=== PATIENT | female | born 1950 | race Caucasian/White ===

== ENCOUNTER 2016-08-20 08:10 | Inpatient (IN) | payer MEDICARE ==
[2016-08-20] MEDS ORDERED: NS 0.9% 1000 ML* 1,000 ML IV ONE (08:30)
[2016-08-20] MEDS ORDERED: Ondansetron INJ* 2 MG/ML VIAL IV ONE (08:30)
[2016-08-20] MEDS ORDERED: Morphine INJ* 4 MG/ML 1 ML CARPUJECT IV ONE (08:30)
[2016-08-20 09:08] LABS: Hematocrit 45 % (35-47); Hemoglobin 15.1 g/dl (12.0-16.0); Mean Corpuscular HGB Conc 34 g/dl (31-36); Mean Corpuscular Hemoglobin 30 pg (27-31); Mean Corpuscular Volume 90 fL (80-97); Mean Platelet Volume 8 um3 (7.4-10.4); Red Blood Count 5.02 10^6/ul (4.0-5.4); Red Cell Distribution Width 13 % (10.5-15); White Blood Count 10.5 10^3/ul (3.5-10.8)
[2016-08-20 09:24] LABS: BUN/Creatinine Ratio 24.7 (8-20); C Reactive Protein 6.58 mg/L (< 5.00); Calcium 9.3 mg/dL (8.6-10.3); EGFR African American 90.4 (>60); EGFR Non-African American 70.3 (>60); Globulin 2.7 g/dL (2-4); Potassium 3.9 mmol/L (3.5-5.0); Total Bilirubin 1.8 mg/dL (0.2-1.0); Total Protein 6.7 g/dL (6.4-8.9)
--- NOTE | 2016-08-20 09:50 | RAD ---
Indication: Abdominal pain. History of bowel obstruction. History of asthma. Comparison: December 27, 2015 PET/CT. Technique: Dual energy PA chest. Report: Mild prominence of the interstitial markings. Bilateral apical pleural-parenchymal scarring without change. LEFT nipple shadow noted corresponding with patient's anatomy based on prior CT. No suspicious focal pulmonary lesions, alveolar consolidation, pleural effusion, pneumothorax. The heart, pulmonary vasculature, and mediastinal contours are unremarkable. Negative for free air beneath the diaphragm. IMPRESSION: Chronic mild prominence of the interstitial markings. No acute cardiopulmonary process evident.
--- NOTE | 2016-08-20 10:21 | RAD ---
HISTORY: Abdominal pain, history small bowel obstruction COMPARISONS: January 16, 2016 VIEWS: Frontal views of the abdomen. FINDINGS: BOWEL: There is nondilated small bowel gas with differential air-fluid levels . There is large amount of stool within the colon CALCULI: There are no abnormal calculi. BONES AND SOFT TISSUES: There are no osseous abnormalities. OTHER FINDINGS: The lung bases are clear. There is no subphrenic gas. IMPRESSION: NONSPECIFIC BOWEL GAS PATTERN WITH NONDILATED SMALL BOWEL WITH DIFFERENTIAL AIR-FLUID LEVELS. THE DIFFERENTIAL INCLUDES ILEUS VERSUS EARLY OR PARTIAL OBSTRUCTION. RECOMMEND ATTENTION ON FOLLOW-UP IMAGING.
[2016-08-20] MEDS ORDERED: Albuterol 2.5 MG/3 ML NEB.SOL* (0.083%) INH PRN (12:09)
[2016-08-20] MEDS ORDERED: Levalbuterol 1.25MG/0.5ML NEB INH PRN (12:11)
[2016-08-20] MEDS: Morphine INJ* 4 MG/ML 1 ML CARPUJECT IV PRN ×3 (12:37→20:55)
[2016-08-20] MEDS: Pantoprazole IV* 40 MG IV SCH (12:39)
--- NOTE | 2016-08-20 12:44 | ED ---
Danny Bennett Anna, scribed for Nathan Bustillos MD on 08/20/16 at 0833 . GI/ HPI - HPI Summary HPI Summary: Patient is a 66 y/o female coming to [facility] presenting with sudden onset of constant lower abdominal pain that began at 2300 last night. She feels bloated and has been dry heaving. She is somewhat SOB at baseline. Denies gas and diarrhea. Sx similar to previous obstructed bowel. Her history is significant for 2 hiatal hernias, and a perforated bowel from diverticulitis. She still experiences diverticulitis at time. Takes Prednizone. Her previous surgeries have been done at [facility] because of her severe asthma. - History of Current Complaint Chief Complaint: EDAbdPain Time Seen by Provider: 08/20/16 08:13 Stated Complaint: ABD PAIN Hx Obtained From: Patient Pain Intensity: 10 - Additional Pertinent History Primary Care Physician: [id number] - Allergy/Home Medications Allergies/Adverse Reactions: Allergies Allergy/AdvReac Type Severity Reaction Status Date / Time Amoxicillin Allergy Severe Shortness Verified 08/20/16 08:46 of Breath Flu Virus Vaccine Allergy Severe Shortness Verified 08/20/16 08:46 of Breath Penicillins [PCN] Allergy Severe Hives Verified 08/20/16 08:46 PMH/Surg Hx/FS Hx/Imm Hx Endocrine/Hematology History: Reports: Hx Thyroid Disease - HYPOTHYROIDISM Denies: Hx Diabetes Cardiovascular History: Denies: Hx Hypertension Respiratory History: Reports: Hx Asthma, Hx Chronic Bronchitis, Hx Pneumonia, Hx Seasonal Allergies, Other Respiratory Problems/Disorders - PNA GI History: Reports: Hx Diverticulosis, Hx Hiatal Hernia, Other GI Disorders - Hx perforated bowel History: Denies: Hx Renal Disease Musculoskeletal History: Reports: Hx Orthopedic Injury, Hx Osteoporosis Sensory History: Reports: Hx Contacts or Glasses Opthamlomology History: Reports: Hx Contacts or Glasses Neurological History: Denies: Hx Seizures Psychiatric History: Denies: Hx Anxiety, Hx Depression, Hx Substance Abuse - Cancer History Cancer Type, Location and Year: Thyroid Hx Chemotherapy: No Hx Radiation Therapy: No - Surgical History Surgery Procedure, Year, and Place: Hiatal hernia repair x2; thyroidectomy ( [facility]) ; tonsilectomy/sinus surgery; hysterectomy, T&A, REFLUX SURGERY ([facility]) 07/2012 WITH REVISION 12/2012. Hx Anesthesia Reactions: No Infectious Disease History: No Infectious Disease History: Denies: Hx Hepatitis, Hx Human Immunodeficiency Virus (HIV), Hx Tuberculosis , Traveled Outside the [place] in Last 30 Days - Family History Known Family History: Positive: Hypertension - Social History Alcohol Use: None Substance Use Type: Reports: None Smoking Status (MU): Never Smoked Tobacco Review of Systems Negative: Fever Positive: Shortness Of Breath Positive: Abdominal Pain, Vomiting. Negative: Diarrhea All Other Systems Reviewed And Are Negative: Yes Physical Exam Triage Information Reviewed: Yes Vital Signs On Initial Exam: Initial Vitals Temp Pulse Resp BP Pulse Ox 97.8 F 74 16 114/72 95 08/20/16 08:10 08/20/16 08:10 08/20/16 08:10 08/20/16 08:10 08/20/16 08:10 Vital Signs Reviewed: Yes Appearance: Positive: Well-Appearing, Pain Distress - moderate Skin: Positive: Warm, Skin Color Reflects Adequate Perfusion, Dry Head/Face: Positive: Normal Head/Face Inspection Eyes: Positive: EOMI, MATT ENT: Positive: Normal ENT inspection Neck: Positive: Supple, Nontender Respiratory/Lung Sounds: Positive: Clear to Auscultation, Breath Sounds Present Cardiovascular: Positive: RRR Abdomen Description: Positive: Soft, Other: - tympanitic, diffusely tender Bowel Sounds: Positive: Hypoactive Musculoskeletal: Positive: Normal, Strength/ROM Intact Neurological: Positive: Normal, Sensory/Motor Intact, Alert, Oriented to Person Place, Time Psychiatric: Positive: Affect/Mood Appropriate Diagnostics - Vital Signs Vital Signs Temp Pulse Resp BP Pulse Ox 08/20/16 08:15 77 95 08/20/16 08:14 114/72 08/20/16 08:10 97.8 F 74 16 114/72 95 - Laboratory Lab Results: Lab Results 08/20/16 08/20/16 08/20/16 Range/Units 08:25 08:25 08:25 WBC 10.5 (3.5-10.8) 10^3/ul RBC 5.02 (4.0-5.4) 10^6/ul Hgb 15.1 (12.0-16.0) g/dl Hct 45 (35-47) % MCV 90 (80-97) fL MCH 30 (27-31) pg MCHC 34 (31-36) g/dl RDW 13 (10.5-15) % Plt Count 220 (150-450) 10^3/ul MPV 8 (7.4-10.4) um3 Neut % (Auto) 76.1 (38-83) % Lymph % (Auto) 11.7 L (25-47) % [place] % (Auto) 7.1 (1-9) % Eos % (Auto) 4.5 (0-6) % Baso % (Auto) 0.6 (0-2) % Absolute Neuts (auto) 8.0 H (1.5-7.7) 10^3/ul Absolute Lymphs (auto) 1.2 (1.0-4.8) 10^3/ul Absolute Monos (auto) 0.7 (0-0.8) 10^3/ul Absolute Eos (auto) 0.5 (0-0.6) 10^3/ul Absolute Basos (auto) 0.1 (0-0.2) 10^3/ul Absolute Nucleated RBC 0.01 10^3/ul Nucleated RBC % 0 INR (Anticoag Therapy) 0.97 (0.89-1.11) APTT 28.5 (26.0-36.3) seconds Sodium 138 (133-145) mmol/L Potassium 3.9 (3.5-5.0) mmol/L Chloride 103 (101-111) mmol/L Carbon Dioxide 27 (22-32) mmol/L Anion Gap 8 (2-11) mmol/L BUN 20 (6-24) mg/dL Creatinine 0.81 (0.51-0.95) mg/dL Est GFR ( Amer) 90.4 (>60) Est GFR (Non-Af Amer) 70.3 (>60) BUN/Creatinine Ratio 24.7 H (8-20) Glucose 118 H (70-100) mg/dL Lactic Acid (0.5-2.0) mmol/L Calcium 9.3 (8.6-10.3) mg/dL Total Bilirubin 1.80 H (0.2-1.0) mg/dL AST 21 (13-39) U/L ALT 13 (7-52) U/L Alkaline Phosphatase 42 (34-104) U/L Troponin I 0.00 (<0.04) ng/mL C-Reactive Protein 6.58 H (< 5.00) mg/L B-Natriuretic Peptide ( - 100) pg/mL Total Protein 6.7 (6.4-8.9) g/dL Albumin 4.0 (3.2-5.2) g/dL Globulin 2.7 (2-4) g/dL Albumin/Globulin Ratio 1.5 (1-3) Lipase 21 (11.0-82.0) U/L 08/20/16 08/20/16 Range/Units 08:25 08:25 WBC (3.5-10.8) 10^3/ul RBC (4.0-5.4) 10^6/ul Hgb (12.0-16.0) g/dl Hct (35-47) % MCV (80-97) fL MCH (27-31) pg MCHC (31-36) g/dl RDW (10.5-15) % Plt Count (150-450) 10^3/ul MPV (7.4-10.4) um3 Neut % (Auto) (38-83) % Lymph % (Auto) (25-47) % [place] % (Auto) (1-9) % Eos % (Auto) (0-6) % Baso % (Auto) (0-2) % Absolute Neuts (auto) (1.5-7.7) 10^3/ul Absolute Lymphs (auto) (1.0-4.8) 10^3/ul Absolute Monos (auto) (0-0.8) 10^3/ul Absolute Eos (auto) (0-0.6) 10^3/ul Absolute Basos (auto) (0-0.2) 10^3/ul Absolute Nucleated RBC 10^3/ul Nucleated RBC % INR (Anticoag Therapy) (0.89-1.11) APTT (26.0-36.3) seconds Sodium (133-145) mmol/L Potassium (3.5-5.0) mmol/L Chloride (101-111) mmol/L Carbon Dioxide (22-32) mmol/L Anion Gap (2-11) mmol/L BUN (6-24) mg/dL Creatinine (0.51-0.95) mg/dL Est GFR ( Amer) (>60) Est GFR (Non-Af Amer) (>60) BUN/Creatinine Ratio (8-20) Glucose (70-100) mg/dL Lactic Acid 1.3 (0.5-2.0) mmol/L Calcium (8.6-10.3) mg/dL Total Bilirubin (0.2-1.0) mg/dL AST (13-39) U/L ALT (7-52) U/L Alkaline Phosphatase (34-104) U/L Troponin I (<0.04) ng/mL C-Reactive Protein (< 5.00) mg/L B-Natriuretic Peptide 42 ( - 100) pg/mL Total Protein (6.4-8.9) g/dL Albumin (3.2-5.2) g/dL Globulin (2-4) g/dL Albumin/Globulin Ratio (1-3) Lipase (11.0-82.0) U/L Result Diagrams: 08/20/16 08:25 08/20/16 08:25 Lab Statement: Any lab studies that have been ordered have been reviewed, and results considered in the medical decision making process. - Radiology CXR Xray Interpretation: No Acute Changes Radiology Interpretation Completed By: Radiologist - IMPRESSION: Chronic mild prominence of the interstitial markings. No acute cardiopulmonary process evident. abd XR Xray Interpretation: Positive (See Comments) Radiology Interpretation Completed By: Radiologist - IMPRESSION: NONSPECIFIC BOWEL GAS PATTERN WITH NONDILATED SMALL BOWEL WITH DIFFERENTIAL AIR-FLUID LEVELS. THE DIFFERENTIAL INCLUDES ILEUS VERSUS EARLY OR PARTIAL OBSTRUCTION. RECOMMEND ATTENTION ON FOLLOW-UP IMAGING. - EKG 09:07 Cardiac Rate: NL - 65 bpm EKG Rhythm: Sinus Rhythm ST Segment: Normal Ectopy: None Re-Evaluation - Re-Evaluation First Eval Re-Evaluation Time: 10:33 Change: Improved Comment: Pt reports pain has improved following medication. Discussed lab and XR results and plan of care with patient. Patient agrees with plan. GIGU Course/Dx - Course Assessment/Plan: ADMIT HOSPITALIST STABLE - Diagnoses Provider Diagnoses: SBO (small bowel obstruction) - Physician Notifications Discussed Care Of Patient With: Dr. Raya (hospitalist) at 10:39. Agrees to admit patient. Discharge - Discharge Plan Condition: Stable Disposition: ADMITTED TO [facility] documentation as recorded by the Danny govea Anna accurately reflects the service I personally performed and the decisions made by me, Bustillos, Nathan, MD.
[2016-08-20] MEDS: NS 0.9% 1000 ML* 1,000 ML IV SCH ×2 (13:10→21:28)
[2016-08-20] MEDS ORDERED: PTO:Albuterol HFA INHALER* 8 gm MDI INH PRN (13:27)
[2016-08-20] MEDS: Ondansetron INJ* 2 MG/ML VIAL IV PRN ×2 (14:45→20:50)
[2016-08-20] MEDS: Heparin VIAL(*) 5000 UNITS/ML VIAL (FIVE THOUSAND) SUBCUT SCH ×2 (14:56→21:16)
[2016-08-20] MEDS ORDERED: Iohexol 300* (CONTRAST) 10 ML SDV IV ONE (15:23)
--- NOTE | 2016-08-20 16:09 | RAD ---
CLINICAL HISTORY: Small bowel obstruction COMPARISON: January 15, 2016, plain film dated August 20, 2016 TECHNIQUE: Multiple contiguous axial CT scans were obtained of the abdomen and pelvis after the administration of intravenous contrast. Coronal and sagittal multiplanar reformations are submitted for review. Oral contrast was administered. Delayed images were obtained through the abdomen FINDINGS: LUNG BASES: The lung bases are clear. LIVER: Again noted are multiple hepatic cysts. BILE DUCTS: There is no intrahepatic or extrahepatic biliary dilatation. GALLBLADDER: The gallbladder is normal, without pericholecystic inflammatory change. PANCREAS: The pancreas is normal, without mass or ductal dilatation. SPLEEN: Normal in size and appearance. UPPER GI TRACT: Evaluation of the gastrointestinal tract is limited by incomplete gastric distention. There is a small paraesophageal hiatal hernia. SMALL BOWEL AND MESENTERY: There is diffuse distention mild dilatation of the small bowel with a transition point to decompressed small bowel in the right hemiabdomen. There is a small amount of interloop fluid COLON: There is postsurgical change to the distal colon ADRENALS: Normal bilaterally. KIDNEYS: The kidneys are normal in shape, size, contour, and axis. There is no hydronephrosis or nephrolithiasis. BLADDER: The bladder is incompletely distended but is grossly normal. PELVIC ORGANS: The pelvic organs are not visualized. AORTA: The aorta is normal. IVC: Unremarkable LYMPH NODES: There is no lymphadenopathy by size criteria. ABDOMINAL WALL: There is a fat-containing ventral hernia. BONES AND SOFT TISSUES: There is a scoliotic curvature of the spine. Degenerative changes are noted. OTHER: There is a small amount of ascites. There is no free intraperitoneal gas IMPRESSION: 1. PROXIMAL DILATED SMALL BOWEL LOOPS WITH TRANSITION TO DECOMPRESSED SMALL BOWEL DISTALLY CONSISTENT WITH SMALL BOWEL OBSTRUCTION. 2. THERE IS SMALL AMOUNT OF ASCITES AND INTERLOOP FLUID.
--- NOTE | 2016-08-20 21:06 | CONS ---
SURGICAL CONSULTATION: DATE OF CONSULT: 08/20/16 REQUESTING PROVIDER: Leonardo Casanova NP REASON FOR CONSULTATION: Small-bowel obstruction. HISTORY OF PRESENT ILLNESS: This is a 66-year-old female with a past surgical history notable for perforated diverticulitis treated with colectomy, colostomy , and subsequent reversal in 2013, as well as a history of GIRISH and prior history of small-bowel obstruction in the past. She had been in her usual state of health until 11 p.m. last evening when she developed sudden-onset generalized abdominal pain. She reports that she last recalled passing flatus in the afternoon yesterday. She was unable to sleep. She progressed to having vomiting at 3 a.m. She had several episodes of emesis and presented to the emergency room this morning. She also reports no hematemesis, no bilious emesis. She last vomited approximately 1 hour ago and that was CAT scan contrast. She received IV pain medication with improvement in her pain and currently is resting comfortably. She denies fevers or chills. She had a prior SBO in summer with spontaneous resolution. PAST MEDICAL HISTORY: Significant for thyroid cancer and asthma. PAST SURGICAL HISTORY: Tonsillectomy and sinus surgery. She has had bilateral tubal ligation, total abdominal hysterectomy, but has her ovaries. She had a laparoscopic Perla fundoplication with a revision due to a slip. She has had total thyroidectomy as well as the colectomy, colostomy, and subsequent reversal as above. MEDICATIONS: Currently: 1. Albuterol. 2. Heparin subcutaneous. 3. Xopenex. 4. Synthroid. 5. Solu-Medrol. 6. Dulera. 7. Morphine p.r.n. 8. Zofran p.r.n. 9. Protonix IV. ALLERGIES: PENICILLIN, AMOXICILLIN, and FLU VACCINE. FAMILY HISTORY: Noncontributory. SOCIAL HISTORY: Has never used tobacco. PHYSICAL EXAMINATION: Her temperature is 97.9, pulse 71, respirations 18, blood pressure 110/67, O2 sat 95%. Head is normocephalic and atraumatic. Her sclerae are anicteric. Her abdomen has multiple scars in the midline and in the left abdomen. The patient also has multiple laparoscopic scars. The abdomen is distended. Bowel sounds are present. It is soft with no tenderness to percussion. Mild tenderness to deep palpation. No rebound or guarding. She has a ventral incisional hernia in the upper abdomen, which is soft and reducible. DIAGNOSTIC STUDIES/LAB DATA: CT scan images from 08/20/16 were reviewed. Findings are consistent with a mechanical small-bowel obstruction with transition in the right abdomen. The CBC shows WBCs are normal at 10.5, hemoglobin 15.1, platelets 220. Chemistries: Normal electrolytes. Glucose is 118. Total bili is 1.8. CRP is 6.6. INR and PTT are in the normal range. IMPRESSION: A 66-year-old female with history of multiple abdominal surgeries, now presenting with mechanical small-bowel obstruction with no cardinal signs and no indication for needing any urgent surgical intervention. PLAN/RECOMMENDATIONS: I have recommended NG tube decompression to the patient; however, she is refusing this at present. The patient should be kept n.p.o., maintained on IV hydration, and have serial exams and followup x-rays in the morning. [facility] will continue to follow with you. CC: Doris Alicea MD* [id number]/[facility] #: [id number] [facility]
[2016-08-20] MEDS ORDERED: Phenol 1.4% Spray* 177 ML BTL MT PRN (21:14)
[2016-08-20] MEDS: MDI INH SCH (21:15)
[2016-08-20] MEDS: MOMETASONE INH SCH (21:15)
[2016-08-20] MEDS: [UNRECOGNIZED DRUG - OTHER] INH SCH (21:15)
[2016-08-20] MEDS ORDERED: LORazepam INJ* 2 MG/ML 1 ML VIAL IV PUSH ONE (21:15)
--- NOTE | 2016-08-21 00:51 | HP ---
HISTORY AND PHYSICAL: DATE OF ADMISSION: 08/20/16 PRIMARY CARE PROVIDER: Dr. oDris Alicea. CONSULTING SURGEON: Dr. Murray. ATTENDING PHYSICIAN WHILE IN THE HOSPITAL: Karol Raya DO * (report dictated by Leonardo Casanova NP). CHIEF COMPLAINT: 1. Abdominal pain. 2. Dry heaves. HISTORY OF PRESENT ILLNESS: Ms. Benavides is a 66-year-old female patient who has had multiple abdominal surgeries. She has had small bowel obstructions in the past as well. She comes in today. She has developed an upper abdominal pain starting from the right going over to the left, sudden onset around 11 o'clock last night. She tried ambulating around her house. She felt her abdomen getting more and more distended. The pain progressively got worse and worse. She started having dry heaves. She was not feeling well. She says that typically when she feels nauseousness and has dry heaves, she does not bring up anything. The pain got worse. She denied having any fevers or chills. Denied any chest pain or shortness of breath. She said that she knew that this felt similar to her previous SBO and because she was not getting any better despite her best efforts of ambulation and trying to relieve the obstruction, she came in the ER. She says her last bowel movement was yesterday but it was a small BM. She has had several small BMs in the last couple of days and she was concerned because the pain again was not getting any better. She was evaluated by Dr. Bustillos, an x-ray was obtained. It did show concern for possible small bowel obstruction. Hospitalist service was asked to evaluate for admission. PAST MEDICAL HISTORY: 1. Asthma. 2. Thyroid cancer. 3. Hiatal hernia. 4. Diverticulitis. PAST SURGICAL HISTORY: 1. She has had thyroidectomy. 2. Exploratory laparotomy with bowel excision and colostomy with a reversal secondary to perforated diverticulum. 3. She has had hysterectomy. 4. Tonsillectomy. 5. Sinus surgery. 6. Hiatal hernia repair x2. HOME MEDICATIONS: Include: 1. Prednisone 5 mg daily. 2. Dulera one puff inhaled b.i.d. 3. Synthroid 88 mcg daily. 4. Levocetirizine 5 mg at bedtime. 5. Xopenex 1.25 mg inhaled every 4 hours as needed. 6. Prolia 16 mg subcu every 6 months. 7. Vitamin D3 50,000 units p.o. twice a week. 8. Calcium with vitamin D one tablet daily. 9. Z-Jewel 250 mg daily, which she has finished. 10. Pro-Air 2 puffs inhaled every 4 hours as needed. ALLERGIES TO MEDICATIONS: PENICILLIN and FLU VACCINE. FAMILY HISTORY: Her mother had myasthenia gravis. Father had a history of kidney disease. SOCIAL HISTORY: She rarely drinks alcohol. She does not smoke. She is with children. Surrogate decision maker is her son. REVIEW OF SYSTEMS: There is no documented fever. She denied having any significant weight change. There was no double vision. There is no ear discharge. She denies having any rhinorrhea. There is no sore throat. There was no thyroid enlargement. She denies having any chest pain. There was abdominal pain per my HPI. There was nausea with dry heaves. There was no dysuria. No frequency. No loss of consciousness. No pruritus and no skin ulcerations. Review of 14 systems completed, all others negative. PHYSICAL EXAMINATION GENERAL: At this time, Ms. Benavides is a 66-year-old female patient. She is sitting in the ER stretcher. She does not appear to be in any acute distress. She is awake and alert. VITAL SIGNS: Blood pressure 117/63, pulse 70, respirations 18, O2 sat 96%, and temperature 97.8. HEENT: Head atraumatic, normocephalic. Eyes: EOMs are intact. Sclerae anicteric and not pale. Throat: Oral mucosa appears to be moist. No oropharyngeal erythema NECK: Supple. LUNGS: Clear to auscultation bilaterally. HEART: Sounds S1, S2. Regular rate and rhythm. No murmurs, rubs, or gallops. ABDOMEN: Distended. Bowel sounds were hypoactive. She did have some tenderness in the central abdominal area, but she does not appear to have a surgical abdomen. She had no guarding present at this point. She did appear to be again mildly distended. EXTREMITIES: Pulses are 2+ throughout. She had no peripheral edema. She is able to move all 4 extremities with 5/5 strength. NEUROLOGIC: She is awake, alert, and oriented x3. Tongue midline. Help Desk Associate are equal. No gross focal deficits. SKIN: Grossly intact. DIAGNOSTIC STUDIES/LAB DATA: Today revealed WBC of 10.5, RBC of 5.02, hemoglobin 15.1, hematocrit 45, platelet count 220. INR is 0.97, PTT 28.5. Sodium 138, potassium 3.9, chloride 103, bicarb 27, BUN 20, creatinine 0.81, glucose 118, lactate 1.3, calcium 9.3, total bilirubin 1.8, AST 21, ALT 13, alk phos 42, troponin 0, CRP is 6.58, BMP of 42, albumin 4, lipase 21. She had abdominal x-rays obtained today, which revealed nonspecific bowel gas pattern with nondilated small bowel with differential air-fluid levels. Differential includes ileus versus early or partial obstruction. Recommend attention on followup imaging. She had an EKG obtained today as well, which showed a normal sinus rhythm, rate of 65. No ST elevations or T-wave inversions were noted. There was a chest x-ray obtained today, which showed chronic mild prominence of the interstitial markings. No acute cardiopulmonary process evident. Old medical records were reviewed. ASSESSMENT AND PLAN: Ms. Benavides is a 66-year-old female patient coming into the ER today with complaints of abdominal discomfort starting last night with association of dry heaves and progressive distention and abdominal pain. On evaluation, it was noted that today there was a possible bowel obstruction. Hospitalist service was asked to evaluate for admission. She will be admitted under inpatient status for: 1. Small bowel obstruction. At this point, she is tender on exam and does have some distention. I am going to repeat her CT of the abdomen and pelvis. She is currently actively not vomiting or having any more dry heaves, so I am going to hold off an NG tube. I do have a call with Dr. Murray. I am going to hydrate her for the time being. P.r.n. morphine and Zofran for supportive care and continue to follow her closely. Most likely, it is probably related to adhesions again and again we will get surgical input. A call has been placed. 2. Asthma. Continue her medications as prescribed. 3. History of thyroid cancer and hypothyroidism. Continue her Synthroid. I did give her IV. 4. History of hiatal hernia. While she is n.p.o., I will put her on Protonix IV daily. 5. History of diverticulitis, not an active issue. 6. DVT prophylaxis. She is moderate risk. 7. Fluids, electrolytes, and nutrition. She is n.p.o. on normal saline at 125 an hour. 8. Code status, full code. TIME SPENT: Time spent on the admission was 60 minutes; greater than half the time was spent [id number] with the patient obtaining my history and physical, other half the time spent going over the plan of care with the patient and implementing plan of care. I did discuss the plan of care with my attending, Dr. Raya; she is in agreement. LEONARDO CASANOVA NP CC: Dr. Murray; Dr. Doris Alicea* [id number]/[facility] #: [id number] [facility]
[2016-08-21] MEDS: Morphine INJ* 4 MG/ML 1 ML CARPUJECT IV PRN ×5 (04:39→20:49)
[2016-08-21] MEDS: NS 0.9% 1000 ML* 1,000 ML IV SCH ×3 (05:45→23:55)
[2016-08-21] MEDS: Levothyroxine INJ* 100 MCG/5 ML VIAL IV SCH (05:56)
[2016-08-21] MEDS: Heparin VIAL(*) 5000 UNITS/ML VIAL (FIVE THOUSAND) SUBCUT SCH ×3 (05:58→22:05)
[2016-08-21 06:48] LABS: Hematocrit 38 % (35-47); Hemoglobin 12.4 g/dl (12.0-16.0); Mean Corpuscular HGB Conc 33 g/dl (31-36); Mean Corpuscular Hemoglobin 30 pg (27-31); Mean Corpuscular Volume 92 fL (80-97); Mean Platelet Volume 7 um3 (7.4-10.4); Red Blood Count 4.15 10^6/ul (4.0-5.4); Red Cell Distribution Width 13 % (10.5-15); White Blood Count 7.9 10^3/ul (3.5-10.8)
[2016-08-21 07:00] LABS: BUN/Creatinine Ratio 18.3 (8-20); Calcium 7.4 mg/dL (8.6-10.3); EGFR African American 105.3 (>60); EGFR Non-African American 81.9 (>60)
[2016-08-21] MEDS: methylPREDNISolone SOD 40 MG* 1 ML VIAL IV SCH (08:19)
[2016-08-21] MEDS: MDI INH SCH ×2 (08:20→22:04)
[2016-08-21] MEDS: MOMETASONE INH SCH ×2 (08:20→22:04)
[2016-08-21] MEDS: [UNRECOGNIZED DRUG - OTHER] INH SCH ×2 (08:20→22:04)
--- NOTE | 2016-08-21 09:35 | RAD ---
Indication: Small bowel obstruction Flat and decubitus views of the abdomen demonstrates no free air. Stool is present throughout the colon. No abnormally dilated loops of bowel are noted. Nasogastric tube appears to be in the distal esophagus. IMPRESSION: Previously identified small bowel loops with air-fluid levels are no longer present. Nasogastric tube appears to be in the distal esophagus.
--- NOTE | 2016-08-21 11:22 | PN ---
Progress Note - Progress Note SOAP: Subjective: Pain is about the same and she still is requiring IV analgesics. No flatus. Objective: Vital Signs Temp 97.9 F 08/21/16 07:38 Pulse 67 08/21/16 07:38 Resp 18 08/21/16 09:17 BP 109/58 08/21/16 07:38 Pulse Ox 96 08/21/16 07:38 Intake & Output 08/20/16 08/21/16 08/21/16 18:59 06:59 18:59 Intake Total 521 1416 Output Total 300 655 0 Balance 221 761 0 Weight 150 lb Intake: IV Fluids 1416 NS (0.9%) 1416 IVPB 521 NS (0.9%) 521 Oral 0 0 Output: NG Tube Drainage Amount 155 Urine 300 250 0 Emesis 250 Other: Date of Last Bowel 08/19/16 Movement Estimated Stool Amount Small NGT not functioning; this was advance to 65cm and position confirmed by auscultation. Flushed and noted to be working. Abd: distended, soft. Mild tenderness. Laboratory Results - last 24 hr 08/21/16 08/21/16 08/21/16 06:32 06:32 06:32 WBC 7.9 RBC 4.15 Hgb 12.4 Hct 38 MCV 92 MCH 30 MCHC 33 RDW 13 Plt Count 186 MPV 7 L Neut % (Auto) 70.5 Lymph % (Auto) 14.0 L [place] % (Auto) 8.4 Eos % (Auto) 6.5 H Baso % (Auto) 0.6 Absolute Neuts (auto) 5.6 Absolute Lymphs (auto) 1.1 Absolute Monos (auto) 0.7 Absolute Eos (auto) 0.5 Absolute Basos (auto) 0 Absolute Nucleated RBC 0 Nucleated RBC % 0 INR (Anticoag Therapy) 1.02 Sodium 136 Potassium 4.0 Chloride 108 Carbon Dioxide 26 Anion Gap 2 BUN 13 Creatinine 0.71 Est GFR ( Amer) 105.3 Est GFR (Non-Af Amer) 81.9 BUN/Creatinine Ratio 18.3 Glucose 90 Calcium 7.4 L AXR: improved SBO with gas in colon. Assessment: Improving SBO by xray, but clinically no change. NGT was not in position, but now functioning. Plan: Keep NPO until flatus. NGT may not be needed if minimal output after repositioning. Will follow.
[2016-08-21] MEDS: Pantoprazole IV* 40 MG IV SCH (13:37)
--- NOTE | 2016-08-21 15:01 | PN ---
Subjective Date of Service: 08/21/16 Interval History: Patient seen this morning. Continues to have abdominal pain/discomfort. Mostly unchanged from yesterday. Does note that N/V has resolved. No flatus. No SOB. Family History: Unchanged from Admission Social History: Unchanged from Admission Past Medical History: Unchanged from Admission Objective Active Medications: Albuterol (Ventolin 2.5 Mg/3 Ml Neb.Zaira*) 2.5 mg INH Q2H PRN Albuterol (Ventolin Hfa Inhaler*) 2 puff INH Q4H PRN Heparin Sodium (Porcine) (Heparin Vial(*)) 5,000 units SUBCUT Q8HR [facility] Sodium Chloride (Ns 0.9% 1000 Ml*) 1,000 mls @ 125 mls/hr IV PER RATE [facility] Levalbuterol HCl (Xopenex 1.25 Mg/0.5 Ml Neb.Zaira*) 1.25 mg INH Q4H PRN Levothyroxine Sodium (Synthroid Inj*) 44 mcg IV 0600 [facility] Methylprednisolone Sodium Succinate (Solu-Medrol*) 4 mg IV DAILY [facility] Mometasone Furoate/Formoterol Fumar (Dulera 200/5 Mdi*) 1 puff INH BID [facility] Morphine Sulfate (Morphine Inj (Syringe)*) 4 mg IV Q2H PRN Ondansetron HCl (Zofran Inj*) 4 mg IV Q6H PRN Pantoprazole Sodium (Protonix Iv*) 40 mg IV Q24H [facility] Phenol/Menthol (Chloroseptic Throat [place]*) 1 spray MT TID PRN Vital Signs 08/20/16 08/20/16 08/20/16 15:07 15:33 16:00 Temperature 98.2 F Pulse Rate 73 Respiratory 18 16 Rate Blood Pressure 100/66 (mmHg) O2 Sat by Pulse 92 95 Oximetry 08/21/16 08/21/16 08/21/16 00:00 01:10 01:22 Temperature 98.2 F Pulse Rate 74 75 74 Respiratory 20 14 Rate Blood Pressure 104/60 (mmHg) O2 Sat by Pulse 91 90 95 Oximetry 08/21/16 08/21/16 08/21/16 03:30 04:39 05:39 Temperature 99.9 F Pulse Rate 69 Respiratory 16 16 16 Rate Blood Pressure 100/63 (mmHg) O2 Sat by Pulse 97 Oximetry 02/08/0608/21/16 08/21/16 07:38 08:00 08:17 Temperature 97.9 F Pulse Rate 67 Respiratory 18 20 20 Rate Blood Pressure 109/58 (mmHg) O2 Sat by Pulse 96 Oximetry 08/21/16 08/21/16 08/21/16 09:17 12:12 13:00 Temperature 98.2 F Pulse Rate 72 Respiratory 18 18 18 Rate Blood Pressure 116/63 (mmHg) O2 Sat by Pulse 92 Oximetry Oxygen Devices in Use Now: None Appearance: Middle-aged, F, laying in bed in mild discomfort Eyes: No Scleral Icterus Ears/Nose/Mouth/Throat: - - Dry MM Neck: NL Appearance and Movements; NL JVP Respiratory: Symmetrical Chest Expansion and Respiratory Effort, Clear to Auscultation Cardiovascular: NL Sounds; No Murmurs; No JVD, RRR Abdominal: - - High pitched BS, TTP along lower quadrants Lymphatic: No Cervical Adenopathy Extremities: No Edema Skin: No Rash or Ulcers Neurological: Alert and Oriented x 3 Lines/Tubes/Other Access: Clean, Dry and Intact Naso-enteral Tube Result Diagrams: 08/21/16 06:32 08/21/16 06:32 Additional Lab and Data: Assess/Plan/Problems-Billing Assessment: SBO in a 66 yo F with hx of ashtma, thyroid ca, hiatal hernia, diverticulitis - Patient Problems (1) SBO (small bowel obstruction) Current Visit: Yes Comment: Appreciate surgery assistance. AM AXR appears to be improved. Continue NPO, IVF, analgesia. Can likely d/c NGT if output remains minimal. (2) Asthma Current Visit: No Comment: Continue home medications and IV steroids while NPO (3) Hypothyroidism Current Visit: Yes Comment: Continue IV synthroid (4) DVT prophylaxis Current Visit: No Comment: HSQ Status and Disposition: Inpatient for SBO
[2016-08-22] MEDS: Morphine INJ* 4 MG/ML 1 ML CARPUJECT IV PRN ×2 (00:41→06:49)
[2016-08-22] MEDS: Heparin VIAL(*) 5000 UNITS/ML VIAL (FIVE THOUSAND) SUBCUT SCH ×3 (06:12→22:34)
[2016-08-22] MEDS: Levothyroxine INJ* 100 MCG/5 ML VIAL IV SCH (06:14)
[2016-08-22] MEDS: [UNRECOGNIZED DRUG - OTHER] INH SCH ×2 (08:44→22:33)
[2016-08-22] MEDS: MDI INH SCH ×2 (08:44→22:33)
[2016-08-22] MEDS: MOMETASONE INH SCH ×2 (08:44→22:33)
[2016-08-22] MEDS: methylPREDNISolone SOD 40 MG* 1 ML VIAL IV SCH (09:03)
[2016-08-22] MEDS ORDERED: Morphine INJ* 4 MG/ML 1 ML CARPUJECT IV PRN (09:05)
--- NOTE | 2016-08-22 09:07 | PN ---
Subjective Date of Service: 08/22/16 Interval History: Patient seen this morning. Still with some abdominal pain although feels it is slowly improving. No N/V. No flatus. Has been ambulating around the unit. Feels a bit wheezy this morning but states that is her baseline. Family History: Unchanged from Admission Social History: Unchanged from Admission Past Medical History: Unchanged from Admission Objective Active Medications: Albuterol (Ventolin 2.5 Mg/3 Ml Neb.Zaira*) 2.5 mg INH Q2H PRN Albuterol (Ventolin Hfa Inhaler*) 2 puff INH Q4H PRN Heparin Sodium (Porcine) (Heparin Vial(*)) 5,000 units SUBCUT Q8HR [facility] Sodium Chloride (Ns 0.9% 1000 Ml*) 1,000 mls @ 100 mls/hr IV PER RATE [facility] Levalbuterol HCl (Xopenex 1.25 Mg/0.5 Ml Neb.Zaira*) 1.25 mg INH Q4H PRN Levothyroxine Sodium (Synthroid Inj*) 44 mcg IV 0600 [facility] Methylprednisolone Sodium Succinate (Solu-Medrol*) 4 mg IV DAILY [facility] Mometasone Furoate/Formoterol Fumar (Dulera 200/5 Mdi*) 1 puff INH BID [facility] Morphine Sulfate (Morphine Inj (Syringe)*) 4 mg IV Q2H PRN Ondansetron HCl (Zofran Inj*) 4 mg IV Q6H PRN Pantoprazole Sodium (Protonix Iv*) 40 mg IV Q24H [facility] Phenol/Menthol (Chloroseptic Throat [place]*) 1 spray MT TID PRN Vital Signs 08/21/16 08/21/16 08/21/16 09:17 12:12 13:00 Temperature 98.2 F Pulse Rate 72 Respiratory 18 18 18 Rate Blood Pressure 116/63 (mmHg) O2 Sat by Pulse 92 Oximetry 08/21/16 08/21/16 08/21/16 14:00 15:30 15:52 Temperature 97.7 F Pulse Rate 72 Respiratory 18 14 Rate Blood Pressure 118/56 (mmHg) O2 Sat by Pulse 87 87 Oximetry 08/21/16 08/21/16 08/21/16 16:00 16:21 17:21 Temperature Pulse Rate Respiratory 18 16 Rate Blood Pressure (mmHg) O2 Sat by Pulse 95 Oximetry 08/21/16 08/21/16 08/21/16 19:25 20:00 20:04 Temperature 97.7 F Pulse Rate 63 77 Respiratory 16 18 16 Rate Blood Pressure 125/63 (mmHg) O2 Sat by Pulse 98 95 Oximetry 08/21/16 08/21/16 08/21/16 20:49 21:49 23:37 Temperature 97.9 F Pulse Rate 65 Respiratory 16 16 16 Rate Blood Pressure 105/55 (mmHg) O2 Sat by Pulse 98 Oximetry 08/22/16 08/22/16 08/22/16 00:41 01:41 03:48 Temperature 97.5 F Pulse Rate 63 Respiratory 20 18 16 Rate Blood Pressure 110/54 (mmHg) O2 Sat by Pulse 97 Oximetry 08/22/16 08/22/16 06:49 07:49 Temperature Pulse Rate Respiratory 18 16 Rate Blood Pressure (mmHg) O2 Sat by Pulse Oximetry Oxygen Devices in Use Now: Nasal Cannula Appearance: Middle-aged, F, laying in bed in NAD Eyes: No Scleral Icterus Ears/Nose/Mouth/Throat: - - Dry MM Neck: NL Appearance and Movements; NL JVP Respiratory: Symmetrical Chest Expansion and Respiratory Effort, - - Mild diffuse wheezing, good air movement Cardiovascular: NL Sounds; No Murmurs; No JVD, RRR Abdominal: - - Soft, mild distension, TTP mostly in upper quadrants, hypoactive BS Lymphatic: No Cervical Adenopathy Extremities: No Edema Skin: No Rash or Ulcers Neurological: Alert and Oriented x 3 Lines/Tubes/Other Access: Clean, Dry and Intact Naso-enteral Tube - draining dark brown fluid Result Diagrams: 08/21/16 06:32 08/21/16 06:32 Additional Lab and Data: Assess/Plan/Problems-Billing Assessment: SBO in a 66 yo F with hx of ashtma, thyroid ca, hiatal hernia, diverticulitis - Patient Problems (1) SBO (small bowel obstruction) Current Visit: Yes Comment: Appreciate surgery assistance. Will await surgical evaluation today prior to removal of NGT. Continue NPO, IVF, analgesia for now. No flatus yet. (2) Asthma Current Visit: No Comment: Continue home medications and IV steroids while NPO (3) Hypothyroidism Current Visit: Yes Comment: Continue IV synthroid (4) DVT prophylaxis Current Visit: No Comment: HSQ Status and Disposition: Inpatient for SBO. Progressing slowly, likely 2-4 more days.
[2016-08-22] MEDS: NS 0.9% 1000 ML* 1,000 ML IV SCH ×2 (10:15→20:15)
--- NOTE | 2016-08-22 11:56 | RAD ---
Indication: Small bowel obstruction follow-up. Previous hiatal hernia repair. Comparison: August 21, 2016 Technique: Supine and upright views of the abdomen. Report: Tip of nasogastric tube at the greater curvature body of stomach. Negative for dilated bowel loops. Moderate stool throughout the colon. Surgical clips most consistent with bowel anastomosis at the pelvis. No suspicious calcifications or mass effect. Negative for free air beneath the diaphragm. Elevated lung volumes with flattening of the hemidiaphragms. IMPRESSION: Resolution of previous small bowel obstruction.
[2016-08-22 12:11] LABS: BUN/Creatinine Ratio 17.7 (8-20); Calcium 7.3 mg/dL (8.6-10.3); EGFR African American 123.1 (>60); EGFR Non-African American 95.7 (>60); Potassium 4.3 mmol/L (3.5-5.0)
[2016-08-22] MEDS: Pantoprazole IV* 40 MG IV SCH (12:28)
[2016-08-22] MEDS: Morphine INJ* 2 MG/ML 1 ML CARPUJECT IV PRN ×2 (12:28→18:29)
--- NOTE | 2016-08-22 13:58 | PN ---
Progress Note - Progress Note SOAP: Subjective: She still has pain. No flatus but small BM today. Objective: Vital Signs Temp 97.3 F 08/22/16 12:37 Pulse 66 08/22/16 12:37 Resp 18 08/22/16 12:37 BP 131/56 08/22/16 12:37 Pulse Ox 95 08/22/16 12:37 Intake & Output 08/21/16 08/22/16 08/22/16 18:59 06:59 18:59 Intake Total 317 830 8897 Output Total 350 950 910 Balance 624 35 176 Intake: IV Fluids 985 100 NS (0.9%) 985 100 IVPB 974 986 NS (0.9%) 974 986 Oral 0 0 Output: NG Tube Drainage Amount 50 175 60 Urine 300 775 850 Other: Estimated Void Small Date of Last Bowel 08/19 Movement # Bowel Movements 1 Estimated Stool Amount Small # Voids 1 Abd: softly distended with mild tenderness. AXR: contrast noted in colon. No A/F levels or dilated SB. Assessment: Resolving SBO. Unlikely that she'll need any surgical intervention. Plan: NGT d/c'd. Await flatus before advancing diet.
[2016-08-22 20:43] LABS: BUN/Creatinine Ratio 18.3 (8-20); Calcium 7.3 mg/dL (8.6-10.3); EGFR African American 127.9 (>60); EGFR Non-African American 99.4 (>60); Potassium 4.8 mmol/L (3.5-5.0)
[2016-08-23] MEDS: Morphine INJ* 2 MG/ML 1 ML CARPUJECT IV PRN ×4 (02:04→19:20)
[2016-08-23] MEDS: NS 0.9% 1000 ML* 1,000 ML IV SCH (05:50)
[2016-08-23] MEDS: Levothyroxine INJ* 100 MCG/5 ML VIAL IV SCH (05:56)
[2016-08-23] MEDS: Heparin VIAL(*) 5000 UNITS/ML VIAL (FIVE THOUSAND) SUBCUT SCH ×3 (05:56→22:24)
[2016-08-23] MEDS ORDERED: Calcium Gluconate INJ* 2 GM in NS 0.9% 100 ML* 100 ML IV ONE (08:47)
[2016-08-23] MEDS: MDI INH SCH ×2 (09:23→20:49)
[2016-08-23] MEDS: MOMETASONE INH SCH ×2 (09:23→20:49)
[2016-08-23] MEDS: [UNRECOGNIZED DRUG - OTHER] INH SCH ×2 (09:23→20:49)
[2016-08-23] MEDS ORDERED: NS 0.9% 100 ML* 0 ML ONE (09:33)
[2016-08-23] MEDS: methylPREDNISolone SOD 40 MG* 1 ML VIAL IV SCH (09:38)
--- NOTE | 2016-08-23 10:05 | PN ---
Progress Note - Progress Note SOAP: Subjective: still has mild abdominal pain,no flatus,small stools,no nausea [] Objective: Vital Signs Temp 97.6 F 08/23/16 03:32 Pulse 74 08/23/16 07:27 Resp 20 08/23/16 09:41 BP 153/82 08/23/16 07:27 Pulse Ox 96 08/23/16 07:27 Intake & Output 08/22/16 08/23/16 08/23/16 18:59 06:59 18:59 Intake Total 1415 1570 1000 Output Total 1360 1450 800 Balance 55 120 200 Intake: IV Fluids 429 1570 377 NS (0.9%) 429 1570 377 IVPB 986 623 NS (0.9%) 986 623 Oral 0 0 Output: NG Tube Drainage Amount 210 Urine 1150 1450 800 Other: Estimated Void Small Date of Last Bowel 08/1908/23/16 08/23/16 Movement # Bowel Movements 1 1 1 Estimated Stool Amount Small Small Medium # Voids 1 abd:hypoactive bs;softly distended;tender to palpation across upper abd and right mid abd,no guarding [] Assessment:SBO,still with pain and no flatus [] Plan:continue NPO,discuss with Dr Murray []
--- NOTE | 2016-08-23 14:18 | PN ---
Subjective Date of Service: 08/23/16 Interval History: Patient seen this afternoon. Feels pain is improving. Moved her bowels this morning, more than yesterday. No N/V. Says she is hungry. No SOB. Mild wheezing. Family History: Unchanged from Admission Social History: Unchanged from Admission Past Medical History: Unchanged from Admission Objective Active Medications: Albuterol (Ventolin 2.5 Mg/3 Ml Neb.Zaira*) 2.5 mg INH Q2H PRN PRN Reason: SOB/WHEEZING Albuterol (Ventolin Hfa Inhaler*) 2 puff INH Q4H PRN PRN Reason: SHORTNESS OF BREATH Last Admin: 08/23/16 11:25 Dose: 2 puff Heparin Sodium (Porcine) (Heparin Vial(*)) 5,000 units SUBCUT Q8HR [facility] Last Admin: 08/23/16 05:56 Dose: 5,000 units Lactated Ringer's (Lactated Ringers 1000 Ml Bag*) 1,000 mls @ 100 mls/hr IV ONCE ONE Stop: 08/23/16 18:45 Last Admin: 08/23/16 09:35 Dose: 100 mls/hr Levalbuterol HCl (Xopenex 1.25 Mg/0.5 Ml Neb.Zaira*) 1.25 mg INH Q4H PRN PRN Reason: SHORTNESS OF BREATH Levothyroxine Sodium (Synthroid Inj*) 44 mcg IV 0600 [facility] Last Admin: 08/23/16 05:56 Dose: 44 mcg Methylprednisolone Sodium Succinate (Solu-Medrol*) 4 mg IV DAILY [facility] Last Admin: 08/23/16 09:38 Dose: 4 mg Mometasone Furoate/Formoterol Fumar (Dulera 200/5 Mdi*) 1 puff INH BID [facility] Last Admin: 08/23/16 09:23 Dose: 1 puff Morphine Sulfate (Morphine Inj (Syringe)*) 2 mg IV Q4H PRN PRN Reason: PAIN - MILD Last Admin: 08/23/16 09:41 Dose: 2 mg Morphine Sulfate (Morphine Inj (Syringe)*) 4 mg IV Q2H PRN PRN Reason: SEVERE PAIN Ondansetron HCl (Zofran Inj*) 4 mg IV Q6H PRN PRN Reason: NAUSEA Last Admin: 08/20/16 20:50 Dose: 4 mg Pantoprazole Sodium (Protonix Iv*) 40 mg IV Q24H [facility] Last Admin: 08/22/16 12:28 Dose: 40 mg Phenol/Menthol (Chloroseptic Throat [place]*) 1 spray MT TID PRN PRN Reason: SORE THROAT Vital Signs 08/22/16 08/22/16 08/22/16 15:35 17:22 18:29 Temperature 98.3 F Pulse Rate 70 72 Respiratory 18 16 16 Rate Blood Pressure 127/63 (mmHg) O2 Sat by Pulse 92 96 Oximetry 08/22/16 08/22/16 08/22/16 19:18 19:29 21:00 Temperature 97.9 F Pulse Rate 67 Respiratory 16 20 18 Rate Blood Pressure 120/57 (mmHg) O2 Sat by Pulse 97 Oximetry 08/23/16 08/23/16 08/23/16 00:10 02:04 03:04 Temperature 97.9 F Pulse Rate 67 Respiratory 18 20 18 Rate Blood Pressure 139/70 (mmHg) O2 Sat by Pulse 95 Oximetry 08/23/16 08/23/16 08/23/16 03:32 03:38 07:27 Temperature 97.6 F Pulse Rate 68 75 74 Respiratory 18 20 18 Rate Blood Pressure 135/69 153/82 (mmHg) O2 Sat by Pulse 96 96 96 Oximetry 08/23/16 08/23/16 08/23/16 07:30 09:41 10:41 Temperature Pulse Rate Respiratory 18 20 20 Rate Blood Pressure (mmHg) O2 Sat by Pulse Oximetry 08/23/16 08/23/16 10:48 11:53 Temperature 97.7 F Pulse Rate 76 71 Respiratory 14 18 Rate Blood Pressure 134/67 (mmHg) O2 Sat by Pulse 96 98 Oximetry Oxygen Devices in Use Now: None Appearance: Middle-aged, F, laying in bed in NAD Eyes: No Scleral Icterus Ears/Nose/Mouth/Throat: - - Dry MM Neck: NL Appearance and Movements; NL JVP Respiratory: Symmetrical Chest Expansion and Respiratory Effort, - - Mild wheezing diffusely Cardiovascular: NL Sounds; No Murmurs; No JVD, RRR Abdominal: - - Soft, non-distended, mild TTP in epigastric and LLQ, BS+, no rebound/guarding Lymphatic: No Cervical Adenopathy Extremities: No Edema Skin: No Rash or Ulcers Neurological: Alert and Oriented x 3 Result Diagrams: 08/21/16 06:32 08/22/16 19:56 Additional Lab and Data: Assess/Plan/Problems-Billing Assessment: SBO in a 66 yo F with hx of ashtma, thyroid ca, hiatal hernia, diverticulitis - Patient Problems (1) SBO (small bowel obstruction) Current Visit: Yes Comment: Appreciate surgery assistance. NGT removed 2/2. Will start sips of clears. Continue IVF (change to LR with NAGMA), analgesia. (2) Asthma Current Visit: No Comment: Continue home medications and IV steroids while NPO (3) Hypothyroidism Current Visit: Yes Comment: Continue IV synthroid (4) DVT prophylaxis Current Visit: No Comment: HSQ Status and Disposition: Inpatient for SBO. Progressing slowly, likely 2-3 more days.
[2016-08-23] MEDS: Pantoprazole IV* 40 MG IV SCH (15:30)
[2016-08-24] MEDS: Morphine INJ* 2 MG/ML 1 ML CARPUJECT IV PRN ×2 (01:02→11:52)
[2016-08-24] MEDS: Levothyroxine INJ* 100 MCG/5 ML VIAL IV SCH (06:17)
[2016-08-24] MEDS: Heparin VIAL(*) 5000 UNITS/ML VIAL (FIVE THOUSAND) SUBCUT SCH ×3 (06:19→21:34)
[2016-08-24 07:05] LABS: BUN/Creatinine Ratio 13.8 (8-20); EGFR Non-African American 103.4 (>60); Potassium 3.7 mmol/L (3.5-5.0)
[2016-08-24] MEDS: MDI INH SCH ×2 (08:54→21:36)
[2016-08-24] MEDS: [UNRECOGNIZED DRUG - OTHER] INH SCH ×2 (08:54→21:36)
[2016-08-24] MEDS: methylPREDNISolone SOD 40 MG* 1 ML VIAL IV SCH (08:54)
[2016-08-24] MEDS: MOMETASONE INH SCH ×2 (08:54→21:36)
[2016-08-24] MEDS ORDERED: Magnesium Hydroxide LIQ* 30 ML UDC PO ONE (09:22)
[2016-08-24] MEDS: PTO:LevoCETirizine TAB (NF) 5 MG TAB PO SCH (09:37)
[2016-08-24] MEDS: Pantoprazole IV* 40 MG IV SCH (13:19)
--- NOTE | 2016-08-24 13:48 | PN ---
Subjective Date of Service: 08/24/16 Interval History: Tolerating sips of clears. Ambulated around unit x 2. Has sharp abdominal pain that comes and goes. No N/V. Family History: Unchanged from Admission Social History: Unchanged from Admission Past Medical History: Unchanged from Admission Objective Active Medications: Albuterol (Ventolin 2.5 Mg/3 Ml Neb.Zaira*) 2.5 mg INH Q2H PRN PRN Reason: SOB/WHEEZING Albuterol (Ventolin Hfa Inhaler*) 2 puff INH Q4H PRN PRN Reason: SHORTNESS OF BREATH Last Admin: 08/23/16 11:25 Dose: 2 puff Heparin Sodium (Porcine) (Heparin Vial(*)) 5,000 units SUBCUT Q8HR [facility] Last Admin: 08/24/16 13:20 Dose: 5,000 units Levalbuterol HCl (Xopenex 1.25 Mg/0.5 Ml Neb.Zaira*) 1.25 mg INH Q4H PRN PRN Reason: SHORTNESS OF BREATH Levocetirizine (Xyzal Tab (Nf)) 5 mg PO DAILY [facility] Last Admin: 08/24/16 09:37 Dose: 5 mg Levothyroxine Sodium (Synthroid Inj*) 44 mcg IV 0600 [facility] Last Admin: 08/24/16 06:17 Dose: 44 mcg Methylprednisolone Sodium Succinate (Solu-Medrol*) 4 mg IV DAILY [facility] Last Admin: 08/24/16 08:54 Dose: 4 mg Mometasone Furoate/Formoterol Fumar (Dulera 200/5 Mdi*) 1 puff INH BID [facility] Last Admin: 08/24/16 08:54 Dose: 1 puff Morphine Sulfate (Morphine Inj (Syringe)*) 2 mg IV Q4H PRN PRN Reason: PAIN - MILD Last Admin: 08/24/16 11:52 Dose: 2 mg Morphine Sulfate (Morphine Inj (Syringe)*) 4 mg IV Q2H PRN PRN Reason: SEVERE PAIN Ondansetron HCl (Zofran Inj*) 4 mg IV Q6H PRN PRN Reason: NAUSEA Last Admin: 08/20/16 20:50 Dose: 4 mg Pantoprazole Sodium (Protonix Iv*) 40 mg IV Q24H [facility] Last Admin: 08/24/16 13:19 Dose: 40 mg Phenol/Menthol (Chloroseptic Throat [place]*) 1 spray MT TID PRN PRN Reason: SORE THROAT Vital Signs 08/23/16 08/23/16 08/23/16 15:26 16:00 16:14 Temperature 97.7 F Pulse Rate 71 Respiratory 16 16 Rate Blood Pressure 135/68 (mmHg) O2 Sat by Pulse 96 96 Oximetry 08/23/16 08/23/16 08/23/16 17:14 19:16 19:18 Temperature 98.2 F Pulse Rate 65 Respiratory 16 18 16 Rate Blood Pressure 138/63 (mmHg) O2 Sat by Pulse 95 Oximetry 08/23/16 08/23/16 08/23/16 19:20 20:20 20:53 Temperature Pulse Rate 67 Respiratory 18 20 20 Rate Blood Pressure (mmHg) O2 Sat by Pulse 97 Oximetry 08/24/16 08/24/16 08/24/16 00:04 00:47 01:02 Temperature 97.5 F Pulse Rate 67 Respiratory 20 18 Rate Blood Pressure 135/63 (mmHg) O2 Sat by Pulse 96 97 Oximetry 08/24/16 08/24/16 08/24/16 02:02 07:15 08:00 Temperature 97.5 F Pulse Rate 63 Respiratory 20 16 16 Rate Blood Pressure 127/73 (mmHg) O2 Sat by Pulse 96 Oximetry 08/24/16 11:52 Temperature Pulse Rate Respiratory 16 Rate Blood Pressure (mmHg) O2 Sat by Pulse Oximetry Oxygen Devices in Use Now: None Appearance: NAD Eyes: No Scleral Icterus Ears/Nose/Mouth/Throat: Clear Oropharnyx, Mucous Membranes Moist Neck: NL Appearance and Movements; NL JVP, Trachea Midline Respiratory: Symmetrical Chest Expansion and Respiratory Effort, Clear to Auscultation Cardiovascular: NL Sounds; No Murmurs; No JVD, RRR Abdominal: - - soft, ND, mild TTP epigastrum, hypoactive BS in 4q Lymphatic: No Cervical Adenopathy Extremities: No Edema Neurological: Alert and Oriented x 3 Result Diagrams: 08/21/16 06:32 08/24/16 06:22 Additional Lab and Data: Assess/Plan/Problems-Billing Assessment: SBO in a 66 yo F with hx of asthma, thyroid ca, hiatal hernia, diverticulitis - Patient Problems (1) SBO (small bowel obstruction) Comment: Appreciate surgery assistance. NGT removed 2/2. c/w sips of clears. d/c IVF (2) Hypothyroidism Comment: Continue IV synthroid (3) Asthma Current Visit: No Status: Acute Code(s): J45.909 - UNSPECIFIED ASTHMA, UNCOMPLICATED SNOMED Code(s): 667518190 Comment: Continue home medications and IV steroids while NPO (4) DVT prophylaxis Comment: HSQ Status and Disposition: Inpatient for SBO. Progressing slowly, likely 2-3 more days.
[2016-08-24] MEDS: HYDROcodone/ACETAMIN 5-325 MG* 1 TAB PO PRN ×2 (14:24→21:34)
[2016-08-25] MEDS: Levothyroxine INJ* 100 MCG/5 ML VIAL IV SCH (05:58)
[2016-08-25] MEDS: Heparin VIAL(*) 5000 UNITS/ML VIAL (FIVE THOUSAND) SUBCUT SCH ×3 (05:59→22:55)
[2016-08-25] MEDS: MDI INH SCH ×2 (09:30→19:42)
[2016-08-25] MEDS: MOMETASONE INH SCH ×2 (09:30→19:42)
[2016-08-25] MEDS: methylPREDNISolone SOD 40 MG* 1 ML VIAL IV SCH (09:30)
[2016-08-25] MEDS: [UNRECOGNIZED DRUG - OTHER] INH SCH ×2 (09:30→19:42)
[2016-08-25] MEDS: PTO:LevoCETirizine TAB (NF) 5 MG TAB PO SCH (09:30)
[2016-08-25] MEDS: HYDROcodone/ACETAMIN 5-325 MG* 1 TAB PO PRN ×3 (09:40→19:42)
[2016-08-25] MEDS ORDERED: Magnesium Hydroxide LIQ* 30 ML UDC PO ONE (11:52)
[2016-08-25] MEDS: Pantoprazole IV* 40 MG IV SCH (13:02)
--- NOTE | 2016-08-25 16:27 | PN ---
Subjective Date of Service: 08/25/16 Interval History: Small amount of flatus and small BM today OOB and ambulating Still feels bloated with minimal abdominal tenderness Family History: Unchanged from Admission Social History: Unchanged from Admission Past Medical History: Unchanged from Admission Objective Active Medications: Acetaminophen/Hydrocodone Bitart ([place] 5-325 Tab*) 1 tab PO Q4H PRN PRN Reason: PAIN Last Admin: 08/25/16 13:58 Dose: 1 tab Albuterol (Ventolin 2.5 Mg/3 Ml Neb.Zaira*) 2.5 mg INH Q2H PRN PRN Reason: SOB/WHEEZING Albuterol (Ventolin Hfa Inhaler*) 2 puff INH Q4H PRN PRN Reason: SHORTNESS OF BREATH Last Admin: 08/23/16 11:25 Dose: 2 puff Heparin Sodium (Porcine) (Heparin Vial(*)) 5,000 units SUBCUT Q8HR [facility] Last Admin: 08/25/16 13:58 Dose: 5,000 units Levalbuterol HCl (Xopenex 1.25 Mg/0.5 Ml Neb.Zaira*) 1.25 mg INH Q4H PRN PRN Reason: SHORTNESS OF BREATH Levocetirizine (Xyzal Tab (Nf)) 5 mg PO DAILY [facility] Last Admin: 08/25/16 09:30 Dose: 5 mg Levothyroxine Sodium (Synthroid Inj*) 44 mcg IV 0600 [facility] Last Admin: 08/25/16 05:58 Dose: 44 mcg Methylprednisolone Sodium Succinate (Solu-Medrol*) 4 mg IV DAILY [facility] Last Admin: 08/25/16 09:30 Dose: 4 mg Mometasone Furoate/Formoterol Fumar (Dulera 200/5 Mdi*) 1 puff INH BID [facility] Last Admin: 08/25/16 09:30 Dose: 1 puff Morphine Sulfate (Morphine Inj (Syringe)*) 2 mg IV Q4H PRN PRN Reason: PAIN - MILD Last Admin: 08/24/16 11:52 Dose: 2 mg Ondansetron HCl (Zofran Inj*) 4 mg IV Q6H PRN PRN Reason: NAUSEA Last Admin: 08/20/16 20:50 Dose: 4 mg Pantoprazole Sodium (Protonix Iv*) 40 mg IV Q24H [facility] Last Admin: 08/25/16 13:02 Dose: 40 mg Phenol/Menthol (Chloroseptic Throat [place]*) 1 spray MT TID PRN PRN Reason: SORE THROAT Vital Signs 08/24/16 08/24/16 08/24/16 16:58 16:59 19:00 Temperature Pulse Rate 70 Respiratory 12 16 Rate Blood Pressure (mmHg) O2 Sat by Pulse 96 96 Oximetry 08/24/16 08/24/16 08/24/16 19:36 20:00 21:00 Temperature 98.1 F Pulse Rate 63 Respiratory 14 16 16 Rate Blood Pressure 125/63 (mmHg) O2 Sat by Pulse 94 Oximetry 08/24/16 08/24/16 08/24/16 21:34 23:32 23:34 Temperature 97.9 F Pulse Rate 61 Respiratory 20 16 16 Rate Blood Pressure 145/71 (mmHg) O2 Sat by Pulse 97 Oximetry 08/25/16 08/25/16 08/25/16 04:00 07:20 08:00 Temperature 97.5 F 97.3 F Pulse Rate 58 59 Respiratory 16 16 16 Rate Blood Pressure 125/66 138/73 (mmHg) O2 Sat by Pulse 98 97 97 Oximetry 08/25/16 08/25/16 08/25/16 09:40 11:30 11:40 Temperature 97.3 F Pulse Rate 59 Respiratory 18 16 18 Rate Blood Pressure 128/74 (mmHg) O2 Sat by Pulse 96 Oximetry 08/25/16 08/25/16 08/25/16 13:58 15:34 15:37 Temperature 97.7 F Pulse Rate 63 Respiratory 18 20 16 Rate Blood Pressure 144/77 (mmHg) O2 Sat by Pulse 92 Oximetry Oxygen Devices in Use Now: None Appearance: NAD Eyes: No Scleral Icterus, PERRLA Ears/Nose/Mouth/Throat: NL Teeth, Lips, Gums, Clear Oropharnyx, Mucous Membranes Moist Neck: NL Appearance and Movements; NL JVP, Trachea Midline Respiratory: Symmetrical Chest Expansion and Respiratory Effort, Clear to Auscultation Cardiovascular: NL Sounds; No Murmurs; No JVD, RRR Abdominal: NL Sounds; No Tenderness; No Distention, No Hepatosplenomegaly, - - + BS but decreased in llq Lymphatic: No Cervical Adenopathy Extremities: No Edema, No Clubbing, Cyanosis Skin: No Rash or Ulcers Neurological: Alert and Oriented x 3 Result Diagrams: 08/21/16 06:32 08/24/16 06:22 Additional Lab and Data: Assess/Plan/Problems-Billing Assessment: SBO in a 66 yo F with hx of asthma, thyroid ca, hiatal hernia, diverticulitis - Patient Problems (1) SBO (small bowel obstruction) Comment: Appreciate surgery assistance. NGT removed 2/2. c/w sips of clears. d/c IVF Improving slowly (2) Hypothyroidism Comment: Continue IV synthroid (3) Asthma Current Visit: No Status: Acute Code(s): J45.909 - UNSPECIFIED ASTHMA, UNCOMPLICATED SNOMED Code(s): 457890915 Comment: Continue home medications and IV steroids while NPO (4) DVT prophylaxis Comment: HSQ Status and Disposition: Inpatient for SBO. Progressing slowly, likely 1-2 more days.
[2016-08-26] MEDS: Levothyroxine INJ* 100 MCG/5 ML VIAL IV SCH (05:54)
[2016-08-26] MEDS: Heparin VIAL(*) 5000 UNITS/ML VIAL (FIVE THOUSAND) SUBCUT SCH ×3 (05:57→21:20)
[2016-08-26] MEDS: [UNRECOGNIZED DRUG - OTHER] INH SCH ×2 (07:44→21:20)
[2016-08-26] MEDS: MOMETASONE INH SCH ×2 (07:44→21:20)
[2016-08-26] MEDS: MDI INH SCH ×2 (07:44→21:20)
[2016-08-26] MEDS: HYDROcodone/ACETAMIN 5-325 MG* 1 TAB PO PRN ×3 (07:44→21:19)
[2016-08-26] MEDS: PTO:LevoCETirizine TAB (NF) 5 MG TAB PO SCH (07:45)
[2016-08-26] MEDS: methylPREDNISolone SOD 40 MG* 1 ML VIAL IV SCH (07:46)
--- NOTE | 2016-08-26 13:11 | PN ---
Progress Note - Progress Note Note: Surgery Progress: S: HD#7. States she's been having some lower abd cramping, assoc w/ nausea ( which is relieved by walking). No vomiting. Small BMs. No flatus for a day or two. Using occ hydrocodone. States that overall, she is still improving since admission. She does feel like drinking (clears) more, but no appetite. O: Vital Signs - 8 hr 08/26/16 08/26/16 08/26/16 07:11 07:44 11:25 Temperature 97.4 F 97.2 F Pulse Rate 56 75 Respiratory 16 18 16 Rate Blood Pressure 142/80 134/83 (mmHg) O2 Sat by Pulse 97 96 Oximetry 08/26/16 11:32 Temperature Pulse Rate Respiratory 16 Rate Blood Pressure (mmHg) O2 Sat by Pulse 96 Oximetry Intake and Output Last 24 Hours 08/24/16 08/25/16 08/26/16 08/27/16 06:59 06:59 06:59 06:59 Intake Total 2275 720 0896 Output Total 4500 1150 700 Balance -2777 -790 840 Intake: IV Fluids 377 NS (0.9%) 377 IVPB 746 Calcium gluconate 123 NS (0.9%) 623 Oral 002 420 2591 Output: Urine 4500 1150 700 Other: Date of Last Bowel 08/23/16 08/25/16 Movement # Bowel Movements 0 Estimated Stool Amount Medium Small Heart: reg Lungs: clear ant Abd: min distension; +BS on R, quiet on L; soft; mild tenderness upper midline; remainder nontender. No peritoneal signs. No new labs or imaging. A: SBO w/ slow improvement (c/w previous hx) P: discussed w/ hosp; will liberalize her clears to ad mike; await further bowel activity
[2016-08-26] MEDS: Pantoprazole IV* 40 MG IV SCH (13:55)
--- NOTE | 2016-08-26 18:35 | PN ---
Subjective Date of Service: 08/26/16 Interval History: No flatus or BM since yesterday OOB and ambulating Feels abdomen is less distended but did have lower abdominal cramping this AM that has resolved tolerating sips of clears no N/V Family History: Unchanged from Admission Social History: Unchanged from Admission Past Medical History: Unchanged from Admission Objective Active Medications: Acetaminophen/Hydrocodone Bitart ([place] 5-325 Tab*) 1 tab PO Q4H PRN PRN Reason: PAIN Last Admin: 08/26/16 17:05 Dose: 1 tab Albuterol (Ventolin 2.5 Mg/3 Ml Neb.Zaira*) 2.5 mg INH Q2H PRN PRN Reason: SOB/WHEEZING Albuterol (Ventolin Hfa Inhaler*) 2 puff INH Q4H PRN PRN Reason: SHORTNESS OF BREATH Last Admin: 08/23/16 11:25 Dose: 2 puff Heparin Sodium (Porcine) (Heparin Vial(*)) 5,000 units SUBCUT Q8HR [facility] Last Admin: 08/26/16 13:55 Dose: 5,000 units Levalbuterol HCl (Xopenex 1.25 Mg/0.5 Ml Neb.Zaira*) 1.25 mg INH Q4H PRN PRN Reason: SHORTNESS OF BREATH Levocetirizine (Xyzal Tab (Nf)) 5 mg PO DAILY [facility] Last Admin: 08/26/16 07:45 Dose: 5 mg Levothyroxine Sodium (Synthroid Inj*) 44 mcg IV 0600 [facility] Last Admin: 08/26/16 05:54 Dose: 44 mcg Methylprednisolone Sodium Succinate (Solu-Medrol*) 4 mg IV DAILY [facility] Last Admin: 08/26/16 07:46 Dose: 4 mg Mometasone Furoate/Formoterol Fumar (Dulera 200/5 Mdi*) 1 puff INH BID [facility] Last Admin: 08/26/16 07:44 Dose: 1 puff Morphine Sulfate (Morphine Inj (Syringe)*) 2 mg IV Q4H PRN PRN Reason: PAIN - MILD Last Admin: 08/24/16 11:52 Dose: 2 mg Ondansetron HCl (Zofran Inj*) 4 mg IV Q6H PRN PRN Reason: NAUSEA Last Admin: 08/20/16 20:50 Dose: 4 mg Pantoprazole Sodium (Protonix Iv*) 40 mg IV Q24H [facility] Last Admin: 08/26/16 13:55 Dose: 40 mg Phenol/Menthol (Chloroseptic Throat [place]*) 1 spray MT TID PRN PRN Reason: SORE THROAT Vital Signs 08/25/16 08/25/16 08/25/16 19:42 19:47 19:54 Temperature 97.6 F Pulse Rate 63 Respiratory 18 18 14 Rate Blood Pressure 136/78 (mmHg) O2 Sat by Pulse 96 Oximetry 08/25/16 08/25/16 08/25/16 20:00 21:42 22:55 Temperature Pulse Rate 59 56 Respiratory 16 18 18 Rate Blood Pressure 145/75 (mmHg) O2 Sat by Pulse 89 99 Oximetry 08/25/16 08/26/16 08/26/16 23:09 00:00 03:50 Temperature 97.6 F 98.2 F Pulse Rate 57 Respiratory 18 Rate Blood Pressure 130/68 (mmHg) O2 Sat by Pulse 89 98 Oximetry 08/26/16 08/26/16 08/26/16 07:11 07:44 09:44 Temperature 97.4 F Pulse Rate 56 Respiratory 16 18 16 Rate Blood Pressure 142/80 (mmHg) O2 Sat by Pulse 97 Oximetry 08/26/16 08/26/16 08/26/16 11:25 11:32 15:26 Temperature 97.2 F 97.6 F Pulse Rate 75 63 Respiratory 16 16 16 Rate Blood Pressure 134/83 117/68 (mmHg) O2 Sat by Pulse 96 96 94 Oximetry 08/26/16 08/26/16 15:27 17:05 Temperature Pulse Rate Respiratory 16 Rate Blood Pressure (mmHg) O2 Sat by Pulse 96 Oximetry Oxygen Devices in Use Now: None Appearance: NAD Eyes: No Scleral Icterus, PERRLA Ears/Nose/Mouth/Throat: NL Teeth, Lips, Gums, Clear Oropharnyx, Mucous Membranes Moist Neck: NL Appearance and Movements; NL JVP, Trachea Midline Respiratory: Symmetrical Chest Expansion and Respiratory Effort, Clear to Auscultation Cardiovascular: NL Sounds; No Murmurs; No JVD, RRR Abdominal: NL Sounds; No Tenderness; No Distention, - - hypoactive BS Lymphatic: No Cervical Adenopathy Extremities: No Edema, No Clubbing, Cyanosis Skin: No Rash or Ulcers Neurological: Alert and Oriented x 3 Result Diagrams: 08/21/16 06:32 08/24/16 06:22 Additional Lab and Data: Assess/Plan/Problems-Billing Assessment: SBO in a 66 yo F with hx of asthma, thyroid ca, hiatal hernia, diverticulitis - Patient Problems (1) SBO (small bowel obstruction) Comment: Appreciate surgery assistance. NGT removed 08/22/16. advance to clears d/c IVF Improving slowly consider reimaging tomorrow if improvement plateus (2) Hypothyroidism Comment: Continue IV synthroid (3) Asthma Current Visit: No Status: Acute Code(s): J45.909 - UNSPECIFIED ASTHMA, UNCOMPLICATED SNOMED Code(s): 545244146 Comment: Continue home medications and IV steroids while NPO (4) DVT prophylaxis Comment: HSQ Status and Disposition: Inpatient for SBO. Progressing slowly, likely 1-2 more days.
[2016-08-27] MEDS: Heparin VIAL(*) 5000 UNITS/ML VIAL (FIVE THOUSAND) SUBCUT SCH ×3 (05:37→21:48)
[2016-08-27] MEDS: Levothyroxine INJ* 100 MCG/5 ML VIAL IV SCH (05:37)
[2016-08-27] MEDS: HYDROcodone/ACETAMIN 5-325 MG* 1 TAB PO PRN ×3 (07:30→21:47)
[2016-08-27] MEDS: MOMETASONE INH SCH ×2 (08:43→21:34)
[2016-08-27] MEDS: PTO:LevoCETirizine TAB (NF) 5 MG TAB PO SCH (08:43)
[2016-08-27] MEDS: [UNRECOGNIZED DRUG - OTHER] INH SCH ×2 (08:43→21:34)
[2016-08-27] MEDS: MDI INH SCH ×2 (08:43→21:34)
[2016-08-27] MEDS: methylPREDNISolone SOD 40 MG* 1 ML VIAL IV SCH (08:43)
[2016-08-27] MEDS: Pantoprazole IV* 40 MG IV SCH (13:01)
[2016-08-27] MEDS ORDERED: Magnesium Hydroxide LIQ* 30 ML UDC PO PRN (15:18)
--- NOTE | 2016-08-27 15:40 | PN ---
Progress Note - Progress Note SOAP: Subjective: []66 yo female with a history of multiple abdominal surgeries was admitted 1 week ago for a partial small bowel obstruction. This is her fourth hospitalization for similar symptoms in the past year. Today, she complains of intermittent cramping abdominal pain that is mildly improving and continued loss of appetite. Still using hydrocodone but not morphine. She denies any flatus or BMs, but is able to ambulate well and tolerate a clear liquid diet without nausea or vomiting. Pt seen with MARLENE Childs. Objective: []General- 66 yo female appears stated age, laying in bed watching TV in NAD. Abdomen- Multiple incision scars from previous surgeries noted in the epigastric and periumbilical regions. Symmetrically mildly distended. Hypoactive bowel sounds in LLQ/LUQ and normoactive bowel sounds in RLQ/RUQ. Tenderness to palpation in RLQ and epigastrium without rigidity or rebound. Assessment: []1. 66 yo female with partial SBO. Plan: []1. MOM now and prn for constipation 2. Continue clear liquid diet until appetite increases and a liquid diet is tolerated 3. Patient counseled to limit narcotic use, as they cause constipation
[2016-08-27] MEDS ORDERED: Magnesium Hydroxide LIQ* 30 ML UDC PO ONE (16:00)
--- NOTE | 2016-08-27 17:54 | PN ---
Subjective Date of Service: 08/27/16 Interval History: Flatus yesterday and minimal today. No BM since yesterday. No additional crampy pain. Feels less bloated Family History: Unchanged from Admission Social History: Unchanged from Admission Past Medical History: Unchanged from Admission Objective Active Medications: Acetaminophen/Hydrocodone Bitart ([place] 5-325 Tab*) 1 tab PO Q4H PRN PRN Reason: PAIN Last Admin: 08/27/16 17:42 Dose: 1 tab Albuterol (Ventolin 2.5 Mg/3 Ml Neb.Zaira*) 2.5 mg INH Q2H PRN PRN Reason: SOB/WHEEZING Albuterol (Ventolin Hfa Inhaler*) 2 puff INH Q4H PRN PRN Reason: SHORTNESS OF BREATH Last Admin: 08/23/16 11:25 Dose: 2 puff Heparin Sodium (Porcine) (Heparin Vial(*)) 5,000 units SUBCUT Q8HR [facility] Last Admin: 08/27/16 13:58 Dose: 5,000 units Levalbuterol HCl (Xopenex 1.25 Mg/0.5 Ml Neb.Zaira*) 1.25 mg INH Q4H PRN PRN Reason: SHORTNESS OF BREATH Levocetirizine (Xyzal Tab (Nf)) 5 mg PO DAILY [facility] Last Admin: 08/27/16 08:43 Dose: 5 mg Levothyroxine Sodium (Synthroid Inj*) 44 mcg IV 0600 [facility] Last Admin: 08/27/16 05:37 Dose: 44 mcg Magnesium Hydroxide (Milk Of Magnesia Liq*) 30 ml PO BID PRN PRN Reason: constipation Methylprednisolone Sodium Succinate (Solu-Medrol*) 4 mg IV DAILY [facility] Last Admin: 08/27/16 08:43 Dose: 4 mg Mometasone Furoate/Formoterol Fumar (Dulera 200/5 Mdi*) 1 puff INH BID [facility] Last Admin: 08/27/16 08:43 Dose: 1 puff Morphine Sulfate (Morphine Inj (Syringe)*) 2 mg IV Q4H PRN PRN Reason: PAIN - MILD Last Admin: 08/24/16 11:52 Dose: 2 mg Ondansetron HCl (Zofran Inj*) 4 mg IV Q6H PRN PRN Reason: NAUSEA Last Admin: 08/20/16 20:50 Dose: 4 mg Pantoprazole Sodium (Protonix Iv*) 40 mg IV Q24H [facility] Last Admin: 08/27/16 13:01 Dose: 40 mg Phenol/Menthol (Chloroseptic Throat [place]*) 1 spray MT TID PRN PRN Reason: SORE THROAT Vital Signs 08/26/16 08/26/16 08/26/16 19:05 19:49 20:00 Temperature 97.6 F Pulse Rate 62 59 Respiratory 18 16 16 Rate Blood Pressure 119/78 (mmHg) O2 Sat by Pulse 95 95 Oximetry 08/26/16 08/26/16 08/26/16 21:19 22:58 23:19 Temperature 97.5 F Pulse Rate 57 Respiratory 16 18 16 Rate Blood Pressure 112/69 (mmHg) O2 Sat by Pulse 97 Oximetry 08/27/16 08/27/16 08/27/16 00:00 03:31 07:18 Temperature 97.5 F 97.7 F Pulse Rate 55 61 Respiratory 16 16 Rate Blood Pressure 120/62 142/86 (mmHg) O2 Sat by Pulse 95 95 98 Oximetry 08/27/16 08/27/16 08/27/16 07:30 07:34 09:30 Temperature Pulse Rate Respiratory 18 18 18 Rate Blood Pressure (mmHg) O2 Sat by Pulse 95 Oximetry 08/27/16 08/27/16 08/27/16 11:24 15:56 16:00 Temperature 97.8 F 97.7 F Pulse Rate 62 57 Respiratory 17 16 Rate Blood Pressure 119/81 126/79 (mmHg) O2 Sat by Pulse 96 94 94 Oximetry 08/27/16 08/27/16 17:41 17:42 Temperature Pulse Rate 60 Respiratory 18 18 Rate Blood Pressure (mmHg) O2 Sat by Pulse 96 Oximetry Oxygen Devices in Use Now: None Appearance: NAD Eyes: No Scleral Icterus, PERRLA Ears/Nose/Mouth/Throat: Clear Oropharnyx, Mucous Membranes Moist Neck: NL Appearance and Movements; NL JVP, Trachea Midline Respiratory: Symmetrical Chest Expansion and Respiratory Effort, Clear to Auscultation Cardiovascular: NL Sounds; No Murmurs; No JVD, RRR Abdominal: NL Sounds; No Tenderness; No Distention, No Hepatosplenomegaly, - - decraesed BS Lymphatic: No Cervical Adenopathy Extremities: No Edema Neurological: Alert and Oriented x 3 Result Diagrams: 08/21/16 06:32 08/24/16 06:22 Additional Lab and Data: Assess/Plan/Problems-Billing Assessment: SBO in a 66 yo F with hx of asthma, thyroid ca, hiatal hernia, diverticulitis - Patient Problems (1) SBO (small bowel obstruction) Comment: Appreciate surgery assistance. NGT removed 08/22/16. c/w clears Improving slowly MOM today then PRN (2) Hypothyroidism Comment: Continue IV synthroid (3) Asthma Current Visit: No Status: Acute Code(s): J45.909 - UNSPECIFIED ASTHMA, UNCOMPLICATED SNOMED Code(s): 558737402 Comment: Continue home medications and IV steroids while NPO (4) DVT prophylaxis Comment: HSQ Status and Disposition: Inpatient for SBO. Progressing slowly
[2016-08-28] MEDS: Heparin VIAL(*) 5000 UNITS/ML VIAL (FIVE THOUSAND) SUBCUT SCH ×2 (06:12→12:54)
[2016-08-28] MEDS: Levothyroxine INJ* 100 MCG/5 ML VIAL IV SCH (06:12)
[2016-08-28] MEDS: HYDROcodone/ACETAMIN 5-325 MG* 1 TAB PO PRN (09:03)
[2016-08-28] MEDS ORDERED: methylPREDNISolone SOD 40 MG* 1 ML VIAL ONE (09:31)
[2016-08-28] MEDS: PTO:LevoCETirizine TAB (NF) 5 MG TAB PO SCH (09:42)
[2016-08-28] MEDS: methylPREDNISolone SOD 40 MG* 1 ML VIAL IV SCH (09:42)
[2016-08-28] MEDS: MOMETASONE INH SCH (09:56)
[2016-08-28] MEDS: [UNRECOGNIZED DRUG - OTHER] INH SCH (09:56)
[2016-08-28] MEDS: MDI INH SCH (09:56)
[2016-08-28 11:51] VITALS: BP 96/56
--- NOTE | 2016-08-28 12:13 | PN ---
Progress Note - Progress Note SOAP: Subjective:passing flatus and watery brown stools;no nausea or vomiting;no cramping or pain;trang clears;not hungry;feels lightheaded when up [] Objective: Vital Signs Temp 98.1 F 08/28/16 11:08 Pulse 57 08/28/16 11:08 Resp 16 08/28/16 11:08 BP 96/56 08/28/16 11:08 Pulse Ox 97 08/28/16 11:08 Intake & Output 08/27/16 08/28/16 08/28/16 18:59 06:59 18:59 Intake Total 480 820 Output Total 1450 850 Balance -970 -30 Intake: Oral 480 820 Output: Urine 1450 850 Other: # Bowel Movements 0 2 Estimated Stool Amount Medium lungs:clear bilat;heart RRR;abd:+bs,soft,less bloated;nontender throughout;ext: no edema,nontender [] Assessment:improved GI function after MOM;reports lightheadedness when up [] Plan:continue clear liquids,reassess for possible full liquids at dinner []
[2016-08-28] MEDS: Pantoprazole IV* 40 MG IV SCH (12:54)
--- NOTE | 2016-08-29 13:52 | DS ---
DISCHARGE SUMMARY: DATE OF ADMISSION: 08/20/16 DATE OF DISCHARGE: 08/28/16 PRIMARY CARE PROVIDER: Dr. Doris Alicea. PRIMARY DIAGNOSES: 1. Small bowel obstruction. 2. Asthma. 3. Hypothyroidism. 4. History of diverticulitis, status post ex-lap with bowel resection and colostomy and reversal secondary to perforation. MEDICATIONS ON DISCHARGE: Include: 1. Dulera 200/5 one puff twice daily. 2. Xyzal 5 mg at bedtime. 3. Prolia 60 mg subcutaneous every 6 months. 4. Xopenex inhaler every 4 hours as needed. 5. Vitamin D3 50,000 units twice weekly, although this does seem high. 6. Prednisone 5 mg daily. 7. Calcium carbonate and vitamin D one tab daily. 8. Synthroid 88 mcg daily. 9. Magnesium hydroxide 30 mL twice daily as needed. PERTINENT IMAGING DATA: CT abdomen and pelvis. Impression: Proximal dilated small bowel loops with transition to decompressed small bowel, this will be consistent with small bowel obstruction. HISTORY OF PRESENT ILLNESS AND HOSPITAL COURSE: This is a 66-year-old female with past medical history as outline in the history of present illness on the day of admission including history of ruptured diverticulitis with resulting surgery and multiple small bowel obstructions over the preceding year, presents to the hospital with similar symptoms as her past with abdominal bloating, pain , distention, and absence of flatus or stools. CT was notable as above for small bowel obstruction. Surgery consults are on the case. The patient was treated conservatively. Over the ensuing week, her bowels slowly began to open up. She had several small bowel movements in the days prior to discharge and 4 loose bowel movements on the day of discharge associated with copious flatus. Diet was advanced from clear liquids on the day of discharge to full liquids, which she tolerated well prior to discharge. DISCHARGE FOLLOWUP: At followup, please: 1. Evaluate for continued resolution of abdominal SBO. Reasons to return to the hospital include but not limited to recurrent or worsening symptoms, worsening bloating, abdominal pain, nausea, vomiting, inability to tolerate fluid or medications, any concerning symptoms were discussed with the patient. She acknowledged understanding. TIME SPENT: Greater than 30 minutes were spent discharging the patient, greater than half was spent [id number] with the patient. CC: Doris Alicea MD* [id number]/[facility] #: [id number] [facility]
== END 2016-08-28 17:00 | disposition home or self-care (01) | DRG 390 ==
LOC: ED 08:10 → SSU 10:40
PROVIDERS: ADMIT Hospitalist; ATTEND Internal Medicine
PROC: 0D9670Z Drainage of Stomach with Drainage Device, Via Natural or Artificial Opening (ICD-10-PCS; principal; 2016-08-20)
DX: K56.60 Unspecified intestinal obstruction (principal); E03.9 Hypothyroidism, unspecified; J45.909 Unspecified asthma, uncomplicated; Z88.0 Allergy status to penicillin; Z88.7 Allergy status to serum and vaccine; J42 Unspecified chronic bronchitis; Z82.49 Family history of ischemic heart disease and other diseases of the circulatory system; Z85.850 Personal history of malignant neoplasm of thyroid; Z84.1 Family history of disorders of kidney and ureter; Z79.52 Long term (current) use of systemic steroids
CPT/HCPCS: 36415; 71010; 74020; 74177; 80048; 80053; 83605; 83690; 83880; 84484; 85025; 85610; 85730; 86140; 93005; 94640; 94760; A9270-GY; J0610; J1644; J2060; J2270; J2405; J2920; Q9967

== ENCOUNTER 2016-09-29 19:18 | Emergency (ER) | payer MEDICARE ==
--- NOTE | 2016-09-29 20:43 | UC ---
Hand/Wrist HPI - HPI Summary HPI Summary: pt reports walking up a single step this evening and fell with outstretched arm. c/o right wrist pain, swelling and right index finger at metacarpophalangeal joint. - History Of Current Complaint Chief Complaint: UCUpperExtremity Stated Complaint: WRIST INJURY Time Seen by Provider: 09/29/16 20:30 Hx Obtained From: Patient ?: No Onset/Duration: Sudden Onset, Lasting Hours Severity Initially: Mild Severity Currently: Mild Character Of Pain: Dull, Stiffness Aggravating Factor(s): Movement Alleviating: Rest Associated Signs And Symptoms: Positive: Swelling Related History: Dominant Hand Right - Allergies/Home Medications Allergies/Adverse Reactions: Allergies Allergy/AdvReac Type Severity Reaction Status Date / Time Amoxicillin Allergy Severe Shortness Verified 09/29/16 20:20 of Breath Flu Virus Vaccine Allergy Severe Shortness Verified 09/29/16 20:20 of Breath Penicillins [PCN] Allergy Severe Hives Verified 09/29/16 20:20 PMH/Surg Hx/FS Hx/Imm Hx Previously Healthy: Yes Endocrine History Of: Reports: Thyroid Disease Denies: Diabetes Cardiovascular History Of: Denies: Hypertension Respiratory History Of: Reports: Asthma, Pneumonia GI/ History Of: Denies: Ulcer, Renal Disease Neurological History Of: Denies: Seizures Psychological History Of: Denies: Anxiety, Depression Cancer History Of: Denies: Breast Cancer - Surgical History Surgical History: Yes Surgery Procedure, Year, and Place: Hiatal hernia repair x2; thyroidectomy ( [facility]) ; tonsilectomy/sinus surgery; hysterectomy, T&A, REFLUX SURGERY ([facility]) 07/2012 WITH REVISION 12/2012. - Family History Known Family History: Positive: Hypertension - Social History Alcohol Use: Rare Substance Use Type: None Smoking Status (MU): Never Smoked Tobacco - Immunization History Most Recent Influenza Vaccination: 2008 Most Recent Tetanus Shot: 2006 Most Recent Pneumonia Vaccination: 2010 Review of Systems Constitutional: Negative Skin: Bruising - right anterior wrist, Other - abrasion ~ 1 cm on anterior wrist Eyes: Negative ENT: Negative Respiratory: Negative Cardiovascular: Negative Gastrointestinal: Negative Genitourinary: Negative Motor: Decreased ROM - right wrist and right index finger Neurovascular: Negative Musculoskeletal: Arthralgia, Decreased ROM, Edema - right wrist and right index finger, Myalgia Neurological: Negative Psychological: Negative All Other Systems Reviewed And Are Negative: Yes Physical Exam Triage Information Reviewed: Yes Appearance: Well-Appearing Vital Signs: Initial Vital Signs Temp 98.7 F 09/29/16 20:14 Pulse 74 09/29/16 20:14 Resp 20 09/29/16 20:14 BP 173/95 09/29/16 20:14 Pulse Ox 97 09/29/16 20:14 Vital Signs Reviewed: Yes Neck exam: Normal Respiratory: Positive: No respiratory distress Musculoskeletal Exam: Other Musculoskeletal: Positive: ROM Limited @ - right wrist, Edema @ - right wrist and right metacarpophalangeal joint Neurological Exam: Normal Psychological Exam: Normal Skin Exam: Other - bruising to anterior right wrist and ~1 cm abrasion to anterior right wrist Hand/Wrist Course/Dx - Course Course Of Treatment: I discussed with the patient the sclerotic lesion found on xray of her right index finger and informed her to follow up with her PCP. I also spoke to her about her elevated BP. Pt verbalized understanding and agreed to plan of care. Pt's d/c bp was 140/70 - Differential Dx/Diagnosis Differential Diagnosis/HQI/PQRI: Abrasion, Fracture, Sprain, Strain Provider Diagnoses: right wrist sprain. right index finger sprain. elevated BP Discharge - Discharge Plan Condition: Stable Disposition: HOME Patient Education Materials: Finger Sprain (ED), Wrist Sprain (ED) Referrals: Doris Alicea MD [Primary Care Provider] - Additional Instructions: Please follow up with your PCP or return to clinic as needed. Please follow up with your PCP as soon as possible regarding the findings on xray tonight. Please follow up with your PCP regarding your elevated BP at today's visit.
--- NOTE | 2016-09-29 21:05 | RAD ---
Indication: Fall on outstretched right hand. 4 views of the right hand are reviewed. No evidence of fracture is noted. There is sclerotic lesion in the distal second metacarpal of uncertain etiology. Correlation with bone scan may BE helpful. IMPRESSION: No fracture is noted. Sclerotic lesion in the distal second metacarpal. Correlation with bone scan is suggested.
[2016-09-29 21:28] VITALS: BP 140/70
== END 2016-09-29 21:46 | disposition home or self-care (01) ==
LOC: UCEAST 19:18
DX: S63.501A Unspecified sprain of right wrist, initial encounter (principal); W10.9XXA Fall (on) (from) unspecified stairs and steps, initial encounter; Y93.01 Activity, walking, marching and hiking; Z88.1 Allergy status to other antibiotic agents; Z88.0 Allergy status to penicillin; Z88.8 Allergy status to other drugs, medicaments and biological substances
CPT/HCPCS: 99212; G0463

== ENCOUNTER 2016-12-10 20:01 | Emergency (ER) | payer MEDICARE ==
[2016-12-10] MEDS ORDERED: Ondansetron INJ* 2 MG/ML VIAL IV ONE (20:21)
[2016-12-10] MEDS ORDERED: NS 0.9% 1000 ML* 1,000 ML IV ONE (20:21)
[2016-12-10] MEDS ORDERED: Morphine INJ* 2 MG/ML 1 ML SYRINGE IV ONE (20:21)
[2016-12-10 20:41] LABS: Hematocrit 42 % (35-47); Mean Corpuscular HGB Conc 33 g/dl (31-36); Mean Corpuscular Hemoglobin 30 pg (27-31); Mean Corpuscular Volume 91 fL (80-97); Mean Platelet Volume 7 um3 (7.4-10.4); Red Blood Count 4.67 10^6/ul (4.0-5.4); Red Cell Distribution Width 13 % (10.5-15); White Blood Count 7.8 10^3/ul (3.5-10.8)
[2016-12-10 20:56] LABS: Albumin 3.7 g/dL (3.2-5.2); C Reactive Protein 58.49 mg/L (< 5.00); Calcium 8.3 mg/dL (8.6-10.3); EGFR African American 100.4 (>60); Globulin 3.5 g/dL (2-4); Magnesium 2.8 mg/dL (1.9-2.7); Potassium 4.2 mmol/L (3.5-5.0); Total Bilirubin 0.6 mg/dL (0.2-1.0); Total Protein 7.2 g/dL (6.4-8.9)
[2016-12-10] MEDS ORDERED: Iohexol 300* (CONTRAST) 10 ML SDV IV ONE (21:30)
--- NOTE | 2016-12-10 22:01 | ED ---
Hosea Bennett Benjamin, scribed for Sarbjit Ferrer MD on 12/10/16 at 2026 . Abdominal Pain/Female - HPI Summary HPI Summary: 66yo female c/o lower abdominal pain since Friday. On Friday, pt started having very sharp lower abdominal pain. Pt took oxycodone for the pain, which helped, but then started to vomit constantly throughout Friday. Also had dry heaves, nausea, and diarrhea. Symptoms have calmed down yesterday, but when pt tried eating soup today pt became nauseous again. Pt now as aching abdominal pain. Pt has hx of SBO, hiatal hernia repair, esophageal surgery x2, thyroid CA, osteoporosis, goiter. Last SBO was a couple of months ago. - History of Current Complaint Chief Complaint: EDAbdPain Stated Complaint: ABD PAIN Time Seen by Provider: 12/10/16 20:15 Hx Obtained From: Patient, Family/Ssrs Report Developer - son ?: No Onset/Duration: Sudden Onset, Lasting Days, Still Present Timing: Intermittent Episode Lasting Severity Initially: Moderate Severity Currently: Moderate Pain Intensity: 6 Pain Scale Used: 0-10 Numeric Location: Diffuse - diffuse lower abdomen Radiates: No Character: Sharp - initially, Other: - aching now Aggravating Factor(s): Nothing Alleviating Factor(s): Nothing Associated Signs and Symptoms: Positive: Nausea, Vomiting, Diarrhea Allergies/Adverse Reactions: Allergies Allergy/AdvReac Type Severity Reaction Status Date / Time Amoxicillin Allergy Severe Shortness Verified 12/10/16 20:07 of Breath Flu Virus Vaccine Allergy Severe Shortness Verified 12/10/16 20:07 of Breath Penicillins [PCN] Allergy Severe Hives Verified 12/10/16 20:07 PMH/Surg Hx/FS Hx/Imm Hx Endocrine/Hematology History: Reports: Hx Thyroid Disease Denies: Hx Diabetes Cardiovascular History: Denies: Hx Hypertension, Hx Pacemaker/ICD Respiratory History: Reports: Hx Asthma, Hx Chronic Bronchitis, Hx Pneumonia, Hx Seasonal Allergies, Other Respiratory Problems/Disorders - PNA GI History: Reports: Hx Diverticulosis, Hx Hiatal Hernia, Hx Ileostomy, Other GI Disorders - Hx perforated bowel Denies: Hx Ulcer History: Denies: Hx Renal Disease Musculoskeletal History: Reports: Hx Orthopedic Injury, Hx Osteoporosis Sensory History: Reports: Hx Contacts or Glasses Denies: Hx Hearing Aid Opthamlomology History: Reports: Hx Contacts or Glasses Neurological History: Denies: Hx Seizures Psychiatric History: Denies: Hx Anxiety, Hx Depression, Hx Panic Disorder, Hx Substance Abuse - Cancer History Cancer Type, Location and Year: Thyroid Hx Chemotherapy: No Hx Radiation Therapy: No - Surgical History Surgery Procedure, Year, and Place: Hiatal hernia repair x2; thyroidectomy ( [facility]) ; tonsilectomy/sinus surgery; hysterectomy, T&A, REFLUX SURGERY ([facility]) 07/2012 WITH REVISION 12/2012. PERFORATED BOWEL WITH COLOSTOMY THEN REMOVED Hx Anesthesia Reactions: No Infectious Disease History: No Infectious Disease History: Denies: Hx Hepatitis, Hx Human Immunodeficiency Virus (HIV), Hx Tuberculosis , Traveled Outside the [place] in Last 30 Days - Family History Known Family History: Positive: Hypertension - Social History Occupation: Retired Lives: With Family Alcohol Use: Rare Substance Use Type: Reports: None Smoking Status (MU): Never Smoked Tobacco Review of Systems Constitutional: Negative Eyes: Negative ENT: Negative Cardiovascular: Negative Respiratory: Negative Positive: Abdominal Pain, Vomiting, Diarrhea, Nausea Genitourinary: Negative Musculoskeletal: Negative Skin: Negative Neurological: Negative Psychological: Normal All Other Systems Reviewed And Are Negative: Yes Physical Exam Triage Information Reviewed: Yes Vital Signs On Initial Exam: Initial Vitals Temp Pulse Resp BP Pulse Ox 98.8 F 73 15 133/84 96 12/10/16 20:04 12/10/16 20:04 12/10/16 20:04 12/10/16 20:04 12/10/16 20:04 Vital Signs Reviewed: Yes Appearance: Positive: Well-Appearing, Pain Distress - mild discomfort Skin: Positive: Warm Head/Face: Positive: Normal Head/Face Inspection Eyes: Positive: MATT ENT: Positive: Hearing grossly normal Neck: Positive: Supple, Nontender Respiratory/Lung Sounds: Positive: Clear to Auscultation, Breath Sounds Present Cardiovascular: Positive: RRR Abdomen Description: Positive: Soft, Other: - mild diffuse abd tenderness. Negative: Distended, Guarding Bowel Sounds: Positive: Present Musculoskeletal: Positive: Strength/ROM Intact Neurological: Positive: Sensory/Motor Intact, Alert, Oriented to Person Place, Time Psychiatric: Positive: Affect/Mood Appropriate Diagnostics - Vital Signs Vital Signs Temp Pulse Resp BP Pulse Ox 12/10/16 20:04 98.8 F 73 15 133/84 96 - Laboratory Lab Results: Lab Results 12/10/16 12/10/16 12/10/16 Range/Units 20:30 20:30 20:30 WBC 7.8 (3.5-10.8) 10^3/ul RBC 4.67 (4.0-5.4) 10^6/ul Hgb 14.0 (12.0-16.0) g/dl Hct 42 (35-47) % MCV 91 (80-97) fL MCH 30 (27-31) pg MCHC 33 (31-36) g/dl RDW 13 (10.5-15) % Plt Count 323 (150-450) 10^3/ul MPV 7 L (7.4-10.4) um3 Neut % (Auto) 62.7 (38-83) % Lymph % (Auto) 22.4 L (25-47) % [place] % (Auto) 6.4 (1-9) % Eos % (Auto) 7.7 H (0-6) % Baso % (Auto) 0.8 (0-2) % Absolute Neuts (auto) 4.9 (1.5-7.7) 10^3/ul Absolute Lymphs (auto) 1.7 (1.0-4.8) 10^3/ul Absolute Monos (auto) 0.5 (0-0.8) 10^3/ul Absolute Eos (auto) 0.6 (0-0.6) 10^3/ul Absolute Basos (auto) 0.1 (0-0.2) 10^3/ul Absolute Nucleated RBC 0 10^3/ul Nucleated RBC % 0.1 Sodium 135 (133-145) mmol/L Potassium 4.2 (3.5-5.0) mmol/L Chloride 103 (101-111) mmol/L Carbon Dioxide 27 (22-32) mmol/L Anion Gap 5 (2-11) mmol/L BUN 17 (6-24) mg/dL Creatinine 0.74 (0.51-0.95) mg/dL Est GFR ( Amer) 100.4 (>60) Est GFR (Non-Af Amer) 78.0 (>60) BUN/Creatinine Ratio 23.0 H (8-20) Glucose 106 H (70-100) mg/dL Lactic Acid 0.7 (0.5-2.0) mmol/L Calcium 8.3 L (8.6-10.3) mg/dL Magnesium 2.8 H (1.9-2.7) mg/dL Total Bilirubin 0.60 (0.2-1.0) mg/dL AST 17 (13-39) U/L ALT 14 (7-52) U/L Alkaline Phosphatase 60 (34-104) U/L C-Reactive Protein 58.49 H (< 5.00) mg/L Total Protein 7.2 (6.4-8.9) g/dL Albumin 3.7 (3.2-5.2) g/dL Globulin 3.5 (2-4) g/dL Albumin/Globulin Ratio 1.1 (1-3) Lipase 51 (11.0-82.0) U/L Result Diagrams: 12/10/16 20:30 12/10/16 20:30 Lab Statement: Any lab studies that have been ordered have been reviewed, and results considered in the medical decision making process. - CT CT A/P W/O CT Interpretation: No Acute Changes - 1. No acute abnormalities including pathologic bowel dilatation. 2. Chronic, degenerative and postoperative findings described in the body the report. CT Interpretation Completed By: Radiologist - EKG 2229. Cardiac Rate: NL - 67bpm EKG Rhythm: Sinus Rhythm ST Segment: Normal Ectopy: None Abdominal Pain Fem Course/Dx - Diagnoses Provider Diagnoses: Abdominal pain Discharge - Discharge Plan Condition: Stable Disposition: HOME Patient Education Materials: Abdominal Pain (ED) The documentation as recorded by the Hosea govea Benjamin accurately reflects the service I personally performed and the decisions made by Carissa johnson David, MD.
--- NOTE | 2016-12-10 23:06 | RAD ---
CLINICAL HISTORY: Abdominal pain with a history of obstruction. Relevant surgical history includes hiatal hernia repair x2, hysterectomy and partial bowel resection. COMPARISON: Similar examination August 20, 2016 TECHNIQUE: Contrast enhanced CT examination of the abdomen and pelvis from the lung bases through the initial tuberosities. The patient received 85 mL Omnipaque 300 intravenously prior to imaging.The patient received oral contrast as well prior to imaging. FINDINGS: VISUALIZED LUNG BASES: At the left lung base there is a 1.1 cm pulmonary nodule that was not seen on the most recent CT examination. On the January 15, 2016 CT examination there was pleural base density close to but not directly overlying the location of this nodule. ABDOMEN AND PELVIS: There is a small hiatal hernia similar in appearance to the previous CT examination. Multiple fluid density cysts are again seen. The liver is otherwise homogenous in attenuation. The spleen, pancreas and adrenal glands are grossly normal in appearance. The gallbladder is normal. The kidneys are normal in appearance without focal mass, calcification or signs of hydronephrosis. There are contrast has progressed as far as the proximal small bowel which prevents more thorough evaluation of the distal small bowel and colon. The proximal small bowel measures up to 2.4 cm in diameter, not exceeding 3 cm which is considered pathologically dilated (image 20) The small and large bowel are not distended. The mostly gas-filled appendix measures 5 mm in diameter without periappendiceal inflammatory changes (image 30 in the coronal plane images). Surgical material seen overlying the rectosigmoid colon. There is no free peritoneal air. There is no gross retroperitoneal or mesenteric lymphadenopathy. A stable fat-containing supraumbilical midline abdominal wall hernia is again seen. The neck of the hernia measures approximately 2.2 cm in diameter not changed in any significant way from the previous CT examination. The pelvic viscera is normal in appearance. The abdominal aorta and iliac arteries are normal in course and diameter. Degenerative changes include multilevel loss of intervertebral disc height involving the lower thoracic and lumbar spine, endplate sclerosis and multilevel vacuum disc phenomenon..There are no sinister bone lesions. IMPRESSION: 1. No acute abnormalities including pathologic bowel dilatation. 2. Chronic, degenerative and postoperative findings described in the body the report.
[2016-12-10 23:34] VITALS: BP 119/75
[2016-12-10] MEDS ORDERED: Ondansetron ODT TAB* 4 MG ONE (23:49)
[2016-12-10] MEDS: Ondansetron ODT TAB* 4 MG PO ONE (23:51)
== END 2016-12-10 23:50 | disposition home or self-care (01) ==
LOC: ED 20:01
DX: R10.9 Unspecified abdominal pain (principal); R11.2 Nausea with vomiting, unspecified; R19.7 Diarrhea, unspecified
CPT/HCPCS: 36415; 74177; 80053; 83605; 83690; 83735; 85025; 86140; 93005; 99283; A9270-GY; J2270; J2405; Q9967

== ENCOUNTER 2017-03-16 00:18 | Inpatient (IN) | payer MEDICARE ==
[2017-03-16] MEDS ORDERED: Ondansetron INJ* 2 MG/ML VIAL IV ONE ×2 (00:54→03:42)
[2017-03-16] MEDS ORDERED: Morphine INJ* 4 MG/ML 1 ML SYRINGE IV ONE ×2 (00:54→03:42)
[2017-03-16] MEDS ORDERED: NS 0.9% 1000 ML* 1,000 ML IV ONE (00:54)
[2017-03-16 01:39] LABS: Hematocrit 46 % (35-47); Hemoglobin 15.4 g/dl (12.0-16.0); Mean Corpuscular HGB Conc 34 g/dl (31-36); Mean Corpuscular Hemoglobin 30 pg (27-31); Mean Corpuscular Volume 90 fL (80-97); Mean Platelet Volume 7 um3 (7.4-10.4); Red Blood Count 5.08 10^6/ul (4.0-5.4); Red Cell Distribution Width 14 % (10.5-15)
[2017-03-16 01:53] LABS: BUN/Creatinine Ratio 14.7 (8-20); C Reactive Protein 8.9 mg/L (< 5.00); Calcium 9.3 mg/dL (8.6-10.3); EGFR Non-African American 49.8 (>60); Globulin 2.9 g/dL (2-4); Magnesium 2.1 mg/dL (1.9-2.7); Potassium 4.1 mmol/L (3.5-5.0); Total Bilirubin 1.2 mg/dL (0.2-1.0); Total Protein 6.9 g/dL (6.4-8.9)
--- NOTE | 2017-03-16 02:24 | ED ---
Juan Bennett Rebecca, scribed for Sarbjit Ferrer MD on 03/16/17 at 0110 . Abdominal Pain/Female - HPI Summary HPI Summary: Pt is a 67 y/o F BIBA who presents to ED c/o LLQ abd pain since 1800 last night. Pain is currently severe, ranked 9/10. Sx aggravated and alleviated by nothing. Additionally c/o N/V. Emesis is noted to be brown. PMHx SBO - current sx are similar to prior incidences of SBO. Last obstruction was a few months ago. Allergies to amoxicillin and penicillin. - History of Current Complaint Stated Complaint: ABD PAIN Time Seen by Provider: 03/16/17 00:51 Hx Obtained From: Patient Onset/Duration: Lasting Hours, Still Present Severity Currently: Severe Pain Intensity: 9 Pain Scale Used: 0-10 Numeric Location: Discrete At: LLQ Aggravating Factor(s): Nothing Alleviating Factor(s): Nothing Associated Signs and Symptoms: Positive: Nausea, Vomiting Allergies/Adverse Reactions: Allergies Allergy/AdvReac Type Severity Reaction Status Date / Time Amoxicillin Allergy Severe Shortness Verified 12/10/16 20:07 of Breath Flu Virus Vaccine Allergy Severe Shortness Verified 12/10/16 20:07 of Breath Penicillins [PCN] Allergy Severe Hives Verified 12/10/16 20:07 PMH/Surg Hx/FS Hx/Imm Hx Endocrine/Hematology History: Reports: Hx Thyroid Disease Denies: Hx Diabetes Cardiovascular History: Denies: Hx Hypertension, Hx Pacemaker/ICD Respiratory History: Reports: Hx Asthma, Hx Chronic Bronchitis, Hx Pneumonia, Hx Seasonal Allergies, Other Respiratory Problems/Disorders - PNA GI History: Reports: Hx Diverticulosis, Hx Hiatal Hernia, Hx Obstructive Bowel, Hx Ileostomy, Other GI Disorders - Hx perforated bowel Denies: Hx Ulcer History: Denies: Hx Renal Disease Musculoskeletal History: Reports: Hx Orthopedic Injury, Hx Osteoporosis Sensory History: Reports: Hx Contacts or Glasses Denies: Hx Hearing Aid Opthamlomology History: Reports: Hx Contacts or Glasses Neurological History: Denies: Hx Seizures Psychiatric History: Denies: Hx Anxiety, Hx Depression, Hx Panic Disorder, Hx Substance Abuse - Cancer History Cancer Type, Location and Year: Thyroid Hx Chemotherapy: No Hx Radiation Therapy: Yes - THYROID - Surgical History Surgery Procedure, Year, and Place: Hiatal hernia repair x2; thyroidectomy ( [facility]) ; tonsilectomy/sinus surgery; hysterectomy, T&A, REFLUX SURGERY ([facility]) 07/2012 WITH REVISION 12/2012. PERFORATED BOWEL WITH COLOSTOMY THEN REMOVED Hx Anesthesia Reactions: No Infectious Disease History: Denies: Hx Hepatitis, Hx Human Immunodeficiency Virus (HIV), Hx Tuberculosis , Traveled Outside the [place] in Last 30 Days - Family History Known Family History: Positive: Hypertension - Social History Alcohol Use: Rare Substance Use Type: Reports: None Smoking Status (MU): Never Smoked Tobacco Review of Systems Negative: Fever Positive: Abdominal Pain, Vomiting - brown emesis, Nausea All Other Systems Reviewed And Are Negative: Yes Physical Exam Triage Information Reviewed: Yes Vital Signs On Initial Exam: Initial Vitals Temp Pulse Resp BP Pulse Ox 97 F 74 18 93/48 92 03/16/17 01:02 03/16/17 01:02 03/16/17 01:02 03/16/17 01:02 03/16/17 01:02 Vital Signs Reviewed: Yes Appearance: Positive: Well-Appearing, Pain Distress - modearte Skin: Positive: Warm Head/Face: Positive: Normal Head/Face Inspection Eyes: Positive: MATT ENT: Positive: Hearing grossly normal Neck: Positive: Supple Respiratory/Lung Sounds: Positive: Clear to Auscultation, Breath Sounds Present Cardiovascular: Positive: RRR Abdomen Description: Positive: Soft, Distended, Other: - moderate diffuse tenderness Bowel Sounds: Positive: Hypoactive Musculoskeletal: Positive: Strength/ROM Intact Neurological: Positive: Alert, Oriented to Person Place, Time Diagnostics - Laboratory Result Diagrams: 03/16/17 01:15 03/16/17 01:15 Lab Statement: Any lab studies that have been ordered have been reviewed, and results considered in the medical decision making process. - CT Abd/Pel CT CT Interpretation: Positive (See Comments) - Positive for acute small bowel obstruction. There are multiple dilated loops of small bowel. Collapsed loops distally. The transition zone is felt to be in the ileum. Some fluid is getting through to the distal small bowel loops. No free air. There is some free fluid in the pelvis. Normal kidneys, urinary tract and urinary bladder. Multiple liver cysts. Normal spleen. Normal pancreas. Normal adrenal glands. There is a 8 mm nodule in the left lower lobe that was not present on the December 10 scan. This will need evaluaiton to rule out neoplasm. There is also a new infiltrate/ pneumonitis at the right lung base. Hiatal hernia. ED physician reviewed this radiology report and agrees. CT Interpretation Completed By: Radiologist Abdominal Pain Fem Course/Dx - Course Course Of Treatment: Pt is a 67 y/o F BIBA who presents to ED c/o LLQ abd pain since 1800 last night. Pain is currently severe, ranked 9/10. Sx aggravated and alleviated by nothing. Additionally c/o N/V. Emesis is noted to be brown. PMHx SBO - current sx are similar to prior incidences of SBO. Last obstruction was a few months ago. Allergies to amoxicillin and penicillin. CT Abd/pel read by radiologist as: Positive for acute small bowel obstruction. There are multiple dilated loops of small bowel. Collapsed loops distally. The transition zone is felt to be in the ileum. Some fluid is getting through to the distal small bowel loops. No free air. There is some free fluid in the pelvis. Normal kidneys , urinary tract and urinary bladder. Multiple liver cysts. Normal spleen. Normal pancreas. Normal adrenal glands. There is a 8 mm nodule in the left lower lobe that was not present on the December 10 scan. This will need evaluaiton to rule out neoplasm. There is also a new infiltrate/pneumonitis at the right lung base. Hiatal hernia. WBC of 14.0, CRP of 8.9. In the ED course the pt received morphine, zofran and fluids. Discussed the case with Dr. Gomez and made him aware. Discussed care of pt with Dr. Paco Mccrary at 0516 who accepts pt for admission and will evaluate her in the ED. She will be admitted with a Dx of SBO. She understands and agrees. - Diagnoses Provider Diagnoses: Small bowel obstruction - Provider Notifications Discussed Care Of Patient With: Jl Gomez Time Discussed With Above Provider: 05:12 Instructed by Provider To: Other - Discussed the case with Dr. Gomez and made him aware. Discussed care of pt with Dr. Paco Mccrary at 0516 who accepts pt for admission and will evaluate her in the ED. Discharge - Discharge Plan Condition: Fair Disposition: ADMITTED TO [facility] The documentation as recorded by the Juan govea Rebecca accurately reflects the service I personally performed and the decisions made by , Sarbjit Ferrer MD.
[2017-03-16] MEDS ORDERED: Iodixanol* (CONTRAST) 320 MG/ML 100 ML SDV IV ONE (03:01)
[2017-03-16] MEDS ORDERED: Acetaminophen SUPP* 650 MG SUPP PR PRN (05:22)
[2017-03-16] MEDS ORDERED: NS 0.9% 1000 ML* 1,000 ML IV SCH (05:30)
--- NOTE | 2017-03-16 05:41 | HP ---
H&P (Free Text) History and Physical: PCP: Date/Time of Evaluation: 03/16/2017 0520 CC: abdominal pain HPI: Mrs Benavides is a 67YO female HX multiple abdominal surgeries & SBO presenting with onset yesterday around 1800 of sharp LLQ pain similar to her previous SBOs. She waited at home hoping it would resolve, but he pain increased to severe and became associated with N/V & sweats, but no F/C. There was no bloody or black content to the emesis. Last bowel movement was ~4 days ago which is not unusual for her, but it was notable for being small pellets which made her concerned "something was coming". She does not recall passing flatus in the past 2 days. PMedHx thyroid CA s/p thyroidectomy hypothyroidism, post-operative asthma, severe persistent, has required intubation previously perforated diverticulitis s/p colon resection w/ colostomy & reversal hiatal hernia Ambulatory Orders Nursing to reconcile. Levalbuterol 1.25MG/0.5ML NEB* [Xopenex 1.25 MG/0.5 ML NEB.HOLLY*] 1.25 mg INH Q4H PRN 01/16/16 LevoCETirizine TAB (NF) [Xyzal TAB (NF)] 5 mg PO BEDTIME 01/16/16 Levothyroxine TAB* [Synthroid 88 MCG TAB*] 88 mcg PO 0800 01/16/16 Albuterol inh POWDER (NF) [Proair Respiclick] 2 puff INH Q4HR PRN 08/20/16 Calcium Carbonate-Cholecalcife [Calcium 600 + D 600-200 mg-Unit] 1 tab PO QAM Cholecalciferol [Vitamin D3] 50,000 unit PO .TWICE A WEEK 08/20/16 Denosumab(NF) [Prolia(NF)] 60 mg SUBCUT Q6M 08/20/16 Mometasone/Formoter 200/5 MDI* [Dulera 200/5 MDI*] 1 puff INH BID 08/20/16 predniSONE TAB* [Deltasone TAB*] 5 mg PO QAM 08/20/16 Magnesium Hydroxide LIQ* [Milk of Magnesia LIQ*] 30 ml PO BID PRN #0 udc Allergies Amoxicillin Allergy (Severe, Verified 12/10/16 20:07) Shortness of Breath Flu Virus Vaccine Allergy (Severe, Verified 12/10/16 20:07) Shortness of Breath Penicillins [PCN] Allergy (Severe, Verified 12/10/16 20:07) Hives PSurgHx sinus surgery tonsillectomy thyroidectomy hiatal hernia repair x2 colon resection w/ colostomy & reversal for perforated diverticulitis tubal ligation hysterectomy SocHx: no tobacco, rare alcohol, no recreational drugs; , lives alone, is 300+ pounds w/ dementia & resides in a correction; full code status FamHx: Mother passed of primary brain CA in her 70s with myasthenia gravis. Father passed in his 40s 2nd complications of nephritis. ROS: as above, otherwise reviewed and all were negative Constitutional: NAD, normally developed, well-nourished white female vitals: Vital Signs Temp 36.1 C 03/16/17 01:08 Pulse 73 03/16/17 01:08 Resp 16 03/16/17 03:47 BP 93/48 03/16/17 01:08 Pulse Ox 92 03/16/17 01:08 Intake & Output 03/15/17 03/15/17 03/16/17 11:59 23:59 11:59 Intake Total 1000 Balance 1000 Weight 70.307 kg Intake: IV Fluids 1000 HEENM: atraumatic; sclera/conjunctiva: non-icteric/clear; hearing: clinically intact; oropharynx: clear, mucosa moist Neck: soft tissue: non-tender; thyroid: surgically absent Pulmonary: clear to auscultation bilaterally, good aeration, no accessory muscle use CV: RR/RR, normal S1S2, no carotid bruit, no jugular venous distention, 2+ B DP/ PT, no edema Abdominal: soft, non-distended, diffusely moderately tender worse in the LLQ with voluntary guarding but no rebound/rigidity, mildly hypoactive bowel sounds , no hepatosplenomegaly or masses, no costovertebral angle tenderness Musculoskeletal: general: grossly intact; gait: stable Integumental: normal appearance and texture of exposed skin Psychiatric orientation: AA&O to PPS affect: calm mood: cooperative eye contact: fair to good content: reliable responses: timely insight: good Testing: Lab Results 08/27/17 08/27/17 08/27/17 Range/Units 01:15 01:15 01:15 WBC 14.0 H (3.5-10.8) 10^3/ul RBC 5.08 (4.0-5.4) 10^6/ul Hgb 15.4 (12.0-16.0) g/dl Hct 46 (35-47) % MCV 90 (80-97) fL MCH 30 (27-31) pg MCHC 34 (31-36) g/dl RDW 14 (10.5-15) % Plt Count 299 (150-450) 10^3/ul MPV 7 L (7.4-10.4) um3 Neut % (Auto) 87.7 H (38-83) % Lymph % (Auto) 5.7 L (25-47) % [place] % (Auto) 4.3 (1-9) % Eos % (Auto) 2.2 (0-6) % Baso % (Auto) 0.1 (0-2) % Absolute Neuts (auto) 12.3 H (1.5-7.7) 10^3/ul Absolute Lymphs (auto) 0.8 L (1.0-4.8) 10^3/ul Absolute Monos (auto) 0.6 (0-0.8) 10^3/ul Absolute Eos (auto) 0.3 (0-0.6) 10^3/ul Absolute Basos (auto) 0 (0-0.2) 10^3/ul Absolute Nucleated RBC 0 10^3/ul Nucleated RBC % 0 INR (Anticoag Therapy) 0.95 (0.89-1.11) Sodium 137 (133-145) mmol/L Potassium 4.1 (3.5-5.0) mmol/L Chloride 104 (101-111) mmol/L Carbon Dioxide 27 (22-32) mmol/L Anion Gap 6 (2-11) mmol/L BUN 16 (6-24) mg/dL Creatinine 1.09 H (0.51-0.95) mg/dL Est GFR ( Amer) 64.0 (>60) Est GFR (Non-Af Amer) 49.8 (>60) BUN/Creatinine Ratio 14.7 (8-20) Glucose 174 H (70-100) mg/dL Lactic Acid (0.5-2.0) mmol/L Calcium 9.3 (8.6-10.3) mg/dL Magnesium 2.1 (1.9-2.7) mg/dL Total Bilirubin 1.20 H (0.2-1.0) mg/dL AST 19 (13-39) U/L ALT 12 (7-52) U/L Alkaline Phosphatase 57 (34-104) U/L C-Reactive Protein 8.90 H (< 5.00) mg/L Total Protein 6.9 (6.4-8.9) g/dL Albumin 4.0 (3.2-5.2) g/dL Globulin 2.9 (2-4) g/dL Albumin/Globulin Ratio 1.4 (1-3) Lipase 32 (11.0-82.0) U/L 03/16/17 Range/Units 01:15 WBC (3.5-10.8) 10^3/ul RBC (4.0-5.4) 10^6/ul Hgb (12.0-16.0) g/dl Hct (35-47) % MCV (80-97) fL MCH (27-31) pg MCHC (31-36) g/dl RDW (10.5-15) % Plt Count (150-450) 10^3/ul MPV (7.4-10.4) um3 Neut % (Auto) (38-83) % Lymph % (Auto) (25-47) % [place] % (Auto) (1-9) % Eos % (Auto) (0-6) % Baso % (Auto) (0-2) % Absolute Neuts (auto) (1.5-7.7) 10^3/ul Absolute Lymphs (auto) (1.0-4.8) 10^3/ul Absolute Monos (auto) (0-0.8) 10^3/ul Absolute Eos (auto) (0-0.6) 10^3/ul Absolute Basos (auto) (0-0.2) 10^3/ul Absolute Nucleated RBC 10^3/ul Nucleated RBC % INR (Anticoag Therapy) (0.89-1.11) Sodium (133-145) mmol/L Potassium (3.5-5.0) mmol/L Chloride (101-111) mmol/L Carbon Dioxide (22-32) mmol/L Anion Gap (2-11) mmol/L BUN (6-24) mg/dL Creatinine (0.51-0.95) mg/dL Est GFR ( Amer) (>60) Est GFR (Non-Af Amer) (>60) BUN/Creatinine Ratio (8-20) Glucose (70-100) mg/dL Lactic Acid 1.5 (0.5-2.0) mmol/L Calcium (8.6-10.3) mg/dL Magnesium (1.9-2.7) mg/dL Total Bilirubin (0.2-1.0) mg/dL AST (13-39) U/L ALT (7-52) U/L Alkaline Phosphatase (34-104) U/L C-Reactive Protein (< 5.00) mg/L Total Protein (6.4-8.9) g/dL Albumin (3.2-5.2) g/dL Globulin (2-4) g/dL Albumin/Globulin Ratio (1-3) Lipase (11.0-82.0) U/L CT abd/pel W, personally reviewed: FINDINGS: Positive for acute small bowel obstruction. The transition zone is felt to be in the ileum. No free air. There is some free fluid in the pelvis. There is a new 8mm nodule in the left lower lobe that was not present on the December 10 scan. This will need evaluation to rule out neoplasm. There is also a new infiltrate/pneumonitis at theright lung base. Hiatal hernia. Impression: 67F presenting with recurrent SBO DIAGNOSIS & PLAN Primary pSBO : NPO : NG tube for decompression : strict I&Os : IVFs : monitor fever & WBC curves, hold ABX for now : pain control : Parviz Lord MD surgery consulted by Yeni Ferrer MD ED; will eval in AM : supplemental oxygen : supportive care new LLL lung nodule : will need outpatient follow up and monitoring by PCP ? RLL pneumonitis, incidental finding on CT : no clinical symtomotology : monitor fever & WBC curves : hold ABX for now Secondary thyroid CA s/p thyroidectomy & 2nd hypothyroidism : reduce PO dose by 1/2 and administer IV QAM asthma, severe persistent : has previously required intubation : continue levalbuterol & mometasone/formoterol : hold prednisone, substitute with 4mg IV methylprednisolone daily Admission Rational: inpatient for management of SBO not anticipated to resolve adequately within 48h to allow for discharge DVTp: heparin SQ & SCDs Code Status: full HCP: Partha parrish
[2017-03-16 06:26] LABS: Hematocrit 42 % (35-47); Hemoglobin 13.8 g/dl (12.0-16.0); Mean Corpuscular HGB Conc 33 g/dl (31-36); Mean Corpuscular Hemoglobin 30 pg (27-31); Mean Corpuscular Volume 91 fL (80-97); Mean Platelet Volume 7 um3 (7.4-10.4); Red Blood Count 4.63 10^6/ul (4.0-5.4); Red Cell Distribution Width 14 % (10.5-15); White Blood Count 13.5 10^3/ul (3.5-10.8)
[2017-03-16 06:37] LABS: BUN/Creatinine Ratio 19.6 (8-20); EGFR African American 77.8 (>60); EGFR Non-African American 60.5 (>60); Potassium 4.1 mmol/L (3.5-5.0)
[2017-03-16] MEDS ORDERED: methylPREDNISolone SOD 40 MG* 1 ML VIAL ONE (08:03)
--- NOTE | 2017-03-16 08:06 | RAD ---
CLINICAL HISTORY: Abdominal pain, vomiting. History of thyroid cancer COMPARISON: December 10, 2016 TECHNIQUE: Multiple contiguous axial CT scans were obtained of the abdomen and pelvis after the administration of intravenous contrast. Coronal and sagittal multiplanar reformations are submitted for review. Oral contrast was administered. Delayed images were obtained through the abdomen and pelvis. FINDINGS: There is a 0.8 cm nodule of the left lower lobe on axial image 1. There are smaller nodules of the left lower lobe measuring up to 0.5 cm. These have developed from the previous examination. There is groundglass opacification of the right lower lobe. LUNG BASES: The lung bases are clear. LIVER: There are multiple low-attenuation hepatic parenchymal lesions suggestive of cysts. These are similar to the previous examination. BILE DUCTS: There is no intrahepatic or extrahepatic biliary dilatation. GALLBLADDER: The gallbladder is normal, without pericholecystic inflammatory change. PANCREAS: The pancreas is normal, without mass or ductal dilatation. SPLEEN: Normal in size and appearance. UPPER GI TRACT: Evaluation of the gastrointestinal tract is limited by incomplete gastric distention. There is moderate hiatal hernia SMALL BOWEL AND MESENTERY: There is diffuse distention and mild dilatation of the small bowel proximally with transition to relatively decompressed small bowel in the midabdomen. COLON: The colon is normal in contour, course, caliber. There is no pericolonic inflammatory change. There is postsurgical change to the colon ADRENALS: Normal bilaterally. KIDNEYS: The kidneys are normal in shape, size, contour, and axis. There is no hydronephrosis or nephrolithiasis. BLADDER: The bladder is smooth in contour. PELVIC ORGANS: The pelvic organs are not visualized. AORTA: The aorta is normal. IVC: Unremarkable LYMPH NODES: There is no lymphadenopathy by size criteria. ABDOMINAL WALL: There are fat-containing ventral hernias in the midline and to the left of midline. BONES AND SOFT TISSUES: There are mild diffuse degenerative changes. OTHER: There is a small amount of ascites. IMPRESSION: 1. DISTENDED AND MILDLY DILATED LOOPS OF SMALL BOWEL WITH TRANSITION TO DECOMPRESSED SMALL BOWEL CONSISTENT WITH SMALL BOWEL OBSTRUCTION. 2. SMALL AMOUNT OF ASCITES. 3. AIRSPACE DISEASE OF THE RIGHT LOWER LOBE. 4. MULTIPLE PULMONARY PARENCHYMAL NODULES, MEASURING UP TO 0.8 CM IN SIZE. GIVEN THE HISTORY OF THYROID MALIGNANCY, METASTATIC DISEASE IS WITHIN THE DIFFERENTIAL. RECOMMEND CONSIDERATION OF CORRELATION WITH DEDICATED IMAGING CHEST, AND/OR CONSIDERATION OF TISSUE SAMPLING IF CLINICALLY INDICATED.
[2017-03-16] MEDS: Famotidine IV* 10 MG/ML 2 ML (20 mg) IV SLOW PU SCH ×2 (08:11→20:57)
[2017-03-16] MEDS: Levothyroxine INJ* 100 MCG/5 ML VIAL IV SCH (08:13)
[2017-03-16] MEDS: Mometasone/Formoter 200/5 MDI INH SCH ×2 (08:17→20:34)
[2017-03-16] MEDS: methylPREDNISolone SOD 40 MG* 1 ML VIAL IV SCH (08:21)
[2017-03-16] MEDS: HYDROmorphone* 1 MG/ML 1 ML SYR IV PRN ×4 (08:27→17:53)
--- NOTE | 2017-03-16 09:02 | PN ---
Subjective Date of Service: 03/16/17 Interval History: HOSPITALIST PROGRESS NOTE Patient seen and examined at bedside. She c/o diffuse crampy abdominal pain, no N/V. Has not passed and flatus or BM. Family History: Unchanged from Admission Social History: Unchanged from Admission Past Medical History: Unchanged from Admission Objective Active Medications: Acetaminophen (Tylenol Supp*) 650 mg VA Q6H PRN PRN Reason: FEVER/PAIN Famotidine (Pepcid Iv*) 20 mg IV SLOW PU BID [facility] Last Admin: 03/16/17 08:11 Dose: 20 mg Heparin Sodium (Porcine) (Heparin Vial(*)) 5,000 units SUBCUT Q8HR [facility] Hydromorphone HCl (Dilaudid Iv*) 0.5 mg IV Q2H PRN PRN Reason: PAIN Last Admin: 03/16/17 08:27 Dose: 0.5 mg Lactated Ringer's (Lactated Ringers 1000 Ml Bag*) 1,000 mls @ 125 mls/hr IV PER RATE [facility] Levalbuterol HCl (Xopenex 1.25 Mg/0.5 Ml Neb.Zaira*) 1.25 mg INH Q4H PRN PRN Reason: SHORTNESS OF BREATH Levothyroxine Sodium (Synthroid Inj*) 44 mcg IV QAM [facility] Last Admin: 03/16/17 08:13 Dose: 44 mcg Methylprednisolone Sodium Succinate (Solu-Medrol 40 Mg) 4 mg IV QAM [facility] Last Admin: 03/16/17 08:21 Dose: 4 mg Mometasone Furoate/Formoterol Fumar (Dulera 200/5 Mdi*) 1 puff INH BID [facility] Last Admin: 03/16/17 08:17 Dose: 1 puff Ondansetron HCl (Zofran Inj*) 4 mg IV Q6H PRN PRN Reason: NAUSEA Vital Signs 03/16/17 03/16/17 03/16/17 06:52 07:47 08:27 Temperature 98.4 F 98.4 F Pulse Rate 87 87 Respiratory 16 16 20 Rate Blood Pressure 120/61 120/61 (mmHg) O2 Sat by Pulse 96 96 Oximetry Oxygen Devices in Use Now: None Appearance: Elderly lady lying in bed in NAD. Eyes: No Scleral Icterus Ears/Nose/Mouth/Throat: Mucous Membranes Moist Neck: Trachea Midline Respiratory: Symmetrical Chest Expansion and Respiratory Effort, Clear to Auscultation Cardiovascular: RRR - Normal S1 and S2 Abdominal: - - Mild distention, diffuse tenderness, NG, NR, BS+ hypoactive Neurological: Alert and Oriented x 3, NL Muscle Strength and Tone Lines/Tubes/Other Access: Clean, Dry and Intact Naso-enteral Tube, Clean, Dry and Intact Peripheral IV Nutrition: - - NPO Result Diagrams: 03/16/17 05:58 03/16/17 05:58 Assess/Plan/Problems-Billing Assessment: Mrs. Benavides is a 67yo F with PMH of thyroid CA s/p thyroidectomy with postop hypothyroidism, asthma, perforated diverticulitis s/p colon resection with colostomy and reversal, hiatal hernia, prior episodes of SBO, who presented to [facility] with c/o abdominal pain, found to have another episode of SBO. - Patient Problems (1) SBO (small bowel obstruction) Comment: - Surgical input appreciated. - Continue NPO, NGT, IVF, pain management. - Repeat KUB in AM. (2) Lung nodules Comment: - CT abd/pelvis shows incidental finding of multiple pulmonary parenchymal nodules, measuring up to 0.8cm in size. - Will check CT chest without contrast for further evaluation. (3) Lung consolidation Comment: - CT showed airspace disease on the right lower lobe - patient has no CP, cough, or dypnea, no fever. Suspect this is likely atelectasis. Will continue to monitor but no indication for antibiotics at this time. - Will panculture and start antibiotics if she spikes fever. (4) Hypothyroidism Comment: - Continue IV levothyroxine. (5) Asthma Comment: - Continue IV steroids while NPO. (6) DVT prophylaxis Comment: - SQ heparin. (7) Full code status Status and Disposition: Inpatient for management of SBO, requiring >48h for stabilization.
[2017-03-16] MEDS ORDERED: HYDROmorphone* 1 MG/ML 1 ML SYR IV SLOW PU ONE (09:08)
--- NOTE | 2017-03-16 10:46 | CONS ---
CC: [facility]; Dr. Doris Alicea, [facility] * CONSULTATION REPORT: DATE OF CONSULT: 03/16/17 REFERRING PROVIDER: Dr. Paco Mccrary REASON FOR CONSULT: Small bowel obstruction. HISTORY OF PRESENT ILLNESS: Ms. Ela Benavides is a very pleasant 67-year-old woman with a past surgical history noted for a perforated diverticulitis, treated with colectomy and emergent colostomy with subsequent reversal in 2013. This was all done in [place]. She has a history of total abdominal hysterectomy also in the remote past. She was in her usual state of health until about 5 o'clock yesterday afternoon when she developed some severe, sharp, crampy abdominal pain and noted bloating. She had nausea and vomiting of some food that she had recently eaten. She states her last bowel movement was 3 or 4 days ago, which is not completely unusual for her, but she had not passed flatus in the last 12 hours or so. She has a history recently of at least 2 [place] [facility] [place] bowel obstruction that fortunately responded to nonoperative management. In between episodes, she has been doing well with no complaints of generalized nausea, vomiting, or abdominal pain. She presented last night, was noted to have stable vital signs with no fever or tachycardia. Laboratory values included a white blood cell count of 14,000. Lactic acid was 1.5; however, this was elevated to 2.2 this morning after fluid administration. She had normal renal function as well. A CT scan of the abdomen and pelvis was obtained. I did review these images. This shows some mildly distended proximal small bowel and stomach with transition to decompressed small bowel in the more distal portion of the small bowel itself. There is a large amount of stools mainly in the right side of the colon. There is no free air or bowel wall abnormalities. There is a small amount of free fluid in the pelvis. Findings were felt to be consistent with a small bowel obstruction and she has been admitted to the hospitalist service for surgical consultation. PAST MEDICAL HISTORY: 1. Asthma. 2. History of thyroid cancer. PAST SURGICAL HISTORY: 1. Emergent laparotomy with colectomy and colostomy. 2. Colostomy reversal. 3. Total abdominal hysterectomy, open. 4. Laparoscopic Perla fundoplication with subsequent revision due to a slipped wrap. MEDICATIONS: Include: 1. Prednisone 5 mg p.o. q.a.m. 2. Dulera inhaler. 3. Synthroid. 4. Xyzal. 5. Xopenex inhaler. 6. Vitamin D and calcium. 7. Albuterol inhaler p.r.n. ALLERGIES: She is allergic to PENICILLIN, AMOXICILLIN, and FLU VACCINE. SOCIAL HISTORY: She is . Her , however, lives in [facility]. She has 3 grown children, 2 of whom are in the area. REVIEW OF SYSTEMS: Cerebrovascular: She has no headaches or visual disturbance. Cardiovascular: She has had no chest pain or shortness of breath. Pulmonary: No wheezing or hemoptysis. GI: As per above. : No urgency or hematuria. PHYSICAL EXAM: Temperature 98.4, pulse 87, blood pressure 120/61, respirations 16. In general, she is a well-developed, slender female, appears to be in no apparent distress. She has a nasogastric tube in place. HEENT: Sclerae are anicteric. Her trachea was midline. Oral mucosa is dry. Heart has a regular rate and rhythm without murmurs, rubs, or gallops. Abdomen is soft, but distended. She has a well- healed midline incision as well as a colostomy scar in the left mid abdomen. She also has a low transverse incision. I appreciate no incisional hernias. She had bowel sounds that were present slightly hypoactive, but they were not high-pitched or tinkling. She has some mild generalized abdominal tenderness. There is no rebound, guarding, or peritoneal irritation noted. DIAGNOSTIC STUDIES: I did review the CT scan images personally. IMPRESSION AND PLAN: Small bowel obstruction. This appears to be most likely secondary to adhesive disease. She has had 2 admissions in the past year here [place] [facility] [place] same, which fortunately responded to nonoperative management; however, she was here for 9 days during her last visit. At this point, she has no emergent indications for laparotomy and I recommend continued nonoperative management with nasogastric tube decompression, keeping her n.p.o. , on IV fluids. Her lactic acid will be repeated later this afternoon to assure that this has returned to normal. We will follow her closely with repeat laboratory values tomorrow as well as abdominal films. I discussed all of this with her and she is well aware of the circumstances surrounding bowel obstructions in light of her multiple previous surgical procedures. Thank you for the consultation. We will follow her closely. [id number]/[facility] #: [id number] [place]WE[place]
[2017-03-16] MEDS: Ondansetron INJ* 2 MG/ML VIAL IV PRN ×2 (12:18→17:54)
[2017-03-16 12:50] LABS: Urine Bacteria Absent (Absent); Urine Bilirubin Negative (Negative); Urine Glucose Negative (Negative); Urine Nitrite Negative (Negative)
[2017-03-16] MEDS: Levalbuterol 1.25MG/0.5ML NEB INH PRN (14:02)
[2017-03-17] MEDS: Heparin VIAL(*) 5000 UNITS/ML VIAL (FIVE THOUSAND) SUBCUT SCH ×3 (05:45→21:05)
[2017-03-17 05:48] LABS: Hematocrit 37 % (35-47); Hemoglobin 12.3 g/dl (12.0-16.0); Mean Corpuscular HGB Conc 34 g/dl (31-36); Mean Corpuscular Hemoglobin 30 pg (27-31); Mean Corpuscular Volume 90 fL (80-97); Mean Platelet Volume 7 um3 (7.4-10.4); Red Blood Count 4.07 10^6/ul (4.0-5.4); Red Cell Distribution Width 13 % (10.5-15); White Blood Count 9.1 10^3/ul (3.5-10.8)
[2017-03-17 06:11] LABS: BUN/Creatinine Ratio 20.6 (8-20); Calcium 7.8 mg/dL (8.6-10.3); EGFR African American 110.3 (>60); EGFR Non-African American 85.8 (>60)
[2017-03-17] MEDS: Mometasone/Formoter 200/5 MDI INH SCH ×2 (07:49→21:04)
--- NOTE | 2017-03-17 08:27 | RAD ---
HISTORY: Thyroid cancer, lung nodules COMPARISONS: CT of the abdomen and pelvis, PET/CT dated December 27, 2015 dated March 16, 2017 TECHNIQUE: Multiple contiguous axial CT scans of the chest were obtained without intravenous contrast. Coronal and sagittal multiplanar reformations are also submitted for review. FINDINGS: The study is limited by the lack of intravenous contrast. This limits evaluation of the solid organs and vasculature. NECK AND THYROID: The lower neck and thyroid are unremarkable. CHEST WALL: There is no lower cervical, axillary, or supraclavicular lymphadenopathy by size criteria. HEART AND PERICARDIUM: The heart is unremarkable. AORTA AND PULMONARY VASCULATURE: The aorta and pulmonary vasculature are normal. MEDIASTINUM: There is no mediastinal lymphadenopathy by size criteria. ACE: There is no hilar lymphadenopathy by size criteria. AIRWAY AND ESOPHAGUS: The airway is unremarkable, without endobronchial filling defect. The esophagus is grossly normal. LUNG PARENCHYMA: There is centrilobular nodularity with patchy consolidation of the right lower lobe. There is a 0.8 cm nodule of the left lower lobe. On the right, this is progressed from the March 16, 2017 examination. PLEURA: There are small bilateral pleural effusions UPPER ABDOMEN: Again noted are hepatic cysts BONES AND SOFT TISSUES: No bone or soft tissue abnormalities are noted. OTHER: A gastric tube is noted IMPRESSION: 1. THERE IS BEEN PROGRESSIVE AIRSPACE DISEASE AND CENTRILOBULAR NODULARITY OF THE RIGHT LOWER LOBE WHEN COMPARED TO MARCH 16, 2017 CONSISTENT WITH PROGRESSION OF AN INFECTIOUS OR INFLAMMATORY PROCESS. 2. SMALL BILATERAL PLEURAL EFFUSIONS 3. AGAIN NOTED IS A NODULE OF THE LEFT LOWER LOBE, ALSO LIKELY INFECTIOUS OR INFLAMMATORY, THOUGH GIVEN THE HISTORY OF MALIGNANCY, METASTATIC DISEASE IS WITHIN THE DIFFERENTIAL. RECOMMEND SHORT-TERM FOLLOW-UP IMAGING WITH CT OF THE CHEST IN 3 MONTHS, OR CONSIDERATION OF PET CT AFTER RESOLUTION OF THE ACUTE PROCESS..
--- NOTE | 2017-03-17 08:28 | RAD ---
HISTORY: Small bowel obstruction COMPARISONS: CT dated March 16, 2017 VIEWS: Frontal views of the abdomen. FINDINGS: BOWEL: There is a nonspecific bowel gas pattern, with nondilated small bowel gas noted. Oral contrast is noted within the colon CALCULI: There are no abnormal calculi. BONES AND SOFT TISSUES: There is a scoliotic curvature of the spine. Degenerative changes are noted. OTHER FINDINGS: There is patchy airspace disease of the right lung base. A gastric tube is noted with the tip in the left upper quadrant. There is no subphrenic gas. Excreted intravenous contrast is noted within the bladder. IMPRESSION: NONSPECIFIC BOWEL GAS PATTERN. ORAL CONTRAST IS NOTED WITHIN THE COLON.
--- NOTE | 2017-03-17 08:39 | PN ---
Progress Note - Progress Note Date of Service: 03/17/17 SOAP: Subjective: Abdominal pain much improved but still has some sharp pain at times. No nausea, no flatus or BM Ambulating to bathroom Objective: Temp Pulse Resp BP Pulse Ox 98.1 F 71 16 118/57 93 03/17/17 07:15 03/17/17 07:15 03/17/17 07:15 03/17/17 07:15 03/17/17 07:15 Intake & Output 03/15/17 03/16/17 03/17/17 03/18/17 06:59 06:59 06:59 06:59 Intake Total 1000 2256 Output Total 850 Balance 1000 1406 Weight 155 lb 155 lb Intake: IV Fluids 1000 2066 LR 2066 Oral 190 Output: NG Tube Drainage Amount 100 Urine 750 Other: Date of Last Bowel 03/12/17 Movement PEX: Comfortable Abd is softer but remains slightly distended. Bowel sounds are present and active but are not high pitched or tinkling. Mild tenderness on palpation--no rebound or guarding AXR this AM reviewed--contrast into colon without significant small bowel distension, appears improved from CT scan Assessment: SBO-appears improving, minimal NGT output but no flatus or BM Plan: D/C NGT Start sips of clears and follow, advance diet as tolerated.
[2017-03-17] MEDS: Famotidine IV* 10 MG/ML 2 ML (20 mg) IV SLOW PU SCH ×2 (10:10→21:03)
[2017-03-17] MEDS: Levothyroxine INJ* 100 MCG/5 ML VIAL IV SCH (10:14)
[2017-03-17] MEDS: methylPREDNISolone SOD 40 MG* 1 ML VIAL IV SCH (10:16)
[2017-03-17] MEDS: Ondansetron INJ* 2 MG/ML VIAL IV PRN ×2 (11:45→18:59)
--- NOTE | 2017-03-17 18:02 | PN ---
Subjective Date of Service: 03/17/17 Interval History: Lower abdominal pain decreased but still present. C/O nausea. No flatus or BM. Family History: Unchanged from Admission Social History: Unchanged from Admission Past Medical History: Unchanged from Admission Objective Active Medications: Acetaminophen (Tylenol Supp*) 650 mg HI Q6H PRN PRN Reason: FEVER/PAIN Famotidine (Pepcid Iv*) 20 mg IV SLOW PU BID [facility] Last Admin: 03/17/17 10:10 Dose: 20 mg Heparin Sodium (Porcine) (Heparin Vial(*)) 5,000 units SUBCUT Q8HR [facility] Last Admin: 03/17/17 14:59 Dose: 5,000 units Hydromorphone HCl (Dilaudid Iv*) 1 mg IV Q2H PRN PRN Reason: PAIN Last Admin: 03/16/17 17:53 Dose: 1 mg Potassium Chloride/Dextrose (D5w 1/2 Ns Kcl 20 Meq 1000 Ml*) 1,000 mls @ 100 mls/hr IV PER RATE [facility] Levalbuterol HCl (Xopenex 1.25 Mg/0.5 Ml Neb.Zaira*) 1.25 mg INH Q4H PRN PRN Reason: SHORTNESS OF BREATH Last Admin: 03/16/17 14:02 Dose: 1.25 mg Levothyroxine Sodium (Synthroid Inj*) 44 mcg IV QAM [facility] Last Admin: 03/17/17 10:14 Dose: 44 mcg Methylprednisolone Sodium Succinate (Solu-Medrol 40 Mg) 4 mg IV QAM [facility] Last Admin: 03/17/17 10:16 Dose: 4 mg Mometasone Furoate/Formoterol Fumar (Dulera 200/5 Mdi*) 1 puff INH BID [facility] Last Admin: 03/17/17 07:49 Dose: 1 puff Ondansetron HCl (Zofran Inj*) 4 mg IV Q6H PRN PRN Reason: NAUSEA Last Admin: 03/17/17 11:45 Dose: 4 mg Vital Signs 03/16/17 03/16/17 03/16/17 18:53 19:19 19:20 Temperature 99.6 F Pulse Rate 68 Respiratory 14 14 Rate Blood Pressure 106/54 (mmHg) O2 Sat by Pulse 88 92 Oximetry 03/16/17 03/16/17 03/16/17 19:29 20:47 23:17 Temperature 97.8 F Pulse Rate 77 Respiratory 14 16 Rate Blood Pressure 116/56 (mmHg) O2 Sat by Pulse 98 94 Oximetry 03/17/17 03/17/17 03/17/17 04:21 07:15 07:31 Temperature 98.0 F 98.1 F Pulse Rate 75 71 Respiratory 16 16 16 Rate Blood Pressure 119/62 118/57 (mmHg) O2 Sat by Pulse 100 93 Oximetry 03/17/17 03/17/17 11:39 15:16 Temperature 98.3 F 98.8 F Pulse Rate 77 75 Respiratory 16 18 Rate Blood Pressure 135/67 139/72 (mmHg) O2 Sat by Pulse 95 92 Oximetry Oxygen Devices in Use Now: None Appearance: Alert, partly up in bed. In good spirits. Looks comfortable. Eyes: No Scleral Icterus Neck: NL Appearance and Movements; NL JVP, No Thyroid Enlargement, Masses Respiratory: Symmetrical Chest Expansion and Respiratory Effort, Clear to Auscultation, Clear to Percussion Abdominal: No Hepatosplenomegaly, - - Soft, not tender. Diminished BS. Extremities: No Edema, No Clubbing, Cyanosis, - Skin: No Rash or Ulcers, No Nodules or Sclerosis, - Neurological: Alert and Oriented x 3, NL Sensation Result Diagrams: 03/17/17 05:31 03/17/17 05:31 Microbiology and Other Data: Microbiology 03/16/17 12:25 Urine Culture - Final Urine Assess/Plan/Problems-Billing Assessment: Mrs. Benavides is a 67yo F with PMH of thyroid CA s/p thyroidectomy with postop hypothyroidism, asthma, perforated diverticulitis s/p colon resection with colostomy and reversal, hiatal hernia, prior episodes of SBO, who presented to with c/o abdominal pain, found to have another episode of SBO. - Patient Problems (1) SBO (small bowel obstruction) Current Visit: Yes Status: Acute Code(s): K56.69 - OTHER INTESTINAL OBSTRUCTION SNOMED Code(s): 490970371 Comment: One of many admissions for SBO. Surgical input appreciated. - Continue diet as per Dr. Gomez. Monitor clinically. (2) Asthma Current Visit: Yes Status: Acute Code(s): J45.909 - UNSPECIFIED ASTHMA, UNCOMPLICATED SNOMED Code(s): 090049827 Comment: - Continue IV steroids while oral intake poor. Hx of multiple admissions for asthma. (3) Lung nodules Current Visit: Yes Status: Acute Code(s): R91.8 - OTHER NONSPECIFIC ABNORMAL FINDING OF LUNG FIELD SNOMED Code(s): 953299558 Comment: - CT abd/pelvis shows incidental finding of multiple pulmonary parenchymal nodules, measuring up to 0.8cm in size. CT chest confirms this. It may have been present on older CT of abd/pelvis, will discuss with a radiologist 03/18. (4) Hypothyroidism Current Visit: Yes Status: Acute Code(s): E03.9 - HYPOTHYROIDISM, UNSPECIFIED SNOMED Code(s): 14894795 Comment: - Continue IV levothyroxine. Status and Disposition: Inpatient for management of SBO, requiring >48h for stabilization.
[2017-03-17] MEDS: D5W 1/2 NS KCl 20 Meq 1000 ML* 1,000 ML IV SCH (18:44)
[2017-03-18] MEDS: Ondansetron INJ* 2 MG/ML VIAL IV PRN (01:14)
[2017-03-18] MEDS: Heparin VIAL(*) 5000 UNITS/ML VIAL (FIVE THOUSAND) SUBCUT SCH ×3 (05:27→21:47)
[2017-03-18] MEDS: D5W 1/2 NS KCl 20 Meq 1000 ML* 1,000 ML IV SCH ×2 (05:28→16:22)
--- NOTE | 2017-03-18 08:30 | PN ---
Progress Note - Progress Note Date of Service: 03/18/17 SOAP: Subjective: Had some abdominal pain and nausea yesterday, now resolved No flatus or BM Ambulating in halls well Objective: Temp Pulse Resp BP Pulse Ox 97.4 F 66 16 161/62 95 03/18/17 07:19 03/18/17 07:19 03/18/17 07:48 03/18/17 07:19 03/18/17 07:19 Intake & Output 03/16/17 03/17/17 03/18/17 03/19/17 06:59 06:59 06:59 06:59 Intake Total 1000 2256 3189 Output Total 850 2550 700 Balance 1000 1406 639 -700 Weight 155 lb 155 lb Intake: IV Fluids 1000 206 2969 D5W 1/2 NS 20 meq KCL 980 LR 2065 1988 Oral 190 220 Output: NG Tube Drainage Amount 100 Urine 750 2550 700 Other: Date of Last Bowel 03/12/17 Movement # Bowel Movements 0 PEX: Comfortable Lungs are clear Abd is soft and slighty distended. Bowel sounds are present and are slightly hyperactive but not high pitched or tinkling There is some mild tenderness on deeper palpation but no rebound or guarding. Assessment: Small bowel obstruction-AXR yesterday showed non-specific small bowel pattern with oral contrast into colon. She had not had a BM for 3-4 days prior to admission and she may have also component of constipation. Plan: Tap water enema today for possible constipation. Sips of clears for now Increase activity.
[2017-03-18] MEDS: methylPREDNISolone SOD 40 MG* 1 ML VIAL IV SCH (08:55)
[2017-03-18] MEDS: Famotidine IV* 10 MG/ML 2 ML (20 mg) IV SLOW PU SCH ×2 (08:55→20:36)
[2017-03-18] MEDS: Mometasone/Formoter 200/5 MDI INH SCH ×2 (08:55→20:36)
[2017-03-18] MEDS: Levothyroxine INJ* 100 MCG/5 ML VIAL IV SCH (08:55)
--- NOTE | 2017-03-18 12:50 | PN ---
Subjective Family History: Unchanged from Admission Social History: Unchanged from Admission Past Medical History: Unchanged from Admission Objective Active Medications: Acetaminophen (Tylenol Supp*) 650 mg [place] Q6H PRN PRN Reason: FEVER/PAIN Famotidine (Pepcid Iv*) 20 mg IV SLOW PU BID [facility] Last Admin: 03/18/17 08:55 Dose: 20 mg Heparin Sodium (Porcine) (Heparin Vial(*)) 5,000 units SUBCUT Q8HR [facility] Last Admin: 03/18/17 05:27 Dose: 5,000 units Hydromorphone HCl (Dilaudid Iv*) 1 mg IV Q2H PRN PRN Reason: PAIN Last Admin: 03/16/17 17:53 Dose: 1 mg Potassium Chloride/Dextrose (D5w 1/2 Ns Kcl 20 Meq 1000 Ml*) 1,000 mls @ 100 mls/hr IV PER RATE [facility] Last Admin: 03/18/17 05:28 Dose: 100 mls/hr Levalbuterol HCl (Xopenex 1.25 Mg/0.5 Ml Neb.Zaira*) 1.25 mg INH Q4H PRN PRN Reason: SHORTNESS OF BREATH Last Admin: 03/16/17 14:02 Dose: 1.25 mg Levothyroxine Sodium (Synthroid Inj*) 44 mcg IV QAM [facility] Last Admin: 03/18/17 08:55 Dose: 44 mcg Methylprednisolone Sodium Succinate (Solu-Medrol 40 Mg) 4 mg IV QAM [facility] Last Admin: 03/18/17 08:55 Dose: 4 mg Mometasone Furoate/Formoterol Fumar (Dulera 200/5 Mdi*) 1 puff INH BID [facility] Last Admin: 03/18/17 08:55 Dose: 1 puff Ondansetron HCl (Zofran Inj*) 4 mg IV Q6H PRN PRN Reason: NAUSEA Last Admin: 03/18/17 01:14 Dose: 4 mg Vital Signs 03/17/17 03/17/17 03/17/17 15:16 19:19 19:52 Temperature 98.8 F 98.5 F Pulse Rate 75 69 Respiratory 18 17 18 Rate Blood Pressure 139/72 144/67 (mmHg) O2 Sat by Pulse 92 94 Oximetry 03/17/17 03/18/17 03/18/17 23:44 04:15 07:19 Temperature 98.4 F 98.3 F 97.4 F Pulse Rate 65 65 66 Respiratory 16 16 16 Rate Blood Pressure 116/51 125/61 161/62 (mmHg) O2 Sat by Pulse 94 96 95 Oximetry 03/18/17 03/18/17 07:48 11:42 Temperature 98.2 F Pulse Rate 69 Respiratory 16 16 Rate Blood Pressure 127/71 (mmHg) O2 Sat by Pulse 95 Oximetry Oxygen Devices in Use Now: None Result Diagrams: 03/17/17 05:31 03/17/17 05:31 Microbiology and Other Data: Microbiology 03/16/17 12:25 Urine Culture - Final Urine Assess/Plan/Problems-Billing Assessment: Mrs. Benavides is a 67yo F with PMH of thyroid CA s/p thyroidectomy with postop hypothyroidism, asthma, perforated diverticulitis s/p colon resection with colostomy and reversal, hiatal hernia, prior episodes of SBO, who presented to with c/o abdominal pain, found to have another episode of SBO. - Patient Problems (1) SBO (small bowel obstruction) Current Visit: Yes Status: Acute Code(s): K56.69 - OTHER INTESTINAL OBSTRUCTION SNOMED Code(s): 415849030 Comment: One of many admissions for SBO. Surgical input appreciated. - Continue diet as per Dr. Gomez. Monitor clinically. (2) Asthma Current Visit: Yes Status: Acute Code(s): J45.909 - UNSPECIFIED ASTHMA, UNCOMPLICATED SNOMED Code(s): 051479588 Comment: - Continue IV steroids while oral intake poor. Hx of multiple admissions for asthma. (3) Lung nodules Current Visit: Yes Status: Acute Code(s): R91.8 - OTHER NONSPECIFIC ABNORMAL FINDING OF LUNG FIELD SNOMED Code(s): 132810479 Comment: - CT abd/pelvis shows incidental finding of multiple pulmonary parenchymal nodules, measuring up to 0.8cm in size. CT chest confirms this. It may have been present on older CT of abd/pelvis, will discuss with a radiologist 03/18. (4) Hypothyroidism Current Visit: Yes Status: Acute Code(s): E03.9 - HYPOTHYROIDISM, UNSPECIFIED SNOMED Code(s): 67384114 Comment: - Continue IV levothyroxine. Status and Disposition: Inpatient for management of SBO, requiring >48h for stabilization.
--- NOTE | 2017-03-18 13:45 | PN ---
Subjective Date of Service: 03/18/17 Interval History: No nausea. No flatus or BM. Not hungry but requests broth or Jello. No pain. No cough, SOB. Family History: Unchanged from Admission Social History: Unchanged from Admission Past Medical History: Unchanged from Admission Objective Active Medications: Acetaminophen (Tylenol Supp*) 650 mg [place] Q6H PRN PRN Reason: FEVER/PAIN Famotidine (Pepcid Iv*) 20 mg IV SLOW PU BID [facility] Last Admin: 03/18/17 08:55 Dose: 20 mg Heparin Sodium (Porcine) (Heparin Vial(*)) 5,000 units SUBCUT Q8HR [facility] Last Admin: 03/18/17 05:27 Dose: 5,000 units Hydromorphone HCl (Dilaudid Iv*) 1 mg IV Q2H PRN PRN Reason: PAIN Last Admin: 03/16/17 17:53 Dose: 1 mg Potassium Chloride/Dextrose (D5w 1/2 Ns Kcl 20 Meq 1000 Ml*) 1,000 mls @ 100 mls/hr IV PER RATE [facility] Last Admin: 03/18/17 05:28 Dose: 100 mls/hr Levofloxacin/Dextrose (Levaquin 750 Mg Ivpremix(*)) 750 mg in 150 mls @ 100 mls /hr IVPB Q24H [facility] Levalbuterol HCl (Xopenex 1.25 Mg/0.5 Ml Neb.Zaira*) 1.25 mg INH Q4H PRN PRN Reason: SHORTNESS OF BREATH Last Admin: 03/16/17 14:02 Dose: 1.25 mg Levothyroxine Sodium (Synthroid Inj*) 44 mcg IV QAM [facility] Last Admin: 03/18/17 08:55 Dose: 44 mcg Methylprednisolone Sodium Succinate (Solu-Medrol 40 Mg) 4 mg IV QAM [facility] Last Admin: 03/18/17 08:55 Dose: 4 mg Mometasone Furoate/Formoterol Fumar (Dulera 200/5 Mdi*) 1 puff INH BID [facility] Last Admin: 03/18/17 08:55 Dose: 1 puff Ondansetron HCl (Zofran Inj*) 4 mg IV Q6H PRN PRN Reason: NAUSEA Last Admin: 03/18/17 01:14 Dose: 4 mg Vital Signs 03/17/17 03/17/17 03/17/17 15:16 19:19 19:52 Temperature 98.8 F 98.5 F Pulse Rate 75 69 Respiratory 18 17 18 Rate Blood Pressure 139/72 144/67 (mmHg) O2 Sat by Pulse 92 94 Oximetry 03/17/17 03/18/17 03/18/17 23:44 04:15 07:19 Temperature 98.4 F 98.3 F 97.4 F Pulse Rate 65 65 66 Respiratory 16 16 16 Rate Blood Pressure 116/51 125/61 161/62 (mmHg) O2 Sat by Pulse 94 96 95 Oximetry 03/18/17 03/18/17 07:48 11:42 Temperature 98.2 F Pulse Rate 69 Respiratory 16 16 Rate Blood Pressure 127/71 (mmHg) O2 Sat by Pulse 95 Oximetry Oxygen Devices in Use Now: None Appearance: Alert, sitting on the edge of her bed. In good spirits. Looks comfortable. Eyes: No Scleral Icterus Ears/Nose/Mouth/Throat: Clear Oropharnyx, Mucous Membranes Moist Neck: NL Appearance and Movements; NL JVP, No Thyroid Enlargement, Masses Respiratory: Symmetrical Chest Expansion and Respiratory Effort, Clear to Percussion, - - Rales R base Cardiovascular: NL Sounds; No Murmurs; No JVD, RRR, No Edema, - Abdominal: NL Sounds; No Tenderness; No Distention, No Hepatosplenomegaly, - Extremities: No Edema, No Clubbing, Cyanosis, - Skin: No Rash or Ulcers, No Nodules or Sclerosis, - Neurological: Alert and Oriented x 3, NL Sensation Result Diagrams: 03/17/17 05:31 03/17/17 05:31 Microbiology and Other Data: Microbiology 03/16/17 12:25 Urine Culture - Final Urine Assess/Plan/Problems-Billing Assessment: Mrs. Benavides is a 67yo F with PMH of thyroid CA s/p thyroidectomy with postop hypothyroidism, asthma, perforated diverticulitis s/p colon resection with colostomy and reversal, hiatal hernia, prior episodes of SBO, who presented to with c/o abdominal pain, found to have another episode of SBO. - Patient Problems (1) SBO (small bowel obstruction) Current Visit: Yes Status: Acute Code(s): K56.69 - OTHER INTESTINAL OBSTRUCTION SNOMED Code(s): 404560894 Comment: One of many admissions for SBO. Surgical input appreciated. Clear liquid diet 8/29. (2) Asthma Current Visit: Yes Status: Acute Code(s): J45.909 - UNSPECIFIED ASTHMA, UNCOMPLICATED SNOMED Code(s): 049595134 Comment: - Continue IV steroids while oral intake poor. Hx of multiple admissions for asthma. (3) Lung nodules Current Visit: Yes Status: Acute Code(s): R91.8 - OTHER NONSPECIFIC ABNORMAL FINDING OF LUNG FIELD SNOMED Code(s): 938860605 Comment: - CT abd/pelvis shows incidental finding of multiple pulmonary parenchymal nodules, measuring up to 0.8cm in size. CT chest confirms this. It may have been present on older CT of abd/pelvis, will discuss with a radiologist 03/18. (4) Hypothyroidism Current Visit: Yes Status: Acute Code(s): E03.9 - HYPOTHYROIDISM, UNSPECIFIED SNOMED Code(s): 44436208 Comment: - Continue IV levothyroxine. (5) Pulmonary infiltrate Current Visit: Yes Status: Acute Code(s): R91.8 - OTHER NONSPECIFIC ABNORMAL FINDING OF LUNG FIELD SNOMED Code(s): 813566080 Comment: Predominantly R base. Reviewed with Dr. Meng. The infiltrate increased dramatically since admision, was not present in 11/2016. Despite other clinical evidence of pneumonia, I think the infiltrate is related to her emesis via aspiration. IV levofloxacin ordered. Status and Disposition: Inpatient for management of SBO, requiring >48h for stabilization.
[2017-03-18] MEDS ORDERED: Levofloxacin 750 MG IVPREMIX(* 750 MG/150 ML BAG IVPB SCH (14:00)
[2017-03-18] MEDS: Clindamycin 600 MG IVPREMIX(* 600 MG/50 ML SDV IV SCH ×2 (14:41→23:06)
[2017-03-19] MEDS: D5W 1/2 NS KCl 20 Meq 1000 ML* 1,000 ML IV SCH ×2 (02:19→13:33)
[2017-03-19] MEDS: Heparin VIAL(*) 5000 UNITS/ML VIAL (FIVE THOUSAND) SUBCUT SCH ×3 (05:39→21:54)
[2017-03-19] MEDS: Levalbuterol 1.25MG/0.5ML NEB INH PRN (06:25)
[2017-03-19] MEDS: Mometasone/Formoter 200/5 MDI INH SCH ×2 (07:11→19:48)
[2017-03-19] MEDS: Clindamycin 600 MG IVPREMIX(* 600 MG/50 ML SDV IV SCH ×3 (07:11→23:01)
--- NOTE | 2017-03-19 09:04 | PN ---
Progress Note - Progress Note Date of Service: 03/19/17 SOAP: Subjective: She passed a small amount of flatus this morning. She is still having some left sided abdominal pain. No BM, tolerating some clear liquids Objective: Temp Pulse Resp BP Pulse Ox 97.4 F 58 18 138/82 95 03/19/17 07:19 03/19/17 07:19 03/19/17 08:00 03/19/17 07:19 03/19/17 07:19 PEX: Comfortable Abd is mildly distended. Bowel sounds are present and hyperactive but not high pitched. She has some mild left sided abdominal pain Assessment: Abdominal pain-I think this is more likely obstipation at this point and not SBO. Plan: AXR this morning and if shows normal small bowel pattern with stool in colon will start with oral cathartics and more enemas. Continue clear liquids
--- NOTE | 2017-03-19 09:44 | RAD ---
Indication: Abdominal pain. Nausea and vomiting. Possible small bowel obstruction. Previous bowel perforation. Comparison: March 17, 2017 Technique: Supine and upright views of the abdomen. Report: Previous NG tube has been removed. No radiographic evidence for free air. No dilated bowel loops evident. Moderately large volume stool at the hepatic flexure and transverse colon. Negative for significant rectal distention with stool. Low pelvic bowel anastomosis visualized. Additional staple line possibly a bowel anastomosis at the LEFT abdomen. Negative for suspicious calcifications. Unremarkable soft tissue contours. Persistent RIGHT greater than LEFT lung base airspace consolidation concerning for pneumonia. IMPRESSION: 1. No evidence for bowel obstruction. Negative for free intraperitoneal air. 2. Persistent RIGHT greater than LEFT lung base airspace consolidation concerning for pneumonia.
[2017-03-19] MEDS: Famotidine IV* 10 MG/ML 2 ML (20 mg) IV SLOW PU SCH ×2 (09:46→21:54)
[2017-03-19] MEDS: methylPREDNISolone SOD 40 MG* 1 ML VIAL IV SCH (09:46)
[2017-03-19] MEDS: Levothyroxine INJ* 100 MCG/5 ML VIAL IV SCH (09:46)
[2017-03-19] MEDS: Ondansetron INJ* 2 MG/ML VIAL IV PRN ×2 (13:39→19:44)
--- NOTE | 2017-03-19 15:58 | PN ---
Subjective Date of Service: 03/19/17 Interval History: No flatus or BM yet despite enema and lactulose. Poor appetite, some nausea, no emesis recently. Walks a little. No cough, SOB, chest pain. Family History: Unchanged from Admission Social History: Unchanged from Admission Past Medical History: Unchanged from Admission Objective Active Medications: Acetaminophen (Tylenol Supp*) 650 mg [place] Q6H PRN PRN Reason: FEVER/PAIN Famotidine (Pepcid Iv*) 20 mg IV SLOW PU BID [facility] Last Admin: 03/19/17 09:46 Dose: 20 mg Heparin Sodium (Porcine) (Heparin Vial(*)) 5,000 units SUBCUT Q8HR [facility] Last Admin: 03/19/17 13:50 Dose: 5,000 units Hydromorphone HCl (Dilaudid Iv*) 1 mg IV Q2H PRN PRN Reason: PAIN Last Admin: 03/16/17 17:53 Dose: 1 mg Potassium Chloride/Dextrose (D5w 1/2 Ns Kcl 20 Meq 1000 Ml*) 1,000 mls @ 100 mls/hr IV PER RATE [facility] Last Admin: 03/19/17 13:33 Dose: 100 mls/hr Clindamycin HCl/Dextrose (Cleocin 600 Mg Ivpremix(*) Sdv) 600 mg in 50 mls @ 100 mls/hr IV Q8H [facility] Last Admin: 03/19/17 15:06 Dose: 100 mls/hr Levalbuterol HCl (Xopenex 1.25 Mg/0.5 Ml Neb.Zaira*) 1.25 mg INH Q4H PRN PRN Reason: SHORTNESS OF BREATH Last Admin: 03/19/17 06:25 Dose: 1.25 mg Levothyroxine Sodium (Synthroid Inj*) 44 mcg IV QAM [facility] Last Admin: 03/19/17 09:46 Dose: 44 mcg Magnesium Citrate (Citrate Of Magnesia*) 300 ml PO ONCE ONE Stop: 03/19/17 15:53 Methylprednisolone Sodium Succinate (Solu-Medrol 40 Mg) 4 mg IV QAM [facility] Last Admin: 03/19/17 09:46 Dose: 4 mg Mometasone Furoate/Formoterol Fumar (Dulera 200/5 Mdi*) 1 puff INH BID [facility] Last Admin: 03/19/17 07:11 Dose: 1 puff Ondansetron HCl (Zofran Inj*) 4 mg IV Q6H PRN PRN Reason: NAUSEA Last Admin: 03/19/17 13:39 Dose: 4 mg Vital Signs 03/18/17 03/18/17 03/18/17 19:06 20:40 23:04 Temperature 98.3 F 97.5 F Pulse Rate 61 58 Respiratory 16 16 16 Rate Blood Pressure 139/82 128/72 (mmHg) O2 Sat by Pulse 96 95 Oximetry 03/19/17 03/19/17 03/19/17 03:19 07:19 08:00 Temperature 97.9 F 97.4 F Pulse Rate 55 58 Respiratory 11 17 11 Rate Blood Pressure 112/66 138/82 (mmHg) O2 Sat by Pulse 94 95 Oximetry 03/19/17 11:25 Temperature 98.2 F Pulse Rate 61 Respiratory 17 Rate Blood Pressure 148/80 (mmHg) O2 Sat by Pulse 97 Oximetry Oxygen Devices in Use Now: None Appearance: Alert, p artly up in bed. In good spirits. Looks comrfortable. Neck: NL Appearance and Movements; NL JVP Respiratory: Clear to Percussion - Rales R base Cardiovascular: NL Sounds; No Murmurs; No JVD, RRR, No Edema, - Extremities: No Edema, No Clubbing, Cyanosis, - Skin: No Rash or Ulcers, No Nodules or Sclerosis, - Neurological: Alert and Oriented x 3, NL Sensation Result Diagrams: 03/17/17 05:31 03/17/17 05:31 Microbiology and Other Data: Microbiology 03/16/17 12:25 Urine Culture - Final Urine Assess/Plan/Problems-Billing Assessment: Mrs. Benavides is a 67yo F with PMH of thyroid CA s/p thyroidectomy with postop hypothyroidism, asthma, perforated diverticulitis s/p colon resection with colostomy and reversal, hiatal hernia, prior episodes of SBO, who presented to with c/o abdominal pain, found to have another episode of SBO. - Patient Problems (1) SBO (small bowel obstruction) Current Visit: Yes Status: Acute Code(s): K56.69 - OTHER INTESTINAL OBSTRUCTION SNOMED Code(s): 132341216 Comment: One of many admissions for SBO. Surgical input appreciated. Clear liquid diet 03/18. ABX 03/19 shows no evidence of obstruction. No BM with enema x 1 and lactulose 30 ml. Mag citrate 300 ml ordered. (2) Asthma Current Visit: Yes Status: Acute Code(s): J45.909 - UNSPECIFIED ASTHMA, UNCOMPLICATED SNOMED Code(s): 826350580 Comment: - Continue IV steroids while oral intake poor. Hx of multiple admissions for asthma. (3) Lung nodules Current Visit: Yes Status: Acute Code(s): R91.8 - OTHER NONSPECIFIC ABNORMAL FINDING OF LUNG FIELD SNOMED Code(s): 140857699 Comment: - CT abd/pelvis shows incidental finding of multiple pulmonary parenchymal nodules, measuring up to 0.8cm in size. CT chest confirms this. I reviewed her record with Dr. Meng 01/16. Infiltrate not present on admission, grew rapidly. IV clindamycin started 03/18. CRP, procalcitonin, CBC, BMP 03/20. (4) Hypothyroidism Current Visit: Yes Status: Acute Code(s): E03.9 - HYPOTHYROIDISM, UNSPECIFIED SNOMED Code(s): 42041427 Comment: - Continue IV levothyroxine. TSH wnl 01/06, repeat 03/20. Status and Disposition: Inpatient for management of SBO, requiring >48h for stabilization.
[2017-03-19] MEDS ORDERED: Magnesium CITRATE* 300 ML BTL PO ONE (16:30)
[2017-03-20] MEDS: D5W 1/2 NS KCl 20 Meq 1000 ML* 1,000 ML IV SCH ×2 (01:01→11:36)
[2017-03-20 04:46] LABS: Hematocrit 37 % (35-47); Hemoglobin 12.3 g/dl (12.0-16.0); Mean Corpuscular HGB Conc 33 g/dl (31-36); Mean Corpuscular Hemoglobin 30 pg (27-31); Mean Corpuscular Volume 90 fL (80-97); Mean Platelet Volume 7 um3 (7.4-10.4); Red Blood Count 4.16 10^6/ul (4.0-5.4); Red Cell Distribution Width 13 % (10.5-15); White Blood Count 5.6 10^3/ul (3.5-10.8)
[2017-03-20 04:57] LABS: C Reactive Protein 30.71 mg/L (< 5.00); EGFR African American 127.5 (>60); EGFR Non-African American 99.1 (>60); Potassium 3.3 mmol/L (3.5-5.0)
[2017-03-20] MEDS: Heparin VIAL(*) 5000 UNITS/ML VIAL (FIVE THOUSAND) SUBCUT SCH ×3 (05:20→21:49)
[2017-03-20 05:26] LABS: TSH (Thyroid Stimulating Horm) 14.92 mcIU/mL (0.34-5.60)
[2017-03-20] MEDS: Clindamycin 600 MG IVPREMIX(* 600 MG/50 ML SDV IV SCH ×3 (07:06→23:26)
[2017-03-20] MEDS: predniSONE TAB* 5 MG PO SCH (09:04)
[2017-03-20] MEDS: Famotidine IV* 10 MG/ML 2 ML (20 mg) IV SLOW PU SCH ×2 (09:04→20:52)
[2017-03-20] MEDS: Mometasone/Formoter 200/5 MDI INH SCH ×2 (09:06→20:54)
[2017-03-20] MEDS ORDERED: Levothyroxine TAB* 100 MCG TAB PO SCH (09:30)
[2017-03-20] MEDS: Levothyroxine INJ* 100 MCG/5 ML VIAL IV SCH (09:32)
[2017-03-20] MEDS: Polyethylene Glycol 3350* 17 GM PACKET PO SCH ×2 (10:11→20:54)
--- NOTE | 2017-03-20 10:29 | PN ---
Progress Note - Progress Note Date of Service: 03/20/17 SOAP: Subjective: Had a small firm BM last night and is passing gas--took magnesium citrate last night Still with some abdominal pain Objective: Temp Pulse Resp BP Pulse Ox 98.5 F 55 16 140/77 96 03/20/17 07:14 03/20/17 07:14 03/20/17 07:19 03/20/17 07:14 03/20/17 08:53 PEX: Comfortable ABd is soft and mildly distended. Bowel sounds are present and are hypoactive. No tenderness AXR yesterday--contrast in colon, no small bowel distension or SBO Assessment: Constipation-SBO if present has resolved Plan: MiraLax today No surgical intervention needed-continue cathartics, call if needed.
[2017-03-20] MEDS ORDERED: Levothyroxine TAB* 25 MCG TAB PO ONE (15:21)
--- NOTE | 2017-03-20 15:32 | PN ---
Subjective Date of Service: 03/20/17 Interval History: Small BM with mag citrate. Nervous about eating. No pain. No cough. Family History: Unchanged from Admission Social History: Unchanged from Admission Past Medical History: Unchanged from Admission Objective Active Medications: Acetaminophen (Tylenol Supp*) 650 mg [place] Q6H PRN PRN Reason: FEVER/PAIN Famotidine (Pepcid Iv*) 20 mg IV SLOW PU BID [facility] Last Admin: 03/20/17 09:04 Dose: 20 mg Heparin Sodium (Porcine) (Heparin Vial(*)) 5,000 units SUBCUT Q8HR [facility] Last Admin: 03/20/17 14:01 Dose: 5,000 units Clindamycin HCl/Dextrose (Cleocin 600 Mg Ivpremix(*) Sdv) 600 mg in 50 mls @ 100 mls/hr IV Q8H [facility] Last Admin: 03/20/17 14:50 Dose: 100 mls/hr Levalbuterol HCl (Xopenex 1.25 Mg/0.5 Ml Neb.Zaira*) 1.25 mg INH Q4H PRN PRN Reason: SHORTNESS OF BREATH Last Admin: 03/19/17 06:25 Dose: 1.25 mg Levothyroxine Sodium (Synthroid Tab*) 25 mcg PO ONCE ONE Stop: 03/20/17 15:22 Levothyroxine Sodium (Synthroid Tab*) 125 mcg PO DAILY@0600 [facility] Mometasone Furoate/Formoterol Fumar (Dulera 200/5 Mdi*) 1 puff INH BID [facility] Last Admin: 03/20/17 09:06 Dose: 1 puff Ondansetron HCl (Zofran Inj*) 4 mg IV Q6H PRN PRN Reason: NAUSEA Last Admin: 03/19/17 19:44 Dose: 4 mg Polyethylene Glycol/Electrolytes (Miralax*) 34 gm PO 0800,2100 [facility] Last Admin: 03/20/17 10:11 Dose: 34 gm Prednisone (Deltasone Tab*) 5 mg PO DAILY [facility] Last Admin: 03/20/17 09:04 Dose: 5 mg Vital Signs 03/19/17 03/19/17 03/19/17 15:45 19:18 19:40 Temperature 98.3 F 98.0 F Pulse Rate 63 60 Respiratory 17 17 17 Rate Blood Pressure 141/83 147/83 (mmHg) O2 Sat by Pulse 97 98 Oximetry 03/19/17 03/19/17 03/20/17 19:48 23:23 03:47 Temperature 98.1 F 97.9 F Pulse Rate 58 55 Respiratory 16 14 Rate Blood Pressure 150/81 138/73 (mmHg) O2 Sat by Pulse 95 97 97 Oximetry 03/20/17 03/20/17 03/20/17 07:14 07:19 08:53 Temperature 98.5 F Pulse Rate 55 Respiratory 16 14 Rate Blood Pressure 140/77 (mmHg) O2 Sat by Pulse 94 96 Oximetry 03/20/17 12:02 Temperature 97.9 F Pulse Rate 64 Respiratory 18 Rate Blood Pressure 118/62 (mmHg) O2 Sat by Pulse 96 Oximetry Oxygen Devices in Use Now: None Result Diagrams: 03/20/17 04:02 03/20/17 03:57 Microbiology and Other Data: Microbiology 03/16/17 12:25 Urine Culture - Final Urine Assess/Plan/Problems-Billing Assessment: Mrs. Benavides is a 67yo F with PMH of thyroid CA s/p thyroidectomy with postop hypothyroidism, asthma, perforated diverticulitis s/p colon resection with colostomy and reversal, hiatal hernia, prior episodes of SBO, who presented to [facility] with c/o abdominal pain, found to have another episode of SBO. - Patient Problems (1) SBO (small bowel obstruction) Current Visit: Yes Status: Acute Code(s): K56.69 - OTHER INTESTINAL OBSTRUCTION SNOMED Code(s): 747913320 Comment: One of many admissions for SBO. ABX 03/19 shows no evidence of obstruction. No BM with enema x 1 and lactulose 30 ml. Mag citrate 300 ml produced small BM. Lactulose 120 ml ordered (? pt only able to take 90 ml). Continue PEG 34 gm bid. Diet advanced. (2) Asthma Current Visit: Yes Status: Acute Code(s): J45.909 - UNSPECIFIED ASTHMA, UNCOMPLICATED SNOMED Code(s): 740090788 Comment: Resume home dose prednisone. Hx of multiple admissions for asthma. (3) Lung nodules Current Visit: Yes Status: Acute Code(s): R91.8 - OTHER NONSPECIFIC ABNORMAL FINDING OF LUNG FIELD SNOMED Code(s): 816788722 Comment: - CT abd/pelvis shows incidental finding of multiple pulmonary parenchymal nodules, measuring up to 0.8cm in size. CT chest confirms this. I reviewed her record with Dr. Meng 01/16. Infiltrate not present on admission, grew rapidly. IV clindamycin started 03/18. CXR 03/20 c/w RLL PNA. Plan finish course of po clindamycin at home on discharge. (4) Hypothyroidism Current Visit: Yes Status: Acute Code(s): E03.9 - HYPOTHYROIDISM, UNSPECIFIED SNOMED Code(s): 38838514 Comment: - Continue IV levothyroxine. TSH wnl 01/06, repeat 03/20. Status and Disposition: Inpatient for management of SBO, requiring >48h for stabilization.
--- NOTE | 2017-03-20 16:14 | RAD ---
Indication: Pneumonia. 2 views of the chest demonstrates hyperinflated lung smith. Airspace disease is noted in the right base consistent with right basilar pneumonia. No pleural fluid is identified. When compared to previous exam August 20, 2016 findings are new. IMPRESSION: Findings consistent with right lower lobe pneumonia.
[2017-03-21] MEDS: Heparin VIAL(*) 5000 UNITS/ML VIAL (FIVE THOUSAND) SUBCUT SCH (05:36)
[2017-03-21] MEDS ORDERED: Levothyroxine TAB* 125 MCG TAB PO SCH (06:00)
[2017-03-21] MEDS: Clindamycin 600 MG IVPREMIX(* 600 MG/50 ML SDV IV SCH (06:32)
[2017-03-21] MEDS: Polyethylene Glycol 3350* 17 GM PACKET PO SCH (07:56)
[2017-03-21] MEDS: predniSONE TAB* 5 MG PO SCH (08:02)
--- NOTE | 2017-03-21 08:02 | PN ---
Progress Note - Progress Note Date of Service: 03/21/17 Note: Ate well yesterday. Very comfortable and anxious to go home. Still has nl chest exam. Time spent on discharge 45 minutes.
[2017-03-21] MEDS: Mometasone/Formoter 200/5 MDI INH SCH (08:04)
[2017-03-21] MEDS: Famotidine IV* 10 MG/ML 2 ML (20 mg) IV SLOW PU SCH (08:04)
[2017-03-21 08:10] VITALS: BP 136/78
[2017-03-21] MEDS ORDERED: Clindamycin CAP* 150 MG PO SCH (09:00)
--- NOTE | 2017-03-21 09:14 | DS ---
CC: Dr. Alicea * DATE OF ADMISSION: 03/16/17 DATE OF DISCHARGE: 03/21/17 HISTORY: This 67-year-old woman presented with abdominal pain. She had multiple episodes of vomiting. She said her last bowel movement was four days before admission. Her history is notable for a history of thyroid cancer, status post thyroidectomy, severe asthma with intubation in the past, and a history of perforated diverticulitis with colon resection, colostomy and reversal of colostomy. CT scan showed dilatation of small bowel with transition zone to decompressed area. She was treated conservatively. Her small bowel obstruction seemed to resolve well; however, she remained uncomfortable and very constipated. Several days of laxatives and enemas were required, but she had a good bowel movement and was eating normally and quite comfortable at the time of discharge. Although she had no respiratory symptoms and, in fact, no fever, x-rays did show a right lower lobe pneumonia. She was treated for this with intravenous Clindamycin and will finish up with oral Clindamycin at home. I would recommend a repeat chest x-ray in about four weeks to check for resolution. Her TSH here was elevated at 14.92 on 03/20/17. Her levothyroxine dose was increased to 125 mcg daily; this also should be checked in about a month. FINAL DIAGNOSES: 1. Small bowel obstruction. 2. Obstipation. 3. Asthma. 4. Abnormal chest x-ray and CT scan. 5. Hypothyroidism. DISCHARGE MEDICATIONS: 1. Levothyroxine 125 mcg daily. 2. Mometasone formoterol 200/5 one puff bid. 3. Polyethylene glycol 34 grams bid. 4. Clindamycin 300 mg tid for five days, to stop if she gets severe diarrhea. 5. Levocetirizine 5 mg hs. 6. Lev-albuterol 1.25 mg by inhalation every 4 hours prn. 7. Denosumab 60 mg subcutaneous as instructed. 8. Albuterol inhaler powder, two puffs every 4 hours prn. 9. Vitamin D3 50,000 units twice a week. 10. Prednisone 5 mg daily. 11. Calcium carbonate with vitamin D one daily. 12. Magnesium hydroxide prn. [id number]/[facility] #: [id number] [facility]
== END 2017-03-21 10:26 | disposition home or self-care (01) | DRG 388 ==
LOC: ED 00:18 → SSU 05:16
PROVIDERS: ADMIT Hospitalist; ATTEND Internal Medicine
PROC: 0D9670Z Drainage of Stomach with Drainage Device, Via Natural or Artificial Opening (ICD-10-PCS; principal; 2017-03-16)
DX: K56.60 Unspecified intestinal obstruction (principal); J18.9 Pneumonia, unspecified organism; E89.0 Postprocedural hypothyroidism; J42 Unspecified chronic bronchitis; R91.8 Other nonspecific abnormal finding of lung field; K59.00 Constipation, unspecified; J45.909 Unspecified asthma, uncomplicated; K57.90 Diverticulosis of intestine, part unspecified, without perforation or abscess without bleeding; M81.0 Age-related osteoporosis without current pathological fracture; Z90.710 Acquired absence of both cervix and uterus; Z82.49 Family history of ischemic heart disease and other diseases of the circulatory system; Z92.3 Personal history of irradiation; Z88.1 Allergy status to other antibiotic agents; Z88.0 Allergy status to penicillin; Z88.7 Allergy status to serum and vaccine; Z85.850 Personal history of malignant neoplasm of thyroid; Z84.1 Family history of disorders of kidney and ureter; Z79.52 Long term (current) use of systemic steroids
CPT/HCPCS: 36415; 71020; 71250; 74020; 74177; 80048; 80053; 81003; 81015; 83605; 83690; 83735; 84145; 84443; 85025; 85610; 86140; 87086; 94640; 94760; A9270-GY; J1170; J1644; J2270; J2405; J2920; J7512; Q9967

== ENCOUNTER 2017-07-23 17:28 | Emergency (ER) | payer MEDICARE ==
[2017-07-23] MEDS ORDERED: Morphine INJ* 4 MG/ML 1 ML CARPUJECT IV PRN (20:56)
[2017-07-23] MEDS ORDERED: Ondansetron INJ* 2 MG/ML VIAL IV ONE (20:56)
[2017-07-23] MEDS ORDERED: NS 0.9% 1000 ML* 1,000 ML IV ONE (20:56)
[2017-07-23 21:37] LABS: Urine Appearance Cloudy; Urine Blood Negative (Negative); Urine Color Yellow; Urine Ketones 2+ (Negative); Urine Protein 1+(30 mg/dL) (Negative); Urine Specific Gravity 1.025 (1.010-1.030); Urine Urobilinogen Negative (Negative)
[2017-07-23 21:40] LABS: EGFR Non-African American 73.2 (>60)
[2017-07-23 21:48] LABS: ABS Basophils 0.1 10^3/ul (0-0.2); ABS Eosinophils 0.4 10^3/ul (0-0.6); ABS Monocytes 0.6 10^3/ul (0-0.8); ABS Neutrophils 8.9 10^3/ul (1.5-7.7); ABS Nucleated RBC 0.01 10^3/ul; Eosinophil % 3.6 % (0-6); Hematocrit 43 % (35-47); Hemoglobin 14.1 g/dl (12.0-16.0); Lymphocyte % 9.4 % (25-47); Mean Corpuscular HGB Conc 33 g/dl (31-36); Mean Corpuscular Hemoglobin 29 pg (27-31); Mean Corpuscular Volume 89 fL (80-97); Mean Platelet Volume 8 um3 (7.4-10.4); Nucleated Red Blood Cells % 0.1; Platelet Count 304 10^3/ul (150-450); Red Blood Count 4.85 10^6/ul (4.0-5.4); Red Cell Distribution Width 13 % (10.5-15)
--- NOTE | 2017-07-23 21:49 | RAD ---
Indication: Small bowel obstruction. Nausea and vomiting. Comparison: April 30, 2017 chest radiograph. Technique: Upright PA chest 2127 hours Report: Elevated lung volumes and both diffuse mild prominence of the interstitial markings and patchy rarefaction of the mid to upper lung zone interstitial markings. Bilateral lower lung zone alveolar consolidation. Nipple shadows noted. Negative for pleural effusion or pneumothorax. The heart, pulmonary vasculature, and mediastinal contours are unremarkable. IMPRESSION: Bibasilar pulmonary inflammatory infiltrates. Stigmata of COPD.
--- NOTE | 2017-07-23 21:52 | RAD ---
Indication: Nausea and vomiting. Question small bowel obstruction. Comparison: Chest radiograph of the same date and March 19, 2017 abdomen radiographs. Technique: Supine and upright views of the abdomen. Report: No radiographic evidence for free air. Unremarkable bowel gas pattern. Moderate stool in the sigmoid colon without significant rectal distension. Sigmoid rectal level bowel anastomosis. Negative for suspicious calcifications. Unremarkable soft tissue contours. RIGHT convex curve of the lumbar spine and diffuse degenerative spondylosis and facet joint osteoarthritis. IMPRESSION: No evidence for bowel obstruction.
[2017-07-23] MEDS ORDERED: Iohexol 300* (CONTRAST) 10 ML SDV IV ONE (23:15)
[2017-07-24] MEDS ORDERED: Levofloxacin 750 MG IVPREMIX(* 750 MG/150 ML BAG IVPB ONE (01:16)
--- NOTE | 2017-07-24 02:12 | ED ---
Berto Bennett Gabriel, scribed for Roberta Chavez MD on 07/23/17 at 2058 . Abdominal Pain/Female - HPI Summary HPI Summary: This patient is a 67 year old F presenting to [facility] accompanied by her family with a chief complaint of ABD pain since 07/21/17. The patient rates the pain 7/ 10 in severity. Patient reports vomiting. Pt reports a history of SBO and has not had a BM since before 07/14/17. She has had multiple hernia repairs and a perforated bowl. Her last ABD surgery was in 2013. - History of Current Complaint Chief Complaint: EDAbdPain Stated Complaint: ABD PAIN Time Seen by Provider: 07/23/17 20:50 Hx Obtained From: Patient Onset/Duration: Lasting Weeks, Still Present Timing: Constant Severity Initially: Severe Severity Currently: Moderate Pain Intensity: 7 Pain Scale Used: 0-10 Numeric Location: Diffuse Radiates: No Associated Signs and Symptoms: Positive: Constipation, Vomiting Allergies/Adverse Reactions: Allergies Allergy/AdvReac Type Severity Reaction Status Date / Time Amoxicillin Allergy Severe Shortness Verified 12/10/16 20:07 of Breath Flu Virus Vaccine Allergy Severe Shortness Verified 12/10/16 20:07 of Breath Penicillins [PCN] Allergy Severe Hives Verified 12/10/16 20:07 PMH/Surg Hx/FS Hx/Imm Hx Endocrine/Hematology History: Reports: Hx Thyroid Disease - thyroidectomy d/t ca Denies: Hx Diabetes Cardiovascular History: Denies: Hx Hypertension, Hx Pacemaker/ICD Respiratory History: Reports: Hx Asthma, Hx Chronic Bronchitis, Hx Pneumonia, Hx Seasonal Allergies, Other Respiratory Problems/Disorders - PNA GI History: Reports: Hx Diverticulosis - perforated x1, Hx Hiatal Hernia - repair x2, Hx Obstructive Bowel, Hx Ileostomy - Reversal complete, Other GI Disorders - Hx perforated bowel Denies: Hx Ulcer History: Denies: Hx Renal Disease Musculoskeletal History: Reports: Hx Orthopedic Injury, Hx Osteoporosis Sensory History: Reports: Hx Contacts or Glasses Denies: Hx Hearing Aid Opthamlomology History: Reports: Hx Contacts or Glasses Neurological History: Denies: Hx Seizures Psychiatric History: Denies: Hx Anxiety, Hx Depression, Hx Panic Disorder, Hx Substance Abuse - Cancer History Cancer Type, Location and Year: Thyroid Hx Chemotherapy: No Hx Radiation Therapy: Yes - THYROID - Surgical History Surgery Procedure, Year, and Place: Hiatal hernia repair x2; thyroidectomy ( [facility]) ; tonsilectomy/sinus surgery; hysterectomy, T&A, REFLUX SURGERY ([facility]) 07/2012 WITH REVISION 12/2012. PERFORATED BOWEL WITH COLOSTOMY THEN REMOVED Hx Anesthesia Reactions: No Infectious Disease History: No Infectious Disease History: Denies: Hx Clostridium Difficile, Hx Hepatitis, Hx Human Immunodeficiency Virus (HIV), Hx of Known/Suspected MRSA, Hx Shingles, Hx Tuberculosis, History Other Infectious Disease, Traveled Outside the [place] in Last 30 Days - Family History Known Family History: Positive: Hypertension - Social History Alcohol Use: Rare Substance Use Type: Reports: None Hx Tobacco Use: No Smoking Status (MU): Never Smoked Tobacco Review of Systems Negative: Fever Positive: Abdominal Pain, Vomiting, Other - constipation . Negative: Diarrhea All Other Systems Reviewed And Are Negative: Yes Physical Exam - Summary Physical Exam Summary: VITAL SIGNS: Reviewed. GENERAL: Patient is a well-developed and nourished female who is lying comfortable in the stretcher. Patient is not in any acute respiratory distress. HEAD AND FACE: No signs of trauma. No ecchymosis, hematomas or skull depressions. No sinus tenderness. EYES: PERRLA, EOMI x 2, No injected conjunctiva, no nystagmus. EARS: Hearing grossly intact. Ear canals and tympanic membranes are within normal limits. MOUTH: Oropharynx within normal limits. NECK: Supple, trachea is midline, no adenopathy, no JVD, no carotid bruit, no c- spine tenderness, neck with full ROM. CHEST: Symmetric, no tenderness at palpation LUNGS: Clear to auscultation bilaterally. No wheezing or crackles. CVS: Regular rate and rhythm, S1 and S2 present, no murmurs or gallops appreciated. ABDOMEN: ABD is soft with mild distension and hyperactive bowel sounds. EXTREMITIES: FROM in all major joints, no edema, no cyanosis or clubbing. NEURO: Alert and oriented x 3. No acute neurological deficits. Speech is normal and follows commands. SKIN: Dry and warm Triage Information Reviewed: Yes Vital Signs On Initial Exam: Initial Vitals Temp Pulse Resp BP Pulse Ox 98.3 F 85 16 124/108 93 07/23/17 17:42 07/23/17 17:42 07/23/17 17:42 07/23/17 17:42 07/23/17 17:42 Vital Signs Reviewed: Yes Diagnostics - Vital Signs Vital Signs Temp Pulse Resp BP Pulse Ox 07/23/17 17:42 98.3 F 85 16 124/108 93 - Laboratory Result Diagrams: 07/23/17 21:10 07/23/17 22:03 Lab Statement: Any lab studies that have been ordered have been reviewed, and results considered in the medical decision making process. - Radiology CXR Radiology Interpretation Completed By: Radiologist ABD Xray Radiology Interpretation Completed By: Radiologist - No evidence for bowel obstruction. ED physician has reviewed this radiology report. - CT CT ABD/Pelvis CT Interpretation Completed By: Radiologist - probable bibasilar pneumonia. Stable intra-abdominal findings without evidence of acute intra-abdominal or thoracic pathology. ED physician has reviewed this report. Re-Evaluation - Re-Evaluation First Eval Re-Evaluation Time: 01:00 Change: Unchanged - Patient denies being SOB. Abdominal Pain Fem Course/Dx - Course Course Of Treatment: This patient is a 67 year old F presenting to [facility] accompanied by her family with a chief complaint of ABD pain since 07/21/17. The patient rates the pain 7/10 in severity. Patient reports vomiting. Pt reports a history of SBO and has not had a BM since before 07/14/17. She has had multiple hernia repairs and a perforated bowl. Her last ABD surgery was in 2013. An EKG reveals. CXR reveals, per radiologist, Bibasilar pulmonary inflammatory infiltrates. Stigmata of COPD. ABD Xray reveals, No evidence for bowel obstruction. CT ABD pelvis, probable bibasilar pneumonia. Stable intra- abdominal findings without evidence of acute intra-abdominal or thoracic pathology. Test results with no significant abnormalities. In the ED course the patient was given IV fluids, morphine, Levaquin, and Zofran. Patient will be discharged with prescription for Levaquin and follow up from Dr. Alicea in 2 days. The patient is agreeable with this plan. - Diagnoses Provider Diagnoses: PNA (pneumonia) Discharge - Discharge Plan Condition: Stable Disposition: HOME Referrals: Doris Alicea MD [Primary Care Provider] - Additional Instructions: RETURN TO EMERGENCY DEPARTMENT FOR ANY NEW OR WORSENING SYMPTOMS The documentation as recorded by the Berto govea Gabriel accurately reflects the service I personally performed and the decisions made by Kathy johnson Abdul, MD.
[2017-07-24 04:05] VITALS: BP 119/53
--- NOTE | 2017-07-24 07:50 | RAD ---
INDICATION: Abdominal pain. COMPARISON: Comparison is made with prior CTs of the abdomen and pelvis from December 05, 2015 and March 16, 2017. TECHNIQUE: A CT scan of the abdomen and pelvis was performed with intravenous and oral contrast following intravenous injection of 85 ml of Omnipaque 300 nonionic contrast. Contiguous axial sections were obtained from the lung bases through the symphysis pubis. Images were reconstructed in the coronal and sagittal planes. FINDINGS: There is an infiltrate present at the anterior right lung base within the right middle lobe which is partially visualized. There is also an adjacent smaller right lower lobe infiltrate and dependent infiltrates present posteriorly. No pleural effusion is seen. The liver and spleen are normal in size. There are multiple low-attenuation lesions present within the liver which appear to represent simple and complex cysts which appear unchanged. No calcified gallstones are noted. The pancreas appears to be within normal limits. The kidneys and adrenal glands are normal in size. No hydronephrosis is seen. There are small bilateral peripelvic renal cysts. The aorta is normal in caliber and demonstrates homogeneous contrast opacification. No significant enlarged retroperitoneal lymph nodes are seen. There is a moderate size hiatal hernia which appears unchanged. The stomach, small and large bowel appear nondistended. There is an anastomosis in the rectosigmoid colon without evidence for bowel wall thickening. The cecum projects in the left lower quadrant. The appendix appears to be within normal limits. There is no evidence for diverticulitis or colitis. There is an anterior abdominal wall hernia containing fat and a portion of the transverse colon which appears unchanged. No free intraperitoneal air or fluid is seen. There is a moderate lumbar scoliosis and diffuse degenerative disc disease throughout the lumbar spine. No significant focal osseous abnormality is seen. IMPRESSION: 1. RIGHT MIDDLE AND LOWER LOBE INFILTRATES PARTIALLY VISUALIZED AND SUGGESTIVE OF PNEUMONIA. 2. NO EVIDENCE FOR ACUTE FINDING IN THE ABDOMEN. 3. MULTIPLE HYPODENSE HEPATIC LESIONS UNCHANGED MOST CONSISTENT WITH SIMPLE AND COMPLEX CYSTS. 4. ANTERIOR ABDOMINAL WALL HERNIA, UNCHANGED. 5. HIATAL HERNIA, UNCHANGED.
== END 2017-07-24 04:05 | disposition home or self-care (01) ==
LOC: ED 17:28
DX: J18.9 Pneumonia, unspecified organism (principal); K59.00 Constipation, unspecified; R11.10 Vomiting, unspecified; Z87.09 Personal history of other diseases of the respiratory system
CPT/HCPCS: 36415; 71045; 74019; 74177; 80053; 81003; 81015; 82150; 83605; 83690; 83735; 85025; 85730; 86140; 87040; 87086; 96361; 96374; 99283; J2270; J2405; Q9967

== ENCOUNTER 2017-11-15 12:40 | Emergency (ER) | payer MEDICARE ==
[2017-11-15] MEDS ORDERED: NS 0.9% 1000 ML* 1,000 ML IV ONE (13:03)
[2017-11-15] MEDS ORDERED: Ondansetron INJ* 2 MG/ML VIAL IV ONE ×2 (13:03→14:59)
[2017-11-15] MEDS ORDERED: Morphine VIAL* 4 MG/ML VIAL (1 ml vial) IV ONE ×3 (13:03→15:26)
[2017-11-15 13:23] LABS: ABS Basophils 0 10^3/ul (0-0.2); ABS Eosinophils 0.4 10^3/ul (0-0.6); ABS Lymphocytes 1.2 10^3/ul (1.0-4.8); ABS Monocytes 0.9 10^3/ul (0-0.8); ABS Neutrophils 15.2 10^3/ul (1.5-7.7); ABS Nucleated RBC 0 10^3/ul; Eosinophil % 2.3 % (0-6); Hematocrit 45 % (35-47); Hemoglobin 14.7 g/dl (12.0-16.0); Mean Corpuscular HGB Conc 33 g/dl (31-36); Mean Corpuscular Hemoglobin 30 pg (27-31); Mean Corpuscular Volume 90 fL (80-97); Mean Platelet Volume 7.3 um3 (7.4-10.4); Nucleated Red Blood Cells % 0; Platelet Count 255 10^3/ul (150-450); Red Blood Count 4.94 10^6/ul (4.0-5.4); Red Cell Distribution Width 14 % (10.5-15); White Blood Count 17.8 10^3/ul (3.5-10.8)
[2017-11-15 13:37] LABS: EGFR Non-African American 64.6 (>60)
[2017-11-15] MEDS ORDERED: Iohexol 300* (CONTRAST) 10 ML SDV IV ONE (13:53)
--- NOTE | 2017-11-15 14:37 | ED ---
Abdominal Pain/Female - HPI Summary HPI Summary: Patient is a 67-year-old female who presents emergency department for lower abdominal pain times one day. Associated symptoms of nausea and vomiting. Patient denies recent illness, cough, chest pain, shortness of breath, urinary symptoms, diarrhea, constipation. Has had numerous abdominal surgeries in the past. No significant past medical history. Pain is constant and sharp in nature. Movement makes symptoms worse. Nothing makes symptoms better. Symptoms are moderate in severity. - History of Current Complaint Chief Complaint: EDAbdPain Stated Complaint: ABD PAIN Time Seen by Provider: 11/15/17 12:54 Hx Obtained From: Patient Pain Intensity: 10 Allergies/Adverse Reactions: Allergies Allergy/AdvReac Type Severity Reaction Status Date / Time amoxicillin Allergy Severe Shortness Verified 11/15/17 13:07 of Breath Influenza Virus Vaccines Allergy Severe Shortness Verified 11/15/17 13:07 of Breath Penicillins Allergy Intermediate Hives Verified 11/15/17 13:07 Home Medications: Home Medications Levothyroxine TAB* [Synthroid TAB*] 100 mcg PO DAILY 11/15/17 [History Confirmed 11/15/17] PMH/Surg Hx/FS Hx/Imm Hx Previously Healthy: Yes Endocrine/Hematology History: Reports: Hx Thyroid Disease - thyroidectomy d/t ca Denies: Hx Diabetes Cardiovascular History: Denies: Hx Hypertension, Hx Pacemaker/ICD Respiratory History: Reports: Hx Asthma, Hx Chronic Bronchitis, Hx Pneumonia, Hx Seasonal Allergies, Other Respiratory Problems/Disorders - PNA GI History: Reports: Hx Diverticulosis - perforated x1, Hx Hiatal Hernia - repair x2, Hx Obstructive Bowel, Hx Ileostomy - Reversal complete, Other GI Disorders - Hx perforated bowel Denies: Hx Ulcer History: Denies: Hx Renal Disease Musculoskeletal History: Reports: Hx Orthopedic Injury, Hx Osteoporosis Sensory History: Reports: Hx Contacts or Glasses Denies: Hx Hearing Aid Opthamlomology History: Reports: Hx Contacts or Glasses Neurological History: Denies: Hx Seizures Psychiatric History: Denies: Hx Anxiety, Hx Depression, Hx Panic Disorder, Hx Substance Abuse - Cancer History Cancer Type, Location and Year: Thyroid Hx Chemotherapy: No Hx Radiation Therapy: Yes - THYROID - Surgical History Surgery Procedure, Year, and Place: Hiatal hernia repair x2; thyroidectomy ( [facility]) ; tonsilectomy/sinus surgery; hysterectomy, T&A, REFLUX SURGERY ([facility]) 07/2012 WITH REVISION 12/2012. PERFORATED BOWEL WITH COLOSTOMY THEN REMOVED Hx Anesthesia Reactions: No Infectious Disease History: No Infectious Disease History: Denies: Hx Clostridium Difficile, Hx Hepatitis, Hx Human Immunodeficiency Virus (HIV), Hx of Known/Suspected MRSA, Hx Shingles, Hx Tuberculosis, History Other Infectious Disease, Traveled Outside the [place] in Last 30 Days - Family History Known Family History: Positive: Hypertension - Social History Occupation: Retired Lives: With Family Alcohol Use: Rare Substance Use Type: Reports: None Hx Tobacco Use: No Smoking Status (MU): Never Smoked Tobacco Review of Systems Constitutional: Negative Negative: Fever, Chills Eyes: Negative ENT: Negative Cardiovascular: Negative Negative: Palpitations, Chest Pain Respiratory: Negative Negative: Shortness Of Breath, Cough Positive: Abdominal Pain, Vomiting, Nausea. Negative: Diarrhea Genitourinary: Negative Neurological: Negative All Other Systems Reviewed And Are Negative: Yes Physical Exam Triage Information Reviewed: Yes Vital Signs On Initial Exam: Initial Vitals Temp Pulse Resp BP Pulse Ox 96.7 F 72 16 134/70 98 11/15/17 12:46 11/15/17 12:46 11/15/17 12:46 11/15/17 12:46 11/15/17 12:46 Vital Signs Reviewed: Yes Appearance: Positive: Well-Appearing - Pt. lying in bed in NAD. Appears mildly uncomfortable but nontoxic. Skin: Positive: Warm, Dry Head/Face: Positive: Normal Head/Face Inspection Eyes: Positive: Normal Neck: Positive: Supple Respiratory/Lung Sounds: Positive: Clear to Auscultation Cardiovascular: Positive: Normal Abdomen Description: Positive: Other: - Distended. Significant diffuse tenderness on light palpation with guarding. Musculoskeletal: Positive: Normal Neurological: Positive: Normal, CN Intact II-III Psychiatric: Positive: Normal Diagnostics - Vital Signs Vital Signs Temp Pulse Resp BP Pulse Ox 11/15/17 14:01 72 98 11/15/17 13:48 73 134/70 97 11/15/17 13:11 18 11/15/17 13:00 67 97 11/15/17 12:48 68 98 11/15/17 12:46 96.7 F 70 16 134/70 97 - Laboratory Lab Results: Lab Results 11/15/17 11/15/17 11/15/17 Range/Units 13:13 13:13 13:13 WBC 17.8 H (3.5-10.8) 10^3/ul RBC 4.94 (4.0-5.4) 10^6/ul Hgb 14.7 (12.0-16.0) g/dl Hct 45 (35-47) % MCV 90 (80-97) fL MCH 30 (27-31) pg MCHC 33 (31-36) g/dl RDW 14 (10.5-15) % Plt Count 255 (150-450) 10^3/ul MPV 7.3 L (7.4-10.4) um3 Neut % (Auto) 85.3 H (38-83) % Lymph % (Auto) 7.0 L (25-47) % Wake % (Auto) 5.2 (0-7) % Eos % (Auto) 2.3 (0-6) % Baso % (Auto) 0.2 (0-2) % Absolute Neuts (auto) 15.2 H (1.5-7.7) 10^3/ul Absolute Lymphs (auto) 1.2 (1.0-4.8) 10^3/ul Absolute Monos (auto) 0.9 H (0-0.8) 10^3/ul Absolute Eos (auto) 0.4 (0-0.6) 10^3/ul Absolute Basos (auto) 0 (0-0.2) 10^3/ul Absolute Nucleated RBC 0 10^3/ul Nucleated RBC % 0 Sodium 140 (139-145) mmol/L Potassium 3.8 (3.5-5.0) mmol/L Chloride 104 (101-111) mmol/L Carbon Dioxide 27 (22-32) mmol/L Anion Gap 9 (2-11) mmol/L BUN 13 (6-24) mg/dL Creatinine 0.87 (0.51-0.95) mg/dL Est GFR ( Amer) 83.0 (>60) Est GFR (Non-Af Amer) 64.6 (>60) BUN/Creatinine Ratio 14.9 (8-20) Glucose 121 H (70-100) mg/dL Lactic Acid 1.1 (0.5-2.0) mmol/L Calcium 9.2 (8.6-10.3) mg/dL Total Bilirubin 1.70 H (0.2-1.0) mg/dL AST 20 (13-39) U/L ALT 13 (7-52) U/L Alkaline Phosphatase 44 (34-104) U/L C-Reactive Protein 2.31 (< 5.00) mg/L Total Protein 6.4 (6.4-8.9) g/dL Albumin 3.8 (3.2-5.2) g/dL Globulin 2.6 (2-4) g/dL Albumin/Globulin Ratio 1.5 (1-3) Lipase 21 (11.0-82.0) U/L Result Diagrams: 11/15/17 13:13 11/15/17 13:13 Lab Statement: Any lab studies that have been ordered have been reviewed, and results considered in the medical decision making process. Abdominal Pain Fem Course/Dx - Course Course Of Treatment: Patient presenting with abdominal pain, bloating and vomiting. She is afebrile with stable vital signs. IV was placed and blood work was ordered as well as abdominal CT. Patient's mother dose of Zofran and morphine and started on fluids. CBC shows a leukocytosis of 17.8. Chemistry is unremarkable other than elevated bilirubin of 1.7. CT scan shows a complete small bowel obstruction, reading per radiology. NG tube was placed. I spoke with on-call surgery, Dr. Gomez, and he will see pt. in cosult. Hospitalist was consulted, Dr. Geronimo, and she has accepted pt. to her service. On re-exam pt. is resting comfortably. Son present now. Results discussed. - Diagnoses Differential Diagnosis: Positive: Appendicitis, Bowel Obstruction, Constipation , Diverticulitis, Pancreatitis, Renal Colic, Urinary Tract Infection Provider Diagnoses: Small bowel obstruction due to adhesions Discharge - Sign-Out/Discharge Documenting (check all that apply): Discharge/Admit/Transfer - Discharge Plan Condition: Stable Disposition: ADMITTED TO [facility] Referrals: Doris Alicea MD [Primary Care Provider] - - Billing Disposition and Condition Condition: STABLE Disposition: [facility] [place]
--- NOTE | 2017-11-15 14:53 | RAD ---
INDICATION: Vomiting since 0400 hours. Abdominal pain. Post hysterectomy. Previous bowel perforations with colostomy and subsequent reversal. COMPARISON: July 24, 2017 and December 05, 2015 CT exams. TECHNIQUE: Multidetector CT images were obtained from the lung bases to the ischial tuberosities with 88 mL Omnipaque 300 IV contrast. No oral contrast administered. Multiplanar reformation. REPORT: Unremarkable visualized inferior thorax. Approximate 15 sharply circumscribed water density lesions of the liver without significant interval change with dominant corporate representative 3 cm maximum dimension lesion at the dome. Negative for suspicious focal hepatic lesions or biliary dilatation. No CT abnormality of the gallbladder. Mild prominence of the pancreatic duct without change. The pancreas is otherwise unremarkable. Normal spleen. Small hiatal hernia. Dilatation of the duodenum and proximal to mid small bowel loops measuring up to 3.1 cm diameter is traced to a short segment transition point at the proximal jejunum in the anterior midline abdomen reference axial images 61-64 of 91 and coronal reformatted images centered at 31 of 98. No discrete obstructing lesion evident favoring an adhesion given history of prior surgery. Associated fecalization of the small bowel contents leading up to the transition point. Complete decompression of the small bowel distal to the transition point. Unremarkable distal sigmoid bowel anastomosis. Unremarkable appendix visualized in the RIGHT para midline anterior abdomen at the cephalocaudal level of the umbilicus. Small Damian hernia involving the transverse colon without bowel wall thickening or resulting obstruction. Additional fat-containing supraumbilical midline and LEFT anterior ventral hernias without compelling acute inflammatory change. Small volume of predominant pelvic ascites with additional small volume of ascites at the upper abdomen. Negative for free air. Negative for pneumatosis or portal venous gas. Normal adrenal glands. Unremarkable kidneys with symmetric nephrograms and pyelograms. Unremarkable nondilated ureters and largely decompressed urinary bladder. Post hysterectomy. Unremarkable adnexal regions. Negative for lymphadenopathy. Normal diameter abdominal aorta and iliac arteries with minimal atherosclerotic plaque. Largely decompressed IVC consistent with lower volume state. Negative for suspicious osseous lesions. Advanced multilevel degenerative spondylosis and facet joint osteoarthritis. IMPRESSION: Complete small bowel obstruction likely secondary to an adhesion at the midline infraumbilical abdomen.
[2017-11-15] MEDS ORDERED: D5LR 20 MEQ KCL 1000 ML BAG* 1,000 ML IV SCH (16:00)
[2017-11-15 17:01] VITALS: BP 118/63
--- NOTE | 2017-11-15 17:06 | RAD ---
Indication: NG tube repositioning. Small bowel obstruction. Comparison: CT of the same date. Technique: Supine view of the abdomen. Report: Tip of the NG tube at the level of the distal thoracic esophagus/hiatal hernia based on correlation with CT. The extensive dilated small bowel loops on CT are poorly visualized on the supine abdomen radiograph. Moderate stool noted in the colon. Pyelographic phase contrast at the kidneys and urinary bladder. Unremarkable soft tissue contours. IMPRESSION: Tip of the NG tube at the level of the distal thoracic esophagus/hiatal hernia based on correlation with CT.
--- NOTE | 2017-11-15 21:47 | CONS ---
CC: Dr. Guillermo; Dr. Alicea; Dr. Gomez * CONSULTATION REPORT: DATE OF CONSULT: 11/15/17 - EMERGENCY DEPT CONSULTATION REQUESTED BY: Dr. Guillermo. PRIMARY CARE PROVIDER: Dr. Alicea. REASON FOR CONSULT: Admission for small bowel obstruction. CHIEF COMPLAINT: Abdominal pain. HISTORY OF PRESENT ILLNESS: Ms. Benavides is a 67-year-old female with a history of recurrent small bowel obstructions due to multiple abdominal surgeries, who presented with complaints of abdominal pain for the past 24 hours. The patient stated that her last bowel movement was 3 days ago and she has not passed flatus since. The abdominal pain became severe early in the morning today. She came in to the ED for evaluation. Here, it was noted that the patient has small bowel obstruction with noted adhesion with transition zone. Medicine was asked to evaluate the patient for admission. PAST MEDICAL HISTORY: 1. History of thyroid cancer, status post thyroidectomy. 2. Postoperative hypothyroidism. 3. History of severe persistent asthma that required intubations previously. 4. History of perforated diverticulitis, status post colon resection, colostomy , and reversal. During those surgeries, the patient had prolonged hospitalization due to problems with laryngeal spasm respiratory failure, and tracheostomy that was never performed. 5. History of hiatal hernia, status post Perla fundoplication. CURRENT MEDICATIONS: Include: 1. Levothyroxine 100 mcg daily. 2. Calcium carbonate with vitamin D3 one capsule daily. 3. Albuterol inhaler 2 puffs every 4 hours p.r.n. 4. Vitamin D2 50,000 units twice a week. 5. Prolia 60 mg subcutaneously every 6 months. 6. Xyzal 5 mg at bedtime. 7. Xopenex nebulizers every 4 hours p.r.n. 8. Prednisone 5 mg daily. 9. MiraLAX 34 g twice a day. 10. Dulera 200/5 one inhalation b.i.d. 11. Magnesium hydroxide 30 mL b.i.d. p.r.n. ALLERGIES: Include AMOXICILLIN, INFLUENZA VACCINE, PENICILLIN. FAMILY HISTORY: Positive for mother, who of brain cancer at the age of 70, also history of myasthenia gravis. Father who in his 40s secondary to problems with renal failure. SOCIAL HISTORY: The patient lives alone. Her surrogate is her son. She denies any tobacco, alcohol, or drug use. REVIEW OF SYSTEMS: The patient stated that she had bilateral pneumonia for which her prednisone was increased up to 60 mg daily and she was treated with antibiotics at the beginning of the year. For the past 3 weeks, she had been feeling at her "good baseline" with breathing. She denies any recent cough or wheezing. The pain in the abdomen is diffuse in bilateral lower quadrants. The patient also had NG tube placed in the emergency room and currently is nauseated. All the remaining 12 systems were reviewed with the patient and were otherwise negative. PHYSICAL EXAM: Blood pressure of 105/65, heart rate of 73 and regular, respiratory rate 14, oxygen saturation 94% on room air, temperature of 96.7. General: The patient is a very pleasant 67-year-old female, who is in no acute distress. Alert, awake, and oriented x3. HEENT: Head: Atraumatic, normocephalic. Eyes: Pupils are equal, reactive to light and accommodation. Oropharynx clear. Mucosa moist. Neck: Supple, no JVD, no bruits bilaterally. Respiratory: Clear to auscultation bilaterally. Cardiovascular: Regular rate and rhythm. No murmur. Abdomen: Soft, tender mildly in bilateral lower quadrants with no rebound, no guarding. Bowel sounds are high pitched and present in all 4 quadrants. The patient has ventral abdominal hernia noted. She has multiple scars due to surgeries on the abdomen prior. Extremities: There is no edema. Pulses are +2 bilaterally. No clubbing or cyanosis. Neuro Evaluation: Speech clear. Cranial nerves II through XII grossly intact. Motor strength is 5/5 bilaterally. DIAGNOSTIC STUDIES/LAB DATA: Included: White cell count of 17.8, hemoglobin of 14.7, hematocrit of 45, and platelets of 255. Sodium was 140, potassium 3.8, chloride of 104, carbon dioxide 27, BUN 13, creatinine of 0.87. Liver function tests were unremarkable. Bilirubin slightly elevated at 1.7. The patient's CT of the abdomen obtained today. Impression: "Complete small bowel obstruction, likely secondary to adhesions at the midline infraumbilical abdomen." ASSESSMENT AND PLAN: A 67-year-old female with a history of prednisone- dependent asthma, who presents with small bowel obstruction. The patient has a history of recurrent bowel obstructions in the past. She is very concerned about possibility of her to undergo surgery since she has had problems with respiratory failure in the past and prolonged ventilatory management after her prior surgeries. She stated that her cuff matcher is at [facility] and she requests to be transferred to a tertiary care center if she requires surgery. I discussed the case with Dr. Gomez, the surgeon on-call , who also evaluated the patient. Please refer to the Dr. Gomez's consult. Shortly, we cannot at this point be certain if the patient will do well with medical and conservative treatment. At this point, it is safer for the patient to be transferred to a tertiary care center for evaluation and treatment of her bowel obstruction in case she needed surgery. That was discussed with the ER provider also. TIME SPENT: Approximately 55 minutes was spent on consultation of this patient ; more than half the time was spent [id number] with the patient during the interview and physical exam. [id number]/[facility] #: [id number] MTDD
--- NOTE | 2017-11-15 21:55 | CONS ---
CC: [facility]; Doris Alicea MD, [facility] * EMERGENCY ROOM CONSULTATION: DATE OF CONSULT: 11/15/17 - EMERGENCY DEPT REFERRING PROVIDER: MARLENE Preston, ER. REASON FOR CONSULTATION: Small bowel obstruction. HISTORY OF PRESENT ILLNESS: Ms. Ela Benavides is a 67-year-old woman, known to the surgical service for history of small bowel obstruction, who presented to the emergency room earlier this afternoon after she woke up around 4 o'clock this morning with severe abdominal pain, distention and profuse nausea and vomiting of brown darkish material. She had no hematemesis. She had had no diarrhea or change in bowel habits. She had been doing well yesterday and ate regular food. Her medical history is significant for severe asthma as well as apparently had difficulty with intubation. She has a nicker and breaker at [facility] in [place] who she sees regularly and all of her surgeries that she has had in the past had been done in [place]. I initially had met her back in 2013 when she presented with abdominal pain, extraluminal air and it was felt that she was too high risk to keep here at [facility]. She was transferred to [facility] where she underwent exploratory laparotomy with sigmoid colon resection for perforated diverticulum with subsequent colostomy. She since had that colostomy reversed also at [facility]. She reports that she has had extremely difficult intubations with laryngeal spasm and edema and says that if she does require surgery for this episode of small bowel obstruction, she wants to have the surgery done in [place]. She has been admitted at least 2 to 3 times in the last several years with what was felt to be adhesive small bowel obstruction by CAT scan and she is resolved with nonoperative management including nasogastric tube and being kept n.p.o., although this has been a prolonged course for her each time. While being seen here in the emergency room, she was noted to be afebrile with stable vital signs. She had a white blood cell count just under 18,000. Her BUN and creatinine were normal. She had a normal lactic acid. She underwent a CAT scan of the abdomen and pelvis, which I did review. It showed a markedly distended stomach with apparent hiatal hernia with distended proximal small bowel with a fairly sharp transition point in the mid to lower abdomen with distally collapsed small bowel. There was also noted to be a very small amount of free abdominal fluid, but no free air, abscess, or other acute findings. Surgical consultation has been obtained. PAST MEDICAL HISTORY: Asthma. PAST SURGICAL HISTORY: 1. Abdominal hysterectomy. 2. Perla fundoplication with subsequent revision. 3. Exploratory laparotomy with sigmoid resection and end colostomy. 4. Colostomy reversal, open. MEDICATIONS: Include: 1. Levothyroxine. 2. Calcium. 3. Albuterol. 4. Prolia. 5. Xyzal. 6. Levalbuterol. 7. Xopenex. 8. Prednisone 5 mg daily. 9. Dulera inhaler. ALLERGIES: She is allergic to AMOXICILLIN and PENICILLINS. SOCIAL HISTORY: She lives alone and has a son who lives nearby in [place], [place]. She has never been a smoker. She does not drink alcohol. PHYSICAL EXAM: Temperature 96.7, pulse 81, blood pressure 118/63. In general, she is a slender elderly appearing woman, appears to be in no apparent distress. She has a nasogastric tube in place. She is awake, alert, and conversant. Her lungs with diminished breath sounds throughout, but they are clear without rhonchi or wheezing. Heart with regular rate and rhythm without murmurs, rubs, or gallops. Her abdomen is distended and slightly firm. She has a well-healed midline incision with several small fascial hernias without evidence of tenderness or incarcerated bowel. She has bowel sounds that are slightly hyperactive and high pitched throughout. She has mild generalized tenderness without rebound, guarding, or peritoneal irritation. DIAGNOSTIC STUDIES/LAB DATA: Laboratory values were as above. CT scan was reviewed. IMPRESSION: Small bowel obstruction, recurrent, most likely due to intra- abdominal adhesive disease. She has had several of these in the past that have responded to nonoperative management. She has a significant history of asthma and airway difficulties for intubation during surgeries and had a nicker and breaker in [place] and has had and requested all of her future surgeries be performed in [place] if necessary. I had a long discussion with the patient and her son here in the emergency room. It is difficult to determine the percentage of time that she may require a laparoscopy and/or laparotomy for her bowel obstruction. The CAT scan is somewhat more impressive than in the past with a fairly well-defined transition zone and she states she is having more distention and discomfort that she has had in the past; however, it is difficult to use these factors to predict her chance of requiring surgery in the next 48 to 72 hours. She would like to have surgery in [place] and after discussion with her and her son as well as the hospitalist Dr. Geronimo and emergency room PA today, and with a known difficulty at times of transferring to another facility in the next several days, I think the prudent course of action will be to transfer her to [facility] from our emergency room to avoid delayed transfer in the event that she may require urgent or even emergent surgery in the next several days. I feel that she will have the appropriate pulmonary and intensive care unit resources that we do not provide here for intraoperative and postoperative care that will be available in [place]. She does state that she has had difficulty coming off the ventilator postoperatively and thus this adds to the above decision. Therefore, we will make arrangements for her to be transferred to the [facility] Emergency Room and proceed accordingly with the appropriate care. Thank you very much for this consultation. [id number]/[facility] #: [id number] MAXWELL
== END 2017-11-15 17:01 | disposition short-term general hospital (02) ==
LOC: ED 12:40
DX: K56.50 Intestinal adhesions [bands], unspecified as to partial versus complete obstruction (principal); K44.9 Diaphragmatic hernia without obstruction or gangrene; R11.2 Nausea with vomiting, unspecified; Z85.850 Personal history of malignant neoplasm of thyroid; J45.909 Unspecified asthma, uncomplicated; K57.90 Diverticulosis of intestine, part unspecified, without perforation or abscess without bleeding; Z88.0 Allergy status to penicillin; Z88.7 Allergy status to serum and vaccine
CPT/HCPCS: 36415; 74018; 74177; 80053; 83605; 83690; 85025; 86140; 87040; 93005; 96374; 96375; 96376; 99284; J2270; J2405; Q9967

== ENCOUNTER 2017-12-24 16:45 | Inpatient (IN) | payer MEDICARE ==
[2017-12-24] MEDS ORDERED: methylPREDNISolone 125 MG* 2 ML VIAL IV ONE (17:11)
[2017-12-24] MEDS ORDERED: Albuterol/Ipratropium NEB.SOL* Albuterol 2.5 MG/Ipratropium 0.5 MG 3 ML ONE (17:17)
[2017-12-24] MEDS: Albuterol/Ipratropium NEB.SOL* Albuterol 2.5 MG/Ipratropium 0.5 MG 3 ML INH SCH ×4 (17:23→22:59)
[2017-12-24] MEDS ORDERED: NS 0.9% 1000 ML* 1,000 ML IV ONE (17:37)
[2017-12-24 17:47] LABS: ABS Basophils 0.1 10^3/ul (0-0.2); ABS Eosinophils 1.1 10^3/ul (0-0.6); ABS Lymphocytes 1.7 10^3/ul (1.0-4.8); ABS Monocytes 0.6 10^3/ul (0-0.8); ABS Neutrophils 5.1 10^3/ul (1.5-7.7); ABS Nucleated RBC 0 10^3/ul; Eosinophil % 13.2 % (0-6); Hematocrit 46 % (35-47); Hemoglobin 15.4 g/dl (12.0-16.0); Lymphocyte % 19.5 % (25-47); Mean Corpuscular HGB Conc 34 g/dl (31-36); Mean Corpuscular Hemoglobin 30 pg (27-31); Mean Corpuscular Volume 89 fL (80-97); Mean Platelet Volume 7.1 um3 (7.4-10.4); Nucleated Red Blood Cells % 0.1; Platelet Count 292 10^3/ul (150-450); Red Blood Count 5.14 10^6/ul (4.0-5.4); Red Cell Distribution Width 14 % (10.5-15); White Blood Count 8.6 10^3/ul (3.5-10.8)
[2017-12-24] MEDS ORDERED: EPINEPHrine,Rac 2.25% NEB.SOL* 0.5 ML INH ONE (17:51)
[2017-12-24 18:06] LABS: EGFR Non-African American 77.8 (>60)
--- NOTE | 2017-12-24 18:13 | RAD ---
Indication: Shortness of breath. Single frontal view of the chest performed at 1755 hours was reviewed. Comparison is made with previous exam dated September 03, 2017. No mediastinal shift is noted. Heart is of normal size and configuration. Lung smith appear clear. IMPRESSION: NO ACTIVE CARDIOPULMONARY DISEASE IS NOTED.
[2017-12-24] MEDS ORDERED: Magnesium Sulfate 1 GM IV* 1 GM/100 ML BAG IV ONE (18:17)
--- NOTE | 2017-12-24 18:37 | ED ---
Salvador Bennett Tiffany, scribed for Manav Snyder MD on 12/24/17 at 1737 . Asthma - HPI Summary HPI Summary: 67 y/o F referred to [facility] from PMD office complains of worsening chronic asthma since 3 days ago. Symptoms aggravated by nothing. Symptoms alleviated by nothing. Pt reports shortness of breath, cough, wheezing, chest tightness. Pt denies chest pain, fever. Was already given steroid treatment at PMD office and at 17:16. Hx asthma. Has inhaler and nebulizer at home. - History of Current Complaint Chief Complaint: EDShortnessOfBreath Stated Complaint: SOB Time Seen by Provider: 12/24/17 17:23 Hx Obtained From: Patient Onset/Duration: Lasting Days - 3, Still Present Aggravating Symptoms: Nothing Alleviating Symptoms: Nothing Associated Signs and Symptoms: Positive: Other - shortness of breath, cough, wheezing, chest tightness; NEGATIVE: chest pain, fever. - Allergy/Home Medications Allergies/Adverse Reactions: Allergies Allergy/AdvReac Type Severity Reaction Status Date / Time amoxicillin Allergy Severe Shortness Verified 12/24/17 16:50 of Breath Influenza Virus Vaccines Allergy Severe Shortness Verified 12/24/17 16:50 of Breath Penicillins Allergy Intermediate Hives Verified 12/24/17 16:50 morphine Allergy See Comment Verified 12/24/17 16:50 Home Medications: Home Medications Albuterol HFA INHALER* [Ventolin HFA Inhaler*] 2 puff INH Q4H PRN 12/24/17 [ History Confirmed 12/24/17] Azithromycin TAB* [Zithromax TAB (Z-KELLNE) 250 mg #6 tabs] 250 mg PO QAM 12/24/17 [History Confirmed 12/24/17] Calcium Carbonate/Vitamin D3 [Calcium 600 + Vit D Tablet] 1 each PO QAM [History Confirmed 12/24/17] Cetirizine* [ZyrTEC 10 MG TAB*] 10 mg PO QPM 12/24/17 [History Confirmed ] Cyanocobalamin TAB* [Vitamin B12 TAB*] 500 mcg PO .EVERY OTHER WEEK 12/24/17 [ History Confirmed 12/24/17] Denosumab(NF) [Prolia(NF)] 60 mg SC .EVERY SIX MONTHS 12/24/17 [History Confirmed 12/24/17] Ergocalciferol (Vitamin D2) [Vitamin D2] 1.25 mg PO WEEKLY 12/24/17 [History Confirmed 12/24/17] Levalbuterol 1.25MG/0.5ML NEB* [Xopenex 1.25 MG/0.5 ML NEB.HOLLY*] 1.25 mg INH Q4H PRN 12/24/17 [History Confirmed 12/24/17] Levothyroxine TAB* [Synthroid TAB*] 100 mcg PO QAM 12/24/17 [History Confirmed 12/24/17] Polyethylene Glycol 3350* [Miralax*] 17 gm PO QAM 12/24/17 [History Confirmed ] Ranitidine TAB (NF) [Zantac TAB (NF)] 150 mg PO BID 12/24/17 [History Confirmed 12/24/17] Senna TAB* [Senokot TAB*] 2 tab PO QPM 12/24/17 [History Confirmed 12/24/17] PMH/Surg Hx/FS Hx/Imm Hx Previously Healthy: No Endocrine/Hematology History: Reports: Hx Thyroid Disease - thyroidectomy d/t ca Denies: Hx Diabetes Cardiovascular History: Denies: Hx Hypertension, Hx Pacemaker/ICD Respiratory History: Reports: Hx Asthma, Hx Chronic Bronchitis, Hx Pneumonia, Hx Seasonal Allergies, Other Respiratory Problems/Disorders - PNA Denies: Hx Chronic Obstructive Pulmonary Disease (COPD) GI History: Reports: Hx Diverticulosis - perforated x1, Hx Hiatal Hernia - repair x2, Hx Obstructive Bowel, Hx Ileostomy - Reversal complete, Other GI Disorders - Hx perforated bowel Denies: Hx Ulcer History: Denies: Hx Renal Disease Musculoskeletal History: Reports: Hx Orthopedic Injury, Hx Osteoporosis Sensory History: Reports: Hx Contacts or Glasses Denies: Hx Hearing Aid Opthamlomology History: Reports: Hx Contacts or Glasses Neurological History: Denies: Hx Seizures Psychiatric History: Denies: Hx Anxiety, Hx Depression, Hx Panic Disorder, Hx Substance Abuse - Cancer History Cancer Type, Location and Year: Thyroid Hx Chemotherapy: No Hx Radiation Therapy: Yes - THYROID - Surgical History Surgery Procedure, Year, and Place: Hiatal hernia repair x2; thyroidectomy ( [facility]) ; tonsilectomy/sinus surgery; hysterectomy, T&A, REFLUX SURGERY ([facility]) 07/2012 WITH REVISION 12/2012. PERFORATED BOWEL WITH COLOSTOMY THEN REMOVED Hx Anesthesia Reactions: No Infectious Disease History: No Infectious Disease History: Denies: Hx Clostridium Difficile, Hx Hepatitis, Hx Human Immunodeficiency Virus (HIV), Hx of Known/Suspected MRSA, Hx Shingles, Hx Tuberculosis, History Other Infectious Disease, Traveled Outside the [place] in Last 30 Days - Family History Known Family History: Positive: Hypertension - Social History Alcohol Use: Rare Hx Substance Use: No Substance Use Type: Reports: None Hx Tobacco Use: No Smoking Status (MU): Never Smoked Tobacco Review of Systems Negative: Fever Positive: Other - Chest tightness. Negative: Chest Pain Positive: Shortness Of Breath, Cough, Other - worsening chronic asthma, wheezing All Other Systems Reviewed And Are Negative: Yes Physical Exam - Summary Physical Exam Summary: Appearance: Well appearing, no pain distress Skin: warm, dry, reflects adequate perfusion Head/face: normal Eyes: EOMI, MATT ENT: normal Neck: supple, non-tender Respiratory: Diffuse wheezing. Pt is coughing when she speaks. She only speaks in short sentences. Cardiovascular: RRR, pulses symmetrical Abdomen: non-tender, soft Bowel Sounds: present Musculoskeletal: normal, strength/ROM intact, no lower extremity edema Neuro: normal, sensory motor intact, A&Ox3 Triage Information Reviewed: Yes Vital Signs On Initial Exam: Initial Vitals Temp Pulse Resp BP Pulse Ox 98.1 F 94 24 147/96 94 12/24/17 16:46 12/24/17 16:46 12/24/17 16:46 12/24/17 16:46 12/24/17 16:46 Vital Signs Reviewed: Yes Diagnostics - Vital Signs Vital Signs Temp Pulse Resp BP Pulse Ox 12/24/17 16:59 20 12/24/17 16:46 98.1 F 94 24 147/96 94 - Laboratory Lab Results: Lab Results 12/24/17 12/24/17 12/24/17 Range/Units 17:29 17:29 17:29 WBC 8.6 (3.5-10.8) 10^3/ul RBC 5.14 (4.0-5.4) 10^6/ul Hgb 15.4 (12.0-16.0) g/dl Hct 46 (35-47) % MCV 89 (80-97) fL MCH 30 (27-31) pg MCHC 34 (31-36) g/dl RDW 14 (10.5-15) % Plt Count 292 (150-450) 10^3/ul MPV 7.1 L (7.4-10.4) um3 Neut % (Auto) 59.1 (38-83) % Lymph % (Auto) 19.5 L (25-47) % Chicot % (Auto) 7.1 H (0-7) % Eos % (Auto) 13.2 H (0-6) % Baso % (Auto) 1.1 (0-2) % Absolute Neuts (auto) 5.1 (1.5-7.7) 10^3/ul Absolute Lymphs (auto) 1.7 (1.0-4.8) 10^3/ul Absolute Monos (auto) 0.6 (0-0.8) 10^3/ul Absolute Eos (auto) 1.1 H (0-0.6) 10^3/ul Absolute Basos (auto) 0.1 (0-0.2) 10^3/ul Absolute Nucleated RBC 0 10^3/ul Nucleated RBC % 0.1 ABG pH (7.35-7.45) ABG pCO2 (35-45) mmHg ABG pO2 (80-100) mmHg ABG HCO3 (19-31) mmol/L ABG O2 Saturation (95-98) % ABG Base Excess (-2.0-2.0) Sodium 141 (139-145) mmol/L Potassium 3.7 (3.5-5.0) mmol/L Chloride 106 (101-111) mmol/L Carbon Dioxide 24 (22-32) mmol/L Anion Gap 11 (2-11) mmol/L BUN 11 (6-24) mg/dL Creatinine 0.74 (0.51-0.95) mg/dL Est GFR ( Amer) 100.1 (>60) Est GFR (Non-Af Amer) 77.8 (>60) BUN/Creatinine Ratio 14.9 (8-20) Glucose 100 (70-100) mg/dL Lactic Acid 1.0 (0.5-2.0) mmol/L Calcium 9.0 (8.6-10.3) mg/dL Total Bilirubin 1.90 H (0.2-1.0) mg/dL AST 18 (13-39) U/L ALT 11 (7-52) U/L Alkaline Phosphatase 54 (34-104) U/L Total Creatine Kinase 158 (10-223) U/L Troponin I 0.00 (<0.04) ng/mL C-Reactive Protein 10.21 H (< 5.00) mg/L B-Natriuretic Peptide ( - 100) pg/mL Total Protein 7.8 (6.4-8.9) g/dL Albumin 4.5 (3.2-5.2) g/dL Globulin 3.3 (2-4) g/dL Albumin/Globulin Ratio 1.4 (1-3) 12/24/17 12/24/17 Range/Units 17:29 17:35 WBC (3.5-10.8) 10^3/ul RBC (4.0-5.4) 10^6/ul Hgb (12.0-16.0) g/dl Hct (35-47) % MCV (80-97) fL MCH (27-31) pg MCHC (31-36) g/dl RDW (10.5-15) % Plt Count (150-450) 10^3/ul MPV (7.4-10.4) um3 Neut % (Auto) (38-83) % Lymph % (Auto) (25-47) % Chicot % (Auto) (0-7) % Eos % (Auto) (0-6) % Baso % (Auto) (0-2) % Absolute Neuts (auto) (1.5-7.7) 10^3/ul Absolute Lymphs (auto) (1.0-4.8) 10^3/ul Absolute Monos (auto) (0-0.8) 10^3/ul Absolute Eos (auto) (0-0.6) 10^3/ul Absolute Basos (auto) (0-0.2) 10^3/ul Absolute Nucleated RBC 10^3/ul Nucleated RBC % ABG pH 7.44 (7.35-7.45) ABG pCO2 35 (35-45) mmHg ABG pO2 81 (80-100) mmHg ABG HCO3 24.9 (19-31) mmol/L ABG O2 Saturation 98.0 (95-98) % ABG Base Excess 0.1 (-2.0-2.0) Sodium (139-145) mmol/L Potassium (3.5-5.0) mmol/L Chloride (101-111) mmol/L Carbon Dioxide (22-32) mmol/L Anion Gap (2-11) mmol/L BUN (6-24) mg/dL Creatinine (0.51-0.95) mg/dL Est GFR ( Amer) (>60) Est GFR (Non-Af Amer) (>60) BUN/Creatinine Ratio (8-20) Glucose (70-100) mg/dL Lactic Acid (0.5-2.0) mmol/L Calcium (8.6-10.3) mg/dL Total Bilirubin (0.2-1.0) mg/dL AST (13-39) U/L ALT (7-52) U/L Alkaline Phosphatase (34-104) U/L Total Creatine Kinase (10-223) U/L Troponin I (<0.04) ng/mL C-Reactive Protein (< 5.00) mg/L B-Natriuretic Peptide 19 ( - 100) pg/mL Total Protein (6.4-8.9) g/dL Albumin (3.2-5.2) g/dL Globulin (2-4) g/dL Albumin/Globulin Ratio (1-3) Result Diagrams: 18 17:29 18 17:29 Lab Statement: Any lab studies that have been ordered have been reviewed, and results considered in the medical decision making process. - Radiology CXR Radiology Interpretation Completed By: Radiologist - NO ACTIVE CARDIOPULMONARY DISEASE IS NOTED. ED physician has reviewed this report. - EKG 17:18 Cardiac Rate: NL - 99 BPM EKG Rhythm: Sinus Rhythm EKG Interpretation: Left axis. Non-specific ST. No acute finding. Re-Evaluation - Re-Evaluation First Eval Re-Evaluation Time: 17:51 Change: Unchanged Comment: Pt is not better after steriod treatment. Second Eval Re-Evaluation Time: 18:33 Change: Unchanged Comment: Pt receiving another breathing treatment. Discussed admission plan. Is agreeable. Asthma Course/Dx - Course Course Of Treatment: A shows history of admission to the ICU for bad asthma. Today presents with diffuse wheezing unremitting to several breathing treatments. She also has staccato cough and mild hypoxia off oxygen. After 3 DuoNeb treatments a racemic epi was given. This had little benefit also. She was given IV fluids and magnesium. She was placed on Vapotherm with some improvement. Discussed the case with the hospitalist will admit for further. - Diagnoses Provider Diagnoses: Acute asthma exacerbation, Hypoxia - Provider Notifications Discussed Care Of Patient With: Saud Asencio Time Discussed With Above Provider: 18:23 Instructed by Provider To: Other - Dr. Asencio, hospitalist, agrees to admit pt for further evaluation. - Critical Care Time Critical Care Time: 30-74 min - Critical care time of 30 minutes is exclusive of separately billable procedures. Discharge - Sign-Out/Discharge Documenting (check all that apply): Discharge/Admit/Transfer - Discharge Plan Condition: Guarded Disposition: ADMITTED TO [facility] Referrals: Doris Alicea MD [Primary Care Provider] - - Billing Disposition and Condition Condition: GUARDED Disposition: Admitted to [facility] The documentation as recorded by the Salvador govea Tiffany accurately reflects the service I personally performed and the decisions made by Claudio johnson Kirk, MD.
[2017-12-24] MEDS ORDERED: Albuterol 0.5% CONC NEB.SOL* 5 MG/ML 20 ml BOT INH ONE (19:23)
[2017-12-24] MEDS ORDERED: Ondansetron 40 MG VIAL* 2 MG/ML 20 ML VIAL IV PRN (19:23)
[2017-12-24] MEDS ORDERED: NS 0.9% 1000 ML* 1,000 ML IV SCH (19:45)
[2017-12-24] MEDS ORDERED: Vancomycin per Pharmacy* NOTE FOLLOW UP SCH (20:00)
[2017-12-24] MEDS ORDERED: Vancomycin(*) 1,000 MG in NS 0.9% 250 ML* 250 ML IVPB ONE (20:30)
[2017-12-24] MEDS: Famotidine TAB* 20 MG PO SCH (21:41)
[2017-12-24] MEDS: Heparin VIAL(*) 5000 UNITS/ML VIAL (FIVE THOUSAND) SUBCUT SCH (21:48)
[2017-12-24] MEDS ORDERED: Cefepime 2 GM in Dextrose(*) 2 GM/50 ML BAG IV SCH (22:00)
[2017-12-25] MEDS: Mometasone/Formoter 200/5 MDI INH SCH ×3 (00:11→21:03)
--- NOTE | 2017-12-25 00:55 | HP ---
CC: Dr. Alicea; Dr. Tyson; Dr. Man * HISTORY AND PHYSICAL: DATE OF ADMISSION: 12/24/17 PRIMARY CARE PROVIDER: Dr. Alicea. ATTENDING PHYSICIAN WHILE IN THE HOSPITAL: Aiyana Medina MD * (report dictated by Leonardo Casanova NP). CONSULTING PROCESS MAINTENANCE TECHNICIAN: Dr. Tyson. I placed a consult also to Dr. Man. CHIEF COMPLAINT: Shortness of breath. HISTORY OF PRESENT ILLNESS: Mrs. Benavides is a 67-year-old female patient. She carries a history of asthma, thyroid cancer, history of hiatal hernia, history of diverticulitis. She is coming in to the ED today. She states that recently she was on an increased dose of prednisone and she had recently in the last few days had stopped it. She was tapering herself down and she had the taper and stopped. She states that since then, she has had progressive worsening cough, worsening shortness of breath. She has been really working with any type of exertion, even minimal exertion. She went to her PCP today. They evaluated her and sent her immediately to the ER. She was recently transferred to [facility] in the end of October, first part of November for bowel obstruction. She was there for about a week. She denies having any nausea, vomiting. She did have normal bowel movements. No abdominal pain. She denies any chest pain. Her biggest complaint was breathing and then this cough that has been nonproductive. In addition to this, she has not had any fevers or sick contacts that she is aware of. She presented to the emergency department initially. When she came in, she was tachypneic, respiratory rate in the 20s. She was little tachycardic in the 90s and she has had increased work of breathing. She was given significant amount of treatment here in the ED. She required Vapotherm and because of this, we were asked to evaluate for admission. PAST MEDICAL HISTORY: Significant for: 1. Asthma. 2. Thyroid cancer. 3. Hiatal hernia. 4. Diverticulitis. PAST SURGICAL HISTORY: 1. She has had thyroidectomy. 2. She has had exploratory laparotomy with bowel excision with colostomy and then a reversal of colostomy. 3. She has had hysterectomy. 4. Tonsillectomy. 5. She has had sinus surgery. 6. She has had hiatal hernia repair x2. HOME MEDICATIONS: Include: 1. Vitamin D2 1.25 mg p.o. weekly. 2. Senna 2 tablets p.o. q.p.m. 3. MiraLAX 17 g p.o. q.a.m. 4. B12 500 mcg p.o. every other week. 5. Prolia 60 mg subcu every 6 months. 6. Zyrtec 10 mg p.o. daily. 7. Xopenex 1.25 mg inhaled every 4 hours as needed. 8. Ventolin 2 puffs inhaled every 4 hours as needed. 9. Zantac 150 mg p.o. b.i.d. 10. Calcium 1 tablet daily. 11. Synthroid 100 mcg daily. 12. Z-Jewel, she is taking 250 mg p.o. q.a.m. ALLERGIES TO MEDICATIONS: Include PENICILLIN, AMOXICILLIN, FLU VACCINE, and MORPHINE. FAMILY HISTORY: Mother had myasthenia gravis. Father had a history of heart disease. SOCIAL HISTORY: She does not smoke. Rarely drinks alcohol. Surrogate decision maker is her son. REVIEW OF SYSTEMS: There is no documented fever. She is denying any significant weight change. There is no double vision. She denies having any ear discharge. There is no rhinorrhea. No sore throat. No thyroid enlargement. She denied having any chest pain. There is dyspnea with exertion. There is no orthopnea. No nocturnal dyspnea. No abdominal pain. No nausea, no vomiting. There is no dysuria, no frequency. There was no seizure. No loss of consciousness. No pruritus and no skin ulcerations. Review of 14 systems completed, all others negative. PHYSICAL EXAMINATION GENERAL: At this time, Mrs. Benavides is a 67-year-old female patient. She is sitting in the ED stretcher. She does not appear to be in any acute distress now. She is awake. She is talking in full sentences with Vapotherm and subjectively says she feels better. VITAL SIGNS: Blood pressure 145/88, pulse 93, respirations 14, O2 sat 96%. She is on Vapotherm at 30, temperature was 98.1. HEENT: Head is atraumatic. Eyes: EOMs are intact. Sclerae anicteric, not pale. Throat: Oral mucosa appears to be moist. No oropharyngeal erythema. NECK: Supple. LUNGS: She has significant amount of wheezing bilaterally, it was expiratory. She had equal diaphragmatic expansion. HEART: Sounds S1, S2. She is regular rate and rhythm. No murmurs, rubs, or gallops. ABDOMEN: Soft, flat, nontender. Bowel sounds are present. EXTREMITIES: Pulses were 2+ throughout. She is moving all 4 extremities with 5 /5 strength. NEUROLOGIC: She is awake, alert, oriented x3. Speech is clear. No gross focal deficits. SKIN: Intact. DIAGNOSTIC STUDIES/LAB DATA: Labs: WBC of 8.6, RBC of 5.14, hemoglobin 15.4, hematocrit of 46, platelet count of 292. Blood gas was unrevealing. Her pH was 7.44, pCO2 of 35 and her bicarb was 24.9. Her sodium is 141, potassium is 3.7, chloride of 106, bicarb 24, BUN 11, creatinine of 0.74, glucose 100. Lactate 1.1. Calcium 9. Total bili 1.9, AST 18, ALT 11, alk phos 54. CK 158. Troponin 0. CRP 10. BNP of 19. Albumin of 4.5. She did have a chest x-ray obtained today, which revealed no active cardiopulmonary disease impression. She had an EKG obtained today as well, which does show a normal sinus rhythm, rate of 99. No ST elevation was noted. T waves were flattened in lead III and also in lead I. On previous EKG, this was present with the exception of lead III. On the previous EKG, she had no flattened T waves. Old medical records were reviewed. ASSESSMENT AND PLAN: Mrs. Benavides is a 67-year-old female patient with a well- documented history of asthma requiring intubation in the past presenting today with a 2 to 3-day history of increasing shortness of breath in the setting of recently finishing a steroid taper. She will be admitted under inpatient status for: 1. Asthma exacerbation. The patient did relay to me that she has been told that she has a difficult airway. She has required fiberoptic intubation and she has been told by her primary package checker that she should requires fiberoptic intubation. I did touch base with Anesthesia to give them a heads up that the patient is coming in on Vapotherm. She appears to be holding steady now. Her work of breathing is stable. I did touch base with Dr. Tyson. He recommended a continuous neb for at least 2 hours with a reassessment in an hour. If she is improving, then we would switch her over to DuoNebs every 4 hours and p.r.n. albuterol. I have ordered steroids 60 mg and Solu-Medrol every 8 hours. I have put her on empiric antibiotics. Because of the recent hospitalization, I did put her on broad spectrum antibiotics in the form of vanco and cefepime and we will panculture her to make sure that she does not grow anything. If she remains culture negative, we could consider stopping this. I will continue with aggressive pulmonary toileting, Vapotherm and I have also placed a consult to Dr. Man. 2. History of thyroid cancer, status post thyroidectomy. Continue her Synthroid. 3. History of hiatal hernia. Continue her Zantac. 4. History of diverticulitis. Not an active issue. 5. Deep venous thrombosis prophylaxis. She is high risk. I have ordered her heparin subcu. 6. Code status. Full code. 7. Fluids, electrolytes, and nutrition. She is n.p.o. While she is n.p.o., I will just order normal saline at 75 an hour. I do not think she needs any boluses at this point. She was given one in the ED already. TIME SPENT: Time spent on the admission, which was critical care time, was 60 minutes, greater than half the time spent [id number] with the patient obtaining my history and physical; the other half time spent going over the plan of care with the patient and implementing plan of care. I did discuss the plan of care with my attending, Dr. Medina. I also discussed it with Dr. Tyson. They are in agreement. LEONARDO CASANOVA, JASON [id number]/[facility] #: [id number] [place]
[2017-12-25] MEDS: methylPREDNISolone 125 MG* 2 ML VIAL IV SCH ×3 (01:11→16:27)
[2017-12-25 01:25] LABS: Urine Appearance Clear; Urine Blood Negative (Negative); Urine Color Yellow; Urine Ketones 2+ (Negative); Urine Protein Negative (Negative); Urine Specific Gravity 1.021 (1.010-1.030); Urine Urobilinogen Negative (Negative)
[2017-12-25] MEDS: Albuterol 2.5 MG/3 ML NEB.SOL* (0.083%) INH PRN ×2 (01:28→20:08)
[2017-12-25] MEDS: Benzonatate CAP* 100 MG PO PRN ×2 (01:43→08:42)
[2017-12-25] MEDS: Albuterol/Ipratropium NEB.SOL* Albuterol 2.5 MG/Ipratropium 0.5 MG 3 ML INH SCH ×6 (03:37→23:32)
[2017-12-25] MEDS: Levothyroxine TAB* 100 MCG TAB PO SCH (05:47)
[2017-12-25] MEDS: Heparin VIAL(*) 5000 UNITS/ML VIAL (FIVE THOUSAND) SUBCUT SCH ×3 (05:48→22:09)
[2017-12-25] MEDS ORDERED: Vancomycin(*) 750 MG in NS 0.9% 250 ML* 250 ML IVPB SCH (06:00)
[2017-12-25 06:14] LABS: ABS Basophils 0 10^3/ul (0-0.2); ABS Eosinophils 0 10^3/ul (0-0.6); ABS Lymphocytes 0.5 10^3/ul (1.0-4.8); ABS Monocytes 0 10^3/ul (0-0.8); ABS Neutrophils 6.3 10^3/ul (1.5-7.7); ABS Nucleated RBC 0 10^3/ul; Eosinophil % 0 % (0-6); Hematocrit 40 % (35-47); Hemoglobin 13.4 g/dl (12.0-16.0); Lymphocyte % 6.8 % (25-47); Mean Corpuscular HGB Conc 34 g/dl (31-36); Mean Corpuscular Hemoglobin 30 pg (27-31); Mean Corpuscular Volume 89 fL (80-97); Nucleated Red Blood Cells % 0; Platelet Count 244 10^3/ul (150-450); Red Blood Count 4.48 10^6/ul (4.0-5.4); Red Cell Distribution Width 14 % (10.5-15); White Blood Count 6.9 10^3/ul (3.5-10.8)
[2017-12-25 06:28] LABS: EGFR Non-African American 103.1 (>60)
[2017-12-25] MEDS: Famotidine TAB* 20 MG PO SCH ×2 (08:42→20:52)
[2017-12-25] MEDS: Acetaminophen TAB* 325 MG PO PRN (08:43)
--- NOTE | 2017-12-25 08:56 | PN ---
Subjective Date of Service: 12/25/17 Interval History: She feels better today, somewhat less SOB. Nonproductive cough. She never had a productive cough during this illness. No chest pain. Hungry. Objective Active Medications: Acetaminophen (Tylenol Tab*) 650 mg PO Q4H PRN PRN Reason: FEVER/PAIN Last Admin: 12/25/17 08:43 Dose: 650 mg Albuterol (Ventolin 2.5 Mg/3 Ml Neb.Zaira*) 2.5 mg INH Q2H PRN PRN Reason: SOB/WHEEZING Last Admin: 12/25/17 01:28 Dose: 2.5 mg Albuterol/Ipratropium (Duoneb (Albuterol 2.5 Mg/Ipratropium 0.5 Mg)) 1 neb INH [id number] AWAKE [facility] Last Admin: 12/25/17 03:37 Dose: 1 neb Benzonatate (Tessalon Cap*) 100 mg PO BID PRN PRN Reason: COUGH Last Admin: 12/25/17 08:42 Dose: 100 mg Cetirizine HCl (Zyrtec*) 10 mg PO QPM BILLY PRN Reason: Protocol Famotidine (Pepcid Tab*) 20 mg PO BID BILLY PRN Reason: Protocol Last Admin: 12/25/17 08:42 Dose: 20 mg Heparin Sodium (Porcine) (Heparin Vial(*)) 5,000 units SUBCUT Q8HR [facility] Last Admin: 12/25/17 05:48 Dose: 5,000 units Cefepime HCl (Maxipime 2 Gm In Dextrose Duplex (*)) 2 gm in 50 mls @ 100 mls/ hr IV Q12H [facility] Last Admin: 12/24/17 23:35 Dose: 100 mls/hr Sodium Chloride (Ns 0.9% 1000 Ml*) 1,000 mls @ 75 mls/hr IV PER RATE [facility] Stop: 12/25/17 09:04 Last Admin: 12/24/17 21:12 Dose: 75 mls/hr Vancomycin HCl 750 mg/ Sodium (Chloride) 250 mls @ 166.667 mls/hr IVPB Q8H [facility] Last Admin: 12/25/17 05:48 Dose: 166.667 mls/hr Levothyroxine Sodium (Synthroid Tab*) 100 mcg PO QAM@0600 [facility] Last Admin: 12/25/17 05:47 Dose: 100 mcg Methylprednisolone Sodium Succinate (Solu-Medrol 125mg *) 60 mg IV Q8H [facility] Last Admin: 12/25/17 08:42 Dose: 60 mg Mometasone Furoate/Formoterol Fumar (Dulera 200/5 Mdi*) 2 puff INH BID [facility] Last Admin: 12/25/17 08:43 Dose: 2 puff Ondansetron HCl (Zofran 40 Mg Vial*) 4 mg IV Q6H PRN PRN Reason: NAUSEA Pharmacy Consult (Vancomycin Per Pharmacy*) 1 note FOLLOW UP .VANC PER PHARMACY [facility] Pharmacy Profile Note (Vancomycin Trough Check) 1 note FOLLOW UP 599 ONE Stop: 12/26/17 06:01 Vital Signs - 8 hr 12/25/17 12/25/17 12/25/17 01:00 01:29 01:30 Temperature Pulse Rate 85 77 78 Respiratory 21 20 18 Rate Blood Pressure 134/79 133/75 (mmHg) O2 Sat by Pulse 97 99 100 Oximetry 12/25/17 12/25/17 12/25/17 02:00 02:30 03:00 Temperature Pulse Rate 77 76 75 Respiratory 18 20 18 Rate Blood Pressure 127/79 116/67 113/67 (mmHg) O2 Sat by Pulse 99 99 99 Oximetry 12/25/17 12/25/17 12/25/17 03:37 04:00 05:00 Temperature 98.7 F Pulse Rate 72 75 69 Respiratory 18 23 10 Rate Blood Pressure 124/67 116/68 (mmHg) O2 Sat by Pulse 100 95 96 Oximetry 12/25/17 12/25/17 12/25/17 06:00 07:00 07:40 Temperature 99.5 F Pulse Rate 75 70 Respiratory 23 23 Rate Blood Pressure 123/81 134/78 (mmHg) O2 Sat by Pulse 95 97 Oximetry Oxygen Devices in Use Now: High Flow Heated Nasal Cannula Appearance: Alert, partly up in ICU bed. In good spirits. Looks comfortable. Eyes: No Scleral Icterus Respiratory: Symmetrical Chest Expansion and Respiratory Effort, Clear to Percussion, - - Mod wheezing BL, diminished air movement Extremities: No Edema, No Clubbing, Cyanosis, - Skin: No Rash or Ulcers, No Nodules or Sclerosis, - Neurological: Alert and Oriented x 3, NL Sensation Result Diagrams: 12/25/17 05:55 12/25/17 05:55 Additional Lab and Data: Lab Results 12/24/17 12/24/17 12/24/17 Range/Units 17:29 17:29 17:29 WBC 8.6 (3.5-10.8) 10^3/ul RBC 5.14 (4.0-5.4) 10^6/ul Hgb 15.4 (12.0-16.0) g/dl Hct 46 (35-47) % MCV 89 (80-97) fL MCH 30 (27-31) pg MCHC 34 (31-36) g/dl RDW 14 (10.5-15) % Plt Count 292 (150-450) 10^3/ul MPV 7.1 L (7.4-10.4) um3 Neut % (Auto) 59.1 (38-83) % Lymph % (Auto) 19.5 L (25-47) % [place] % (Auto) 7.1 H (0-7) % Eos % (Auto) 13.2 H (0-6) % Baso % (Auto) 1.1 (0-2) % Absolute Neuts (auto) 5.1 (1.5-7.7) 10^3/ul Absolute Lymphs (auto) 1.7 (1.0-4.8) 10^3/ul Absolute Monos (auto) 0.6 (0-0.8) 10^3/ul Absolute Eos (auto) 1.1 H (0-0.6) 10^3/ul Absolute Basos (auto) 0.1 (0-0.2) 10^3/ul Absolute Nucleated RBC 0 10^3/ul Nucleated RBC % 0.1 ABG pH (7.35-7.45) ABG pCO2 (35-45) mmHg ABG pO2 (80-100) mmHg ABG HCO3 (19-31) mmol/L ABG O2 Saturation (95-98) % ABG Base Excess (-2.0-2.0) Sodium 141 (139-145) mmol/L Potassium 3.7 (3.5-5.0) mmol/L Chloride 106 (101-111) mmol/L Carbon Dioxide 24 (22-32) mmol/L Anion Gap 11 (2-11) mmol/L BUN 11 (6-24) mg/dL Creatinine 0.74 (0.51-0.95) mg/dL Est GFR ( Amer) 100.1 (>60) Est GFR (Non-Af Amer) 77.8 (>60) BUN/Creatinine Ratio 14.9 (8-20) Glucose 100 (70-100) mg/dL Lactic Acid 1.0 (0.5-2.0) mmol/L Calcium 9.0 (8.6-10.3) mg/dL Total Bilirubin 1.90 H (0.2-1.0) mg/dL AST 18 (13-39) U/L ALT 11 (7-52) U/L Alkaline Phosphatase 54 (34-104) U/L Total Creatine Kinase 158 (10-223) U/L Troponin I 0.00 (<0.04) ng/mL C-Reactive Protein 10.21 H (< 5.00) mg/L B-Natriuretic Peptide ( - 100) pg/mL Total Protein 7.8 (6.4-8.9) g/dL Albumin 4.5 (3.2-5.2) g/dL Globulin 3.3 (2-4) g/dL Albumin/Globulin Ratio 1.4 (1-3) 12/24/17 12/24/17 Range/Units 17:29 17:35 WBC (3.5-10.8) 10^3/ul RBC (4.0-5.4) 10^6/ul Hgb (12.0-16.0) g/dl Hct (35-47) % MCV (80-97) fL MCH (27-31) pg MCHC (31-36) g/dl RDW (10.5-15) % Plt Count (150-450) 10^3/ul MPV (7.4-10.4) um3 Neut % (Auto) (38-83) % Lymph % (Auto) (25-47) % [place] % (Auto) (0-7) % Eos % (Auto) (0-6) % Baso % (Auto) (0-2) % Absolute Neuts (auto) (1.5-7.7) 10^3/ul Absolute Lymphs (auto) (1.0-4.8) 10^3/ul Absolute Monos (auto) (0-0.8) 10^3/ul Absolute Eos (auto) (0-0.6) 10^3/ul Absolute Basos (auto) (0-0.2) 10^3/ul Absolute Nucleated RBC 10^3/ul Nucleated RBC % ABG pH 7.44 (7.35-7.45) ABG pCO2 35 (35-45) mmHg ABG pO2 81 (80-100) mmHg ABG HCO3 24.9 (19-31) mmol/L ABG O2 Saturation 98.0 (95-98) % ABG Base Excess 0.1 (-2.0-2.0) Sodium (139-145) mmol/L Potassium (3.5-5.0) mmol/L Chloride (101-111) mmol/L Carbon Dioxide (22-32) mmol/L Anion Gap (2-11) mmol/L BUN (6-24) mg/dL Creatinine (0.51-0.95) mg/dL Est GFR ( Amer) (>60) Est GFR (Non-Af Amer) (>60) BUN/Creatinine Ratio (8-20) Glucose (70-100) mg/dL Lactic Acid (0.5-2.0) mmol/L Calcium (8.6-10.3) mg/dL Total Bilirubin (0.2-1.0) mg/dL AST (13-39) U/L ALT (7-52) U/L Alkaline Phosphatase (34-104) U/L Total Creatine Kinase (10-223) U/L Troponin I (<0.04) ng/mL C-Reactive Protein (< 5.00) mg/L B-Natriuretic Peptide 19 ( - 100) pg/mL Total Protein (6.4-8.9) g/dL Albumin (3.2-5.2) g/dL Globulin (2-4) g/dL Albumin/Globulin Ratio (1-3) Microbiology and Other Data: Microbiology 12/25/17 01:05 Legionella Urinary Antigen - Final Urine Negative Legionella Antigen Streptococcus pneumoniae Ag Screen - Final Negative S. pneumo Antigen 12/24/17 21:50 Nasal Screen MRSA (PCR)(SOFIA) - Final Nasal Mrsa Not Detected Assess/Plan/Problems-Billing Assessment: - Patient Problems (1) Asthma Current Visit: No Status: Acute Code(s): J45.909 - UNSPECIFIED ASTHMA, UNCOMPLICATED SNOMED Code(s): 772147906 Comment: Hx of multiple admissions for asthma, sees call center analyst is [place]. Often has exacerbations in the spring. Still on Vaoptherm 12/25, continue IV methylprednisolone. Very low suspicion for infection, stop antibiotics. Procalcitonin addon requested 12/25. (2) Hypothyroidism Current Visit: No Status: Acute Code(s): E03.9 - HYPOTHYROIDISM, UNSPECIFIED SNOMED Code(s): 94925298 Comment: Continue po levothyroxine. TSH wnl 11/03/17.
--- NOTE | 2017-12-25 15:46 | CONS ---
PULMONARY CONSULTATION REPORT: DATE OF CONSULT: 12/25/17 CONSULTATION REQUESTED BY: Leonardo Casanova NP. REASON FOR CONSULTATION: Evaluation of shortness of breath. HISTORY OF PRESENT ILLNESS: The patient is a 67-year-old female with history of poorly controlled asthma, diagnosed later in her life with history of allergies, thyroid cancer, history of hiatal hernia, diverticulitis. The patient presents for evaluation of worsening shortness of breath. The patient has chronically been on prednisone. She has significant side effects to prednisone including peptic ulcer disease that perforated in the past. The patient has been on prednisone taper, which she completed about a week ago. The patient has been having worsening shortness of breath since that time. Her symptoms have been worsening. The patient was evaluated by her primary care physician and was sent into the ED for further evaluation. The patient was noted to be in significant respiratory distress, tachycardic, tachypneic, and was initiated on nebulizers, received steroids, racemic epinephrine, mag sulfate. She was admitted to ICU for close monitoring. The patient is currently on high-flow O2. The patient is seen and examined at bedside this morning. The patient reports slight improvement in symptoms. She has been having poor asthma control. The patient also reports allergies which act out in the spring usually. Family history of asthma and allergies. The patient has been following up with bead maker in [place]. The patient reports improvement in breathing this morning. The patient reports cough productive of scant phlegm. The patient denies nausea, vomiting, constipation, abdominal pain , chest pain. The patient denies blurry vision, urinary complaints. The patient denies sick contacts or recent travel. The patient claims to be compliant with her asthma medications as prescribed. PAST MEDICAL HISTORY: 1. Asthma. 2. Thyroid cancer. 3. Hiatal hernia. 4. Diverticulitis. PAST SURGICAL HISTORY: 1. Thyroidectomy. 2. Exploratory laparotomy with bowel excision, colostomy, and reversal of colostomy. 3. Hysterectomy. 4. Tonsillectomy. 5. Sinus surgery. 6. Hiatal hernia repair. MEDICATIONS: At home: 1. Vitamin D. 2. Senna. 3. MiraLAX. 4. B12. 5. Prolia. 6. Zyrtec. 7. Xopenex. 8. Ventolin. 9. Zantac. 10. Calcium. 11. Synthroid. 12. Z-Jewel. ALLERGIES: PENICILLIN, AMOXICILLIN, FLU VACCINE, MORPHINE. FAMILY HISTORY: Myasthenia gravis in mother and heart disease in father. SOCIAL HISTORY: Nonsmoker. No alcohol or drug abuse. REVIEW OF SYSTEMS: All 14 systems reviewed and as per HPI. PHYSICAL EXAM: The patient is in bed, in no apparent distress. Not using accessory muscles of respiration. Vital Signs: Temperature 98.7, pulse 76 beats per minute, respiratory rate 23 per minute, O2 sat 95% on 20 L flow and 24 % FiO2, blood pressure 123/81. HEENT: Pupils equal, reactive to light. Mucous membranes moist. Lungs: Expiratory wheezing on auscultation bilaterally. Decreased air entry bilaterally. Cardiovascular: S1, S2 present. Regular. No murmurs, gallops, or rubs. Abdomen: Soft, nontender, nondistended. Bowel sounds present. Extremities: Normal range of motion. No edema. Neuro: No focal deficits. Skin: No rash or bruises. Lymphatic: No palpable cervical or supraclavicular adenopathy. DIAGNOSTIC STUDIES/LAB DATA: WBC count 6.9, hemoglobin 13.4, hematocrit 40, platelet count 244. Blood gas analysis shows pH of 7.44, pCO2 35, pO2 81, bicarb 24, O2 sat 98%. Sodium 138, potassium 4.1, chloride 110, bicarb 19, BUN 12, creatinine 0.58, lactic acid 1.0. BNP 19. Chest x-ray performed on admission was personally reviewed by me - no suspicious airspace opacities, no parenchymal opacities or evidence of interstitial thickening, no evidence of significant hyperinflation. IMPRESSION AND RECOMMENDATIONS: 67-year-old female with history of poor asthma control, history of allergies, has been on chronic prednisone therapy with history of peptic ulcer disease and bowel perforation, admitted with worsening shortness of breath, found to be in acute asthma exacerbation. Acute asthma exacerbation, likely secondary to viral bronchitis. The patient recently was in the hospital and is also being covered for healthcare-associated pneumonia or tracheobronchitis. The patient was initiated on Solu-Medrol 60 mg IV q. 8. We will continue that today without taper until the patient shows improvement. She is on Pepcid given history of peptic ulcer disease and being on steroids for secondary prevention. The patient does not have white count and I do not suspect infection, will cover with vancomycin for 2 days and then discontinue antibiotics after a 5-day course. Continue with nebulizers q. 4 hours while awake. Continue with high-flow for today as the patient still is very tight and would benefit from high-flow. The patient reports history of recurrent asthma attacks and has been on chronic prednisone therapy. Her eosinophil count appears to be elevated. She would need to be evaluated for hyper-IgE asthma when she is off of prednisone. Thank you for allowing me to participate in the care of your patient. Will follow up with you. [id number]/[facility] #: [id number] [place]
[2017-12-25] MEDS: Benzonatate CAP* 100 MG PO SCH ×2 (16:27→20:53)
[2017-12-25] MEDS: guaiFENesin LIQ* 100 MG/5 ML UDC PO PRN ×2 (17:40→21:05)
[2017-12-25] MEDS: Cetirizine* 10 MG TAB PO SCH (17:40)
[2017-12-26] MEDS: methylPREDNISolone 125 MG* 2 ML VIAL IV SCH (00:22)
[2017-12-26] MEDS: Albuterol/Ipratropium NEB.SOL* Albuterol 2.5 MG/Ipratropium 0.5 MG 3 ML INH SCH ×7 (03:34→23:44)
[2017-12-26] MEDS ORDERED: Vancomycin Trough Check NOTE FOLLOW UP ONE (06:00)
[2017-12-26] MEDS: Levothyroxine TAB* 100 MCG TAB PO SCH (06:07)
[2017-12-26] MEDS: Heparin VIAL(*) 5000 UNITS/ML VIAL (FIVE THOUSAND) SUBCUT SCH ×3 (06:08→22:26)
[2017-12-26] MEDS: Mometasone/Formoter 200/5 MDI INH SCH ×2 (07:29→22:13)
[2017-12-26] MEDS ORDERED: predniSONE TAB* 20 MG PO ONE (08:29)
--- NOTE | 2017-12-26 08:33 | PN ---
Subjective Date of Service: 12/26/17 Interval History: Feels better. Cough improved. No new c/o. Objective Active Medications: Acetaminophen (Tylenol Tab*) 650 mg PO Q4H PRN PRN Reason: FEVER/PAIN Last Admin: 12/25/17 08:43 Dose: 650 mg Albuterol (Ventolin 2.5 Mg/3 Ml Neb.Zaira*) 2.5 mg INH Q2H PRN PRN Reason: SOB/WHEEZING Last Admin: 12/25/17 20:08 Dose: 2.5 mg Albuterol/Ipratropium (Duoneb (Albuterol 2.5 Mg/Ipratropium 0.5 Mg)) 1 neb INH [id number] AWAKE [facility] Last Admin: 12/26/17 05:57 Dose: 1 neb Benzonatate (Tessalon Cap*) 200 mg PO TID [facility] Last Admin: 12/25/17 20:53 Dose: 200 mg Cetirizine HCl (Zyrtec*) 10 mg PO QPM [facility] PRN Reason: Protocol Last Admin: 12/25/17 17:40 Dose: 10 mg Famotidine (Pepcid Tab*) 20 mg PO BID [facility] PRN Reason: Protocol Last Admin: 12/25/17 20:52 Dose: 20 mg Guaifenesin (Robitussin*) 10 ml PO Q4H PRN PRN Reason: COUGH Last Admin: 12/25/17 21:05 Dose: 10 ml Heparin Sodium (Porcine) (Heparin Vial(*)) 5,000 units SUBCUT Q8HR [facility] Last Admin: 12/26/17 06:08 Dose: 5,000 units Levothyroxine Sodium (Synthroid Tab*) 100 mcg PO QAM@0600 [facility] Last Admin: 12/26/17 06:07 Dose: 100 mcg Mometasone Furoate/Formoterol Fumar (Dulera 200/5 Mdi*) 2 puff INH BID [facility] Last Admin: 12/26/17 07:29 Dose: 2 puff Ondansetron HCl (Zofran 40 Mg Vial*) 4 mg IV Q6H PRN PRN Reason: NAUSEA Prednisone (Deltasone Tab*) 60 mg PO ONCE ONE Stop: 12/26/17 08:30 Prednisone (Deltasone Tab*) 50 mg PO DAILY [facility] Vital Signs - 8 hr 12/26/17 12/26/17 12/26/17 01:00 02:00 03:00 Temperature Pulse Rate 65 74 71 Respiratory 18 19 21 Rate Blood Pressure 123/71 129/77 133/85 (mmHg) O2 Sat by Pulse 98 98 98 Oximetry 12/26/17 12/26/17 12/26/17 04:00 05:00 05:57 Temperature 98.5 F Pulse Rate 63 65 70 Respiratory 18 18 20 Rate Blood Pressure 108/73 120/77 (mmHg) O2 Sat by Pulse 98 98 95 Oximetry 12/26/17 12/26/17 12/26/17 06:00 07:00 07:29 Temperature 98.3 F Pulse Rate 70 65 Respiratory 21 23 Rate Blood Pressure 126/77 136/81 (mmHg) O2 Sat by Pulse 97 98 Oximetry 12/26/17 12/26/17 07:33 08:00 Temperature Pulse Rate 69 72 Respiratory 25 22 Rate Blood Pressure 120/80 (mmHg) O2 Sat by Pulse 96 96 Oximetry Oxygen Devices in Use Now: Nasal Cannula, High Flow Nasal Cannula Appearance: Alert, in a chair in ICU. In good spirits. Looks comfortable. Occ mild dry cough during my visit. Eyes: No Scleral Icterus Respiratory: Symmetrical Chest Expansion and Respiratory Effort, Clear to Percussion - mod wheezing BL Extremities: No Edema, No Clubbing, Cyanosis, - Skin: No Rash or Ulcers, No Nodules or Sclerosis, - Neurological: Alert and Oriented x 3, NL Sensation Result Diagrams: 12/25/17 05:55 12/25/17 05:55 Additional Lab and Data: Lab Results 12/24/17 12/24/17 12/24/17 Range/Units 17:29 17:29 17:29 WBC 8.6 (3.5-10.8) 10^3/ul RBC 5.14 (4.0-5.4) 10^6/ul Hgb 15.4 (12.0-16.0) g/dl Hct 46 (35-47) % MCV 89 (80-97) fL MCH 30 (27-31) pg MCHC 34 (31-36) g/dl RDW 14 (10.5-15) % Plt Count 292 (150-450) 10^3/ul MPV 7.1 L (7.4-10.4) um3 Neut % (Auto) 59.1 (38-83) % Lymph % (Auto) 19.5 L (25-47) % [place] % (Auto) 7.1 H (0-7) % Eos % (Auto) 13.2 H (0-6) % Baso % (Auto) 1.1 (0-2) % Absolute Neuts (auto) 5.1 (1.5-7.7) 10^3/ul Absolute Lymphs (auto) 1.7 (1.0-4.8) 10^3/ul Absolute Monos (auto) 0.6 (0-0.8) 10^3/ul Absolute Eos (auto) 1.1 H (0-0.6) 10^3/ul Absolute Basos (auto) 0.1 (0-0.2) 10^3/ul Absolute Nucleated RBC 0 10^3/ul Nucleated RBC % 0.1 ABG pH (7.35-7.45) ABG pCO2 (35-45) mmHg ABG pO2 (80-100) mmHg ABG HCO3 (19-31) mmol/L ABG O2 Saturation (95-98) % ABG Base Excess (-2.0-2.0) Sodium 141 (139-145) mmol/L Potassium 3.7 (3.5-5.0) mmol/L Chloride 106 (101-111) mmol/L Carbon Dioxide 24 (22-32) mmol/L Anion Gap 11 (2-11) mmol/L BUN 11 (6-24) mg/dL Creatinine 0.74 (0.51-0.95) mg/dL Est GFR ( Amer) 100.1 (>60) Est GFR (Non-Af Amer) 77.8 (>60) BUN/Creatinine Ratio 14.9 (8-20) Glucose 100 (70-100) mg/dL Lactic Acid 1.0 (0.5-2.0) mmol/L Calcium 9.0 (8.6-10.3) mg/dL Total Bilirubin 1.90 H (0.2-1.0) mg/dL AST 18 (13-39) U/L ALT 11 (7-52) U/L Alkaline Phosphatase 54 (34-104) U/L Total Creatine Kinase 158 (10-223) U/L Troponin I 0.00 (<0.04) ng/mL C-Reactive Protein 10.21 H (< 5.00) mg/L B-Natriuretic Peptide ( - 100) pg/mL Total Protein 7.8 (6.4-8.9) g/dL Albumin 4.5 (3.2-5.2) g/dL Globulin 3.3 (2-4) g/dL Albumin/Globulin Ratio 1.4 (1-3) 12/24/17 12/24/17 Range/Units 17:29 17:35 WBC (3.5-10.8) 10^3/ul RBC (4.0-5.4) 10^6/ul Hgb (12.0-16.0) g/dl Hct (35-47) % MCV (80-97) fL MCH (27-31) pg MCHC (31-36) g/dl RDW (10.5-15) % Plt Count (150-450) 10^3/ul MPV (7.4-10.4) um3 Neut % (Auto) (38-83) % Lymph % (Auto) (25-47) % [place] % (Auto) (0-7) % Eos % (Auto) (0-6) % Baso % (Auto) (0-2) % Absolute Neuts (auto) (1.5-7.7) 10^3/ul Absolute Lymphs (auto) (1.0-4.8) 10^3/ul Absolute Monos (auto) (0-0.8) 10^3/ul Absolute Eos (auto) (0-0.6) 10^3/ul Absolute Basos (auto) (0-0.2) 10^3/ul Absolute Nucleated RBC 10^3/ul Nucleated RBC % ABG pH 7.44 (7.35-7.45) ABG pCO2 35 (35-45) mmHg ABG pO2 81 (80-100) mmHg ABG HCO3 24.9 (19-31) mmol/L ABG O2 Saturation 98.0 (95-98) % ABG Base Excess 0.1 (-2.0-2.0) Sodium (139-145) mmol/L Potassium (3.5-5.0) mmol/L Chloride (101-111) mmol/L Carbon Dioxide (22-32) mmol/L Anion Gap (2-11) mmol/L BUN (6-24) mg/dL Creatinine (0.51-0.95) mg/dL Est GFR ( Amer) (>60) Est GFR (Non-Af Amer) (>60) BUN/Creatinine Ratio (8-20) Glucose (70-100) mg/dL Lactic Acid (0.5-2.0) mmol/L Calcium (8.6-10.3) mg/dL Total Bilirubin (0.2-1.0) mg/dL AST (13-39) U/L ALT (7-52) U/L Alkaline Phosphatase (34-104) U/L Total Creatine Kinase (10-223) U/L Troponin I (<0.04) ng/mL C-Reactive Protein (< 5.00) mg/L B-Natriuretic Peptide 19 ( - 100) pg/mL Total Protein (6.4-8.9) g/dL Albumin (3.2-5.2) g/dL Globulin (2-4) g/dL Albumin/Globulin Ratio (1-3) Microbiology and Other Data: Microbiology 12/25/17 01:05 Legionella Urinary Antigen - Final Urine Negative Legionella Antigen Streptococcus pneumoniae Ag Screen - Final Negative S. 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 Often has exacerbations in the spring. O2 3L/min by NC on 12/26. Procalcitonin wnl. Start prednsione taper 12/26. (2) Hypothyroidism Current Visit: No Status: Acute Code(s): E03.9 - HYPOTHYROIDISM, UNSPECIFIED SNOMED Code(s): 42648342 Comment: Continue po levothyroxine. TSH wnl 11/03/17.
[2017-12-26] MEDS: guaiFENesin LIQ* 100 MG/5 ML UDC PO PRN ×2 (08:49→20:33)
[2017-12-26] MEDS: Famotidine TAB* 20 MG PO SCH ×2 (08:50→20:33)
[2017-12-26] MEDS: Benzonatate CAP* 100 MG PO SCH ×3 (08:50→20:33)
[2017-12-26] MEDS: Cetirizine* 10 MG TAB PO SCH (17:06)
--- NOTE | 2017-12-26 20:24 | PN ---
Progress Note - Progress Note Date of Service: 12/26/17 - Pulm f/u note Note: Pt seen and examined at bedside. Pt reports improvement in SOB, O2 has been tapered off from high flow. Having mild intermittent cough Active Medications Generic Name Dose Route Start Last Admin Trade Name Freq PRN Reason Stop Dose Admin Acetaminophen 650 mg 12/24/17 19:23 12/25/17 08:43 Tylenol Tab* PO 650 mg Q4H PRN Administration FEVER/PAIN Albuterol 2.5 mg 12/24/17 19:29 12/25/17 20:08 Ventolin 2.5 Mg/3 Ml Neb.Zaira* INH 2.5 mg Q2H PRN Administration SOB/WHEEZING Albuterol/Ipratropium 1 neb 12/24/17 23:00 12/26/17 15:58 Duoneb (Albuterol 2.5 Mg/Ipratropium 0.5 Mg) INH 1 neb [id number] AWAKE [facility] Administration Benzonatate 200 mg 12/25/17 16:15 12/26/17 13:44 Tessalon Cap* PO 200 mg TID [facility] Administration Cetirizine HCl 10 mg 12/25/17 18:00 12/26/17 17:06 Zyrtec* PO 10 mg QPM [facility] Administration Protocol Famotidine 20 mg 12/24/17 21:00 12/26/17 08:50 Pepcid Tab* PO 20 mg BID [facility] Administration Protocol Guaifenesin 10 ml 12/25/17 16:05 12/26/17 08:49 Robitussin* PO 10 ml Q4H PRN Administration COUGH Heparin Sodium (Porcine) 5,000 units 12/24/17 22:00 12/26/17 13:44 Heparin Vial(*) SUBCUT 5,000 units Q8HR [facility] Administration Levothyroxine Sodium 100 mcg 12/25/17 06:00 12/26/17 06:07 Synthroid Tab* PO 100 mcg QAM@0600 [facility] Administration Mometasone Furoate/Formoterol Fumar 2 puff 12/24/17 21:00 12/26/17 07:29 Dulera 200/5 Mdi* INH 2 puff BID [facility] Administration Ondansetron HCl 4 mg 12/24/17 19:23 Zofran 40 Mg Vial* IV Q6H PRN NAUSEA Prednisone 50 mg 12/27/17 09:00 Deltasone Tab* PO DAILY [facility] Vital Signs Temp Pulse Resp BP Pulse Ox 98.1 F 64 20 135/80 98 12/26/17 18:48 12/26/17 18:48 12/26/17 19:57 12/26/17 18:48 12/26/17 18:48 O/E: Pt in NAD HEENT: PERRLA, NO JVD Lungs: Scaterred expiratory wheeze + CVS: S1, S2+ Abd: Soft, BS+ Ext: Normal ROM Skin: NO rash or bruise Neuro: No focal defecits Labs: No new labs I/R: 67 y o f with adult onset asthma wit recurrent exacerbations on chronic prednisone therapy, recently tapered off prednisone with recurrence of sx 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
[2017-12-26] MEDS: Albuterol 2.5 MG/3 ML NEB.SOL* (0.083%) INH PRN (21:26)
[2017-12-26] MEDS ORDERED: Albuterol/Ipratropium NEB.SOL* Albuterol 2.5 MG/Ipratropium 0.5 MG 3 ML ONE (23:40)
[2017-12-27] MEDS: Albuterol/Ipratropium NEB.SOL* Albuterol 2.5 MG/Ipratropium 0.5 MG 3 ML INH SCH ×7 (03:44→23:28)
[2017-12-27 04:37] LABS: ABS Basophils 0 10^3/ul (0-0.2); ABS Eosinophils 0 10^3/ul (0-0.6); ABS Lymphocytes 1.6 10^3/ul (1.0-4.8); ABS Monocytes 0.6 10^3/ul (0-0.8); ABS Neutrophils 8.5 10^3/ul (1.5-7.7); ABS Nucleated RBC 0 10^3/ul; Eosinophil % 0.2 % (0-6); Hematocrit 39 % (35-47); Hemoglobin 13.1 g/dl (12.0-16.0); Lymphocyte % 14.8 % (25-47); Mean Corpuscular HGB Conc 33 g/dl (31-36); Mean Corpuscular Hemoglobin 30 pg (27-31); Mean Corpuscular Volume 89 fL (80-97); Mean Platelet Volume 7.2 um3 (7.4-10.4); Nucleated Red Blood Cells % 0; Platelet Count 246 10^3/ul (150-450); Red Blood Count 4.39 10^6/ul (4.0-5.4); Red Cell Distribution Width 14 % (10.5-15); White Blood Count 10.8 10^3/ul (3.5-10.8)
[2017-12-27] MEDS: Levothyroxine TAB* 100 MCG TAB PO SCH (06:03)
[2017-12-27] MEDS: Heparin VIAL(*) 5000 UNITS/ML VIAL (FIVE THOUSAND) SUBCUT SCH ×3 (06:03→21:14)
[2017-12-27] MEDS: Mometasone/Formoter 200/5 MDI INH SCH ×2 (07:38→20:22)
[2017-12-27] MEDS ORDERED: predniSONE TAB* 20 MG PO ONE (08:30)
--- NOTE | 2017-12-27 08:34 | PN ---
Subjective Date of Service: 12/27/17 Interval History: Abour 10 PM last evening she was more SOB, had coughing with no sputum, not relieved by Duoneb, was put on Vapotherm in the ED No w she feels better. Objective Active Medications: Acetaminophen (Tylenol Tab*) 650 mg PO Q4H PRN PRN Reason: FEVER/PAIN Last Admin: 12/25/17 08:43 Dose: 650 mg Albuterol (Ventolin 2.5 Mg/3 Ml Neb.Zaira*) 2.5 mg INH Q2H PRN PRN Reason: SOB/WHEEZING Last Admin: 12/26/17 21:26 Dose: 2.5 mg Albuterol/Ipratropium (Duoneb (Albuterol 2.5 Mg/Ipratropium 0.5 Mg)) 1 neb INH [id number] AWAKE [facility] Last Admin: 12/27/17 07:37 Dose: 1 neb Benzonatate (Tessalon Cap*) 200 mg PO TID [facility] Last Admin: 12/26/17 20:33 Dose: 200 mg Cetirizine HCl (Zyrtec*) 10 mg PO QPM [facility] PRN Reason: Protocol Last Admin: 12/26/17 17:06 Dose: 10 mg Famotidine (Pepcid Tab*) 20 mg PO BID [facility] PRN Reason: Protocol Last Admin: 12/26/17 20:33 Dose: 20 mg Guaifenesin (Robitussin*) 10 ml PO Q4H PRN PRN Reason: COUGH Last Admin: 12/26/17 20:33 Dose: 10 ml Heparin Sodium (Porcine) (Heparin Vial(*)) 5,000 units SUBCUT Q8HR [facility] Last Admin: 12/27/17 06:03 Dose: 5,000 units Levothyroxine Sodium (Synthroid Tab*) 100 mcg PO QAM@0600 [facility] Last Admin: 12/27/17 06:03 Dose: 100 mcg Mometasone Furoate/Formoterol Fumar (Dulera 200/5 Mdi*) 2 puff INH BID [facility] Last Admin: 12/27/17 07:38 Dose: 2 puff Ondansetron HCl (Zofran 40 Mg Vial*) 4 mg IV Q6H PRN PRN Reason: NAUSEA Prednisone (Deltasone Tab*) 50 mg PO DAILY [facility] Vital Signs - 8 hr 12/27/17 12/27/17 12/27/17 00:45 01:00 01:15 Temperature Pulse Rate 71 73 73 Respiratory 19 20 20 Rate Blood Pressure 117/67 108/61 119/69 (mmHg) O2 Sat by Pulse 97 97 96 Oximetry 12/27/17 12/27/17 12/27/17 01:30 01:45 02:00 Temperature Pulse Rate 73 68 69 Respiratory 18 21 18 Rate Blood Pressure 118/67 114/61 119/69 (mmHg) O2 Sat by Pulse 97 97 97 Oximetry 12/27/17 12/27/17 12/27/17 02:15 02:30 02:45 Temperature Pulse Rate 66 65 63 Respiratory 18 21 17 Rate Blood Pressure 120/66 122/74 116/69 (mmHg) O2 Sat by Pulse 98 96 98 Oximetry 12/27/17 12/27/17 12/27/17 03:00 03:53 04:00 Temperature 99.3 F Pulse Rate 67 61 Respiratory 18 19 Rate Blood Pressure 118/65 (mmHg) O2 Sat by Pulse 98 96 Oximetry 12/27/17 12/27/17 12/27/17 04:25 05:00 06:00 Temperature Pulse Rate 69 61 63 Respiratory 22 19 19 Rate Blood Pressure 125/74 111/88 (mmHg) O2 Sat by Pulse 96 97 96 Oximetry 12/27/17 12/27/17 12/27/17 07:00 07:39 07:42 Temperature Pulse Rate 57 64 64 Respiratory 19 22 22 Rate Blood Pressure 119/73 (mmHg) O2 Sat by Pulse 98 98 98 Oximetry Oxygen Devices in Use Now: High Flow Heated Nasal Cannula Appearance: Alert, partly up in ICU bed. In good spirits. Looks comfortable. No cough during my visit. Eyes: No Scleral Icterus Respiratory: Symmetrical Chest Expansion and Respiratory Effort, Clear to Percussion - mod wheezing and rhonchi BL Cardiovascular: NL Sounds; No Murmurs; No JVD, RRR, No Edema, - Extremities: No Edema, No Clubbing, Cyanosis, - Skin: No Rash or Ulcers, No Nodules or Sclerosis, - Neurological: Alert and Oriented x 3, NL Sensation Result Diagrams: 12/27/17 04:31 12/25/17 05:55 Additional Lab and Data: Lab Results 12/24/17 12/24/17 12/24/17 Range/Units 17:29 17:29 17:29 WBC 8.6 (3.5-10.8) 10^3/ul RBC 5.14 (4.0-5.4) 10^6/ul Hgb 15.4 (12.0-16.0) g/dl Hct 46 (35-47) % MCV 89 (80-97) fL MCH 30 (27-31) pg MCHC 34 (31-36) g/dl RDW 14 (10.5-15) % Plt Count 292 (150-450) 10^3/ul MPV 7.1 L (7.4-10.4) um3 Neut % (Auto) 59.1 (38-83) % Lymph % (Auto) 19.5 L (25-47) % [place] % (Auto) 7.1 H (0-7) % Eos % (Auto) 13.2 H (0-6) % Baso % (Auto) 1.1 (0-2) % Absolute Neuts (auto) 5.1 (1.5-7.7) 10^3/ul Absolute Lymphs (auto) 1.7 (1.0-4.8) 10^3/ul Absolute Monos (auto) 0.6 (0-0.8) 10^3/ul Absolute Eos (auto) 1.1 H (0-0.6) 10^3/ul Absolute Basos (auto) 0.1 (0-0.2) 10^3/ul Absolute Nucleated RBC 0 10^3/ul Nucleated RBC % 0.1 ABG pH (7.35-7.45) ABG pCO2 (35-45) mmHg ABG pO2 (80-100) mmHg ABG HCO3 (19-31) mmol/L ABG O2 Saturation (95-98) % ABG Base Excess (-2.0-2.0) Sodium 141 (139-145) mmol/L Potassium 3.7 (3.5-5.0) mmol/L Chloride 106 (101-111) mmol/L Carbon Dioxide 24 (22-32) mmol/L Anion Gap 11 (2-11) mmol/L BUN 11 (6-24) mg/dL Creatinine 0.74 (0.51-0.95) mg/dL Est GFR ( Amer) 100.1 (>60) Est GFR (Non-Af Amer) 77.8 (>60) BUN/Creatinine Ratio 14.9 (8-20) Glucose 100 (70-100) mg/dL Lactic Acid 1.0 (0.5-2.0) mmol/L Calcium 9.0 (8.6-10.3) mg/dL Total Bilirubin 1.90 H (0.2-1.0) mg/dL AST 18 (13-39) U/L ALT 11 (7-52) U/L Alkaline Phosphatase 54 (34-104) U/L Total Creatine Kinase 158 (10-223) U/L Troponin I 0.00 (<0.04) ng/mL C-Reactive Protein 10.21 H (< 5.00) mg/L B-Natriuretic Peptide ( - 100) pg/mL Total Protein 7.8 (6.4-8.9) g/dL Albumin 4.5 (3.2-5.2) g/dL Globulin 3.3 (2-4) g/dL Albumin/Globulin Ratio 1.4 (1-3) 12/24/17 12/24/17 Range/Units 17:29 17:35 WBC (3.5-10.8) 10^3/ul RBC (4.0-5.4) 10^6/ul Hgb (12.0-16.0) g/dl Hct (35-47) % MCV (80-97) fL MCH (27-31) pg MCHC (31-36) g/dl RDW (10.5-15) % Plt Count (150-450) 10^3/ul MPV (7.4-10.4) um3 Neut % (Auto) (38-83) % Lymph % (Auto) (25-47) % [place] % (Auto) (0-7) % Eos % (Auto) (0-6) % Baso % (Auto) (0-2) % Absolute Neuts (auto) (1.5-7.7) 10^3/ul Absolute Lymphs (auto) (1.0-4.8) 10^3/ul Absolute Monos (auto) (0-0.8) 10^3/ul Absolute Eos (auto) (0-0.6) 10^3/ul Absolute Basos (auto) (0-0.2) 10^3/ul Absolute Nucleated RBC 10^3/ul Nucleated RBC % ABG pH 7.44 (7.35-7.45) ABG pCO2 35 (35-45) mmHg ABG pO2 81 (80-100) mmHg ABG HCO3 24.9 (19-31) mmol/L ABG O2 Saturation 98.0 (95-98) % ABG Base Excess 0.1 (-2.0-2.0) Sodium (139-145) mmol/L Potassium (3.5-5.0) mmol/L Chloride (101-111) mmol/L Carbon Dioxide (22-32) mmol/L Anion Gap (2-11) mmol/L BUN (6-24) mg/dL Creatinine (0.51-0.95) mg/dL Est GFR ( Amer) (>60) Est GFR (Non-Af Amer) (>60) BUN/Creatinine Ratio (8-20) Glucose (70-100) mg/dL Lactic Acid (0.5-2.0) mmol/L Calcium (8.6-10.3) mg/dL Total Bilirubin (0.2-1.0) mg/dL AST (13-39) U/L ALT (7-52) U/L Alkaline Phosphatase (34-104) U/L Total Creatine Kinase (10-223) U/L Troponin I (<0.04) ng/mL C-Reactive Protein (< 5.00) mg/L B-Natriuretic Peptide 19 ( - 100) pg/mL Total Protein (6.4-8.9) g/dL Albumin (3.2-5.2) g/dL Globulin (2-4) g/dL Albumin/Globulin Ratio (1-3) Microbiology and Other Data: Microbiology 12/25/17 01:05 Legionella Urinary Antigen - Final Urine Negative Legionella Antigen Streptococcus pneumoniae Ag Screen - Final Negative S. 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 Often has exacerbations in the spring. On Vapotherm at 30 12/27 with O2 sat 96-97%. RT to taper to [place]. Increase prednisone dose 12/27 due to setback on 12/26. (2) Hypothyroidism Current Visit: No Status: Acute Code(s): E03.9 - HYPOTHYROIDISM, UNSPECIFIED SNOMED Code(s): 52400626 Comment: Continue po levothyroxine. TSH wnl 11/03/17.
[2017-12-27] MEDS: guaiFENesin LIQ* 100 MG/5 ML UDC PO PRN ×3 (08:44→17:44)
[2017-12-27] MEDS: Famotidine TAB* 20 MG PO SCH ×2 (08:44→20:07)
[2017-12-27] MEDS: Benzonatate CAP* 100 MG PO SCH ×3 (08:44→20:07)
[2017-12-27] MEDS ORDERED: Montelukast Sodium TAB* 10 MG PO ONE (08:47)
[2017-12-27] MEDS ORDERED: predniSONE TAB* 50 MG PO SCH (09:00)
[2017-12-27] MEDS: Acetaminophen TAB* 325 MG PO PRN ×2 (12:13→17:44)
[2017-12-27] MEDS: Cetirizine* 10 MG TAB PO SCH (17:45)
[2017-12-27] MEDS: Montelukast Sodium TAB* 10 MG PO SCH (20:07)
[2017-12-27] MEDS: predniSONE TAB* 20 MG PO SCH (20:07)
[2017-12-28] MEDS: Albuterol/Ipratropium NEB.SOL* Albuterol 2.5 MG/Ipratropium 0.5 MG 3 ML INH SCH ×6 (03:30→23:40)
[2017-12-28] MEDS: Heparin VIAL(*) 5000 UNITS/ML VIAL (FIVE THOUSAND) SUBCUT SCH ×3 (06:15→21:40)
[2017-12-28] MEDS: Levothyroxine TAB* 100 MCG TAB PO SCH (06:15)
[2017-12-28] MEDS: Mometasone/Formoter 200/5 MDI INH SCH ×2 (07:12→20:42)
[2017-12-28] MEDS: predniSONE TAB* 20 MG PO SCH (07:33)
[2017-12-28] MEDS: Famotidine TAB* 20 MG PO SCH ×2 (07:33→21:40)
[2017-12-28] MEDS: Benzonatate CAP* 100 MG PO SCH ×3 (07:34→21:39)
[2017-12-28] MEDS: guaiFENesin LIQ* 100 MG/5 ML UDC PO PRN ×3 (07:34→19:23)
--- NOTE | 2017-12-28 09:09 | PN ---
Subjective Date of Service: 12/28/17 Interval History: Feels better today. Still has dry cough. Objective Active Medications: Acetaminophen (Tylenol Tab*) 650 mg PO Q4H PRN PRN Reason: FEVER/PAIN Last Admin: 12/27/17 17:44 Dose: 650 mg Albuterol (Ventolin 2.5 Mg/3 Ml Neb.Zaira*) 2.5 mg INH Q2H PRN PRN Reason: SOB/WHEEZING Last Admin: 12/26/17 21:26 Dose: 2.5 mg Albuterol/Ipratropium (Duoneb (Albuterol 2.5 Mg/Ipratropium 0.5 Mg)) 1 neb INH [id number] AWAKE [facility] Last Admin: 12/28/17 07:12 Dose: 1 neb Benzonatate (Tessalon Cap*) 200 mg PO TID [facility] Last Admin: 12/28/17 07:34 Dose: 200 mg Cetirizine HCl (Zyrtec*) 10 mg PO QPM [facility] PRN Reason: Protocol Last Admin: 12/27/17 17:45 Dose: 10 mg Famotidine (Pepcid Tab*) 20 mg PO BID [facility] PRN Reason: Protocol Last Admin: 12/28/17 07:33 Dose: 20 mg Guaifenesin (Robitussin*) 10 ml PO Q4H PRN PRN Reason: COUGH Last Admin: 12/28/17 07:34 Dose: 10 ml Heparin Sodium (Porcine) (Heparin Vial(*)) 5,000 units SUBCUT Q8HR [facility] Last Admin: 12/28/17 06:15 Dose: 5,000 units Levothyroxine Sodium (Synthroid Tab*) 100 mcg PO QAM@0600 [facility] Last Admin: 12/28/17 06:15 Dose: 100 mcg Mometasone Furoate/Formoterol Fumar (Dulera 200/5 Mdi*) 2 puff INH BID [facility] Last Admin: 12/28/17 07:12 Dose: 2 puff Montelukast Sodium (Singulair Tab*) 10 mg PO BEDTIME [facility] Last Admin: 12/27/17 20:07 Dose: 10 mg Ondansetron HCl (Zofran 40 Mg Vial*) 4 mg IV Q6H PRN PRN Reason: NAUSEA Prednisone (Deltasone Tab*) 60 mg PO BID [facility] Last Admin: 12/28/17 07:33 Dose: 60 mg Vital Signs - 8 hr 12/28/17 12/28/17 12/28/17 02:00 03:00 03:34 Temperature 98.3 F Pulse Rate 55 53 Respiratory 18 18 Rate Blood Pressure 139/79 132/81 (mmHg) O2 Sat by Pulse 95 95 Oximetry 12/28/17 12/28/17 12/28/17 04:00 05:00 06:00 Temperature Pulse Rate 52 57 67 Respiratory 17 17 18 Rate Blood Pressure 136/81 120/75 (mmHg) O2 Sat by Pulse 96 96 94 Oximetry 12/28/17 12/28/17 12/28/17 06:18 07:00 07:17 Temperature Pulse Rate 69 61 68 Respiratory 15 19 17 Rate Blood Pressure 147/84 132/77 (mmHg) O2 Sat by Pulse 93 94 94 Oximetry 12/28/17 08:00 Temperature 97.9 F Pulse Rate 62 Respiratory 17 Rate Blood Pressure 124/79 (mmHg) O2 Sat by Pulse 94 Oximetry Oxygen Devices in Use Now: Nasal Cannula Appearance: Alert, sitting up in ICU bed. In good spirits. Looks comfortable. Eyes: No Scleral Icterus Neck: NL Appearance and Movements; NL JVP Respiratory: Symmetrical Chest Expansion and Respiratory Effort, Clear to Percussion - mild to mod wheezing BL Cardiovascular: NL Sounds; No Murmurs; No JVD, RRR, No Edema, - Extremities: No Edema, No Clubbing, Cyanosis, - Skin: No Rash or Ulcers, No Nodules or Sclerosis, - Neurological: Alert and Oriented x 3, NL Sensation Result Diagrams: 12/27/17 04:31 12/25/17 05:55 Additional Lab and Data: Lab Results 12/24/17 12/24/17 12/24/17 Range/Units 17:29 17:29 17:29 WBC 8.6 (3.5-10.8) 10^3/ul RBC 5.14 (4.0-5.4) 10^6/ul Hgb 15.4 (12.0-16.0) g/dl Hct 46 (35-47) % MCV 89 (80-97) fL MCH 30 (27-31) pg MCHC 34 (31-36) g/dl RDW 14 (10.5-15) % Plt Count 292 (150-450) 10^3/ul MPV 7.1 L (7.4-10.4) um3 Neut % (Auto) 59.1 (38-83) % Lymph % (Auto) 19.5 L (25-47) % [place] % (Auto) 7.1 H (0-7) % Eos % (Auto) 13.2 H (0-6) % Baso % (Auto) 1.1 (0-2) % Absolute Neuts (auto) 5.1 (1.5-7.7) 10^3/ul Absolute Lymphs (auto) 1.7 (1.0-4.8) 10^3/ul Absolute Monos (auto) 0.6 (0-0.8) 10^3/ul Absolute Eos (auto) 1.1 H (0-0.6) 10^3/ul Absolute Basos (auto) 0.1 (0-0.2) 10^3/ul Absolute Nucleated RBC 0 10^3/ul Nucleated RBC % 0.1 ABG pH (7.35-7.45) ABG pCO2 (35-45) mmHg ABG pO2 (80-100) mmHg ABG HCO3 (19-31) mmol/L ABG O2 Saturation (95-98) % ABG Base Excess (-2.0-2.0) Sodium 141 (139-145) mmol/L Potassium 3.7 (3.5-5.0) mmol/L Chloride 106 (101-111) mmol/L Carbon Dioxide 24 (22-32) mmol/L Anion Gap 11 (2-11) mmol/L BUN 11 (6-24) mg/dL Creatinine 0.74 (0.51-0.95) mg/dL Est GFR ( Amer) 100.1 (>60) Est GFR (Non-Af Amer) 77.8 (>60) BUN/Creatinine Ratio 14.9 (8-20) Glucose 100 (70-100) mg/dL Lactic Acid 1.0 (0.5-2.0) mmol/L Calcium 9.0 (8.6-10.3) mg/dL Total Bilirubin 1.90 H (0.2-1.0) mg/dL AST 18 (13-39) U/L ALT 11 (7-52) U/L Alkaline Phosphatase 54 (34-104) U/L Total Creatine Kinase 158 (10-223) U/L Troponin I 0.00 (<0.04) ng/mL C-Reactive Protein 10.21 H (< 5.00) mg/L B-Natriuretic Peptide ( - 100) pg/mL Total Protein 7.8 (6.4-8.9) g/dL Albumin 4.5 (3.2-5.2) g/dL Globulin 3.3 (2-4) g/dL Albumin/Globulin Ratio 1.4 (1-3) 12/24/17 12/24/17 Range/Units 17:29 17:35 WBC (3.5-10.8) 10^3/ul RBC (4.0-5.4) 10^6/ul Hgb (12.0-16.0) g/dl Hct (35-47) % MCV (80-97) fL MCH (27-31) pg MCHC (31-36) g/dl RDW (10.5-15) % Plt Count (150-450) 10^3/ul MPV (7.4-10.4) um3 Neut % (Auto) (38-83) % Lymph % (Auto) (25-47) % Power % (Auto) (0-7) % Eos % (Auto) (0-6) % Baso % (Auto) (0-2) % Absolute Neuts (auto) (1.5-7.7) 10^3/ul Absolute Lymphs (auto) (1.0-4.8) 10^3/ul Absolute Monos (auto) (0-0.8) 10^3/ul Absolute Eos (auto) (0-0.6) 10^3/ul Absolute Basos (auto) (0-0.2) 10^3/ul Absolute Nucleated RBC 10^3/ul Nucleated RBC % ABG pH 7.44 (7.35-7.45) ABG pCO2 35 (35-45) mmHg ABG pO2 81 (80-100) mmHg ABG HCO3 24.9 (19-31) mmol/L ABG O2 Saturation 98.0 (95-98) % ABG Base Excess 0.1 (-2.0-2.0) Sodium (139-145) mmol/L Potassium (3.5-5.0) mmol/L Chloride (101-111) mmol/L Carbon Dioxide (22-32) mmol/L Anion Gap (2-11) mmol/L BUN (6-24) mg/dL Creatinine (0.51-0.95) mg/dL Est GFR ( Amer) (>60) Est GFR (Non-Af Amer) (>60) BUN/Creatinine Ratio (8-20) Glucose (70-100) mg/dL Lactic Acid (0.5-2.0) mmol/L Calcium (8.6-10.3) mg/dL Total Bilirubin (0.2-1.0) mg/dL AST (13-39) U/L ALT (7-52) U/L Alkaline Phosphatase (34-104) U/L Total Creatine Kinase (10-223) U/L Troponin I (<0.04) ng/mL C-Reactive Protein (< 5.00) mg/L B-Natriuretic Peptide 19 ( - 100) pg/mL Total Protein (6.4-8.9) g/dL Albumin (3.2-5.2) g/dL Globulin (2-4) g/dL Albumin/Globulin Ratio (1-3) Microbiology and Other Data: Microbiology 12/25/17 01:05 Legionella Urinary Antigen - Final Urine Negative Legionella Antigen Streptococcus pneumoniae Ag Screen - Final Negative S. 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 Often has exacerbations in the spring. On 2 L NC 12/28. Ausculatation of lungs improves daily. Slow taper prednisone, 60 AM, 50 PM . Montelukast added 12/27. (2) Hypothyroidism Current Visit: No Status: Acute Code(s): E03.9 - HYPOTHYROIDISM, UNSPECIFIED SNOMED Code(s): 03243037 Comment: Continue po levothyroxine. TSH wnl 11/03/17.
[2017-12-28] MEDS: Cetirizine* 10 MG TAB PO SCH (17:05)
[2017-12-28] MEDS ORDERED: predniSONE TAB* 10 MG PO SCH (21:00)
[2017-12-28] MEDS: Montelukast Sodium TAB* 10 MG PO SCH (21:39)
[2017-12-29] MEDS: Albuterol/Ipratropium NEB.SOL* Albuterol 2.5 MG/Ipratropium 0.5 MG 3 ML INH SCH ×4 (04:07→16:08)
[2017-12-29] MEDS: Heparin VIAL(*) 5000 UNITS/ML VIAL (FIVE THOUSAND) SUBCUT SCH ×2 (06:06→13:16)
[2017-12-29] MEDS: Levothyroxine TAB* 100 MCG TAB PO SCH (06:06)
[2017-12-29] MEDS: Famotidine TAB* 20 MG PO SCH (07:14)
[2017-12-29] MEDS: Benzonatate CAP* 100 MG PO SCH ×2 (07:14→13:16)
[2017-12-29] MEDS: Mometasone/Formoter 200/5 MDI INH SCH (07:20)
[2017-12-29] MEDS ORDERED: predniSONE TAB* 20 MG PO SCH (09:00)
[2017-12-29 16:18] VITALS: BP 133/79
--- NOTE | 2017-12-30 09:13 | DS ---
CC: Dr. Alicea * DISCHARGE SUMMARY: DATE OF ADMISSION: 12/24/17 DATE OF DISCHARGE: 12/29/17 PRIMARY CARE PROVIDER: Dr. Alicea. PRINCIPAL DIAGNOSIS: Severe asthma exacerbation. SECONDARY DIAGNOSES: 1. History of thyroid cancer. 2. Hiatal hernia. 3. History of diverticulitis. DISCHARGE MEDICATIONS: 1. Vitamin D2 2000 units p.o. weekly. 2. Senna 2 tabs p.o. q.h.s. 3. MiraLAX 17 g p.o. daily. 4. Vitamin B12 500 mcg p.o. every other week. 5. Prolia 60 mg subcutaneous every 6 months. 6. Zyrtec 10 mg p.o. q.h.s. 7. Xopenex 1.25 mg inhaled q.4 hours p.r.n. shortness of breath. 8. Albuterol 2 puffs inhaled q.4 hours p.r.n. shortness of breath. 9. Ranitidine 150 mg p.o. b.i.d. 10. Calcium plus D 1 tab p.o. daily. 11. Levothyroxine 100 mcg p.o. daily. 12. Prednisone 60 mg p.o. q.a.m. at 20 mg p.o. q.p.m. x2 days, followed by 60 mg p.o. daily x7 days, then 50 mg x7 days and 40 mg x7 days then 30 mg x7 days and 20 mg x7 days and 10 mg 7 days and done. 13. Singulair 10 mg p.o. q.h.s. (new). 14. Dulera 200/5 two puffs inhaled twice daily (new). 15. Tessalon 200 mg p.o. t.i.d. p.r.n. cough. HOSPITAL COURSE: Ms. Benavides is a 67-year-old female with a history of severe uncontrolled asthma who presents to the emergency room with complaints of shortness of breath. The patient had been tapered off her prednisone recently as she has had complications which were felt to be related to the prednisone recently. With discontinuing the prednisone, she began to develop progressive worsening of cough and shortness of breath. She had significant shortness of breath with any minimal exertion. The patient upon presentation to the emergency room was requiring Vapotherm. She was placed in the intensive care unit as she has a known history of being a difficult intubation. The patient received continuous nebulizer treatment x2 hours initially. The patient took significant amount of time to slowly improve. She states today she is back to her baseline breathing status. She does state that her lungs are usually quite "musical." She at this point is requesting discharge home. Of note, the patient was initially started on broad-spectrum antibiotic therapy; however, this was promptly discontinued as it was not felt that she had bacterial illness that required treatment. So, perhaps she developed viral URI that triggered her asthma exacerbation. On discharge, the patient will continue on prednisone via very lengthy taper. She will need to follow up with her primary care provider and with her usual supervisor sunglasses who is out of [place]. The goal would be get the patient off prednisone completely; however, she may require low dose systemic steroids detention for improved asthma control. On the day of discharge, the patient is awake, alert and oriented, sitting up in bed in no acute distress. Her vital signs reveal her to be normotensive and not tachycardic. Her respiratory rate is acceptable. Her O2 saturation is in the mid 90s on room air. Her cardiac exam reveals a normal S1, S2 with a regular rate and rhythm. Her lungs are clear though with few expiratory wheezes. Abdomen is soft, nontender, nondistended. FOLLOWUP CONCERNS: The patient is being discharged home today 12/29/17. ACTIVITY LEVEL: As tolerated. DIET: Regular. CONDITION AT DISCHARGE: Stable. TIME SPENT: Thirty-five minutes was spent discharging this patient. [id number]/[facility] #: [id number] MTDD
== END 2017-12-29 18:12 | disposition home or self-care (01) | DRG 203 ==
LOC: ED 16:45 → ICU 19:11 → MED 12-26 10:47 → ICU 12-26 22:16 → MED 12-28 10:48
PROVIDERS: ADMIT Internal Medicine; ATTEND Hospitalist
DX: J45.901 Unspecified asthma with (acute) exacerbation (principal); J20.8 Acute bronchitis due to other specified organisms; K44.9 Diaphragmatic hernia without obstruction or gangrene; K57.90 Diverticulosis of intestine, part unspecified, without perforation or abscess without bleeding; Z85.850 Personal history of malignant neoplasm of thyroid; Z79.899 Other long term (current) drug therapy; Z88.1 Allergy status to other antibiotic agents; Z88.5 Allergy status to narcotic agent; Z88.0 Allergy status to penicillin; Z88.7 Allergy status to serum and vaccine; Z82.49 Family history of ischemic heart disease and other diseases of the circulatory system; Z83.49 Family history of other endocrine, nutritional and metabolic diseases; E03.9 Hypothyroidism, unspecified
CPT/HCPCS: 36415; 71045; 80048; 80053; 81003; 82533; 82550; 82803; 83605; 83880; 84145; 84484; 85025; 86140; 87040; 87641; 87899; 93005; 94640; 99284; A9270-GY; J0692; J1644; J2930; J3370; J3475; J7512; J7611

== ENCOUNTER 2018-07-24 20:41 | Inpatient (IN) | payer MEDICARE ==
[2018-07-24] MEDS ORDERED: NS 0.9% 1000 ML* 1,000 ML IV ONE (20:53)
[2018-07-24] MEDS ORDERED: Albuterol 0.5% CONC NEB.SOL* 5 MG/ML 20 ml BOT INH ONE (20:53)
[2018-07-24] MEDS ORDERED: methylPREDNISolone 125 MG* 2 ML VIAL IV ONE (20:53)
[2018-07-24] MEDS ORDERED: Magnesium Sulfate 2 GM IV* 2 GM/50 ML BAG IVPB ONE (20:53)
--- NOTE | 2018-07-24 20:59 | ED ---
Shortness of Breath - HPI Summary HPI Summary: This patient is a 68 year old F brought in by ambulance to [facility] with a chief complaint of SOB and dry cough for the past week. Patient states she has felt ill for the past week with progressively worsening SOB, cough, and wheezing. Today she reports chills and chest wall pain. Patient reports a PMHx of asthma and currently takes 10mg of prednisone QD. - History of Current Complaint Chief Complaint: EDAsthma Time Seen by Provider: 07/24/18 20:47 Hx Obtained From: Patient Onset/Duration: Gradual Onset, Lasting Weeks Timing: Constant Dyspnea At: Rest Alleviating Factors: Nothing Associated Signs & Symptoms: Cough (Nonproductive), Wheezing, Chest Pain w/Cough , Chills Related History: Similar Episode - Allergy/Home Medications Allergies/Adverse Reactions: Allergies Allergy/AdvReac Type Severity Reaction Status Date / Time amoxicillin Allergy Severe Shortness Verified 12/24/17 16:50 of Breath Influenza Virus Vaccines Allergy Severe Shortness Verified 12/24/17 16:50 of Breath Penicillins Allergy Intermediate Hives Verified 12/24/17 16:50 morphine AdvReac hypotension Verified 12/26/17 21:51 PMH/Surg Hx/FS Hx/Imm Hx Endocrine/Hematology History: Reports: Hx Thyroid Disease - thyroidectomy d/t ca Denies: Hx Diabetes Cardiovascular History: Denies: Hx Hypertension, Hx Pacemaker/ICD Respiratory History: Reports: Hx Asthma, Hx Chronic Bronchitis, Hx Pneumonia, Hx Seasonal Allergies, Other Respiratory Problems/Disorders - PNA Denies: Hx Chronic Obstructive Pulmonary Disease (COPD) GI History: Reports: Hx Diverticulosis - perforated x1, Hx Hiatal Hernia - repair x2, Hx Obstructive Bowel, Hx Ileostomy - Reversal complete, Other GI Disorders - Hx perforated bowel Denies: Hx Ulcer History: Denies: Hx Renal Disease Musculoskeletal History: Reports: Hx Orthopedic Injury, Hx Osteoporosis Sensory History: Reports: Hx Contacts or Glasses Denies: Hx Hearing Aid Opthamlomology History: Reports: Hx Contacts or Glasses Neurological History: Denies: Hx Seizures Psychiatric History: Denies: Hx Anxiety, Hx Depression, Hx Panic Disorder, Hx Substance Abuse - Cancer History Cancer Type, Location and Year: Thyroid, 2006 Hx Chemotherapy: No Hx Radiation Therapy: Yes - THYROID - Surgical History Surgery Procedure, Year, and Place: Hiatal hernia repair x2; thyroidectomy ( [facility]) ; tonsilectomy/sinus surgery; hysterectomy, T&A, REFLUX SURGERY ([facility]) 07/2012 WITH REVISION 12/2012. PERFORATED BOWEL WITH COLOSTOMY THEN REMOVED Hx Anesthesia Reactions: No Infectious Disease History: Yes Infectious Disease History: Denies: Hx Clostridium Difficile, Hx Hepatitis, Hx Human Immunodeficiency Virus (HIV), Hx of Known/Suspected MRSA, Hx Shingles, Hx Tuberculosis, History Other Infectious Disease, Traveled Outside the [place] in Last 30 Days - Family History Known Family History: Positive: Hypertension - Social History Alcohol Use: None Hx Substance Use: No Substance Use Type: Reports: None Hx Tobacco Use: No Smoking Status (MU): Never Smoked Tobacco Review of Systems Positive: Chills Positive: Chest Pain Positive: Shortness Of Breath, Cough All Other Systems Reviewed And Are Negative: Yes Physical Exam - Summary Physical Exam Summary: Appearance: no acute distress, frequent dry cough Skin: Warm, dry, no obvious rash Eyes: sclera anicteric, no conjunctival pallor ENT: mucous membranes moist, pharynx appears normal Neck: Supple, nontender Respiratory:diffuse expiratory wheezing with good airation, no signs of respiratory distress or consolidation Cardiovascular: Normal S1, S2. No murmurs. Normal distal pulses in tibial and radial bilaterally. Abdomen: Soft, nontender, normal active bowel sounds present Musculoskeletal: Normal, Strength/ROM Intact Neurological: A&Ox3, awake and alert, mentation is normal, speech is fluent and appropriate Psychiatric: affect is normal, does not appear anxious or depressed Triage Information Reviewed: Yes Vital Signs On Initial Exam: Initial Vitals Temp Pulse Resp BP Pulse Ox 97.7 F 91 20 154/84 94 07/24/18 20:43 07/24/18 20:43 07/24/18 20:43 07/24/18 20:43 07/24/18 20:43 Vital Signs Reviewed: Yes Diagnostics - Vital Signs Vital Signs Temp Pulse Resp BP Pulse Ox 07/24/18 20:43 97.7 F 91 20 154/84 94 - Laboratory Result Diagrams: 07/24/18 22:02 07/24/18 22:02 Lab Statement: Any lab studies that have been ordered have been reviewed, and results considered in the medical decision making process. - Radiology CXR Radiology Interpretation Completed By: ED Physician Summary of Radiographic Findings: No acute disease. - EKG 2121 Cardiac Rate: NL - 83 EKG Rhythm: Sinus Rhythm - 83 Summary of EKG Findings: normal EKG Course/Dx - Course Course Of Treatment: 68 year old F brought in by ambulance to [facility] with a chief complaint of SOB and dry cough for the past week. Patient states she has felt ill for the past week with progressively worsening SOB, cough, and wheezing. Today she reports chills and chest wall pain. Patient reports a PMHx of asthma that previously required hospitalization. Upon lung exam there is diffuse expiratory wheezing with good airation. CXR reveals no acute disease. EKG is WNL. Bloodwork is obtained with WBC of 14.0. Patient is given IV fluids , magnesium, and a nebulizer treatment. Dr. Reddy, hospitalist agrees to admission at 23:38 - Diagnoses Provider Diagnoses: Asthma exacerbation - Physician Notifications Discussed Care of Patient With: Girish Reddy - hospitalist Time Discussed With Above Provider: 23:38 Instructed by Provider To: Admit As Inpatient Discharge - Sign-Out/Discharge Documenting (check all that apply): Patient Departure - admit - Discharge Plan Condition: Guarded Disposition: ADMITTED TO [facility] - Billing Disposition and Condition Condition: GUARDED Disposition: Admitted to [facility] - Attestation Statements Document Initiated by Scribe: Yes Documenting Scribe: Lucero Gilmore Provider For Whom Shanique is Documenting (Include Credential): Obi Banks MD Scribe Attestation: Lucero Bennett, scribed for Obi Banks MD on 07/25/18 at 0342. Scribe Documentation Reviewed: Yes Provider Attestation: The documentation as recorded by the Lucero govea accurately reflects the service I personally performed and the decisions made by Obi johnson MD Status of Scribe Document: Viewed
[2018-07-24 22:11] LABS: ABS Basophils 0.1 10^3/ul (0-0.2); ABS Eosinophils 0.2 10^3/ul (0-0.6); ABS Lymphocytes 1.4 10^3/ul (1.0-4.8); ABS Monocytes 1.2 10^3/ul (0-0.8); ABS Nucleated RBC 0 10^3/ul; Eosinophil % 1.6 %; Hematocrit 37 % (35-47); Lymphocyte % 10.2 %; Mean Corpuscular HGB Conc 33 g/dl (31-36); Mean Corpuscular Hemoglobin 29 pg (27-31); Mean Corpuscular Volume 89 fL (80-97); Mean Platelet Volume 7.2 fL (7.4-10.4); Nucleated Red Blood Cells % 0; Platelet Count 271 10^3/ul (150-450); Red Blood Count 4.17 10^6/ul (4.00-5.40); Red Cell Distribution Width 14 % (10.5-15)
[2018-07-24 22:28] LABS: Albumin 3.6 g/dL (3.2-5.2); Albumin/Globulin Ratio 1.4 (1-3); BUN/Creatinine Ratio 26.2 (8-20); Calcium 8.3 mg/dL (8.6-10.3); EGFR Non-African American 90.1 (>60); Globulin 2.6 g/dL (2-4); Potassium 3.2 mmol/L (3.5-5.0); Total Protein 6.2 g/dL (6.4-8.9)
[2018-07-25] MEDS ORDERED: Levalbuterol 1.25MG/0.5ML NEB INH PRN (01:28)
[2018-07-25] MEDS ORDERED: cefTRIAXone(*) 1 GM ADVAN/BAG ONE (01:56)
[2018-07-25] MEDS ORDERED: cefTRIAXone(*) 1 GM in NS 0.9% 50 ML* 50 ML IVPB SCH (02:00)
[2018-07-25] MEDS: Azithromycin IV(*) 500 MG in NS 0.9% 250 ML* 250 ML IVPB SCH (02:39)
[2018-07-25] MEDS ORDERED: Cyanocobalamin TAB* 500 MCG PO SCH (03:30)
[2018-07-25] MEDS: methylPREDNISolone SOD 40 MG* 1 ML VIAL IV SCH ×3 (03:32→20:52)
[2018-07-25] MEDS: Enoxaparin(*) 40 MG/0.4 ML SYR SUBCUT SCH (03:32)
[2018-07-25] MEDS: Levothyroxine TAB* 100 MCG TAB PO SCH (05:53)
[2018-07-25 07:01] LABS: ABS Basophils 0 10^3/ul (0-0.2); ABS Eosinophils 0 10^3/ul (0-0.6); ABS Lymphocytes 0.4 10^3/ul (1.0-4.8); ABS Monocytes 0.3 10^3/ul (0-0.8); ABS Neutrophils 12.7 10^3/ul (1.5-7.7); ABS Nucleated RBC 0 10^3/ul; Eosinophil % 0 %; Hematocrit 37 % (35-47); Hemoglobin 12.1 g/dl (12.0-16.0); Mean Corpuscular HGB Conc 33 g/dl (31-36); Mean Corpuscular Hemoglobin 29 pg (27-31); Mean Corpuscular Volume 88 fL (80-97); Mean Platelet Volume 7.2 fL (7.4-10.4); Nucleated Red Blood Cells % 0; Platelet Count 300 10^3/ul (150-450); Red Blood Count 4.19 10^6/ul (4.00-5.40); Red Cell Distribution Width 14 % (10.5-15); White Blood Count 13.4 10^3/ul (3.5-10.8)
[2018-07-25 07:16] LABS: Calcium 8.2 mg/dL (8.6-10.3); EGFR Non-African American 95.2 (>60); Potassium 4.2 mmol/L (3.5-5.0)
--- NOTE | 2018-07-25 07:45 | PN ---
Progress Note - Progress Note Date of Service: 07/24/18 Note: Preliminary findings on chest x-ray shows no acute disease Radiology called at 7:45 AM with a discrepancy on chest x-ray Right lower lobe pneumonia Called 4th floor floor RN who is taking care of patient, Jessie Made her aware of PNA She will make sure provider is aware of results.
[2018-07-25] MEDS: Mometasone/Formoter 200/5 MDI INH SCH ×2 (07:55→20:18)
[2018-07-25] MEDS ORDERED: ERGOCALCIFEROL 2000 UNIT PO SCH (09:00)
[2018-07-25] MEDS: Benzonatate CAP* 100 MG PO SCH ×3 (09:02→20:52)
[2018-07-25] MEDS: Polyethylene Glycol 3350* 17 GM PACKET PO SCH (09:02)
[2018-07-25] MEDS: Famotidine TAB* 20 MG PO SCH ×2 (09:03→20:52)
--- NOTE | 2018-07-25 12:26 | PN ---
Subjective Date of Service: 07/25/18 Interval History: Ms. Benavides reports that she feels slightly better than on arrival but she is still wheezing and coughing significantly. She denies other complaint including chest pain, nausea or abdominal pain. Objective Active Medications: Benzonatate (Tessalon Cap*) 200 mg PO TID [facility] Cyanocobalamin (Vitamin B12 Tab*) 500 mcg PO .EVERY OTHER WEEK [facility] Enoxaparin Sodium (Lovenox(*)) 40 mg SUBCUT Q24H [facility] Famotidine (Pepcid Tab*) 20 mg PO BID [facility]; Protocol Azithromycin 500 mg/ Sodium (Chloride) 250 mls @ 250 mls/hr IVPB Q24H [facility] Ceftriaxone Sodium 1 gm/ (Sodium Chloride) 50 mls @ 200 mls/hr IVPB 0200 [facility] Levalbuterol HCl (Xopenex 1.25 Mg/0.5 Ml Neb.Zaira*) 1.25 mg INH Q4H PRN Levothyroxine Sodium (Synthroid Tab*) 100 mcg PO QAM@0600 [facility] Methylprednisolone Sodium Succinate (Solu-Medrol 40 Mg) 40 mg IV Q8H [facility] Mometasone Furoate/Formoterol Fumar (Dulera 200/5 Mdi*) 2 puff INH BID [facility] Montelukast Sodium (Singulair Tab*) 10 mg PO BEDTIME [facility] Non-Formulary Medication (Ergocalciferol (Vitamin D2) [Vitamin D2]) 2,000 units PO WEEKLY [facility] Polyethylene Glycol/Electrolytes (Miralax*) 17 gm PO QAM [facility] Senna (Senokot Tab*) 2 tab PO QPM [facility] Vital Signs: Temp Pulse Resp BP Pulse Ox 97.9 F 80 24 125/73 95 07/25/18 03:25 07/25/18 07:50 07/25/18 03:25 07/25/18 03:25 07/25/18 07:50 Oxygen Devices in Use Now: Nasal Cannula Appearance: Female lying in bed in NAD Eyes: No Scleral Icterus Ears/Nose/Mouth/Throat: Mucous Membranes Moist Neck: Trachea Midline Respiratory: Symmetrical Chest Expansion and Respiratory Effort, - - Wheezing throughout Cardiovascular: NL Sounds; No Murmurs; No JVD, No Edema Extremities: No Edema Skin: No Rash or Ulcers Neurological: Alert and Oriented x 3, NL Muscle Strength and Tone Nutrition: Taking PO's Result Diagrams: 07/25/18 06:46 07/25/18 06:46 Assess/Plan/Problems-Billing Assessment: Ms. Benavides is a 68 yo F with a PMH of asthma and hypothyroidism after thyroidectomy who was admitted on 07/25/18 with an asthma exacerbation and possible pneumonia. - Patient Problems (1) Asthma Comment: - Slow improvement. Currently on 2L [place] - Hx of multiple admissions for asthma, sees counseling program leader is [place]. - Continue solumedrol and nebulizers - Continue ceftriaxone and azithromycin for suspected component of pneumonia based on cxray findings. However has had long standing abnormality noted to R LL, plan to check CRP (2) Hypothyroidism Comment: - Continue po levothyroxine. TSH wnl 11/03/17. (3) DVT prophylaxis Comment: - Lovenox. (4) Full code status Comment: Status and Disposition: Switch from OBV to inpatient with persistent wheezing and need for IV steroids with monitoring. Anticipate discharge to home when medically stable.
[2018-07-25] MEDS ORDERED: Albuterol/Ipratropium NEB.SOL* Albuterol 2.5 MG/Ipratropium 0.5 MG 3 ML INH PRN (12:40)
[2018-07-25 12:53] LABS: C Reactive Protein 137.3 mg/L (<8.01)
[2018-07-25] MEDS: Albuterol/Ipratropium NEB.SOL* Albuterol 2.5 MG/Ipratropium 0.5 MG 3 ML INH SCH ×3 (13:52→23:27)
--- NOTE | 2018-07-25 16:14 | HP ---
CC: Dr. Alicea; Dr. Man HISTORY AND PHYSICAL: DATE OF ADMISSION: 07/25/18 CHIEF COMPLAINT: Shortness of breath. HISTORY OF PRESENT ILLNESS: Ms. Benavides is a 68-year-old woman with a history of asthma, who has had severe asthma for 20 years and who is steroid dependent. The patient reports a 1-week illness that b alexandro with a fever and then in the last 4 days has had progressive shortness of breath. She has const ant cough and dyspnea which are worse today further and her daughter made a decision to bring her to the emergency department. She was brought in by ambulance at the daughter's request. The patient has had fevers off and on throughout this week and reports chills today. Her cough is nonproductive. S he has not had a flu vaccine because she is allergic to that vaccine. PAST MEDICAL HISTORY: Include asthma, history of thyroid cancer, hiatal hernia, diverticulitis histo ry. PAST SURGICAL HISTORY: Thyroidectomy for cancer, colostomy and reversal for probable diverticulitis, hysterectomy, tonsillectomy, and sinus surgery. MEDICATIONS ON ADMISSION: 1. Albuterol inhaler 2 puffs q.4 hours p.r.n. wheezing. 2. Calcium 1 tab p.o. daily. 3. Cetirizine 10 mg p.o. q.p.m. 4. Vitamin B12 500 mcg p.o. daily. 5. Prolia 60 mcg subcutaneous every 6 months. 6. Vitamin D2 2000 IU p.o. daily. 7. Xopenex nebulizer q.4 hours p.r.n. wheezing. 8. Levothyroxine 100 mcg p.o. q.a.m. 9. MiraLAX 17 g p.o. q.a.m. 10. Ranitidine 150 mg p.o. b.i.d. 11. Senna 2 tabs p.o. q.p.m. 12. Benzonatate 200 mg p.o. t.i.d. p.r.n. cough. 13. Mometasone/formoterol 200/5 two puffs inhaled b.i.d. 14. Singulair 10 mg p.o. q.p.m. 15. Prednisone most recently tapered down to 20 mg p.o. daily. ALLERGIES: AMOXICILLIN, INFLUENZA VACCINE, PENICILLIN, MORPHINE. FAMILY HISTORY: Notable for father with CAD, mother with myasthenia gravis. She has 2 sisters who a re alive and well. 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 She is . Her is at [employer]. She has 3 children. Efraín, her son, is her healthcare proxy. She never smoked. Drinks a lcohol rarely. No recreational drugs. REVIEW OF SYSTEMS: The patient denies any anorexia or weight loss, but has had fevers. The patient denies any peripheral edema or orthopnea, but she has had chest pain that radiates to her back pain. The patient denies any hemoptysis. The patient denies any nausea or vomiting. Remainder of 14-poin t review of systems is negative other than mentioned in the HPI. PHYSICAL EXAMINATION GENERAL: She is alert, in no acute distress, coughing frequently. VITAL SIGNS: Temperature is 36.5, pulse 88, respirations 16, blood pressure is 124/74, O2 sat is 90% on room air. HEENT: Head is normocephalic, atraumatic. Sclerae anicteric. Pupils equal, round, reactive to ligh t and accommodation. Oropharynx is moist. No lesions. NECK: No JVD. No carotid bruits. No thyromegaly. LUNGS: Expiratory wheezes throughout. Decreased air movement. ABDOMEN: Soft. There is ventral hernia which is easily reducible. There are no masses. Positive b owel sounds. EXTREMITIES: No peripheral edema. Dorsalis pedis pulses are 2+ bilaterally. NEUROLOGIC: Cranial nerves II through XII are intact. Motor strength is 5/5 throughout. Deep tendo n reflexes are symmetric. DIAGNOSTIC STUDIES/LAB DATA: Sodium 138, potassium 3.2, chloride 106, bicarb 24, BUN 17, creatinine 0 .65, glucose is 113. Albumin 3.6, AST 16, ALT 15, bilirubin 1.0. Lactic acid 0.6. White count 1 4.0, hemoglobin 12.0, hematocrit 37%, platelets 271. EKG: Normal sinus rhythm, normal axis, no ischemic changes. Chest x-ray is normal. There is hyperi nflation. ASSESSMENT AND PLAN: A 68-year-old woman with asthma exacerbation [facility]. She will be treated for possible pneumonia, although I do not see it on a chest x-ray. She is to start on ceftriaxone and gentamicin. For asthma exacerbation, she will have intravenous steroids, nebulizers as above, and close monitorin g of her oxygen saturation. To palliate her cough, she is to continue the benzonatate. We can give her Tylenol with Codeine or R obitussin with Codeine as necessary also. For hypokalemia, this is probably a transient affect of albuterol in the emergency department, but th is could be rechecked in the morning. Code status is full. DVT prophylaxis: She is at moderate risk. She will be on Lovenox while she is here in the hospital. [id number]/[facility] #: [id number]
[2018-07-25] MEDS: Senna TAB PO SCH (18:09)
[2018-07-25] MEDS: Montelukast Sodium TAB* 10 MG PO SCH (20:52)
[2018-07-26] MEDS: cefTRIAXone(*) 1 GM in NS 0.9% 50 ML* 50 ML IVPB SCH (01:57)
[2018-07-26] MEDS: methylPREDNISolone SOD 40 MG* 1 ML VIAL IV SCH ×3 (02:01→19:32)
[2018-07-26] MEDS: Azithromycin IV(*) 500 MG in NS 0.9% 250 ML* 250 ML IVPB SCH (02:17)
[2018-07-26] MEDS: Enoxaparin(*) 40 MG/0.4 ML SYR SUBCUT SCH (03:10)
[2018-07-26] MEDS: Albuterol/Ipratropium NEB.SOL* Albuterol 2.5 MG/Ipratropium 0.5 MG 3 ML INH SCH ×6 (04:41→23:23)
[2018-07-26] MEDS: Levothyroxine TAB* 100 MCG TAB PO SCH (05:31)
[2018-07-26] MEDS: Mometasone/Formoter 200/5 MDI INH SCH ×2 (07:19→19:41)
[2018-07-26] MEDS: Benzonatate CAP* 100 MG PO SCH ×3 (08:21→21:24)
[2018-07-26] MEDS: Polyethylene Glycol 3350* 17 GM PACKET PO SCH (08:22)
[2018-07-26] MEDS: Famotidine TAB* 20 MG PO SCH ×2 (08:22→21:24)
--- NOTE | 2018-07-26 11:44 | PN ---
Subjective Date of Service: 07/26/18 Interval History: Ms. Benavides states that she felt that she has made a big improvement in her breathing today. She reports improved cough and SOB. She denies chest pain, nausea, or abdominal pain. Objective Active Medications: Albuterol/Ipratropium (Duoneb (Albuterol 2.5 Mg/Ipratropium 0.5 Mg)) 1 neb INH [id number] AWAKE [facility] Albuterol/Ipratropium (Duoneb (Albuterol 2.5 Mg/Ipratropium 0.5 Mg)) 1 neb INH Q4H PRN Benzonatate (Tessalon Cap*) 200 mg PO TID [facility] Cyanocobalamin (Vitamin B12 Tab*) 500 mcg PO .EVERY OTHER WEEK [facility] Enoxaparin Sodium (Lovenox(*)) 40 mg SUBCUT Q24H [facility] Famotidine (Pepcid Tab*) 20 mg PO BID [facility]; Protocol Azithromycin 500 mg/ Sodium (Chloride) 250 mls @ 250 mls/hr IVPB Q24H [facility] Ceftriaxone Sodium 1 gm/ (Sodium Chloride) 50 mls @ 200 mls/hr IVPB 0200 [facility] Levothyroxine Sodium (Synthroid Tab*) 100 mcg PO QAM@0600 [facility] Methylprednisolone Sodium Succinate (Solu-Medrol 40 Mg) 40 mg IV Q8H [facility] Mometasone Furoate/Formoterol Fumar (Dulera 200/5 Mdi*) 2 puff INH BID [facility] Montelukast Sodium (Singulair Tab*) 10 mg PO BEDTIME [facility] Non-Formulary Medication (Ergocalciferol (Vitamin D2) [Vitamin D2]) 2,000 units PO WEEKLY [facility] Polyethylene Glycol/Electrolytes (Miralax*) 17 gm PO QAM [facility] Senna (Senokot Tab*) 2 tab PO QPM [facility] Vital Signs: Temp Pulse Resp BP Pulse Ox 97.4 F 68 14 129/73 96 07/26/18 07:43 07/26/18 11:09 07/26/18 11:09 07/26/18 07:43 07/26/18 11:09 Oxygen Devices in Use Now: Nasal Cannula Appearance: Female sitting up in chair in NAD Eyes: No Scleral Icterus Ears/Nose/Mouth/Throat: Mucous Membranes Moist Neck: Trachea Midline Respiratory: Symmetrical Chest Expansion and Respiratory Effort, - - Wheezing throughout but much improved Cardiovascular: NL Sounds; No Murmurs; No JVD, No Edema Abdominal: NL Sounds; No Tenderness; No Distention Extremities: No Edema Skin: No Rash or Ulcers Neurological: Alert and Oriented x 3, NL Muscle Strength and Tone Nutrition: Taking PO's Result Diagrams: 07/25/18 06:46 07/25/18 06:46 Microbiology and Other Data: . Assess/Plan/Problems-Billing Assessment: Ms. Benavides is a 68 yo F with a PMH of asthma and hypothyroidism after thyroidectomy who was admitted on 07/25/18 with an asthma exacerbation and possible pneumonia. - Patient Problems (1) Asthma Comment: - Slow improvement. Currently on 2L [place] - Hx of multiple admissions for asthma, sees matrix plater is [place]. - Continue solumedrol and nebulizers - Continue ceftriaxone and azithromycin for suspected component of pneumonia based on cxray findings. Has had long standing abnormality noted to R LL but CRP elevated as well (2) Hypothyroidism Comment: - Continue po levothyroxine. TSH wnl 11/03/17. (3) DVT prophylaxis Comment: - Lovenox. (4) Full code status Comment: Status and Disposition: Inpatient. Anticipate discharge to home when medically stable.
[2018-07-26] MEDS: Senna TAB PO SCH (17:34)
[2018-07-26] MEDS: Montelukast Sodium TAB* 10 MG PO SCH (21:24)
[2018-07-27] MEDS: cefTRIAXone(*) 1 GM in NS 0.9% 50 ML* 50 ML IVPB SCH (01:55)
[2018-07-27] MEDS: Azithromycin IV(*) 500 MG in NS 0.9% 250 ML* 250 ML IVPB SCH (02:01)
[2018-07-27] MEDS: methylPREDNISolone SOD 40 MG* 1 ML VIAL IV SCH ×2 (03:11→12:21)
[2018-07-27] MEDS: Enoxaparin(*) 40 MG/0.4 ML SYR SUBCUT SCH (03:11)
[2018-07-27] MEDS: Albuterol/Ipratropium NEB.SOL* Albuterol 2.5 MG/Ipratropium 0.5 MG 3 ML INH SCH ×3 (03:28→11:23)
[2018-07-27] MEDS: Levothyroxine TAB* 100 MCG TAB PO SCH (05:11)
[2018-07-27] MEDS: Mometasone/Formoter 200/5 MDI INH SCH ×2 (06:07→07:11)
[2018-07-27] MEDS: Famotidine TAB* 20 MG PO SCH (08:40)
[2018-07-27] MEDS: Benzonatate CAP* 100 MG PO SCH (08:40)
[2018-07-27] MEDS: Polyethylene Glycol 3350* 17 GM PACKET PO SCH (08:40)
--- NOTE | 2018-07-27 09:30 | PN ---
Subjective Date of Service: 07/27/18 Interval History: Ms. Benavides reports that she is feeling much better. She has done well overnight and is eager for discharge to home. Objective Active Medications: Albuterol/Ipratropium (Duoneb (Albuterol 2.5 Mg/Ipratropium 0.5 Mg)) 1 neb INH [id number] AWAKE [facility] Albuterol/Ipratropium (Duoneb (Albuterol 2.5 Mg/Ipratropium 0.5 Mg)) 1 neb INH Q4H PRN Benzonatate (Tessalon Cap*) 200 mg PO TID [facility] Cyanocobalamin (Vitamin B12 Tab*) 500 mcg PO .EVERY OTHER WEEK [facility] Enoxaparin Sodium (Lovenox(*)) 40 mg SUBCUT Q24H [facility] Famotidine (Pepcid Tab*) 20 mg PO BID [facility]; Protocol Azithromycin 500 mg/ Sodium (Chloride) 250 mls @ 250 mls/hr IVPB Q24H [facility] Ceftriaxone Sodium 1 gm/ (Sodium Chloride) 50 mls @ 200 mls/hr IVPB 0200 [facility] Levothyroxine Sodium (Synthroid Tab*) 100 mcg PO QAM@0600 [facility] Methylprednisolone Sodium Succinate (Solu-Medrol 40 Mg) 40 mg IV Q8H [facility] Mometasone Furoate/Formoterol Fumar (Dulera 200/5 Mdi*) 2 puff INH BID [facility] Montelukast Sodium (Singulair Tab*) 10 mg PO BEDTIME [facility] Non-Formulary Medication (Ergocalciferol (Vitamin D2) [Vitamin D2]) 2,000 units PO WEEKLY [facility] Polyethylene Glycol/Electrolytes (Miralax*) 17 gm PO QAM [facility] Senna (Senokot Tab*) 2 tab PO QPM [facility] Vital Signs: Temp Pulse Resp BP Pulse Ox 98.1 F 56 20 124/67 94 07/26/18 23:40 07/27/18 06:08 07/27/18 06:08 07/26/18 23:40 07/27/18 06:08 Oxygen Devices in Use Now: None Appearance: Female lying in bed in NAD Eyes: No Scleral Icterus Ears/Nose/Mouth/Throat: Mucous Membranes Moist Neck: Trachea Midline Respiratory: Symmetrical Chest Expansion and Respiratory Effort, - - Minimal wheezing with forceful expiration only Cardiovascular: NL Sounds; No Murmurs; No JVD, No Edema Abdominal: NL Sounds; No Tenderness; No Distention Extremities: No Edema Skin: No Rash or Ulcers Neurological: Alert and Oriented x 3, NL Muscle Strength and Tone Nutrition: Taking PO's Result Diagrams: 07/25/18 06:46 07/25/18 06:46 Microbiology and Other Data: . Assess/Plan/Problems-Billing Assessment: Ms. Benavides is a 68 yo F with a PMH of asthma and hypothyroidism after thyroidectomy who was admitted on 07/25/18 with an asthma exacerbation and possible pneumonia. - Patient Problems (1) Asthma Comment: - Now off O2 - Hx of multiple admissions for asthma, sees color expert is [place]. - Continue solumedrol and nebulizers - Complete course of azithromycin. (2) Hypothyroidism Comment: - Continue po levothyroxine. TSH wnl 11/03/17. (3) DVT prophylaxis Comment: - Lovenox. (4) Full code status Comment: Status and Disposition: Inpatient. Discharge to home.
[2018-07-27 12:15] VITALS: BP 132/84
--- NOTE | 2018-07-27 20:55 | DS ---
CC: Dr. Alicea; Dr. Man * [facility] MEDICINE DISCHARGE SUMMARY: DATE OF ADMISSION: 07/25/18 DATE OF DISCHARGE: 07/27/18 PRIMARY CARE PROVIDER: Dr. Alicea. AUDIOVISUAL LIBRARIAN: Dr. Man. ATTENDING PHYSICIAN: Dr. Bebeto Balbuena * (dictation provided by Estevan Licea NP ). PRIMARY DIAGNOSES: 1. Acute hypoxic respiratory failure, now resolved. 2. Asthma exacerbation. 3. Pneumonia. SECONDARY DIAGNOSES: 1. History of thyroid cancer. 2. Hiatal hernia. 3. Diverticulitis. 4. Thyroidectomy. 5. Colostomy and reversal for probable diverticulitis. 6. Hysterectomy. 7. Tonsillectomy. 8. Sinus surgery. MEDICATIONS AT THE TIME OF DISCHARGE: 1. Prednisone starting at 40 mg, to be tapered down to 10 mg. 2. Azithromycin 250 mg p.o. daily x2, to complete a 5-day course. 3. Albuterol inhaler 2 puffs q.4 hours p.r.n. wheezing. 4. Calcium 1 tab p.o. daily. 5. Cetirizine 10 mg p.o. q.p.m. 6. Vitamin B12 500 mcg p.o. daily. 7. Prolia 60 mg subcutaneously q.6 months. 8. Vitamin D 2000 International Units p.o. daily. 9. Xopenex nebulizer as needed. 10. Levothyroxine 100 mcg p.o. q.a.m. 11. MiraLAX 17 g p.o. q.a.m. 12. Ranitidine 150 mg p.o. b.i.d. 13. Senna 2 tabs p.o. q.p.m. 14. Benzonatate 200 mg p.o. t.i.d. p.r.n. cough. 15. Mometasone/formoterol 200/5 two puffs inhaled b.i.d. 16. Singulair 10 mg p.o. q.p.m. HOSPITAL COURSE: Ms. Benavides is a 68-year-old female with a past medical history of asthma, who presented to the hospital on 07/25/18 with concern for shortness of breath. Please see the dictated H and P from Dr. Reddy for complete details. In brief, the patient presented with shortness of breath consistent with an asthma exacerbation. She also had a chest x-ray which showed the possibility of a right lower lobe pneumonia. She had a white blood cell count of 14. The remainder of her labs were unremarkable. She was afebrile and she was requiring 2 L nasal cannula. Ms. Benavides was admitted to the hospital in treatment for asthma exacerbation with concern for possible concomitant pneumonia. The patient was on 2 L nasal cannula initially, but this has been now titrated off. She has been treated with ceftriaxone and azithromycin for possible pneumonia. I will note that the patient seemed to have had some sort of abnormality intermittently in that right lower lobe for some time and a question whether or not this accurately represents a pneumonia. I did check a CRP which was 137.30 and did continue treatment for pneumonia and the patient will complete 2 further days of azithromycin at discharge. The patient was also given nebulizers routinely throughout the hospitalization. Ms. Benavides is doing much better today. She is now off oxygen. She is breathing much easier. She continues to have a cough, but her lungs are clear. Plans are for her to be discharged to home. DISPOSITION: To home. DIET: Regular. ACTIVITY: As tolerated. FOLLOWUP PLANS: Please follow up with Dr. Alicea and Dr. Man, feed mixer , in [place]. TIME SPENT: Approximately 60 minutes were spent on the discharge of this patient, more than half time spent with the patient at the bedside reviewing the events leading up to this hospitalization, performing the physical examination, and reviewing the plan of care. ESTEVAN LICEA NP [id number]/[facility] #: [id number] [place]
== END 2018-07-27 14:20 | disposition home or self-care (01) | DRG 193 ==
LOC: ED 20:41 → MED 07-25 01:26 → OBSVTOIN 07-25 12:40
PROVIDERS: ADMIT Internal Medicine; ATTEND Internal Medicine
DX: J18.9 Pneumonia, unspecified organism (principal); J96.01 Acute respiratory failure with hypoxia; J45.901 Unspecified asthma with (acute) exacerbation; K44.9 Diaphragmatic hernia without obstruction or gangrene; E87.6 Hypokalemia; Z85.850 Personal history of malignant neoplasm of thyroid; Z79.51 Long term (current) use of inhaled steroids; Z79.52 Long term (current) use of systemic steroids; Z79.899 Other long term (current) drug therapy; Z88.1 Allergy status to other antibiotic agents; Z88.5 Allergy status to narcotic agent; Z88.0 Allergy status to penicillin; Z88.7 Allergy status to serum and vaccine; Z82.49 Family history of ischemic heart disease and other diseases of the circulatory system
CPT/HCPCS: 36415; 71046; 80048; 80053; 83605; 85025; 86140; 87040; 93005; 94640; 99284; A9270-GY; J0456; J0696; J1650; J2920; J2930; J3475; J7611

== ENCOUNTER 2019-03-02 04:01 | Inpatient (IN) | payer MEDICARE ==
[2019-03-02] MEDS ORDERED: Ondansetron INJ* 2 MG/ML VIAL IV ONE (05:04)
[2019-03-02] MEDS ORDERED: Morphine 4 MG/ML VIAL (1 ml) 4 MG/ML VIAL IV ONE (05:04)
[2019-03-02] MEDS ORDERED: NS 0.9% 1000 ML** 1,000 ML IV ONE (05:05)
--- NOTE | 2019-03-02 05:09 | ED ---
Abdominal Pain/Female - HPI Summary HPI Summary: This pt is a 69 Y/O F presenting to [facility] with a CC of suprapubic abdominal pain. She states that she has been nauseas and vomiting. She stated that she has not had a bowel movement in a couple days. She rates the pain an 8/10 in severity. She denies any cough, CP, headaches, fevers and chills. She stated that she has no aggravating or alleviating factors. She has a PMHx of multiple surgeries on her abdominal region. - History of Current Complaint Chief Complaint: EDAbdPain Stated Complaint: ABD PAIN PER EMS Time Seen by Provider: 03/02/19 04:54 Hx Obtained From: Patient Onset/Duration: Sudden Onset - 1900, Lasting Hours, Still Present, Worse Since Timing: Constant Severity Initially: Moderate Severity Currently: Severe Pain Intensity: 8 Pain Scale Used: 0-10 Numeric Location: Suprapubic Radiates: No Aggravating Factor(s): Nothing Alleviating Factor(s): Nothing Associated Signs and Symptoms: Positive: Nausea, Vomiting. Negative: Fever, Cough, Chest Pain Allergies/Adverse Reactions: Allergies Allergy/AdvReac Type Severity Reaction Status Date / Time amoxicillin Allergy Severe Shortness Verified 12/24/17 16:50 of Breath Influenza Virus Vaccines Allergy Severe Shortness Verified 12/24/17 16:50 of Breath Penicillins Allergy Intermediate Hives Verified 12/24/17 16:50 morphine AdvReac hypotension Verified 12/26/17 21:51 Home Medications: Home Medications Benralizumab [Fasenra] 30 mg SQ SEE INSTRUCTIONS 03/02/19 [History Confirmed ] PMH/Surg Hx/FS Hx/Imm Hx Previously Healthy: Yes Endocrine/Hematology History: Reports: Hx Thyroid Disease - thyroidectomy d/t ca Denies: Hx Diabetes Cardiovascular History: Denies: Hx Hypertension, Hx Pacemaker/ICD Respiratory History: Reports: Hx Asthma, Hx Chronic Bronchitis, Hx Pneumonia, Hx Seasonal Allergies, Other Respiratory Problems/Disorders - PNA Denies: Hx Chronic Obstructive Pulmonary Disease (COPD) GI History: Reports: Hx Diverticulosis - perforated x1, Hx Hiatal Hernia - repair x2, Hx Obstructive Bowel, Hx Ileostomy - Reversal complete, Other GI Disorders - Hx perforated bowel Denies: Hx Ulcer History: Denies: Hx Renal Disease Musculoskeletal History: Reports: Hx Orthopedic Injury, Hx Osteoporosis Sensory History: Reports: Hx Cataracts, Hx Contacts or Glasses Denies: Hx Hearing Aid Opthamlomology History: Reports: Hx Cataracts, Hx Contacts or Glasses Neurological History: Denies: Hx Seizures Psychiatric History: Denies: Hx Anxiety, Hx Depression, Hx Panic Disorder, Hx Substance Abuse - Cancer History Cancer Type, Location and Year: Thyroid, 2006 Hx Chemotherapy: No Hx Radiation Therapy: Yes - THYROID - Surgical History Surgery Procedure, Year, and Place: Hiatal hernia repair x2; thyroidectomy ( [facility]) ; tonsilectomy/sinus surgery; hysterectomy, T&A, REFLUX SURGERY ([facility]) 07/2012 WITH REVISION 12/2012. PERFORATED BOWEL WITH COLOSTOMY THEN REMOVED Hx Anesthesia Reactions: No - Immunization History Immunizations Up to Date: Yes Infectious Disease History: No Infectious Disease History: Denies: Hx Clostridium Difficile, Hx Hepatitis, Hx Human Immunodeficiency Virus (HIV), Hx of Known/Suspected MRSA, Hx Shingles, Hx Tuberculosis, History Other Infectious Disease, Traveled Outside the [place] in Last 30 Days - Family History Known Family History: Positive: Hypertension Negative: Diabetes - Social History Alcohol Use: Rare Hx Substance Use: No Substance Use Type: Reports: None Hx Tobacco Use: No Smoking Status (MU): Never Smoked Tobacco Review of Systems Negative: Fever, Chills Negative: Chest Pain Negative: Cough Positive: Abdominal Pain, Vomiting, Nausea Negative: Headache All Other Systems Reviewed And Are Negative: Yes Physical Exam - Summary Physical Exam Summary: VITAL SIGNS: Reviewed. GENERAL: Patient is a well-developed and nourished female who is lying comfortable in the stretcher. Patient is not in any acute respiratory distress. HEAD AND FACE: No signs of trauma. No ecchymosis, hematomas or skull depressions. No sinus tenderness. EYES: PERRLA, EOMI x 2, No injected conjunctiva, no nystagmus. EARS: Hearing grossly intact. Ear canals and tympanic membranes are within normal limits. MOUTH: Oropharynx within normal limits. NECK: Supple, trachea is midline, no adenopathy, no JVD, no carotid bruit, no c- spine tenderness, neck with full ROM CHEST: Symmetric, no tenderness at palpation LUNGS: Clear to auscultation bilaterally. No wheezing or crackles. CVS: Regular rate and rhythm, S1 and S2 present, no murmurs or gallops appreciated. ABDOMEN: Soft, diffusely tender abdomen and her abdomen was distended. No rebound no guarding, and no masses palpated. Bowel sounds are normal. EXTREMITIES: FROM in all major joints, no edema, no cyanosis or clubbing. NEURO: Alert and oriented x 3. No acute neurological deficits. Speech is normal and follows commands. SKIN: Dry and warm Triage Information Reviewed: Yes Vital Signs On Initial Exam: Initial Vitals Pulse Resp BP Pulse Ox 76 18 113/76 94 03/02/19 04:09 03/02/19 04:09 03/02/19 04:09 03/02/19 04:09 Vital Signs Reviewed: Yes Diagnostics - Vital Signs Vital Signs Temp Pulse Resp BP Pulse Ox 03/02/19 04:11 97.9 F 74 20 113/76 95 03/02/19 04:09 76 18 113/76 94 - Laboratory Result Diagrams: 03/02/19 05:23 Lab Statement: Any lab studies that have been ordered have been reviewed, and results considered in the medical decision making process. Abdominal Pain Fem Course/Dx - Course Course Of Treatment: This pt is a 69 Y/O F presenting to [facility] with a CC of suprapubic abdominal pain. She states that she has been nauseas and vomiting. Her PE found that she had a diffusely tender abdomen and her abdomen was distended. This pt will be a sign out to Dr. Nayak from Dr. Chavez at shift change 0700 03/02/19 pending lab results, CT A/P, and abdominal US. - Diagnoses Provider Diagnoses: Abdominal pain, Abdominal hernia with obstruction Discharge - Sign-Out/Discharge Documenting (check all that apply): Sign-Out Patient Signing out patient TO: Criselda Nayak Patient Received Moderate/Deep Sedation with Procedure: No - Discharge Plan Condition: Stable Referrals: Doris Alicea MD [Primary Care Provider] - - Attestation Statements Document Initiated by Scribe: Yes Documenting Scribe: Willian Abdullahi Provider For Whom Scribe is Documenting (Include Credential): Roberta Chavez MD Scribe Attestation: Willian Bennett, scribed for Roberta Chavez MD on 03/02/19 at 0648. Status of Scribe Document: Ready
[2019-03-02 05:37] LABS: Activated Partial Thrombo Time 31.7 seconds (26.0-38.0); INR 1.08 (0.82-1.09)
[2019-03-02 05:52] LABS: Albumin 4.2 g/dL (3.2-5.2); Albumin/Globulin Ratio 1.6 (1-3); BUN/Creatinine Ratio 20.5 (8-20); C Reactive Protein 7.04 mg/L (<8.01); Calcium 9.3 mg/dL (8.6-10.3); EGFR African American 88.1 (>60); EGFR Non-African American 72.8 (>60); Globulin 2.7 g/dL (2-4); Magnesium 2.4 mg/dL (1.9-2.7); Potassium 4.1 mmol/L (3.5-5.0); Total Bilirubin 1.4 mg/dL (0.2-1.0); Total Protein 6.9 g/dL (6.4-8.9)
[2019-03-02] MEDS ORDERED: Iohexol 300* (CONTRAST) 10 ML SDV IV ONE (06:14)
--- NOTE | 2019-03-02 07:12 | ED ---
Progress - Progress Note Progress Note: The patient is a sign-out from Dr. Roberta Chavez MD, to Dr. Criselda Nayak MD, at change of shift at 0700 on 03/02/2019, pending lab, CT Abd/Pel results and disposition. Blood work primarily within normal limits but reveals WBCs of 11.3, RBCs of 5.07 , absolute neutrophils of 9.5, and total bilirubin of 1.40. Abdominopelvic CT impression reveals possible early versus partial/intermittent small bowel obstruction and small amount of pelvic ascites. I reviewed pt history - Pt s/p partial colon resection with ostomy and reversal 4-5 years ago. Pt with recurrent SBO - related to scar tissue. Has been [place] [facility] same - resolved with consevative care - has been eval by Dr. Lord in the past. Pt states at present, abd pain is moderate, no nausea, no vomiting , little flatus reviewed xray with pt - will discuss with surgery At 0836 I discussed the patients case, including hx and CT results, with Dr. Murray, surgery. He recommends admission through the hospitalist, and he will consult when he is available today - currently in the OR. Dr. Raya, hospitalist, accepts the patient for admission at 0915. - Results/Orders Results/Orders: Abd/Pel CT Impression: 1. There is distention of the small bowel without dilatation, with the transition to decompressed small bowel in the right mid abdomen. The differential includes early versus partial/intermittent small bowel obstruction. 2. Hiatal hernia. 3. Small amount of pelvic ascites. ED physician has reviewed this radiology report. Re-Evaluation - Re-Evaluation First Eval Re-Evaluation Time: 07:10 Comment: I spoke with the patient to check up upon shift change. She is not currently in acute distress. Second Eval Re-Evaluation Time: 08:24 Comment: I discussed lab and imaging results with the patient. We will consult surgery concerning possible SBO. Course/Dx - Course Course Of Treatment: The patient is a sign-out from Dr. Roberta Chavez MD, to Dr. Criselda Nayak MD, at change of shift at 0700 on 03/02/2019, pending lab, CT Abd /Pel results and disposition. Blood work primarily within normal limits but reveals WBCs of 11.3, RBCs of 5.07, absolute neutrophils of 9.5, and total bilirubin of 1.40. Abdominopelvic CT impression reveals possible early versus partial/intermittent small bowel obstruction and small amount of pelvic ascites. At 0836 I discussed the patients case, including hx and CT results, with Dr. Murray, surgery. He recommends admission through the hospitalist, and he will consult when he is available today as he is currently in the OR. Dr. Raya, hospitalist, accepts the patient for admission at 0915. - Diagnoses Provider Diagnoses: SBO (small bowel obstruction) - Provider Notifications Discussed Care Of Patient With: Jerry Murray - surgery Time Discussed With Above Provider: 08:36 Instructed by Provider To: Other - Dr. Murray will consult when available today , and he recommends admission secondary to CT results. Dr. Raya, hospitalist, accepts the patient for admission at 0915. Discharge - Sign-Out/Discharge Documenting (check all that apply): Patient Departure - Patient is accepted for admission by Dr. Raya., Receiving Sign-Out Receiving patient FROM: Roberta Chavez - Patient is a sign-out from Dr. Criselda Nayak MD, at change of shift at 0700 on 03/02/2019, pending labs, CT Abd/Pel results, and disposition. Patient Received Moderate/Deep Sedation with Procedure: No - Discharge Plan Condition: Stable Disposition: ADMITTED TO [facility] Referrals: Doris Alicea MD [Primary Care Provider] - - Billing Disposition and Condition Condition: STABLE Disposition: Admitted to [facility] - Attestation Statements Document Initiated by Shanique: Yes Documenting Scribe: Vickie Weaver Provider For Whom Shanique is Documenting (Include Credential): Dr. Criselda Nayak MD Scribe Attestation: Vickie Bennett, scribed for Dr. Criselda Nayak MD on 03/02/19 at 1020. Scribe Documentation Reviewed: Yes Provider Attestation: The documentation as recorded by the Vickie govea accurately reflects the service I personally performed and the decisions made by me, Dr. Criselda Nayak MD Status of Scribe Document: Viewed
[2019-03-02 07:51] LABS: ABS Monocytes 0.8 10^3/ul (0-0.8); ABS Neutrophils 9.5 10^3/ul (1.5-7.7); Eosinophil % 0.1 %; Hematocrit 45 % (35-47); Hemoglobin 15.1 g/dL (12.0-16.0); Lymphocyte % 9.1 %; Mean Corpuscular HGB Conc 33 g/dL (31-36); Mean Corpuscular Hemoglobin 30 pg (27-31); Mean Corpuscular Volume 89 fL (80-97); Mean Platelet Volume 7.8 fL (7.4-10.4); Platelet Count 231 10^3/uL (150-450); Red Blood Count 5.07 10^6 /uL (3.70-4.87); Red Cell Distribution Width 14 % (10-15); White Blood Count 11.3 10^3/uL (3.5-10.8)
[2019-03-02] MEDS ORDERED: fentaNYL* 50 MCG/ML 2 ML VIAL (100 MCG VIAL) IV SLOW PU ONE (09:15)
[2019-03-02] MEDS ORDERED: HYDROmorphone INJ1* 1 MG/ML SYRINGE IV SLOW PU PRN (09:40)
[2019-03-02] MEDS ORDERED: Ondansetron INJ* 2 MG/ML VIAL IV PRN (09:41)
[2019-03-02] MEDS ORDERED: PROCHLORPERAZINE INJ 5 MG/ML 2 ML VIAL IV PRN (09:41)
[2019-03-02] MEDS ORDERED: Albuterol HFA INHALER* 8 gm MDI INH PRN (10:00)
--- NOTE | 2019-03-02 11:51 | HP ---
CC: Dr. Alicea * HISTORY AND PHYSICAL: DATE OF ADMISSION: 03/02/19 PRIMARY CARE PROVIDER: Dr. Alicea. CHIEF COMPLAINT: Abdominal pain. HISTORY OF PRESENT ILLNESS: Ms. Benavides is a 69-year-old female who has a history of severe asthma, now under decent control with the addition of Fasenra , history of recurrent diverticulitis requiring partial colectomy with colostomy and subsequent reversal, who has had recurrent small bowel obstructions, who presents to the emergency room with complaints of abdominal pain. The patient states that every 3 to 4 months, she develops severe abdominal pain. Over the last 1 week, this has again returned. She describes the pain as being severe ache that comes and goes. She also has had intermittent sharp shooting pains. She despite having a pain did continue to eat like normal over the course of the week. She was not getting any better and in fact the pain was worsening last evening and therefore, she presented to the emergency room for evaluation. Around midnight on the day of admission, the patient also started vomiting. She vomited 3 times. She did become somewhat lightheaded and dizzy after this. She typically uses high-dose laxatives and eats the diet low in fiber and no seeds. This is unchanged over the last week or so. She states her last bowel movement was a couple days ago. She does not know when she last had flatus. PAST MEDICAL HISTORY: 1. History of recurrent diverticulitis, status post partial colectomy with colostomy and subsequent reversal. 2. History of thyroid cancer. 3. Asthma. PAST SURGICAL HISTORY: 1. Perla fundoplication with subsequent revision. 2. Colostomy and reversal. 3. Tonsillectomy. 4. Hysterectomy. 5. Sinus surgery. 6. Thyroidectomy. MEDICATIONS: 1. Multivitamin 1 tab p.o. daily. 2. Senna 4 tabs p.o. q.h.s. 3. Ranitidine 150 mg p.o. b.i.d. 4. Synthroid 112 mcg p.o. daily. 5. Zyrtec 10 mg p.o. q.h.s. 6. Calcium plus D 1 tab p.o. daily. 7. ProAir 2 puffs inhaled q.4 hours p.r.n. shortness of breath. 8. Fasenra 30 mg subcutaneous q.8 weeks. 9. Prolia 60 mg subcutaneous q.6 months. 10. Dulera 200/5 two puffs inhaled twice daily. 11. Prednisone 5 mg p.o. daily. 12. Vitamin B12 injection every other week. ALLERGIES: PENICILLIN, FLU VACCINE, MORPHINE. FAMILY HISTORY: Mom had myasthenia gravis, of brain cancer. Dad had coronary artery disease. 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 She is . She has 3 children. She lives at home alone. Her resides at [facility]. She is a lifelong nonsmoker. She drinks alcohol rarely. REVIEW OF SYSTEMS: A complete 11-system review of systems is obtained. Pertinent positives and negatives are as per HPI and otherwise negative. PHYSICAL EXAMINATION GENERAL: The patient is a well-developed elderly female, seen sitting up in the bed, in no acute distress. VITAL SIGNS: Blood pressure 105/71, pulse 67, respirations 14, temp 97.9, O2 sat 91% on room air. HEENT: Pupils are equal and round. Extraocular muscles are intact. Oropharynx is clear. Oral mucosa is slightly dry. There is no submandibular, cervical, or supraclavicular adenopathy. PULMONARY: Lungs are clear to auscultation bilaterally. CARDIAC: Normal S1, S2. Regular rate and rhythm. I do not appreciate any murmurs. ABDOMEN: Bowel sounds are hypoactive, but present. Abdomen is soft, mildly distended and mildly tender to palpation. MUSCULOSKELETAL: There is no cyanosis or clubbing of the digits. There is full active range of motion of all 4 extremities. SKIN: Warm and dry. There are no rashes. NEUROLOGIC: Cranial nerves II through XII are grossly intact. Sensation is intact to light touch throughout. Strength is 5/5 and symmetric in both upper and lower extremities bilaterally. PSYCHIATRIC: The patient is alert. She is oriented x3. Affect is appropriate. DIAGNOSTIC STUDIES/LAB DATA: Sodium 138, potassium 4.1, chloride 106, CO2 of 24, BUN 16, creatinine 0.78, glucose 127, calcium 9.3, magnesium 2.4, bilirubin 1.4, AST 20, ALT 10, alk phos 48, CRP 7.04, albumin 4.2, amylase 28, lipase 21. INR 1.08. WBC 11.3, hemoglobin 15.1, hematocrit 45, platelets 231. CT abdomen and pelvis, there is distention of the small bowel without dilation with the transition to decompress small bowel in the right mid abdomen. The differential includes early versus partial/intermittent small bowel obstruction. There is a hiatal hernia and a small amount of pelvic ascites. ASSESSMENT AND PLAN: Ms. Benavides is a 69-year-old female with a history of numerous abdominal surgeries, who has had a history of recurrent small bowel obstructions, who presents to the emergency room with complaints of abdominal pain, nausea, and vomiting and is being admitted for evaluation and treatment of a probable small bowel obstruction. 1. Small bowel obstruction. The management for this will be conservative. As the patient is not vomiting at this point, I will hold off on placing an NG- tube. We will continue n.p.o. status and administer antiemetics and pain medication as needed. A followup abdominal x-ray will be obtained tomorrow. We will also follow the patient symptomatically. She will have IV fluids for hydration. 2. Asthma. The patient has severe persistent asthma that is currently under the best control it has been. She will continue with her p.r.n. albuterol and standing Dulera. I am going to hold her Fasenra while she is here. Her prednisone, I will transition to hydrocortisone while she is n.p.o. 3. Hypothyroidism. We will continue Synthroid 16 mcg IV daily. 4. Gastroesophageal reflux disease/hiatal hernia. We will start IV Protonix in place of her oral ranitidine. 5. DVT prophylaxis. According to the Adult Thrombosis Prophylaxis Risk Factor Assessment Guide, the patient has a total risk factor score of 4, making her high risk. She will be placed on Lovenox 40 mg subcutaneous daily as DVT prophylaxis. 6. Code status is full. TIME SPENT: Sixty five minutes was spent admitting this patient, of which greater than half was spent [id number] with the patient reviewing her history of and performing physical exam. [id number]/[facility] #: [id number] [facility]ITAL[facility]eni
--- NOTE | 2019-03-02 13:07 | CONS ---
CC: Dr. Doris Alicea, [facility] * CONSULTATION REPORT: DATE OF CONSULT: 03/02/19 REFERRING PROVIDER: Karol Raya DO, hospitalist. REASON FOR CONSULT: Small bowel obstruction with abdominal pain. HISTORY OF PRESENT ILLNESS: Ms. Ela Benavides is a very pleasant 69-year-old woman known to surgical service for a history of small bowel obstruction, who presented to the emergency room earlier this morning with 12 to 16 hours of abdominal distention and abdominal pain. She said she had a normal bowel movement yesterday. She had a recent history of multiple admissions both here and at [facility] for small bowel obstruction felt secondary to adhesive disease, but fortunately has avoided surgical intervention. She has had no nausea and is not certain when she passed flatus last. She has had some mild discomfort over the past week or so. Her past medical history is significant for severe asthma as well as difficulty with intubation. She has a senior electronics design engineer at [facility] in [place] , whom she sees regularly and has had all her surgeries done in [place]. She originally was seen here in 2013 when she presented with abdominal pain, extraluminal air, and she was felt to be too high risk to stay here at [facility]. She was transferred to [facility] where she underwent exploratory laparotomy with sigmoid colon resection for perforated diverticulum with subsequent colostomy. She has since had that colostomy reversal also at [facility]. She states that she has had extremely difficult intubations with laryngeal spasm and edema and says if she does require surgery that she has been told that she should have the surgery done in [place]. She has also had prolonged ventilator management problems and extubation postoperatively. Seen in the emergency room here. She was noted to be afebrile without tachycardia. She has a white blood cell count of 11,000. Electrolytes, BUN and creatinine were all within normal limits. C-reactive protein was 7, which is normal. Lactic acid was not performed. She underwent a CT scan of the abdomen and pelvis, which I did review, this showed some proximal mild distended small bowel with some more decompressed distal small bowel in the right mid abdomen, felt to include early partial or intermittent small bowel obstruction as read by the radiologist. There was no free air, bowel wall thickening, free fluid or pneumatosis noted. She has been admitted to the hospitalist service with surgical consultation. PAST MEDICAL HISTORY: Asthma. PAST SURGICAL HISTORY: 1. Abdominal hysterectomy. 2. Perla fundoplication with subsequent revision. 3. Exploratory laparotomy and sigmoid resection and end-colostomy. 4. Colostomy reversal. MEDICATIONS: Include: 1. Multivitamin. 2. Senokot. 3. Zantac. 4. Synthroid. 5. Cetirizine. 6. Zyrtec. 7. Multivitamins. 8. Fasenra every 6 weeks. 9. Prolia every 6 months. 10. Dulera. 11. Prednisone 5 mg daily. ALLERGIES: She is allergic to AMOXICILLIN and PENICILLIN. SOCIAL HISTORY: She lives alone, but her son lives nearby. She has never been a smoker. She does not drink alcohol. REVIEW OF SYSTEMS: Otherwise as per above. PHYSICAL EXAM: She is afebrile. Vital signs are stable. General: She is awake, alert, and quite pleasant, appears to be in no apparent distress. Lungs with diminished breath sounds throughout without wheezing or expiratory rhonchi. Heart has regular rate and rhythm without murmurs, rubs, or gallops. Her abdomen is soft and slightly distended. She has diminished bowel sounds throughout. She has a well-healed midline incision in the colostomy site in the left upper quadrant. There may be a small ostomy site hernia, which is easily reducible. She has a well- healed low transverse incision. Bowel sounds are present, slightly hyperactive and somewhat high pitched throughout. She has very mild tenderness throughout without rebound, guarding, or peritoneal irritation. Psychiatric: She is awake, alert, and oriented x3. She has normal judgment and insight. IMPRESSION AND PLAN: Abdominal discomfort with some nausea with vomiting. She has a history of what it felt to be bowel obstruction secondary to adhesions after undergoing multiple abdominal operations in the past. She has significant pulmonary disease and apparently has had difficulty with intubations and laryngospasm and had all of her surgeries at [facility]. For now, she has no urgent indication for surgical intervention and I recommend treating her supportively with observation, IV fluids, and keeping her n.p.o. Hopefully, this will improve with nonoperative management. If her condition worsens or does not improve, I would most likely recommend transfer to a higher level of care, i.e., [facility], where she had all of her surgeries and where her senior electronics design engineer is, for consideration but we will follow her closely with you and assist in her management. [id number]/[facility] #: [id number] [place]
[2019-03-02] MEDS: Hydrocortisone INJ* 100 MG VIAL IV SCH ×2 (14:02→21:05)
[2019-03-02] MEDS: NS 0.9% 1000 ML** 1,000 ML IV SCH (14:07)
[2019-03-02] MEDS: Mometasone/Formoter 200/5 MDI INH SCH (19:14)
[2019-03-02] MEDS: Enoxaparin(*) 40 MG/0.4 ML SYR SUBCUT SCH (21:05)
[2019-03-03] MEDS: NS 0.9% 1000 ML** 1,000 ML IV SCH ×2 (00:11→13:00)
[2019-03-03] MEDS ORDERED: Ketorolac INJ* 15 MG/ML 1 ML VIAL IV PUSH PRN (04:50)
[2019-03-03] MEDS ORDERED: Levothyroxine INJ* 100 MCG/5 ML VIAL IV SCH (06:00)
[2019-03-03] MEDS: Mometasone/Formoter 200/5 MDI INH SCH ×2 (07:28→19:44)
[2019-03-03] MEDS ORDERED: Pantoprazole IV* 40 MG IV SCH (09:00)
[2019-03-03 10:41] LABS: ABS Lymphocytes 1.2 10^3/ul (1.0-4.8); ABS Monocytes 0.4 10^3/ul (0-0.8); ABS Neutrophils 2.8 10^3/ul (1.5-7.7); Hematocrit 38 % (35-47); Lymphocyte % 26.9 %; Mean Corpuscular HGB Conc 34 g/dL (31-36); Mean Corpuscular Hemoglobin 30 pg (27-31); Mean Corpuscular Volume 89 fL (80-97); Mean Platelet Volume 7.4 fL (7.4-10.4); Platelet Count 179 10^3/uL (150-450); Red Blood Count 4.33 10^6 /uL (3.70-4.87); Red Cell Distribution Width 14 % (10-15); White Blood Count 4.3 10^3/uL (3.5-10.8)
[2019-03-03 11:02] LABS: Albumin 3.5 g/dL (3.2-5.2); Albumin/Globulin Ratio 1.7 (1-3); BUN/Creatinine Ratio 15.5 (8-20); Calcium 7.5 mg/dL (8.6-10.3); EGFR Non-African American 102.5 (>60); Globulin 2.1 g/dL (2-4); Potassium 3.5 mmol/L (3.5-5.0); Total Bilirubin 1.8 mg/dL (0.2-1.0); Total Protein 5.6 g/dL (6.4-8.9)
[2019-03-03] MEDS: Hydrocortisone INJ* 100 MG VIAL IV SCH (11:26)
--- NOTE | 2019-03-03 12:50 | PN ---
Progress Note - Progress Note Date of Service: 03/03/19 SOAP: Subjective: Feels better-no N/V, no abdominal pain. No flatus or BM Objective: Temp Pulse Resp BP Pulse Ox 97.3 F 64 16 138/75 95 03/03/19 07:50 03/03/19 07:50 03/03/19 07:50 03/03/19 07:50 03/03/19 07:50 Intake & Output 03/01/19 03/02/19 03/03/19 03/04/19 06:59 06:59 06:59 06:59 Intake Total 1000 0 10 Balance 1000 0 10 Weight 155 lb 165 lb 1.28 oz Intake: IV Fluids 1000 10 Oral 0 Other: Date of Last Bowel 02/28/13 Movement # Bowel Movements 0 PEX: Comfortable Abd is soft and non-distended. Bowel sounds present and normoactive. No tenderness Laboratory Results - last 24 hr 03/03/19 03/03/19 10:20 10:20 WBC 4.3 RBC 4.33 Hgb 13.0 Hct 38 MCV 89 MCH 30 MCHC 34 RDW 14 Plt Count 179 MPV 7.4 Neut % (Auto) 64.7 Lymph % (Auto) 26.9 Bremer % (Auto) 8.2 Eos % (Auto) 0.0 Baso % (Auto) 0.2 Absolute Neuts (auto) 2.8 Absolute Lymphs (auto) 1.2 Absolute Monos (auto) 0.4 Absolute Eos (auto) 0.0 Absolute Basos (auto) 0.0 Absolute Nucleated RBC 0.0 Nucleated RBC % 0.0 Sodium 139 Potassium 3.5 Chloride 111 Carbon Dioxide 24 Anion Gap 4 BUN 9 Creatinine 0.58 Est GFR ( Amer) 124.0 Est GFR (Non-Af Amer) 102.5 BUN/Creatinine Ratio 15.5 Glucose 88 Calcium 7.5 L Total Bilirubin 1.80 H AST 17 ALT 8 Alkaline Phosphatase 39 Total Protein 5.6 L Albumin 3.5 Globulin 2.1 Albumin/Globulin Ratio 1.7 AXR reviewed: No small bowel distension or SBO. Large amount of stool in colon and rectum Assessment: Abd pain, N/V -resolved. Clinically without symptoms of SBO, XRAYS improved Plan: Start clear liquids po Enemas
--- NOTE | 2019-03-03 14:19 | PN ---
Subjective Date of Service: 03/03/19 Interval History: Patient feeling improved. Her abdominal pain is improving and now she "just feels sore." Her nausea has resolved and has not vomited since she's been at the hospital. Has not had a BM in 3 days. Denies chest pain, fever/chills, SOB. Objective Active Medications: Albuterol (Ventolin Hfa Inhaler*) 2 puff INH Q4H PRN PRN Reason: SOB/WHEEZING Enoxaparin Sodium (Lovenox(*)) 40 mg SUBCUT Q24H [facility] Last Admin: 03/02/19 21:05 Dose: 40 mg Hydrocortisone Sodium Succinate (Solu-Cortef*) 50 mg IV Q12H [facility] Last Admin: 03/03/19 11:26 Dose: 50 mg Hydromorphone HCl (Dilaudid Inj1s*) 0.5 mg IV SLOW PU Q4H PRN PRN Reason: PAIN - SEVERE Last Admin: 03/02/19 09:58 Dose: 0.5 mg Sodium Chloride (Ns 0.9% 1000 Ml) 1,000 mls @ 100 mls/hr IV PER RATE [facility] Last Admin: 03/03/19 00:11 Dose: 100 mls/hr Ketorolac Tromethamine (Toradol Inj*) 15 mg IV PUSH Q6H PRN PRN Reason: PAIN - MILD Last Admin: 03/03/19 05:02 Dose: 15 mg Levothyroxine Sodium (Synthroid Inj*) 60 mcg IV 0600 [facility] Last Admin: 03/03/19 05:01 Dose: 60 mcg Mometasone Furoate/Formoterol Fumar (Dulera 200/5 Mdi*) 2 puff INH BID [facility] Last Admin: 03/03/19 07:28 Dose: 2 puff Ondansetron HCl (Zofran Inj*) 4 mg IV Q6H PRN PRN Reason: NAUSEA Last Admin: 03/02/19 09:58 Dose: 4 mg Pantoprazole Sodium (Protonix Iv*) 40 mg IV DAILY [facility] Last Admin: 03/03/19 08:45 Dose: 40 mg Prochlorperazine Edisylate (Compazine Inj*) 10 mg IV Q6H PRN PRN Reason: NAUSEA/VOMITING Last Admin: 03/02/19 11:44 Dose: 10 mg Vital Signs - 8 hr 03/03/19 03/03/19 07:32 07:50 Temperature 97.3 F Pulse Rate 66 64 Respiratory 14 16 Rate Blood Pressure 138/75 (mmHg) O2 Sat by Pulse 97 95 Oximetry Oxygen Devices in Use Now: None Appearance: Thin, elderly white female who appears younger than stated age, appearing in NAD Eyes: No Scleral Icterus, PERRLA Ears/Nose/Mouth/Throat: Mucous Membranes Moist Neck: NL Appearance and Movements; NL JVP Respiratory: Symmetrical Chest Expansion and Respiratory Effort, Clear to Auscultation Cardiovascular: NL Sounds; No Murmurs; No JVD, RRR Abdominal: No Hepatosplenomegaly, - - minimally tender throughout, no distension and abd is soft; normoactive BS x4Q Extremities: No Edema, No Clubbing, Cyanosis Skin: No Rash or Ulcers Neurological: Alert and Oriented x 3, NL Muscle Strength and Tone Result Diagrams: 03/03/19 10:20 03/03/19 10:20 Assess/Plan/Problems-Billing Assessment: 69 yo white female with PMHx diverticulitis with perforation s/p colostomy and subsequent reversal, thyroid CA s/p thyroidectomy, and asthma presents with abd pain, nausea, vomiting found to have small bowel obstruction. - Patient Problems (1) SBO (small bowel obstruction) Current Visit: No Status: Acute Code(s): K56.69 - OTHER INTESTINAL OBSTRUCTION * DO NOT USE * SNOMED Code(s): 859983052 Comment: -pt has frequent SBOs, which are likely secondary to adhesions from prior abd surgery -SBO appears to be resolved as dilation is resolved on abd plain film today -abd pain improved and nausea resolved, consistenet with resolving SBO; NG tube never needed -Appreciate gen surg input, Dr. Gomez recommends advancing to clear diet and giving tap water enema for large stool (2) Elevated bilirubin Current Visit: Yes Status: Acute Code(s): R17 - UNSPECIFIED JAUNDICE SNOMED Code(s): 80953681 Comment: -elevated on admission, further elevated to 1.8 today -ordered abdominal US and direct/indirect bili (3) Asthma Current Visit: No Status: Acute Code(s): J45.909 - UNSPECIFIED ASTHMA, UNCOMPLICATED SNOMED Code(s): 189324402 Comment: -no evidence of acute exacerbation -cont home dulera and rescue albuterol -restarting home daily prednisone and d/c hydrocortisone (4) Hypothyroidism Current Visit: No Status: Acute Code(s): E03.9 - HYPOTHYROIDISM, UNSPECIFIED SNOMED Code(s): 29387615 Comment: -IV synthroid prior, now that diet advanced returned to home po dose (5) DVT prophylaxis Current Visit: No Status: Acute Code(s): YZO2275 - SNOMED Code(s): 817336107 Comment: -lovenox (6) Full code status Current Visit: No Status: Acute Code(s): Z78.9 - OTHER SPECIFIED HEALTH STATUS SNOMED Code(s): 335053133 Comment:
[2019-03-03 14:55] LABS: Indirect Bilirubin 1.5 mg/dL (0.3-1.0)
[2019-03-03] MEDS ORDERED: Bisacodyl SUPP* 10 MG SUPP PR ONE (17:15)
[2019-03-03] MEDS: Famotidine TAB* 20 MG PO SCH (20:01)
[2019-03-03] MEDS: Enoxaparin(*) 40 MG/0.4 ML SYR SUBCUT SCH (20:01)
[2019-03-04] MEDS: Levothyroxine TAB* 112 MCG TAB PO SCH (05:39)
[2019-03-04] MEDS: Famotidine TAB* 20 MG PO SCH ×2 (08:04→20:10)
[2019-03-04] MEDS: predniSONE TAB* 5 MG PO SCH (08:04)
[2019-03-04] MEDS: Mometasone/Formoter 200/5 MDI INH SCH ×2 (08:07→19:20)
--- NOTE | 2019-03-04 08:33 | PN ---
Progress Note - Progress Note Date of Service: 03/04/19 SOAP: Subjective: No abdominal pain, N/V Small BM after suppository Tolerating clear liquids Objective: Temp Pulse Resp BP Pulse Ox 98.1 F 69 16 126/72 96 03/04/19 07:58 03/04/19 08:08 03/04/19 08:08 03/04/19 07:58 03/04/19 08:08 Intake & Output 03/02/19 03/03/19 03/04/19 03/05/19 06:59 06:59 06:59 06:59 Intake Total 1000 0 5045 Balance 1000 0 5045 Weight 155 lb 165 lb 1.28 oz Intake: IV Fluids 1000 2525 NS (0.9%) 300 IVPB 2210 NS (0.9%) 2210 Oral 0 310 Other: Estimated Void Medium Date of Last Bowel 02/28/13 Movement # Bowel Movements 0 0 # Voids 0 PEX: Comfortable Lungs are clear Abd is soft and non-distended. No tenderness, very diminished bowel sounds throughout. Assessment: ?? SBO--resolved on AXR and clinically Appears on CT to have large amount of stool in rectum and rectal vault--suspect chronic constipation and fecal impaction in addition Plan: No surgical intervention at this time Advance diet as tolerated Continue cathartics-possible Miralax, may need manual disimpaction Will sign off, call if problems.
[2019-03-04 13:28] LABS: Albumin 3.7 g/dL (3.2-5.2); Indirect Bilirubin 1.3 mg/dL (0.3-1.0); Total Bilirubin 1.5 mg/dL (0.2-1.0)
[2019-03-04 13:33] LABS: Albumin/Globulin Ratio 1.5 (1-3); Globulin 2.4 g/dL (2-4); Total Protein 6.1 g/dL (6.4-8.9)
[2019-03-04] MEDS: Docusate CAP* 100 MG PO SCH ×2 (13:42→20:10)
[2019-03-04] MEDS: Polyethylene Glycol 3350* 17 GM PACKET PO SCH (13:42)
[2019-03-04] MEDS: Senna TAB 8.6 mg* TAB PO SCH (13:42)
[2019-03-04 16:58] LABS: Urine Appearance Clear; Urine Bilirubin Negative (Negative); Urine Blood Negative (Negative); Urine Color Straw; Urine Glucose Negative (Negative); Urine Ketones Negative (Negative); Urine Nitrite Negative (Negative); Urine Protein Negative (Negative); Urine Specific Gravity 1.005 (1.010-1.030); Urine Urobilinogen Negative (Negative)
--- NOTE | 2019-03-04 17:02 | PN ---
Subjective Date of Service: 03/04/19 Interval History: Tap water enema was recommended by Dr. Gomez yesterday, was ineffective due to hard stool. Suppository given yesterday. Patient feels her abdominal pain is worsened today and admits to feeling more bloated. She had a small BM which she refers to as the "poop plug." Denies nausea, vomiting, chest pain, difficulty breathing, fever/chills. Objective Active Medications: Albuterol (Ventolin Hfa Inhaler*) 2 puff INH Q4H PRN PRN Reason: SOB/WHEEZING Docusate Sodium (Colace Cap*) 100 mg PO BID [facility] Last Admin: 03/04/19 13:42 Dose: 100 mg Enoxaparin Sodium (Lovenox(*)) 40 mg SUBCUT Q24H [facility] Last Admin: 03/03/19 20:01 Dose: 40 mg Famotidine (Pepcid Tab*) 20 mg PO BID [facility]; Protocol Last Admin: 03/04/19 08:04 Dose: 20 mg Hydromorphone HCl (Dilaudid Inj1s*) 0.5 mg IV SLOW PU Q4H PRN PRN Reason: PAIN - SEVERE Last Admin: 03/02/19 09:58 Dose: 0.5 mg Ketorolac Tromethamine (Toradol Inj*) 15 mg IV PUSH Q6H PRN PRN Reason: PAIN - MILD Last Admin: 03/03/19 05:02 Dose: 15 mg Levothyroxine Sodium (Synthroid Tab*) 112 mcg PO DAILY@0600 [facility] Last Admin: 03/04/19 05:39 Dose: 112 mcg Mometasone Furoate/Formoterol Fumar (Dulera 200/5 Mdi*) 2 puff INH BID [facility] Last Admin: 03/04/19 08:07 Dose: 2 puff Ondansetron HCl (Zofran Inj*) 4 mg IV Q6H PRN PRN Reason: NAUSEA Last Admin: 03/02/19 09:58 Dose: 4 mg Polyethylene Glycol/Electrolytes (Miralax*) 17 gm PO DAILY [facility] Last Admin: 03/04/19 13:42 Dose: 17 gm Prednisone (Deltasone Tab*) 5 mg PO DAILY [facility] Last Admin: 03/04/19 08:04 Dose: 5 mg Prochlorperazine Edisylate (Compazine Inj*) 10 mg IV Q6H PRN PRN Reason: NAUSEA/VOMITING Last Admin: 03/02/19 11:44 Dose: 10 mg Senna (Senokot 8.6 Mg Tab*) 1 tab PO DAILY [facility] Last Admin: 03/04/19 13:42 Dose: 1 tab Vital Signs - 8 hr 03/04/19 03/04/19 11:15 15:15 Temperature 98.4 F 98.2 F Pulse Rate 64 71 Respiratory 16 16 Rate Blood Pressure 115/68 119/61 (mmHg) O2 Sat by Pulse 96 98 Oximetry Oxygen Devices in Use Now: None Appearance: Elderly white female who appears younger than stated age, laying in bed, appearing in NAD Eyes: No Scleral Icterus, PERRLA Ears/Nose/Mouth/Throat: Mucous Membranes Moist Neck: NL Appearance and Movements; NL JVP Respiratory: Symmetrical Chest Expansion and Respiratory Effort, Clear to Auscultation Cardiovascular: NL Sounds; No Murmurs; No JVD, RRR Abdominal: No Hepatosplenomegaly, - - Normoactive BS x4Q, abdomen is diffusely mildly tender to palp, mildly distended in upper quadrants Extremities: No Edema, No Clubbing, Cyanosis Skin: - - skin warm, dry, intact Neurological: Alert and Oriented x 3, NL Muscle Strength and Tone Result Diagrams: 03/03/19 10:20 03/03/19 10:20 Assess/Plan/Problems-Billing Assessment: 69 yo white female with PMHx diverticulitis with perforation s/p colostomy and subsequent reversal, thyroid CA s/p thyroidectomy, and asthma presents with abd pain, nausea, vomiting found to have small bowel obstruction. - Patient Problems (1) SBO (small bowel obstruction) Current Visit: No Status: Acute Code(s): K56.69 - OTHER INTESTINAL OBSTRUCTION * DO NOT USE * SNOMED Code(s): 901123821 Comment: -pt has frequent SBOs, which are likely secondary to adhesions from prior abd surgery -NG tube never given -SBO resolved on Abd plain film, but with worsened distension and abd pain today - gen surg recommended BM prior to signing off;suppository yielded only small, hard stool; giving PO bowel regimen and awaiting BM and will reasses abdomen -advanced diet from full liquid for lunch and tolareted well, will advance to regular (2) Elevated bilirubin Current Visit: Yes Status: Acute Code(s): R17 - UNSPECIFIED JAUNDICE SNOMED Code(s): 16884428 Comment: -elevated on admission, further elevated to 1.8 today -abdominal US with small gall bladder polyps, without need for follow up at this time -patient's bilirubin is always elevated in this EMR, patient likely has Gilbert' s syndrome, outpatient workup would be beneficial (3) Asthma Current Visit: No Status: Acute Code(s): J45.909 - UNSPECIFIED ASTHMA, UNCOMPLICATED SNOMED Code(s): 346573275 Comment: -no evidence of acute exacerbation -cont home dulera, rescue albuterol, and prednisone (4) Hypothyroidism Current Visit: No Status: Acute Code(s): E03.9 - HYPOTHYROIDISM, UNSPECIFIED SNOMED Code(s): 57776424 Comment: -cont po synthroid (5) DVT prophylaxis Current Visit: No Status: Acute Code(s): UZT0346 - SNOMED Code(s): 995720636 Comment: -lovenox (6) Full code status Current Visit: No Status: Acute Code(s): Z78.9 - OTHER SPECIFIED HEALTH STATUS SNOMED Code(s): 937518401 Comment:
[2019-03-04] MEDS: Enoxaparin(*) 40 MG/0.4 ML SYR SUBCUT SCH (20:10)
[2019-03-05] MEDS: Levothyroxine TAB* 112 MCG TAB PO SCH (06:26)
[2019-03-05] MEDS: Mometasone/Formoter 200/5 MDI INH SCH (07:34)
[2019-03-05] MEDS: Polyethylene Glycol 3350* 17 GM PACKET PO SCH (09:05)
[2019-03-05] MEDS: Docusate CAP* 100 MG PO SCH (09:05)
[2019-03-05] MEDS: predniSONE TAB* 5 MG PO SCH (09:06)
[2019-03-05] MEDS: Senna TAB 8.6 mg* TAB PO SCH (09:06)
[2019-03-05] MEDS: Famotidine TAB* 20 MG PO SCH (09:06)
--- NOTE | 2019-03-05 10:32 | PN ---
Subjective Date of Service: 03/05/19 Objective Active Medications: Albuterol (Ventolin Hfa Inhaler*) 2 puff INH Q4H PRN PRN Reason: SOB/WHEEZING Docusate Sodium (Colace Cap*) 100 mg PO BID [facility] Last Admin: 03/05/19 09:05 Dose: 100 mg Enoxaparin Sodium (Lovenox(*)) 40 mg SUBCUT Q24H [facility] Last Admin: 03/04/19 20:10 Dose: 40 mg Famotidine (Pepcid Tab*) 20 mg PO BID [facility]; Protocol Last Admin: 03/05/19 09:06 Dose: 20 mg Hydromorphone HCl (Dilaudid Inj1s*) 0.5 mg IV SLOW PU Q4H PRN PRN Reason: PAIN - SEVERE Last Admin: 03/02/19 09:58 Dose: 0.5 mg Ketorolac Tromethamine (Toradol Inj*) 15 mg IV PUSH Q6H PRN PRN Reason: PAIN - MILD Last Admin: 03/03/19 05:02 Dose: 15 mg Levothyroxine Sodium (Synthroid Tab*) 112 mcg PO DAILY@0600 [facility] Last Admin: 03/05/19 06:26 Dose: 112 mcg Mometasone Furoate/Formoterol Fumar (Dulera 200/5 Mdi*) 2 puff INH BID [facility] Last Admin: 03/05/19 07:34 Dose: 2 puff Ondansetron HCl (Zofran Inj*) 4 mg IV Q6H PRN PRN Reason: NAUSEA Last Admin: 03/02/19 09:58 Dose: 4 mg Polyethylene Glycol/Electrolytes (Miralax*) 17 gm PO DAILY [facility] Last Admin: 03/05/19 09:05 Dose: 17 gm Prednisone (Deltasone Tab*) 5 mg PO DAILY [facility] Last Admin: 03/05/19 09:06 Dose: 5 mg Prochlorperazine Edisylate (Compazine Inj*) 10 mg IV Q6H PRN PRN Reason: NAUSEA/VOMITING Last Admin: 03/02/19 11:44 Dose: 10 mg Senna (Senokot 8.6 Mg Tab*) 1 tab PO DAILY [facility] Last Admin: 03/05/19 09:06 Dose: 1 tab Vital Signs - 8 hr 03/05/19 03:15 Temperature 97.8 F Pulse Rate 57 Respiratory 18 Rate Blood Pressure 141/77 (mmHg) O2 Sat by Pulse 98 Oximetry Oxygen Devices in Use Now: None Result Diagrams: 03/03/19 10:20 03/03/19 10:20 Assess/Plan/Problems-Billing Assessment: 69 yo white female with PMHx diverticulitis with perforation s/p colostomy and subsequent reversal, thyroid CA s/p thyroidectomy, and asthma presents with abd pain, nausea, vomiting found to have small bowel obstruction.
[2019-03-05] MEDS ORDERED: Bisacodyl SUPP* 10 MG SUPP PR ONE (10:52)
[2019-03-05 12:20] VITALS: BP 143/69
--- NOTE | 2019-03-05 22:31 | DS ---
Amended report to enter cosigning physician. CC: Dr. Alicea* DISCHARGE SUMMARY: DATE OF ADMISSION: 03/03/19 DATE OF DISCHARGE: 03/05/19 PRIMARY CARE PHYSICIAN: Dr. Alicea. PROVIDER: Dandre Gates NP. ATTENDING PHYSICIAN: Dr. Bebeto Balbuena* (dictated by Dandre Gates NP). CONSULTING PROVIDER: Dr. Jl Gomez. PRIMARY DISCHARGE DIAGNOSES: 1. Small bowel obstruction. 2. Chronic constipation. 3. Elevated bilirubin. SECONDARY DISCHARGE DIAGNOSES: 1. Perla fundoplication with subsequent revision. 2. History of recurrent diverticulitis, status post partial colectomy with colostomy and subsequently reversal. 3. History of thyroid cancer. 4. Asthma. 5. Hysterectomy. 6. Thyroidectomy. HOME MEDICATIONS AT DISCHARGE: 1. Cyanocobalamin 500 mcg every other week. 2. Multivitamin 1 tab daily. 3. Senna 8.6 mg 2 tabs q.p.m. 4. Ranitidine 150 mg b.i.d. 5. Levothyroxine 112 mcg q.a.m. 6. Cetirizine 10 mg q.p.m. 7. Calcium with vitamin D3 one tab q.a.m. 8. Albuterol 2 puffs inhale q.4 hours p.r.n. 9. Fasenra 30 mg as directed. 10. Prolia 60 mg q.6 months. 11. Dulera 2 puffs inhale b.i.d. 12. Prinivil 5 mg daily. 13. MiraLAX 17 g daily. 14. Docusate 100 mg b.i.d. HOSPITAL COURSE OF STAY: For full details, please refer to the H and P provided by Dr. Raya on 03/02/19. In summary, Ms. Benavides is a 69-year-old female who presented with concern for abdominal pain and vomiting. She was evaluated in the ER and was felt to have a small obstruction. She was seen in consultation by Surgery, treated conservatively with medical management, has appropriately responded. She is now tolerating p.o. intake. She was seen by Surgery and recommended to have aggressive bowel regimen to help with chronic constipation, which was seen on x-ray with large amounts of stool in the colon, as well as concern for potential fecal impaction. She received a tap water enema and suppositories and was noted to have 1 small bowel movement on , 03/04/19 and another large bowel movement today on 03/05/19. She was passing lot of gas, tolerating p.o. intake including regular diet, and feels ready for discharge to home. She was advised to continue an aggressive bowel regimen to help continue emptying her bowel. On the day of discharge, she denies any fever, chills, abdominal pain, nausea, vomiting, chest pain, difficulty breathing, or dysuria. PHYSICAL EXAMINATION: Vital signs: Temperature 98.3, heart rate 68, respiratory rate 18, blood pressure 143/69, O2 saturation 96% on room air. HEENT: Head is atraumatic, normocephalic. Pupils are equal, round, and reactive to light. Oral mucosa is moist. Neck is supple. Cardiac: Regular rate and rhythm with normal S1, S2 heart sounds. Lungs are clear to auscultation bilaterally. Abdomen is soft, nontender, mildly distended. Bowel sounds are normoactive for all 4 quadrants. Extremities: Without edema, clubbing, or cyanosis. Pedal pulses are intact at 2+ bilaterally. Skin is warm , dry, and intact. Neuro: She is alert and oriented x3. Cranial nerves II through XII are grossly intact. No focal deficit. Speech is clear. OUTPATIENT FOLLOWUP NEEDS: She is to follow up with her PCP within 7 to 10 days. She is appropriately having bowel movements. Per imaging, she does have quite a bit of stool in her bowel and advised to continue with her bowel medications to encourage more frequent bowel movements while at home to ensure that she does not run the risk of obstructing again or becoming obstipated. In regards to her elevated bilirubin, she is advised to follow up with her PCP. She does notably have persistently elevated bilirubin and is recommended to have outpatient followup. DIET: Recommended a GI soft diet, advance as tolerated. CONDITION: Stable. ACTIVITY: As tolerated. DISPOSITION: To home. TIME SPENT: Approximately 40 minutes was spent on this discharge. Again, this is only a brief summary of the patient's hospital course of stay. For full details, please refer to the full medical record. If you have any further questions or need further assistance, please feel free to contact me at [phone]. DANDRE GATES, PRECISION LATHE OPERATOR [id number]/[facility] #: [id number] [place]
== END 2019-03-05 15:20 | disposition home or self-care (01) | DRG 390 ==
LOC: ED 04:01 → MED 09:41 → OBSVTOIN 03-03 16:00
PROVIDERS: ADMIT Hospitalist; ATTEND Internal Medicine
DX: K56.609 Unspecified intestinal obstruction, unspecified as to partial versus complete obstruction (principal); K56.41 Fecal impaction; E80.7 Disorder of bilirubin metabolism, unspecified; K57.90 Diverticulosis of intestine, part unspecified, without perforation or abscess without bleeding; M81.0 Age-related osteoporosis without current pathological fracture; H26.9 Unspecified cataract; J45.909 Unspecified asthma, uncomplicated; E89.0 Postprocedural hypothyroidism; K21.9 Gastro-esophageal reflux disease without esophagitis; Z90.49 Acquired absence of other specified parts of digestive tract; Z85.850 Personal history of malignant neoplasm of thyroid; Z90.710 Acquired absence of both cervix and uterus; Z79.890 Hormone replacement therapy; Z88.5 Allergy status to narcotic agent; Z88.0 Allergy status to penicillin; Z88.7 Allergy status to serum and vaccine; Z87.01 Personal history of pneumonia (recurrent); Z92.3 Personal history of irradiation; Z82.49 Family history of ischemic heart disease and other diseases of the circulatory system; Z72.89 Other problems related to lifestyle; Z82.69 Family history of other diseases of the musculoskeletal system and connective tissue
CPT/HCPCS: 36415; 74018; 74177; 76705; 80053; 80076; 81003; 82150; 82247; 82248; 83690; 83735; 85025; 85610; 85730; 86140; 94640; 99285; A9270-GY; G0378; J0780; J1170; J1650; J1720; J1885; J2270; J2405; J7512; Q9967

== ENCOUNTER 2019-09-03 18:26 | Inpatient (IN) | payer MEDICARE ==
--- NOTE | 2019-09-03 18:59 | ED ---
Abdominal Pain/Female - HPI Summary HPI Summary: This patient is a 69 year old F brought to [facility] with a chief complaint of abdominal pain since 1400 this afternoon 09/03/19. Symptoms aggravated by nothing. Symptoms alleviated by nothing. Patient reports vomiting (started when EMS came around 1700 today) and lightheadedness. Hx bowel obstructions due to several past surgeries (perforated bowel, ostomy, hernia surgery 2x (2nd due to complications of 1st)). Reports surgeon is Dr. Luis in [place] due to bad hx asthma and breathing issues. Last September, pt reports she started getting Fasenra shots for asthma greatly alleviating breathing symptoms . - History of Current Complaint Chief Complaint: EDAbdPain Stated Complaint: ABD PAIN PER EMS Time Seen by Provider: 09/03/19 18:40 Hx Obtained From: Patient Onset/Duration: Lasting Hours, Still Present Timing: Constant Severity Currently: Mild Pain Intensity: 6 Pain Scale Used: 0-10 Numeric Aggravating Factor(s): Nothing Alleviating Factor(s): Nothing Associated Signs and Symptoms: Positive: Vomiting, Other: - lightheadedness Allergies/Adverse Reactions: Allergies Allergy/AdvReac Type Severity Reaction Status Date / Time amoxicillin Allergy Severe Shortness Verified 05/28/19 14:27 of Breath Influenza Virus Vaccines Allergy Severe Shortness Verified 05/28/19 14:27 of Breath Penicillins Allergy Intermediate Hives Verified 05/28/19 14:27 morphine AdvReac hypotension Verified 05/28/19 14:27 PMH/Surg Hx/FS Hx/Imm Hx Endocrine/Hematology History: Reports: Hx Thyroid Disease - thyroidectomy d/t ca Denies: Hx Diabetes Cardiovascular History: Denies: Hx Hypertension, Hx Pacemaker/ICD Respiratory History: Reports: Hx Asthma, Hx Chronic Bronchitis, Hx Pneumonia, Hx Seasonal Allergies, Other Respiratory Problems/Disorders - PNA Denies: Hx Chronic Obstructive Pulmonary Disease (COPD) GI History: Reports: Hx Diverticulosis - perforated x1, Hx Hiatal Hernia - repair x2, Hx Obstructive Bowel, Hx Ileostomy - Reversal complete, Other GI Disorders - Hx perforated bowel Denies: Hx Ulcer History: Denies: Hx Renal Disease Musculoskeletal History: Reports: Hx Orthopedic Injury, Hx Osteoporosis Sensory History: Reports: Hx Cataracts Denies: Hx Contacts or Glasses, Hx Hearing Aid Opthamlomology History: Reports: Hx Cataracts Denies: Hx Contacts or Glasses Neurological History: Denies: Hx Seizures Psychiatric History: Denies: Hx Anxiety, Hx Depression, Hx Panic Disorder, Hx Substance Abuse - Cancer History Cancer Type, Location and Year: Thyroid, 2006 Hx Chemotherapy: No Hx Radiation Therapy: Yes - THYROID - Surgical History Surgery Procedure, Year, and Place: Hiatal hernia repair x2; thyroidectomy ( [facility]) ; tonsilectomy/sinus surgery; hysterectomy, T&A, REFLUX SURGERY ([facility]) 07/2012 WITH REVISION 12/2012. PERFORATED BOWEL WITH COLOSTOMY THEN REMOVED Hx Anesthesia Reactions: No Infectious Disease History: No Infectious Disease History: Denies: Hx Clostridium Difficile, Hx Hepatitis, Hx Human Immunodeficiency Virus (HIV), Hx of Known/Suspected MRSA, Hx Shingles, Hx Tuberculosis, History Other Infectious Disease, Traveled Outside the [place] in Last 30 Days - Family History Known Family History: Positive: Hypertension Negative: Diabetes - Social History Alcohol Use: Rare Hx Substance Use: No Substance Use Type: Reports: None Hx Tobacco Use: No Smoking Status (MU): Former Smoker Review of Systems Positive: Abdominal Pain, Vomiting Neurological/Mental Status: Other - lightheadedness All Other Systems Reviewed And Are Negative: Yes Physical Exam - Summary Physical Exam Summary: Appearance: The patient is well-nourished in no acute distress and in no acute pain. Skin: The skin is warm and dry, and skin color reflects adequate perfusion. HEENT: The head is normocephalic and atraumatic. The pupils are equal and reactive. The conjunctivae are clear and without drainage. Nares are patent and without drainage. Mouth reveals moist mucous membranes, and the throat is without erythema and exudate. The external ears are intact. The ear canals are patent and without drainage. The tympanic membranes are intact. Neck: The neck is supple with full range of motion and non-tender. There are no carotid bruits. There is no neck vein distension. Respiratory: Chest is non-tender. Lungs are clear to auscultation and breath sounds are symmetrical and equal. Cardiovascular: Heart is regular rate and rhythm. There is no murmur or rub auscultated. There is no peripheral edema and pulses are symmetrical and equal. Abdomen: diffuse tenderness tympanitic, normal bowel sounds Musculoskeletal: There is no back tenderness noted. Extremities are non-tender with full range of motion. There is good capillary refill. There is no peripheral edema or calf tenderness elicited. Neurological: Patient is alert and oriented to person, place and time. The patient has symmetrical motor strength in all four extremities. Cranial nerves are grossly intact. Deep tendon reflexes are symmetrical and equal in all four extremities. Psychiatric: The patient has an appropriate affect and does not exhibit any anxiety or depression. Triage Information Reviewed: Yes Vital Signs On Initial Exam: Initial Vitals Temp Pulse Resp BP Pulse Ox 98.6 F 87 16 107/69 95 09/03/19 18:35 09/03/19 18:35 09/03/19 18:35 09/03/19 18:35 09/03/19 18:35 Vital Signs Reviewed: Yes Procedures - Sedation Patient Received Moderate/Deep Sedation with Procedure: No Diagnostics - Vital Signs Vital Signs Temp Pulse Resp BP Pulse Ox 09/03/19 18:35 98.6 F 87 16 107/69 95 - Laboratory Result Diagrams: 09/04/19 08:16 09/04/19 08:16 Lab Statement: Any lab studies that have been ordered have been reviewed, and results considered in the medical decision making process. - Radiology Abdomen X-Ray Radiology Interpretation Completed By: ED Physician Summary of Radiographic Findings: Non-specific gas pains and severe scoliosis. Pending offical review. Abdominal Pain Fem Course/Dx - Course Course Of Treatment: Ms. Benavides was found to have a mildly elevated WBC and her plain x-ray is equivocal. It is likely that she has an SBO and we are waiting for her CT results. She has had some pain and nausea medication and fluids and feels somewhat better. - Diagnoses Provider Diagnoses: SBO (small bowel obstruction), Elevated troponin Discharge ED - Sign-Out/Discharge Documenting (check all that apply): Sign-Out Patient Signing out patient TO: Griselda Hemphill - Discharge Plan Condition: Stable Disposition: ADMITTED TO [facility] - Billing Disposition and Condition Condition: STABLE Disposition: Admitted to [facility] - Attestation Statements Document Initiated by Scribe: Yes Documenting Scribe: Willian Moura Provider For Whom Scribe is Documenting (Include Credential): Dr. Obi Reyes MD Scribe Attestation: Sue Bennett Marco Disanto, scribed for Dr. Obi Reyes MD on 09/04/19 at 1214. Scribe Documentation Reviewed: Yes Provider Attestation: The documentation as recorded by the scribe, Willian Moura accurately reflects the service I personally performed and the decisions made by me, Dr. Obi Reyes MD Status of Scribandrew Document: Viewed
--- OUTSIDE RECORDS SUMMARY | 2019-09-03 19:07 | XMS REPORT | Continuity of Care Document ---
:1950 External Reference #:[id number] Author Name Vin Blancas MD (transmitted by agent of provider Lorraine Alcantar) Address [address] [place] [id number] Problems Active Problems Provider Date Closed fracture of head of radius Cleveland Diop M.D. Onset: 02/21/2015 Nondisplaced fracture of head of right Cleveland Diop M.D. Onset: 04/10/2015 radius, subsequent encounter for closed fracture with routine healing Ulnar collateral ligament sprain of right Cleveland Diop M.D. Onset: 04/10/2015 elbow, subsequent encounter Wrist joint pain Bebeto Bazan MD Onset: 12/04/2016 Inflammatory polyarthropathy Bebeto Bazan MD Onset: 12/04/2016 Nondisplaced fracture of base of third Bebeto Bazan MD Onset: 12/04/2016 metacarpal bone, right hand, initial encounter for closed fracture Exacerbation of asthma Liu Casanova N.Cecilia Onset: 12/24/2017 Hypothyroidism Liu Casanova N.PKenisha Onset: 12/24/2017 Gastroesophageal reflux disease Liu Casanova N.Cecilia Onset: 12/24/2017 History of malignant neoplasm of endocrine Liu Casanova N.Cecilia Onset: 12/24 gland Exacerbation of severe persistent asthma Karol Raya D.O. Onset: 2017 Social History Type Date Description Comments Sex Unknown ETOH Use Rarely consumes alcohol Tobacco Use Start: Unknown Patient has never smoked Recreational Drug Use Denies Drug Use Smoking Status Reviewed: 08/04/19 Patient has never smoked Exercise Type/Frequency Exercises regularly walk up to [id number] steps per day. Allergies, Adverse Reactions, Alerts Active Allergies Reaction Severity Comments Date Penicillins shortness fo breath 02/21/2015 Amoxicillin rash 02/21/2015 Flu Virus Vaccine asthma exacerbation/SOB 02/21/2015 Theophylline jittery 08/04/2019 Morphine precipitous drop in BP 08/04/2019 Medications Active Medications SIG Qnty Indications Ordering Date Provider Voltaren apply 2 grams 200units M25.531 Sohail Jacobo, 01/15/2017 1% Gel twice daily as M.D. needed for pain to the hands Fasenra sq every 8 wks Unknown 30mg/ml Soln Prefill Syringe Zyrtec Allergy take one tablet Unknown 10mg by mouth in the Capsules evening Ranitidine HCL take one tablet Unknown 150mg by mouth twice Tablets a day Gentamicin Sulfate apply 2 drops Unknown 0.3% to both eyes Solution three times a day Prednisolone Acetate Unknown 1% Suspension Vitamin B12 1 by mouth Unknown 1000mcg Tablets every day ER Lorazepam 1/2 to 1 Unknown 0.5mg Tablets tablets at night as needed for anxiety Vitamin D3 take 1 capsule Unknown 1.25mg (41071 by mouth once Ut) Capsules weekly Ibuprofen as needed Unknown 200mg Capsules Colace 1 tab by mouth Unknown 100mg Capsules 2-3 times a day as needed Mom prn Unknown Proair HFA 2 puffs by Unknown 108(90Base) mouth every 4 mcg/Act Aerosol hours as needed Dulera Unknown 200-5mcg/Act Aerosol Calcium 1000 + D once daily Unknown [id number] Tablets Prednisone 5 mg daily for Unknown 5mg Tablets asthma Levocetirizine 1 by mouth Unknown Dihydrochloride every day 5mg Tablets Prolia 60 mg sc q6mon Unknown 60mg/ml Solution Xopenex every 4-6 hours Unknown 0.63mg/3ML as needed Nebulizer Levothyroxine Sodium 1 by mouth Unknown 112mcg every day Tablets Immunizations Description No Information Available Vital Signs Date Vital Result Comment 08/04/2019 11:16am Height 68 inches 5'8" Weight 161.00 lb w/ shoes Heart Rate 65 /min BP Systolic Sitting 131 mmHg BP Diastolic Sitting 76 mmHg BMI (Body Mass Index) 24.5 kg/m2 02/28/2017 12:59pm Height 68 inches 5'8" Weight 155.12 lb Heart Rate 80 /min BP Systolic Sitting 144 mmHg BP Diastolic Sitting 80 mmHg Respiratory Rate 14 /min Pain Level 4 BMI (Body Mass Index) 23.6 kg/m2 Results Test Acquired Date Facility Test Result H/L Range Note Basic Metabolic 05/11/2019 [facility] Sodium 141 mmol/L Normal 135-[address] [place] [address] [phone] Potassium 4.5 mmol/L Normal 3.5-5.0 Chloride 104 mmol/L Normal 101-111 Co2 Carbon Dioxide 30 mmol/L Normal 22-32 Anion Gap 7 mmol/L Normal 2-11 Glucose 101 mg/dL High 70-100 Blood Urea Nitrogen 14 mg/dL Normal 6-24 Creatinine 0.79 mg/dL Normal 0.51-0.95 BUN/Creatinine Ratio 17.7 Normal 8-20 Calcium 9.8 mg/dL Normal 8.6-10.3 Egfr Non- 71.7 >60 Egfr 86.8 >60 1 Laboratory 05/11/2019 [facility] TSH (Thyroid 2.00 Normal 0.34 -5.60 2 test finding [address] Stim Horm) mcIU/[place] [address] [phone] Vitamin D Total 25(Oh) 35.4 ng/mL Normal 20-50 3 1 Because ethnic data is not always readily available, this report includes an eGFR for both -Americans and non- Americans. The National Kidney Disease Education Program (NKDEP) does not endorse the use of the MDRD equation for patients that are not between the ages of 18 and 70, are , have extremes of body size, muscle mass, or nutritional status, or are non- or non-. According to the National Kidney Foundation, irrespective of diagnosis, the stage of the disease is based on the level of kidney function: Stage Description GFR(mL/min/1.73 m(2)) 1 Kidney damage with normal or decreased GFR 90 2 Kidney damage with mild decrease in GFR 60-89 3 Moderate decrease in GFR 30-59 4 Severe decrease in GFR 15-29 5 Kidney failure <15 (or dialysis) 2 Copy Result to: Vin BLANCAS ([id number]) [id number] 3 Total 25-Hydroxyvitamin D2 and D3 (25-OH-VitD) <10 ng/mL (severe deficiency) 10-19 ng/mL (mild to moderate deficiency) 20-50 ng/mL (optimum levels) 51-80 ng/mL (increased risk of hypercalciuria) >80 ng/mL (toxicity possible) Procedures Description No Information Available Medical Devices Description No Information Available Encounters Type Date Location Provider Dx Diagnosis Office Visit 03/05/2019 [facility] Coty Patterson, K56.609 Unsp intestnl 9:02a Assestela luong NP obst, unsp as to Hospitalists partial versus complete obst R17 Unspecified jaundice Office Visit 03/04/2019 7:00a [facility] SKenisha K56.41 F[facility] Gomez MD K59.00 Constipation, unspecified Office Visit 03/04/2019 9:01a [facility] Mita K56.609 Unsp intestnl Assestela luong PA-C obst, unsp as Hospitalists to partial versus complete obst R17 Unspecified jaundice E03.9 Hypothyroidism, unspecified Office Visit 03/03/2019 [facility]. K56.609 Unsp intestnl 7:00a [facility] MD obst, unsp as to partial versus complete obst Office Visit 03/03/2019 [facility] Mita Martinez K56.609 Unsp intestnl 9:00a Assestela luong PA-C obst, unsp as Hospitalists to partial versus complete obst R17 Unspecified jaundice Office Visit 03/02/2019 [facility] SKenisha K56.609 Unsp intestnl 7:00a [facility] MD obst, unsp as to partial versus complete obst Office Visit 03/02/2019 [facility] Karol Elver, R10.9 Unspecified 9:00a Assoc,estela D.OKenisha abdominal pain Hospitalists K56.609 Unsp intestnl obst, unsp as to partial versus complete obst Assessments Date Code Description Provider 03/05/2019 K56.609 Unspecified intestinal obstruction, Coty Patterson, JASON unspecified as to partial versus complete obstruction 03/05/2019 R17 Unspecified jaundice Coty Patterson, JASON 03/04/2019 K56.609 Unspecified intestinal obstruction, Mita Martinez PA-C unspecified as to partial versus complete obstruction 03/04/2019 K56.41 Fecal impaction Jl Gomez MD 03/04/2019 R17 Unspecified jaundice MARLENE Almendarez-C 03/04/2019 K59.00 Constipation, unspecified Jl Gomez MD 03/04/2019 E03.9 Hypothyroidism, unspecified Mita Martinez PA-C 03/03/2019 K56.609 Unspecified intestinal obstruction, Mita Martinez PA-C unspecified as to partial versus complete obstruction 03/03/2019 K56.609 Unspecified intestinal obstruction, Jl Gomez MD unspecified as to partial versus complete obstruction 03/03/2019 R17 Unspecified jaundice MARLENE Almendarez-C 03/02/2019 R10.9 Unspecified abdominal pain Karol Raya D.O. 03/02/2019 K56.609 Unspecified intestinal obstruction, Jl Gomez MD unspecified as to partial versus complete obstruction 03/02/2019 K56.609 Unspecified intestinal obstruction, Karol Raya D.O. unspecified as to partial versus complete obstruction Plan of Treatment Future Appointment(s):02/02/2020 1:20 pm - Vin Blancas MD at [facility] Functional Status Description No Information Available Mental Status Description No Information Available Referrals Description No Information Available
--- OUTSIDE RECORDS SUMMARY | 2019-09-03 19:07 | XMS REPORT | Summary of Care ---
:1950 Author Organization [facility] Address [address] [place] [address] Care Team Providers Name Role Phone Doris Alicea MD Primary Care Provider Reason for Visit Reason Comments Follow-up Severe Asthma Medication (Routine) Status Reason Specialty Diagnoses / Referred By Contact Referred To Procedures Contact Authorized Infusion Therapy Diagnoses Other asthma Rheumatology And Procedures [place] INJ., BENRALIZUMAB, 1 MG Infusion Private Practice [facility] 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 unspecified whether [address] [place], [place] persistent ([place] [phone] Dx) [phone] Allergies Active Allergy Reactions Severity Noted Date Comments Amoxicillin Hives, Shortness Of High Breath, Rash Influenza A (H1n1) Shortness Of Breath High 04/07/2012 Monoval Vac Morphine And Related Other (See Comments) High 11/15/2017 hypotension Penicillins Hives, Rash Low Sesame Oil Anaphylaxis High 05/05/2012 Theophylline 11/30/2003 Very Jittery, Cannot Tolerate documented as of this encounter (statuses as of 08/23/2019) Medications Medication Sig Dispensed Refills Start Date End Date Status EPINEPHrine (EPIPEN) Inject 2 pens as 0 02/24/2013 Active 0.3 MG/0.3ML directed as DEVIIndications: needed. Anaphylaxis Indications: Life-Threatening Allergic Reaction Denosumab (PROLIA) 60 Inject 60 mg into 0 05/31/2013 Active MG/ML the skin every 6 SOLNIndications: (six) months. Osteoporosis Indications: Osteoporosis cyanocobalamin Inject 1,000 mcg 0 Active (VITAMIN B12) 1000 into the muscle MCG/ML injection every 14 (fourteen) days vitamin D Take 50,000 Units 0 Active (ERGOCALCIFEROL) by mouth every 14 56553 units capsule (fourteen) days On fridays cetirizine (ZYRTEC) Take 10 mg by 0 Active 10 MG tablet mouth nightly ranitidine (ZANTAC) Take 150 mg by 0 11/27/2017 Active 150 MG tablet mouth Two Times Daily polyethylene glycol Take 17 g by mouth 0 Active (MIRALAX) packet daily as needed Calcium-Vitamin D Take 1 tablet by 0 Active 600-200 MG-UNIT per mouth daily tablet levothyroxine Take 100 mcg by 0 Active (SYNTHROID, mouth Daily LEVOTHROID) 100 MCG tablet Sennosides (SENNA) Take 2 tablets by 0 Active 8.6 MG TABS tablet mouth nightly as needed polyvinyl alcohol Place 1 drop into 0 Active (LIQUIFILM TEARS) 1.4 both eyes daily as % ophthalmic solution needed ipratropium-albuterol Take 3 mLs by 360 mL 0 04/23/2018 Active (DUONEB) 0.5-2.5 (3) nebulization every MG/3ML SOLN 8 (eight) hours levothyroxine 0 06/11/2018 Active (SYNTHROID, LEVOTHROID) 112 MCG tablet EPINEPHrine (EPIPEN Inject 0.3 mLs 0.3 mL 0 09/22/2018 Active 2-KELLEN) 0.3 MG/0.3ML into the muscle as injection needed Take with you to Fasenra injections DULERA 200-5 MCG/ACT USE 1 PUFF TWO 1 Inhaler 11 01/19/2019 Active inhaler TIMES DAILY predniSONE Take 4 tb/day for 200 tablet 2 05/16/2019 Active (DELTASONE) 1 MG 1 mo; 3 tb/day for tablet 1 mo; 2 tb/day for 1 mo; then 1 mg/day for 1 mo, then off. predniSONE 10 MG Oral Take 4 tb for 5 70 tablet 0 07/04/2019 Active Tablet (DELTASONE) days; 3 tb for 3 days; 2 tb for 3 days; 1 tb for 3 days. Albuterol Sulfate HFA Inhale 2 puffs 1 Inhaler 9 08/19/2019 Active 108 (90 Base) MCG/ACT into the lungs Inhalation Aerosol every 6 (six) Solution (PROAIR HFA) hours as needed for Wheezing Hospital, Clinic, or Other Ordered Dose Route Frequency Start Date End Date Status Facility Administered Medication Zoledronic Acid SOLN 5 5 mg IV YEARLY 04/07/2012 Active mgIndications: Senile osteoporosis, Adrenal cortical steroids causing adverse effect in therapeutic use documented as of this encounter (statuses as of 08/23/2019) Active Problems Patient Care Coordination Note 02/06/[address] [facility] uploaded into synapse and returned by mail to the pt. Problem Noted Date Small bowel obstruction due to adhesions 04/20/2018 SBO (small bowel obstruction) 11/16/2017 S/P colostomy takedown 06/10/2014 H/O noncompliance with medical treatment, presenting hazards to health 2013 Overview: Non-compliance with advair because of financial duress (she could not afford the diductable). Colostomy in place 11/25/2013 Encounter for attention to colostomy 11/25/2013 S/P colostomy 11/04/2013 Overview: Date of colostomy: 10/25/13 S/P Kd's procedure 10/26/2013 Diverticulitis with perforation 10/25/2013 Respiratory failure 10/25/2013 Epigastric pain 06/01/2013 Slipped Ana fundoplication 12/08/2012 Dysphagia 11/24/2012 Abdominal pain, other specified site 09/01/2012 Postop check 08/18/2012 GERD (gastroesophageal reflux disease) 06/30/2012 Asthma exacerbation 06/09/2012 Hiatal hernia 05/05/2012 Asthma 04/07/2012 Gastroesophageal reflux disease 04/07/2012 Thyroid cancer 04/07/2012 Osteoporosis 02/13/2012 documented as of this encounter (statuses as of 08/23/2019) Social History Tobacco Use Types Packs/Day Years Used Date Never Smoker Smokeless Tobacco: Never Used Alcohol Use Drinks/Week oz/Week Comments Yes rarely Sex Assigned at Date Recorded Not on file Job Start Date Occupation Industry Not on file Not on file Not on file Travel History Travel Start Travel End No recent travel history available. documented as of this encounter Last Filed Vital Signs Vital Sign Reading Time Taken Comments Blood Pressure 144/81 08/19/2019 1:01 PM EST Pulse 62 08/19/2019 1:01 PM EST Temperature 36.2 08/19/2019 1:01 PM EST C (97.1 F) Respiratory Rate - - Oxygen Saturation 97% 08/19/2019 1:01 PM EST Inhaled Oxygen Concentration - - Weight 72.7 kg (160 lb 3.2 oz) 08/19/2019 1:01 PM EST Height 171.1 cm (5' 7.36") 08/19/2019 1:01 PM EST Body Mass Index 24.82 08/19/2019 1:01 PM EST documented in this encounter Patient Instructions Patient InstructionsStHussein sanchez NP - 08/19/2019 1:00 PM ESTReturn in 8 weeks for a follow up with Dr. Kidd and your next Fesenra injection. documented in this encounter Progress Notes Hussein Magana NP - 08/19/2019 1:00 PM EST Patient Name: Ela Benavides Date of : 1950 PCP: Doris Alicea MD Subjective: Reason for Visit: Followup for severe persistent asthma; fasenra History of Present Illness: Ela Benavides is a 69 y.o. female who is followed in our office for severe persistent asthma, referred by Dr. Dutta for treatment with Fasenra. She began the induction dosing of Fasenra on 10/10/18 with 3 injections given every 4 weeks. Interval History: Today Ela is seen in follow up. She reports that she has been using he rescue inhaler about two to three times a week and that this is much less than prior to the start of her infusions. She remains on 5 mg of Prednisone daily and states she is unable to taper off the prednisonedue to joint and muscle pain symptoms and her level of energy. 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 She has her Epipen ( exp 10/2019) with her. She states she is going to see about getting another prescription for a new Epipen before her next injection. She denies any oral ulcers, skin rash, alopecia, dry mouth, dry eyes , psoriasis, gout, stroke, or signs and symptoms of a DVT and denies any recent falls, trauma, injury, fevers or chills. Past Medical History: Diagnosis Date Allergy, unspecified not elsewhere classified Anxiety Gastroesophageal reflux disease Hiatal hernia Osteoporosis Severe asthma Thyroid cancer Past Surgical History: Procedure Laterality Date BRONCHOSCOPY COLECTOMY/COLON RESECTION N/A 06/10/2014 Procedure: OPEN LAPOROTOMY, stoma takedown, REANASTAMOSIS /PER DR LUIS; Surgeon : Aidan Luis MD; Location: OR [facility]; Service: General; Laterality: N/A; COLONOSCOPY EXPLORATORY LAPAROTOMY N/A 10/24/2013 Procedure: ; SIGMOID COLON RESECTION AND COLOSTOMY PER DR. LUIS; Surgeon: Aidan Luis MD; Location: OR [facility]; Service: General; Laterality: N/A; HEMICOLECTOMY W/ OSTOMY Left 10/24/2013 HYSTERECTOMY 1993 LAPAROSCOPIC ANA FUNDOPLICATION 2013 times 2 [place] COLONOSCOPY FLX DX W/COLLJ SPEC WHEN PFRMD N/A 04/14/2014 Procedure: COLONOSCOPY, FLEXIBLE, PROXIMAL TO SPLENIC FLEXURE DX, W/WO SPECIMENS/COLON DECOMP (SEP PROC); Surgeon: Aidan Luis MD; Location: OR [facility] ; Service: General; Laterality: N/A; WY CYSTOSCOPY,INSERT URETERAL STENT N/A 06/10/2014 Procedure: CYSTOURETHROSCOPY, W/INSERTION, INDWELLING URETERAL STENT; Surgeon : Desiree Diego MD; Location: OR [facility]; Service: Urology; Laterality: N/ A; SINUS SURGERY 2008 THYROIDECTOMY 2007 TONSILLECTOMY 2008 TUBAL LIGATION 1979 Family History Problem Relation Age of Onset Cancer Sister thyroid Thyroid cancer Sister Asthma Son Brain cancer Mother Kidney disease Father Asthma Sister Thyroid cancer Sister Endometrial cancer Sister No Known Problems Daughter No Known Problems Daughter Breast cancer Cousin Social History Tobacco Use Smoking status: Never Smoker Smokeless tobacco: Never Used Substance Use Topics Alcohol use: Yes Comment: rarely Drug use: No Allergies Allergen Reactions Amoxicillin Hives, Shortness Of Breath and Rash Influenza A (H1n1) Monoval Vac Shortness Of Breath Morphine And Related Other (See Comments) hypotension Sesame Oil Anaphylaxis Theophylline Very Jittery, Cannot Tolerate Penicillins Hives and Rash Current Outpatient Medications Medication Sig Dispense Refill Albuterol Sulfate HFA 108 (90 Base) MCG/ACT Inhalation Aerosol Solution ( PROAIR HFA) Inhale 2puffs into the lungs every 6 (six) hours as needed for Wheezing 1 Inhaler 9 Calcium-Vitamin D 600-200 MG-UNIT per tablet Take 1 tablet by mouth daily cetirizine (ZYRTEC) 10 MG tablet Take 10 mg by mouth nightly cyanocobalamin (VITAMIN B12) 1000 MCG/ML injection Inject 1,000 mcg into the muscle every 14 (fourteen) days Denosumab (PROLIA) 60 MG/ML SOLN Inject 60 mg into the skin every 6 (six ) months. Indications: Osteoporosis DULERA 200-5 MCG/ACT inhaler USE 1 PUFF TWO TIMES DAILY 1 Inhaler 11 EPINEPHrine (EPIPEN 2-KELLEN) 0.3 MG/0.3ML injection Inject 0.3 mLs into the muscle as needed Take with you to Fasenra injections 0.3 mL 0 EPINEPHrine (EPIPEN) 0.3 MG/0.3ML ANNIKA Inject 2 pens as directed as needed. Indications: Life-Threatening Allergic Reaction ipratropium-albuterol (DUONEB) 0.5-2.5 (3) MG/3ML SOLN Take 3 mLs by nebulization every 8 (eight) hours 360 mL 0 levothyroxine (SYNTHROID, LEVOTHROID) 100 MCG tablet Take 100 mcg by mouth Daily levothyroxine (SYNTHROID, LEVOTHROID) 112 MCG tablet polyethylene glycol (MIRALAX) packet Take 17 g by mouth daily as needed polyvinyl alcohol (LIQUIFILM TEARS) 1.4 % ophthalmic solution Place 1 drop into both eyes daily as needed predniSONE (DELTASONE) 1 MG tablet Take 4 tb/day for 1 mo; 3 tb/day for 1 mo; 2 tb/day for 1 mo; then 1 mg/day for 1 mo, then off. 200 tablet 2 predniSONE 10 MG Oral Tablet (DELTASONE) Take 4 tb for 5 days; 3 tb for 3 days; 2 tb for 3 days; 1 tb for 3 days. 70 tablet 0 ranitidine (ZANTAC) 150 MG tablet Take 150 mg by mouth Two Times Daily Sennosides (SENNA) 8.6 MG TABS tablet Take 2 tablets by mouth nightly as needed vitamin D (ERGOCALCIFEROL) 14955 units capsule Take 50,000 Units by mouth every 14 (fourteen)days On fridays Review of Systems Constitutional: Negative for activity change, appetite change, chills, diaphoresis, fatigue, fever and unexpected weight change. HENT: Negative for congestion, ear pain, mouth sores, nosebleeds, rhinorrhea, sneezing and sore throat. Eyes: Negative for discharge and visual disturbance. Respiratory: Negative for cough, shortness of breath and wheezing. Cardiovascular: Negative for chest pain, palpitations and leg swelling. Gastrointestinal: Positive for constipation. Negative for abdominal distention, abdominal pain, blood in stool, diarrhea, nausea and vomiting. Has been taking Milk of Magnesia and this has helped her with her constipation. Endocrine: Negative for cold intolerance, polydipsia, polyphagia and polyuria. Genitourinary: Negative for difficulty urinating, dysuria, frequency, hematuria and urgency. Musculoskeletal: Negative for arthralgias, back pain, myalgias and neck pain. Skin: Negative for color change, rash and wound. Neurological: Negative for dizziness, tremors, weakness, light-headedness and headaches. Hematological: Negative for adenopathy. Does not bruise/bleed easily. Psychiatric/Behavioral: Negative. Objective: Visit Vitals BP 144/81 Pulse 62 Temp 36.2 C (97.1 F) (Tympanic) Ht 1.711 m (5' 7.36") Wt 72.7 kg (160 lb 3.2 oz) LMP 07/21/1992 SpO2 97% BMI 24.82 kg/m Physical Exam Vitals signs and nursing note reviewed. Constitutional: Appearance: She is well-developed, well-groomed and normal weight. HENT: Head: Normocephalic and atraumatic. Right Ear: External ear normal. Left Ear: External ear normal. Mouth/Throat: Lips: [place]. No lesions. Eyes: General: Vision grossly intact. No scleral icterus. Neck: Musculoskeletal: Normal range of motion and neck supple. Cardiovascular: Rate and Rhythm: Normal rate and regular rhythm. Pulses: Posterior tibial pulses are 2+ on the right side and 2+ on the left side. Heart sounds: S1 normal and S2 normal. No murmur. Pulmonary: Effort: Pulmonary effort is normal. Breath sounds: Normal breath sounds. No wheezing. Abdominal: General: Abdomen is flat. Bowel sounds are normal. Palpations: Abdomen is soft. Musculoskeletal: Right shoulder: Normal. Left shoulder: Normal. Right elbow: Normal. Left elbow: Normal. Right wrist: Normal. Left wrist: Normal. Right knee: Normal. Left knee: Normal. Right ankle: Normal. Left ankle: Normal. Cervical back: Normal. Thoracic back: Normal. Lumbar back: Normal. Right hand: Normal. Left hand: Normal. Right lower leg: No edema. Left lower leg: No edema. Lymphadenopathy: Cervical: No cervical adenopathy. Upper Body: Right upper body: No supraclavicular adenopathy. Left upper body: No supraclavicular adenopathy. Skin: General: Skin is warm and dry. Capillary Refill: Capillary refill takes less than 2 seconds. Findings: No bruising or rash. Neurological: General: No focal deficit present. Mental Status: She is alert and oriented to person, place, and time. Psychiatric: Attention and Perception: Attention normal. Mood and Affect: Affect normal. Behavior: Behavior is cooperative. Judgment: Judgment normal. Laboratory Data: No labs drawn today. Assessment and Plan: Diagnoses and all orders for this visit: Severe asthma, unspecified whether complicated, unspecified whether persistent - benralizumab (FASENRA) subcutaneous injection 30 mg Ela was seen today for follow-up. She is using her rescue inhaler 2 to 3 times a week and feels this is better than she has been prior to beginning her Fasenra. Clinically she is stable and she received and injection of 30 mg of Fasenra today. She did remain in the office for 30 minutes post injection for monitoring. She will return in 8 weeks for a follow up and her next injection. I have advised the patient to call our office with any questions, concerns, new or worsening symptoms. I have answered all questions to patient's stated satisfaction. The patient agrees with the above plan. 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 Certain parts of this note may have been carried over from prior [facility] Rheumatology and [facility] notes to maintain accuracy of patient's pertinent medical history and continuity of care. The details were verified and edited as appropriate. documented in this encounter Plan of Treatment Date Type Specialty Care Team Description 09/17/2019 Office Visit Pulmonology Lorenza Dutta MD [address] [place] [address] [phone] 10/14/2019 Office Visit Rheumatology Yogesh Harris MD [address] [place] [address] [phone] Health Maintenance Due Date Last Done Comments MMR Vaccines (1 of 1 - 01/30/1951 Standard series) Varicella Vaccines (1 of 2 01/30/1951 - 2-dose childhood series) Breast Cancer Screening 2 01/30/1998 years Zoster Vaccines (1 of 2) 01/30/1998 DTaP,Tdap,and Td Vaccines 11/22/2005 10/25/2005 (2 - Td) Pneumococcal Vaccine: 65+ 01/30/2013 Years (1 of 2 - PCV13) Influenza Vaccine 04/20/2019 Osteoporosis Screening 2 yr 05/13/2020 05/13/2018, 03/20/2018, 11/17/2017, Additional history exists Colon Cancer Screening 10 04/15/2024 04/15/2014, 04/14/2014, yrs 04/14/2014 Hepatitis C Screening (B. Completed 04/21/2018, 04/21/2018 [id number]) HIB Vaccines Aged Out No longer eligible based on patient's age to complete this topic Hepatitis A Vaccines Aged Out No longer eligible based on patient's age to complete this topic Hepatitis B Vaccines Aged Out No longer eligible based on patient's age to complete this topic IPV Vaccines Aged Out No longer eligible based on patient's age to complete this topic Pneumococcal Vaccine: Aged Out No longer eligible Pediatrics (0 to 5 Years) based on patient's age and At-Risk Patients (6 to to complete this topic 64 Years) documented as of this encounter Implants Implanted Type Area Business Analyst Manager Device Shelf Model / Identifier Expiration Serial / Date Lot Barrier Adhesion Seprafilm 5x6 - [id number] N/A: Abdomen [employer] 08/19/2015 [id number] / Implanted: Qty: 4 on 10/24/2013 by Aidan Luis MD at [facility] [employer] / [id number] Barrier Adhesion Seprafilm 5x6 - [id number] N/A: Abdomen [employer] 05/21/2016 [id number] / Implanted: Qty: 1 on 06/10/2014 by Aidan Luis MD at [facility] [employer] / [id number] documented as of this encounter Results Not on filedocumented in this encounter Visit Diagnoses Diagnosis Severe asthma, unspecified whether complicated, unspecified whether persistent - Primary documented in this encounter Administered Medications Medication Order MAR Action Action Date Dose Rate Site benralizumab (FASENRA) Given 08/19/2019 1:34 PM EST 30 mg subcutaneous injection 30 mg 30 mg, Subcutaneous, Once, Ibis 08/19/19 at 1330, For 1 dose documented in this encounter
[2019-09-03] MEDS ORDERED: NS 0.9% 1000 ML** 1,000 ML IV ONE (19:29)
[2019-09-03] MEDS ORDERED: HYDROmorphone INJ1* 1 MG/ML SYRINGE IV SLOW PU ONE (19:29)
[2019-09-03] MEDS ORDERED: Ondansetron INJ* 2 MG/ML VIAL IV ONE ×3 (19:29→22:56)
[2019-09-03 19:55] LABS: ABS Lymphocytes 0.9 10^3/ul (1.0-4.8); ABS Monocytes 0.9 10^3/ul (0-0.8); ABS Neutrophils 11.5 10^3/ul (1.5-7.7); Hematocrit 46 % (35-47); Hemoglobin 15.3 g/dL (12.0-16.0); Lymphocyte % 6.9 %; Mean Corpuscular HGB Conc 33 g/dL (31-36); Mean Corpuscular Hemoglobin 30 pg (27-31); Mean Corpuscular Volume 89 fL (80-97); Mean Platelet Volume 7.6 fL (7.4-10.4); Platelet Count 258 10^3/uL (150-450); Red Blood Count 5.14 10^6 /uL (3.70-4.87); Red Cell Distribution Width 14 % (10-15); White Blood Count 13.4 10^3/uL (3.5-10.8)
[2019-09-03 20:13] LABS: Albumin 4.6 g/dL (3.2-5.2); Albumin/Globulin Ratio 1.5 (1-3); BUN/Creatinine Ratio 18.6 (8-20); C Reactive Protein 5.49 mg/L (<8.01); Calcium 9.6 mg/dL (8.6-10.3); EGFR African American 78.7 (>60); Total Bilirubin 1.6 mg/dL (0.2-1.0); Total Protein 7.6 g/dL (6.4-8.9)
[2019-09-03 21:20] LABS: Potassium 4.1 mmol/L (3.5-5.0)
--- NOTE | 2019-09-03 22:03 | ED ---
Progress - Progress Note Progress Note: The patient is a sign-out from Dr. Obi Reyes MD, to Dr. Griselda Hemphill MD, at change of shift at 2200 on 09/03/19, pending Abd/Pel CT and disposition. Abd/Pel CT reveals SBO. Patient experiencing a lot of pain, will order Fentanyl. I spoke with Dr. Aguero from the hospitalist services, and he accepts the patient for admission. He requests a NG tube and surgical consult [2255]. I discussed the patient's case with Dr. Carrasquillo from surgery, and she agrees with admission, pain meds, NPO, fluids [2300]. - Results/Orders Results/Orders: Abd/Pel CT Impression: 1. Small-bowel obstruction which is slightly less prominent since 03/02/2019. There is resolution of reactive free fluid. A point of obstruction is suggested in the anterior pelvis to the right of midline. 2. Fat filled ventral wall hernias which may be incisional and question of residua of an old ostomy site in the left mid abdomen. ED physician has reviewed this report. Re-Evaluation - Re-Evaluation First Eval Re-Evaluation Time: 23:10 Comment: We discussed results and plan for admission. Course/Dx - Diagnoses Provider Diagnoses: SBO (small bowel obstruction), Elevated troponin - Provider Notifications Discussed Care Of Patient With: Rebekah Carrasquillo - surgery Instructed by Provider To: Other - I spoke with Dr. Aguero from the hospitalist services, and he accepts the patient for admission. He requests a NG tube and surgical consult [2255]. I discussed the patient's case with Dr. Carrasquillo from surgery, and she agrees with admission, pain meds, NPO, fluids [2300]. Discharge ED - Sign-Out/Discharge Documenting (check all that apply): Patient Departure - Patient accepted for admission by Dr. Aguero., Receiving Sign-Out Receiving patient FROM: Obi Reyes - Patient is a sign-out from Dr. Obi Reyes MD, at change of shift at 2200 on 09/03/19, pending Abd/Pel CT and disposition. - Discharge Plan Condition: Stable Disposition: ADMITTED TO [facility] Referrals: Doris Alicea MD [Primary Care Provider] - - Attestation Statements Document Initiated by Scribe: Yes Documenting Scribe: Vickie Weaver Provider For Whom Scribe is Documenting (Include Credential): Dr. Griselda Hemphill MD Scribe Attestation: Vickie Bennett, scribed for Dr. Griselda Hemphill MD on 09/03/19 at 2256. Status of Scribe Document: Ready Procedures - Sedation Patient Received Moderate/Deep Sedation with Procedure: No
[2019-09-03] MEDS ORDERED: fentaNYL* 50 MCG/ML 2 ML VIAL (100 MCG VIAL) IV SLOW PU ONE (23:32)
[2019-09-04 02:17] LABS: Urine Appearance Cloudy; Urine Bilirubin Negative (Negative); Urine Blood Negative (Negative); Urine Color Yellow; Urine Glucose Negative (Negative); Urine Ketones Trace (Negative); Urine Nitrite Negative (Negative); Urine Protein Negative (Negative); Urine Specific Gravity 1.019 (1.010-1.030); Urine Urobilinogen Negative (Negative)
[2019-09-04 02:19] LABS: Urine Bacteria 1+ (Absent); Urine Red Blood Cell Absent (Absent); Urine White Blood Cell 2+(11-20/hpf) (Absent)
[2019-09-04] MEDS ORDERED: Albuterol 2.5 MG/3 ML NEB.SOL* (0.083%) INH PRN (04:50)
[2019-09-04] MEDS ORDERED: Ondansetron INJ* 2 MG/ML VIAL IV PRN (04:51)
[2019-09-04] MEDS ORDERED: Morphine INJ* 2 MG/ML 1 ML SYRINGE (TWO MG - NEW SYRINGE VERSION) IV PRN (04:51)
[2019-09-04] MEDS ORDERED: HYDROmorphone INJ* 0.5 MG/0.5 ML SYRINGE IV SLOW PU PRN (05:01)
[2019-09-04] MEDS: Lactated Ringers 1000 ML Bag* 1,000 ML IV SCH ×3 (05:40→22:02)
[2019-09-04] MEDS: Levothyroxine INJ* 100 MCG/5 ML VIAL IV SCH ×2 (06:11→07:18)
[2019-09-04 08:30] LABS: Hematocrit 42 % (35-47); Hemoglobin 14.1 g/dL (12.0-16.0); Mean Corpuscular HGB Conc 34 g/dL (31-36); Mean Corpuscular Hemoglobin 30 pg (27-31); Mean Corpuscular Volume 91 fL (80-97); Red Blood Count 4.63 10^6 /uL (3.70-4.87); Red Cell Distribution Width 14 % (10-15); White Blood Count 6.4 10^3/uL (3.5-10.8)
[2019-09-04 08:34] LABS: Calcium 8.1 mg/dL (8.6-10.3)
[2019-09-04 08:40] LABS: BUN/Creatinine Ratio 19.2 (8-20); EGFR African American 95.1 (>60); EGFR Non-African American 78.6 (>60)
[2019-09-04] MEDS: methylPREDNISolone SOD 40 MG* 1 ML VIAL IV SCH (08:48)
[2019-09-04] MEDS: Mometasone/Formoter 200/5 MDI INH SCH ×2 (08:48→19:15)
[2019-09-04 09:06] LABS: ABS Lymphocytes 0.9 10^3/ul (1.0-4.8); ABS Monocytes 0.6 10^3/ul (0-0.8); ABS Neutrophils 4.9 10^3/ul (1.5-7.7); Lymphocyte % 13.6 %; Platelet Count Platelets clumped. 10^3/uL (150-450)
--- NOTE | 2019-09-04 10:51 | HP ---
CC: Dr. Doris Alicea; Dr. Rebekah Carrasquillo * ADMISSION HISTORY AND PHYSICAL: DATE OF ADMISSION: 09/04/19 PRIMARY CARE PHYSICIAN: Dr. Alicea. CHIEF COMPLAINT: Abdominal pain, nausea, vomiting. HISTORY OF PRESENT ILLNESS: This is a 69-year-old female with past medical history of thyroid cancer, status post thyroidectomy and hypothyroidism; history of asthma and adrenal insufficiency, on daily steroids; history of recurrent diverticulitis, status post partial colectomy with colostomy and subsequent reversal; and multiple episodes of small bowel obstruction, last one being in February of 2019, comes in with abdominal pain, nausea, vomiting. The patient stated that she was in her usual state of health up until when she started developing abdominal pain and by 4:30, she started having sudden onset nausea/vomiting, but she has not had any flatus or any bowel movement since then and her symptoms reminded of her small bowel obstruction, so she decided to come to the ER. She also had some mild shortness of breath and cough , which is dry but she feels that she might have aspirated, although she is not sure if she did. She just recollects that in the past she has aspirated so was a little concerned. The patient otherwise states that her symptoms have improved after she had an NG tube placed in the emergency room but not completely resolved. PAST MEDICAL HISTORY: As mentioned, recurrent diverticulitis status post partial colectomy with colostomy and subsequent reversal and multiple episodes of small bowel obstruction, last one being February 2019; history of thyroid cancer, status post resection, now hypothyroidism; history of asthma with chronic steroids, now having adrenal insufficiency; history of osteoporosis. PAST SURGICAL HISTORY: Includes Perla fundoplication with subsequent revision , colostomy and reversal, ileostomy, hysterectomy, sinus surgery, thyroidectomy , left eye macular surgery in March 2019 with subsequent same surgery on the right eye in May 2019. HOME MEDICATIONS: The patient is currently on: 1. Prednisone 5 mg oral daily. 2. Senokot 2 tablets oral every evening. 3. Zantac 150 mg p.o. b.i.d. 4. MiraLAX 17 g packet oral daily. 5. Multivitamins 1 tablet oral daily. 6. Dulera 2 puffs by inhalation b.i.d. 7. Synthroid 112 mcg p.o. every morning. 8. Colace 100 mg p.o. b.i.d. 9. Prolia 60 mg subcutaneous every 6 months. 10. Vitamin B12 500 mcg every other week. 11. Cetirizine 10 mg every evening. 12. Calcium carbonate with vitamin D3 one tablet every morning. 13. Fasenra 30 mg subcutaneous every 8 weeks. 14. Albuterol 2 puffs by inhalation every 4 hours p.r.n. ALLERGIES: The patient is allergic to PENICILLIN/AMOXICILLIN, INFLUENZA VACCINES, and MORPHINE causes hypotension. FAMILY HISTORY: Mom at age 74 with myasthenia gravis and of brain cancer. Dad at age 41 with coronary artery disease. 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 She is , has 3 children. Lives alone as her has dementia and moved to [facility]. She is a lifelong nonsmoker, only drinks alcohol occasionally, and denies any drug use. She is otherwise full code and designates her son, Efraín Benavides as surrogate decision maker. REVIEW OF SYSTEMS: A 14-point review of systems did not reveal any new information other than what is mentioned in the HPI. PHYSICAL EXAMINATION GENERAL: The patient is awake, alert, oriented x3, did not appear to be in any acute distress. VITAL SIGNS: In the ER, BP was noted to be 108/68, heart rate 60, respiration rate 16, saturating 94% on room air, temperature documented at 98.6. HEAD AND NECK: Atraumatic, normocephalic. Bilateral pupils reactive. Oral mucosa was moist. Neck: Supple. No jugular venous distention. LUNGS: Clear to auscultation bilaterally. No wheezing, rhonchi, or rales. HEART: S1, S2. Regular rate and rhythm. ABDOMEN: Soft with minimal tenderness noted with NG tube only draining about 100 cc since placed. EXTREMITIES: No cyanosis, clubbing, or edema. DIAGNOSTIC STUDIES/LAB DATA: CBC shows minimally elevated white count of 13.4. Hemoglobin, hematocrit, and platelets were within normal limits. Comprehensive metabolic panel was unremarkable except for elevated lactic acid, which was noted to be 3.9. Total bilirubin minimally elevated at 1.6. Urinalysis was positive for leuk esterase but negative for any nitrites and was also positive for trace ketones. CT abdomen and pelvis was read as small bowel obstruction, which is slightly less prominent since February 2019. There is resolution of free fluid. Point of obstruction is suggested in the anterior pelvis to the right of midline. Fat-filled ventral hernia, which may be incisional and question of residual of an old ostomy site in the left mid abdomen. Chest CT showed stable biapical pleural and parenchymal scarring. There is bibasilar subsegmental atelectasis and parenchymal scarring. No visible pneumonitis. Stable moderate hiatal hernia. IMPRESSION: This is a 69-year-old female with history of recurrent small bowel obstructions likely secondary to scar tissue from multiple abdominal surgeries, here due to another bout of small bowel obstruction. ER already consulted Dr. Carrasquillo who agrees with nasogastric tube with suction and n.p.o., analgesics, and antiemetics. ASSESSMENT: 1. Small bowel obstruction. Surgeon consulted. The patient already had an nasogastric tube placement. We will continue the n.p.o. status and start the patient on analgesics and antiemetics p.r.n. and connect the nasogastric to low intermittent wall suction. 2. History of hypothyroidism, postsurgically. We will change the levothyroxine to IV. 3. History of asthma. Well will continue p.r.n. nebs and Dulera. 4. History of adrenal insufficiency secondary to chronic steroid use. We will give stress dose steroids about 4 times her baseline, Prednisone with IV Solu- Medrol. 5. Lactic acidosis likely secondary to dehydration from her nausea/vomiting. We will continue with IV fluids and repeat labs with a.m. labs. 6. DVT prophylaxis with sequential compression device. 7. Code status. The patient is full code with her son being the surrogate decision maker. [id number]/[facility] #: [id number] MAXWELL
--- NOTE | 2019-09-04 12:38 | CONSULT ---
Consult Consult: DATE OF CONSULT: 09/04/19 REASON FOR CONSULTATION: SBO HPI: Ela Benavides is a 69 year-old woman with a history of severe asthma, multiple abdominal surgeries, and previous bowel obstructions managed conservatively who presented with abdominal pain, nausea, and vomiting. Her last bowel movement was on August 31, and she does not remember the last time she passed flatus. She thought she had constipation and has tried milk of magnesia to treat. Yesterday afternoon, she began to have abdominal pain, nausea, and vomiting. The abdominal pain has been in the LUQ and RUQ. She denies fevers or chills. Her last hospitalization for bowel obstruction was in February 2019, and she has been doing well since that time. She previously required hospitalization for bowel obstruction about every 3 months but that has actually improved. She was admitted from the ED last night. NG tube was placed. CT abd/pelv suggests bowel obstruction, although it appeared improved from last CT scan in February. This morning, she still has mild abdominal pain in the RUQ and bloating. She had a small bowel movement this morning that was liquid but no flatus. The nausea has resolved. She denies chest pain or shortness of breath. She is s/p partial colectomy and colostomy for perforated diverticulitis in 2013. Ostomy has been reversed. She also has undergone Perla fundoplication in the past followed by revision. She has been told that if she were to need a surgery, it should be performed at a large institution due to h/o difficulty with extubation. She is followed by Dr Dutta (aquatic scientist) at [facility] for her asthma. PMH: Severe asthma on steroids, h/o thyroid cancer, h/o recurrent diverticulitis PSH: Thyroidectomy, abdominal hysterectomy, Perla fundoplication and revision, Partial colectomy and colostomy, colostomy reversal Home Medications Medication Instructions Recorded Confirmed Type Calcium Carbonate/Vitamin D3 1 each PO QAM 12/24/17 09/03/19 History [Calcium 600 + Vit D Tablet] Cetirizine* [ZyrTEC 10 MG TAB*] 10 mg PO QPM 12/24/17 09/03/19 History Cyanocobalamin TAB* [Vitamin B12 500 mcg PO .EVERY OTHER WEEK 12/24/17 09/03/19 History TAB*] Denosumab (OLD DO NOT USE) [Prolia] 60 mg SC .EVERY SIX MONTHS 12/24/17 History Levothyroxine TAB* [Synthroid 100 112 mcg PO QAM 12/24/17 09/03/19 History MCG TAB*] Mometasone/Formoter 200/5 MDI* 2 puff INH BID #1 mdi 12/29/17 09/03/19 Rx [Dulera 200/5 MDI*] Albuterol inh POWDER (NF) [Proair 2 puff INH Q4H PRN 09/15/18 09/03/19 History Respiclick] Ranitidine TAB (NF) [Zantac TAB 150 mg PO BID 09/15/18 09/03/19 History (NF)] predniSONE 10 mg TAB [Deltasone 10 5 mg PO DAILY 09/15/18 09/03/19 History MG TAB*] Benralizumab Syringe [Fasenra 30 mg SQ SEE INSTRUCTIONS 03/02/19 09/03/19 History Syringe] Multivitamin [Multiple Vitamins] 1 tab PO DAILY 03/02/19 09/03/19 History Docusate CAP* [Colace Cap*] 100 mg PO BID cap 03/05/19 09/03/19 Rx Polyethylene Glycol 3350* [Miralax 17 gm PO DAILY packet 03/05/19 09/03/19 Rx (17 GM DOSE KELLEN)] Senna TAB 8.6 mg* [Senokot 8.6 mg 2 tab PO QPM #0 03/05/19 09/03/19 Rx TAB*] Allergies amoxicillin Allergy (Severe, Verified 05/28/19 14:27) Shortness of Breath Influenza Virus Vaccines Allergy (Severe, Verified 05/28/19 14:27) Shortness of Breath Penicillins Allergy (Intermediate, Verified 05/28/19 14:27) Hives morphine Adverse Reaction (Verified 05/28/19 14:27) hypotension FH: Father in his 40s due to nephritis. Mother from brain cancer. Sisters with thyroid cancer but doing well. SH: Denies smoking, alcohol, or drug use. ROS: 10-point review of systems was obtained. Pertinent positives and negatives are in HPI. PHYSICAL EXAM: Temp Pulse Resp BP Pulse Ox 98.5 F 63 16 119/63 97 09/04/19 10:56 09/04/19 10:56 09/04/19 10:56 09/04/19 10:56 09/04/19 10:56 General: No acute distress. Head: Normocephalic and atraumatic. Eyes: Pupils are equal. No scleral icterus. Mouth: Moist mucous membranes. Neck: Supple. Trachea midline. CV: Regular rate and rhythm. Respiratory: Auscultation bilaterally. No accessory muscle use. Abdomen: Soft, mild distention. Tenderness in the right upper quadrant. No rebound or guarding. Rectal exam deferred. Extremities: Warm. No pedal edema. Neuro: Alert and oriented 3. Moves all extremities equally. Psych: Affect normal. Laboratory Results - last 24 hr 09/03/19 09/03/19 09/03/19 19:49 19:49 19:49 WBC 13.4 H RBC 5.14 H Hgb 15.3 Hct 46 MCV 89 MCH 30 MCHC 33 RDW 14 Plt Count 258 MPV 7.6 Neut % (Auto) 86.3 Lymph % (Auto) 6.9 Rankin % (Auto) 6.6 Eos % (Auto) 0.0 Baso % (Auto) 0.2 Absolute Neuts (auto) 11.5 H Absolute Lymphs (auto) 0.9 L Absolute Monos (auto) 0.9 H Absolute Eos (auto) 0.0 Absolute Basos (auto) 0.0 Absolute Nucleated RBC 0.0 Nucleated RBC % 0.0 Sodium 138 Potassium 4.1 Chloride 100 L Carbon Dioxide 30 Anion Gap 8 BUN 16 Creatinine 0.86 Est GFR ( Amer) 78.7 Est GFR (Non-Af Amer) 65.0 BUN/Creatinine Ratio 18.6 Glucose 119 H Lactic Acid 3.9 H* Calcium 9.6 Total Bilirubin 1.60 H AST 24 ALT 16 Alkaline Phosphatase 45 C-Reactive Protein 5.49 Total Protein 7.6 Albumin 4.6 Globulin 3.0 Albumin/Globulin Ratio 1.5 Lipase 36 Urine Color Urine Appearance Urine pH Ur Specific [place] Urine Protein Urine Ketones Urine Blood Urine Nitrate Urine Bilirubin Urine Urobilinogen Ur Leukocyte Esterase Urine WBC (Auto) Urine RBC (Auto) Urine Bacteria Urine Glucose 09/04/19 09/04/19 09/04/19 02:05 08:16 08:16 WBC 6.4 RBC 4.63 Hgb 14.1 Hct 42 MCV 91 MCH 30 MCHC 34 RDW 14 Plt Count Platelets clumped. H MPV Not Reportable Neut % (Auto) 76.7 Lymph % (Auto) 13.6 Rankin % (Auto) 9.6 Eos % (Auto) 0.0 Baso % (Auto) 0.1 Absolute Neuts (auto) 4.9 Absolute Lymphs (auto) 0.9 L Absolute Monos (auto) 0.6 Absolute Eos (auto) 0.0 Absolute Basos (auto) 0.0 Absolute Nucleated RBC 0.0 Nucleated RBC % 0.0 Sodium 139 Potassium 4.0 Chloride 107 Carbon Dioxide 26 Anion Gap 6 BUN 14 Creatinine 0.73 Est GFR ( Amer) 95.1 Est GFR (Non-Af Amer) 78.6 BUN/Creatinine Ratio 19.2 Glucose 104 H Lactic Acid Calcium 8.1 L Total Bilirubin AST ALT Alkaline Phosphatase C-Reactive Protein Total Protein Albumin Globulin Albumin/Globulin Ratio Lipase Urine Color Yellow Urine Appearance Cloudy Urine pH 7.0 Ur Specific [place] 1.019 Urine Protein Negative Urine Ketones Trace A Urine Blood Negative Urine Nitrate Negative Urine Bilirubin Negative Urine Urobilinogen Negative Ur Leukocyte Esterase 1+ A Urine WBC (Auto) 2+(11-20/hpf) A Urine RBC (Auto) Absent Urine Bacteria 1+ A Urine Glucose Negative 09/04/19 08:16 WBC RBC Hgb Hct MCV MCH MCHC RDW Plt Count MPV Neut % (Auto) Lymph % (Auto) Rankin % (Auto) Eos % (Auto) Baso % (Auto) Absolute Neuts (auto) Absolute Lymphs (auto) Absolute Monos (auto) Absolute Eos (auto) Absolute Basos (auto) Absolute Nucleated RBC Nucleated RBC % Sodium Potassium Chloride Carbon Dioxide Anion Gap BUN Creatinine Est GFR ( Amer) Est GFR (Non-Af Amer) BUN/Creatinine Ratio Glucose Lactic Acid 0.7 Calcium Total Bilirubin AST ALT Alkaline Phosphatase C-Reactive Protein Total Protein Albumin Globulin Albumin/Globulin Ratio Lipase Urine Color Urine Appearance Urine pH Ur Specific [place] Urine Protein Urine Ketones Urine Blood Urine Nitrate Urine Bilirubin Urine Urobilinogen Ur Leukocyte Esterase Urine WBC (Auto) Urine RBC (Auto) Urine Bacteria Urine Glucose IMPRESSION: 69F with recurrent SBO. I discussed with the patient that I think it is reasonable to treat the obstruction conservatively for now. It is encouraging that she had a small bowel movement this morning. I do not see any findings on imaging or physical exam that suggest an acute abdomen. However, if the patient' s condition worsens, she may require an operation that likely should be performed at a larger institution (preferably [facility] since she has had multiple surgeries there). The patient also prefers going to [facility] if surgery becomes necessary. PLAN: Continue NG to low continuous suction. NPO. IVF. Encourage ambulation and minimize narcotics if possible. Will follow.
[2019-09-04] MEDS ORDERED: Ketorolac INJ* 15 MG/ML 1 ML VIAL IV PUSH ONE (18:19)
--- NOTE | 2019-09-04 18:26 | PN ---
Subjective Date of Service: 09/04/19 Interval History: Resting in bed on assessment. NG tube in place. Reports improvement in nausea, abd pain, and vomiting since NG tube placement. Reports mild headache and is requesting medication. Denies cp, sob, palpitations, fever, chill. Objective Active Medications: Albuterol (Ventolin 2.5 Mg/3 Ml Neb.Zaira*) 2.5 mg INH Q4H PRN PRN Reason: SOB/WHEEZING Hydromorphone HCl (Dilaudid Inj*) 0.5 mg IV SLOW PU Q4H PRN PRN Reason: PAIN - MODERATE Lactated Ringer's (Lactated Ringers 1000 Ml Bag*) 1,000 mls @ 125 mls/hr IV PER RATE COUNTS INCLUDE 234 BEDS AT THE [facility] Last Admin: 09/04/19 13:51 Dose: 125 mls/hr Ketorolac Tromethamine (Toradol Inj*) 15 mg IV PUSH ONCE ONE Stop: 09/04/19 18:20 Levothyroxine Sodium (Synthroid Inj*) 56 mcg IV 0600 COUNTS INCLUDE 234 BEDS AT THE [facility] Last Admin: 09/04/19 07:18 Dose: 56 mcg Methylprednisolone Sodium Succinate (Solu-Medrol 40 Mg) 20 mg IV DAILY COUNTS INCLUDE 234 BEDS AT THE [facility] Last Admin: 09/04/19 08:48 Dose: 20 mg Mometasone Furoate/Formoterol Fumar (Dulera 200/5 Mdi*) 2 puff INH BID COUNTS INCLUDE 234 BEDS AT THE [facility] Last Admin: 09/04/19 08:48 Dose: 2 puff Ondansetron HCl (Zofran Inj*) 4 mg IV Q4H PRN PRN Reason: NAUSEA Vital Signs - 8 hr 09/04/19 09/04/19 10:56 15:37 Temperature 98.5 F 99.1 F Pulse Rate 63 68 Respiratory 16 16 Rate Blood Pressure 119/63 124/55 (mmHg) O2 Sat by Pulse 97 97 Oximetry Oxygen Devices in Use Now: None Appearance: Comfortable, NAD Eyes: No Scleral Icterus Ears/Nose/Mouth/Throat: Clear Oropharnyx, Mucous Membranes Moist Neck: NL Appearance and Movements; NL JVP Respiratory: Symmetrical Chest Expansion and Respiratory Effort, Clear to Auscultation Cardiovascular: NL Sounds; No Murmurs; No JVD, RRR, No Edema Abdominal: NL Sounds; No Tenderness; No Distention Lymphatic: No Cervical Adenopathy Extremities: No Edema Skin: No Rash or Ulcers Neurological: Alert and Oriented x 3 Nutrition: - - NPO Result Diagrams: 09/04/19 08:16 09/04/19 08:16 Additional Lab and Data: Laboratory Results - last 24 hr 09/03/19 09/03/19 09/03/19 19:49 19:49 19:49 WBC 13.4 H RBC 5.14 H Hgb 15.3 Hct 46 MCV 89 MCH 30 MCHC 33 RDW 14 Plt Count 258 MPV 7.6 Neut % (Auto) 86.3 Lymph % (Auto) 6.9 Hitchcock % (Auto) 6.6 Eos % (Auto) 0.0 Baso % (Auto) 0.2 Absolute Neuts (auto) 11.5 H Absolute Lymphs (auto) 0.9 L Absolute Monos (auto) 0.9 H Absolute Eos (auto) 0.0 Absolute Basos (auto) 0.0 Absolute Nucleated RBC 0.0 Nucleated RBC % 0.0 Sodium 138 Potassium 4.1 Chloride 100 L Carbon Dioxide 30 Anion Gap 8 BUN 16 Creatinine 0.86 Est GFR ( Amer) 78.7 Est GFR (Non-Af Amer) 65.0 BUN/Creatinine Ratio 18.6 Glucose 119 H Lactic Acid 3.9 H* Calcium 9.6 Total Bilirubin 1.60 H AST 24 ALT 16 Alkaline Phosphatase 45 C-Reactive Protein 5.49 Total Protein 7.6 Albumin 4.6 Globulin 3.0 Albumin/Globulin Ratio 1.5 Lipase 36 Urine Color Urine Appearance Urine pH Ur Specific Lane Urine Protein Urine Ketones Urine Blood Urine Nitrate Urine Bilirubin Urine Urobilinogen Ur Leukocyte Esterase Urine WBC (Auto) Urine RBC (Auto) Urine Bacteria Urine Glucose 09/04/19 09/04/19 09/04/19 02:05 08:16 08:16 WBC 6.4 RBC 4.63 Hgb 14.1 Hct 42 MCV 91 MCH 30 MCHC 34 RDW 14 Plt Count Platelets clumped. H MPV Not Reportable Neut % (Auto) 76.7 Lymph % (Auto) 13.6 [place]cock % (Auto) 9.6 Eos % (Auto) 0.0 Baso % (Auto) 0.1 Absolute Neuts (auto) 4.9 Absolute Lymphs (auto) 0.9 L Absolute Monos (auto) 0.6 Absolute Eos (auto) 0.0 Absolute Basos (auto) 0.0 Absolute Nucleated RBC 0.0 Nucleated RBC % 0.0 Sodium 139 Potassium 4.0 Chloride 107 Carbon Dioxide 26 Anion Gap 6 BUN 14 Creatinine 0.73 Est GFR ( Amer) 95.1 Est GFR (Non-Af Amer) 78.6 BUN/Creatinine Ratio 19.2 Glucose 104 H Lactic Acid Calcium 8.1 L Total Bilirubin AST ALT Alkaline Phosphatase C-Reactive Protein Total Protein Albumin Globulin Albumin/Globulin Ratio Lipase Urine Color Yellow Urine Appearance Cloudy Urine pH 7.[address] 1.019 Urine Protein Negative Urine Ketones Trace A Urine Blood Negative Urine Nitrate Negative Urine Bilirubin Negative Urine Urobilinogen Negative Ur Leukocyte Esterase 1+ A Urine WBC (Auto) 2+(11-20/hpf) A Urine RBC (Auto) Absent Urine Bacteria 1+ A Urine Glucose Negative 09/04/19 08:16 WBC RBC Hgb Hct MCV MCH MCHC RDW Plt Count MPV Neut % (Auto) Lymph % (Auto) [place]cock % (Auto) Eos % (Auto) Baso % (Auto) Absolute Neuts (auto) Absolute Lymphs (auto) Absolute Monos (auto) Absolute Eos (auto) Absolute Basos (auto) Absolute Nucleated RBC Nucleated RBC % Sodium Potassium Chloride Carbon Dioxide Anion Gap BUN Creatinine Est GFR ( Amer) Est GFR (Non-Af Amer) BUN/Creatinine Ratio Glucose Lactic Acid 0.7 Calcium Total Bilirubin AST ALT Alkaline Phosphatase C-Reactive Protein Total Protein Albumin Globulin Albumin/Globulin Ratio Lipase Urine Color Urine Appearance Urine pH Ur Specific Lane Urine Protein Urine Ketones Urine Blood Urine Nitrate Urine Bilirubin Urine Urobilinogen Ur Leukocyte Esterase Urine WBC (Auto) Urine RBC (Auto) Urine Bacteria Urine Glucose Microbiology and Other Data: . Assess/Plan/Problems-Billing Assessment: 69 yr old female with pmh of diverticulitis with s/p colostomy and revision of colostomy. 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 Cont same. (3) Hypothyroidism Comment: - Cont IV synthroid (4) DVT prophylaxis Comment: - SCDs Attending: Carly Cordoba
[2019-09-05] MEDS: Levothyroxine INJ* 100 MCG/5 ML VIAL IV SCH (05:37)
[2019-09-05] MEDS: Lactated Ringers 1000 ML Bag* 1,000 ML IV SCH ×3 (05:38→22:14)
[2019-09-05 05:45] LABS: Hematocrit 41 % (35-47); Hemoglobin 13.6 g/dL (12.0-16.0); Mean Corpuscular HGB Conc 33 g/dL (31-36); Mean Corpuscular Hemoglobin 30 pg (27-31); Mean Corpuscular Volume 89 fL (80-97); Platelet Count 184 10^3/uL (150-450); Red Blood Count 4.55 10^6 /uL (3.70-4.87); Red Cell Distribution Width 14 % (10-15); White Blood Count 5.2 10^3/uL (3.5-10.8)
[2019-09-05 05:55] LABS: Calcium 8.2 mg/dL (8.6-10.3); Potassium 4.3 mmol/L (3.5-5.0)
[2019-09-05 06:01] LABS: EGFR African American 99.8 (>60); EGFR Non-African American 82.5 (>60)
[2019-09-05] MEDS: Mometasone/Formoter 200/5 MDI INH SCH ×2 (08:26→19:25)
[2019-09-05] MEDS: methylPREDNISolone SOD 40 MG* 1 ML VIAL IV SCH (08:26)
--- NOTE | 2019-09-05 09:52 | PN ---
Progress Note - Progress Note Date of Service: 09/05/19 Note: No complaints this morning. No flatus or BM. She slept most of yesterday but plans to get out of bed more today. Denies chest pain, SOB, abdominal pain, nausea. Temp Pulse Resp BP Pulse Ox 97.8 F 67 16 144/65 96 09/05/19 07:18 09/05/19 07:18 09/05/19 07:37 09/05/19 07:18 09/05/19 07:18 Intake & Output 09/04/19 09/05/19 09/05/19 22:59 06:59 14:59 Intake Total 980 0 Output Total 650 575 Balance 330 -575 Intake: IV Fluids 980 LR 980 Oral 0 0 Output: NG Tube Drainage Amount 150 175 Urine 500 400 General: NAD. NG draining brown-colored fluid. CV: RRR Resp: Clear to auscultation. Abd: Soft, mildly distended, nontender. Neuro: Alert, oriented x3. Moves all extremities equally. Psych: Affect normal. Laboratory Results - last 24 hr 09/05/19 09/05/19 05:24 05:24 WBC 5.2 RBC 4.55 Hgb 13.6 Hct 41 MCV 89 MCH 30 MCHC 33 RDW 14 Plt Count 184 MPV 8.0 Sodium 138 Potassium 4.3 Chloride 107 Carbon Dioxide 25 Anion Gap 6 BUN 14 Creatinine 0.70 Est GFR ( Amer) 99.8 Est GFR (Non-Af Amer) 82.5 BUN/Creatinine Ratio 20.0 Glucose 88 Calcium 8.2 L A&P 69F with h/o recurrent SBO, admitted with SBO. Continue conservative management. NG to low continuous suction. NPO. IVF Encourage walking. DVT ppx
[2019-09-05] MEDS: Phenol 1.4% Spray* 177 ML BTL MT PRN ×2 (14:39→21:04)
--- NOTE | 2019-09-05 15:24 | PN ---
Subjective Date of Service: 09/05/19 Interval History: Reports having a sore throat. Otherwise denies abdominal pain, nausea or vomiting. Negative for flatus. Has ambulated several times around the unit, encouraged her to do as many as she can tolerate to stimulate intestines. Family History: Unchanged from Admission Social History: Unchanged from Admission Past Medical History: Unchanged from Admission Objective Active Medications: Albuterol (Ventolin 2.5 Mg/3 Ml Neb.Zaira*) 2.5 mg INH Q4H PRN PRN Reason: SOB/WHEEZING Hydromorphone HCl (Dilaudid Inj*) 0.5 mg IV SLOW PU Q4H PRN PRN Reason: PAIN - MODERATE Lactated Ringer's (Lactated Ringers 1000 Ml Bag*) 1,000 mls @ 125 mls/hr IV PER RATE [facility] Last Admin: 09/05/19 13:51 Dose: 125 mls/hr Levothyroxine Sodium (Synthroid Inj*) 56 mcg IV 0600 [facility] Last Admin: 09/05/19 05:37 Dose: 56 mcg Methylprednisolone Sodium Succinate (Solu-Medrol 40 Mg) 20 mg IV DAILY [facility] Last Admin: 09/05/19 08:26 Dose: 20 mg Mometasone Furoate/Formoterol Fumar (Dulera 200/5 Mdi*) 2 puff INH BID [facility] Last Admin: 09/05/19 08:26 Dose: 2 puff Ondansetron HCl (Zofran Inj*) 4 mg IV Q4H PRN PRN Reason: NAUSEA Phenol/Menthol (Chloroseptic Throat [place]*) 1 spray MT TID PRN PRN Reason: SORE THROAT Last Admin: 09/05/19 14:39 Dose: 1 spray Vital Signs - 8 hr 09/05/19 09/05/19 07:37 11:42 Temperature 97.8 F Pulse Rate 74 Respiratory 16 18 Rate Blood Pressure 132/64 (mmHg) O2 Sat by Pulse 95 Oximetry Oxygen Devices in Use Now: None Appearance: This is a well developed woman seen resting in bed, no acute distress. Eyes: No Scleral Icterus, PERRLA Ears/Nose/Mouth/Throat: NL Teeth, Lips, Gums, Mucous Membranes Moist, - - NG tube in place to right nares draining thick brown gastric contents. Neck: NL Appearance and Movements; NL JVP, Trachea Midline Respiratory: Symmetrical Chest Expansion and Respiratory Effort, Clear to Auscultation Cardiovascular: NL Sounds; No Murmurs; No JVD, RRR, No Edema Abdominal: - - Abdomen softly distended, diffusely tender to palpation, non- tympanic with hypoactive +BSx4. Lymphatic: No Cervical Adenopathy Extremities: No Edema, No Clubbing, Cyanosis Skin: No Rash or Ulcers, No Nodules or Sclerosis Neurological: Alert and Oriented x 3 Lines/Tubes/Other Access: Clean, Dry and Intact Naso-enteral Tube, Clean, Dry and Intact Peripheral IV Result Diagrams: 09/05/19 05:24 09/05/19 05:24 Additional Lab and Data: Laboratory Results - last 24 hr 09/03/19 09/03/19 09/03/19 19:49 19:49 19:49 WBC 13.4 H RBC 5.14 H Hgb 15.3 Hct 46 MCV 89 MCH 30 MCHC 33 RDW 14 Plt Count 258 MPV 7.6 Neut % (Auto) 86.3 Lymph % (Auto) 6.9 [place] % (Auto) 6.6 Eos % (Auto) 0.0 Baso % (Auto) 0.2 Absolute Neuts (auto) 11.5 H Absolute Lymphs (auto) 0.9 L Absolute Monos (auto) 0.9 H Absolute Eos (auto) 0.0 Absolute Basos (auto) 0.0 Absolute Nucleated RBC 0.0 Nucleated RBC % 0.0 Sodium 138 Potassium 4.1 Chloride 100 L Carbon Dioxide 30 Anion Gap 8 BUN 16 Creatinine 0.86 Est GFR ( Amer) 78.7 Est GFR (Non-Af Amer) 65.0 BUN/Creatinine Ratio 18.6 Glucose 119 H Lactic Acid 3.9 H* Calcium 9.6 Total Bilirubin 1.60 H AST 24 ALT 16 Alkaline Phosphatase 45 C-Reactive Protein 5.49 Total Protein 7.6 Albumin 4.6 Globulin 3.0 Albumin/Globulin Ratio 1.5 Lipase 36 Urine Color Urine Appearance Urine pH Ur Specific [place] Urine Protein Urine Ketones Urine Blood Urine Nitrate Urine Bilirubin Urine Urobilinogen Ur Leukocyte Esterase Urine WBC (Auto) Urine RBC (Auto) Urine Bacteria Urine Glucose 09/04/19 09/04/19 09/04/19 02:05 08:16 08:16 WBC 6.4 RBC 4.63 Hgb 14.1 Hct 42 MCV 91 MCH 30 MCHC 34 RDW 14 Plt Count Platelets clumped. H MPV Not Reportable Neut % (Auto) 76.7 Lymph % (Auto) 13.6 [place] % (Auto) 9.6 Eos % (Auto) 0.0 Baso % (Auto) 0.1 Absolute Neuts (auto) 4.9 Absolute Lymphs (auto) 0.9 L Absolute Monos (auto) 0.6 Absolute Eos (auto) 0.0 Absolute Basos (auto) 0.0 Absolute Nucleated RBC 0.0 Nucleated RBC % 0.0 Sodium 139 Potassium 4.0 Chloride 107 Carbon Dioxide 26 Anion Gap 6 BUN 14 Creatinine 0.73 Est GFR ( Amer) 95.1 Est GFR (Non-Af Amer) 78.6 BUN/Creatinine Ratio 19.2 Glucose 104 H Lactic Acid Calcium 8.1 L Total Bilirubin AST ALT Alkaline Phosphatase C-Reactive Protein Total Protein Albumin Globulin Albumin/Globulin Ratio Lipase Urine Color Yellow Urine Appearance Cloudy Urine pH 7.0 Ur Specific [place] 1.019 Urine Protein Negative Urine Ketones Trace A Urine Blood Negative Urine Nitrate Negative Urine Bilirubin Negative Urine Urobilinogen Negative Ur Leukocyte Esterase 1+ A Urine WBC (Auto) 2+(11-20/hpf) A Urine RBC (Auto) Absent Urine Bacteria 1+ A Urine Glucose Negative 09/04/19 08:16 WBC RBC Hgb Hct MCV MCH MCHC RDW Plt Count MPV Neut % (Auto) Lymph % (Auto) [place] % (Auto) Eos % (Auto) Baso % (Auto) Absolute Neuts (auto) Absolute Lymphs (auto) Absolute Monos (auto) Absolute Eos (auto) Absolute Basos (auto) Absolute Nucleated RBC Nucleated RBC % Sodium Potassium Chloride Carbon Dioxide Anion Gap BUN Creatinine Est GFR ( Amer) Est GFR (Non-Af Amer) BUN/Creatinine Ratio Glucose Lactic Acid 0.7 Calcium Total Bilirubin AST ALT Alkaline Phosphatase C-Reactive Protein Total Protein Albumin Globulin Albumin/Globulin Ratio Lipase Urine Color Urine Appearance Urine pH Ur Specific [place] Urine Protein Urine Ketones Urine Blood Urine Nitrate Urine Bilirubin Urine Urobilinogen Ur Leukocyte Esterase Urine WBC (Auto) Urine RBC (Auto) Urine Bacteria Urine Glucose Microbiology and Other Data: . Assess/Plan/Problems-Billing Assessment: 69 yr old female with pmh of diverticulitis with s/p colostomy and revision of colostomy. sbo, hypothryoid secondary to thyroid ca, asthma with intermediate card tender steriods and adrenal insufficiency; who presented with abd pain, nausea, vomiting - Patient Problems (1) SBO (small bowel obstruction) Current Visit: No Status: Acute Code(s): K56.69 - OTHER INTESTINAL OBSTRUCTION * DO NOT USE * SNOMED Code(s): 092700679 Comment: - Surgery consulting - Cont NG tube to LWS. Has had around 500-600mls dark brown output since this AM. Continues to not pass flatus. Ordered spray analgesic for the back of her throat. - NPO - IV fluids (2) Adrenal insufficiency Current Visit: Yes Status: Acute Code(s): E27.40 - UNSPECIFIED ADRENOCORTICAL INSUFFICIENCY SNOMED Code(s): 067989242 Comment: - Stress dose steriods ordered on admission. Cont methylprednisolone 20mg IV through tomorrow, next day (09/07) she can go back to her usual dosing of 5mg prednisone. (3) Asthma Current Visit: No Status: Acute Code(s): J45.909 - UNSPECIFIED ASTHMA, UNCOMPLICATED SNOMED Code(s): 621559134 Comment: -no evidence of acute exacerbation -cont home dulera, rescue albuterol, and prednisone (4) Hypothyroidism Current Visit: No Status: Acute Code(s): E03.9 - HYPOTHYROIDISM, UNSPECIFIED SNOMED Code(s): 74833273 Comment: - Cont IV synthroid (5) DVT prophylaxis Current Visit: No Status: Acute Code(s): EUZ2596 - SNOMED Code(s): 898811546 Comment: - SCDs (6) Full code status Current Visit: No Status: Acute Code(s): Z78.9 - OTHER SPECIFIED HEALTH STATUS SNOMED Code(s): 720758280 Comment: Status and Disposition: Condition: Guarded Disposition: Admit inpatient to [facility]. Attending: Carly Cordoba
[2019-09-06] MEDS: Levothyroxine INJ* 100 MCG/5 ML VIAL IV SCH (06:05)
[2019-09-06] MEDS: Lactated Ringers 1000 ML Bag* 1,000 ML IV SCH ×3 (06:09→22:19)
--- NOTE | 2019-09-06 07:33 | PN ---
Subjective Date of Service: 09/06/19 Interval History: Denied abdominal pain or nausea. Is not passing any flatus or belching despite multiple ambulations around the unit. No other acute complaints. Family History: Unchanged from Admission Social History: Unchanged from Admission Past Medical History: Unchanged from Admission Objective Active Medications: Albuterol (Ventolin 2.5 Mg/3 Ml Neb.Zaira*) 2.5 mg INH Q4H PRN PRN Reason: SOB/WHEEZING Hydromorphone HCl (Dilaudid Inj*) 0.5 mg IV SLOW PU Q4H PRN PRN Reason: PAIN - MODERATE Last Admin: 09/06/19 03:20 Dose: 0.5 mg Lactated Ringer's (Lactated Ringers 1000 Ml Bag*) 1,000 mls @ 125 mls/hr IV PER RATE [facility] Last Admin: 09/06/19 06:09 Dose: 125 mls/hr Levothyroxine Sodium (Synthroid Inj*) 56 mcg IV 0600 [facility] Last Admin: 09/06/19 06:05 Dose: 56 mcg Methylprednisolone Sodium Succinate (Solu-Medrol 40 Mg) 20 mg IV DAILY [facility] Last Admin: 09/05/19 08:26 Dose: 20 mg Mometasone Furoate/Formoterol Fumar (Dulera 200/5 Mdi*) 2 puff INH BID [facility] Last Admin: 09/05/19 19:25 Dose: 2 puff Ondansetron HCl (Zofran Inj*) 4 mg IV Q4H PRN PRN Reason: NAUSEA Phenol/Menthol (Chloroseptic Throat [place]*) 1 spray MT TID PRN PRN Reason: SORE THROAT Last Admin: 09/05/19 21:04 Dose: 1 spray Vital Signs - 8 hr 09/06/19 09/06/19 09/06/19 00:04 03:20 03:38 Temperature 97.7 F 98.8 F Pulse Rate 67 63 Respiratory 16 17 16 Rate Blood Pressure 148/70 136/67 (mmHg) O2 Sat by Pulse 95 94 Oximetry 09/06/19 06:08 Temperature Pulse Rate Respiratory 17 Rate Blood Pressure (mmHg) O2 Sat by Pulse Oximetry Oxygen Devices in Use Now: None Result Diagrams: 09/07/19 04:11 09/07/19 04:11 Additional Lab and Data: Laboratory Results - last 24 hr 02/09/03/19 09/03/19 19:49 19:49 19:49 WBC 13.4 H RBC 5.14 H Hgb 15.3 Hct 46 MCV 89 MCH 30 MCHC 33 RDW 14 Plt Count 258 MPV 7.6 Neut % (Auto) 86.3 Lymph % (Auto) 6.9 [place] % (Auto) 6.6 Eos % (Auto) 0.0 Baso % (Auto) 0.2 Absolute Neuts (auto) 11.5 H Absolute Lymphs (auto) 0.9 L Absolute Monos (auto) 0.9 H Absolute Eos (auto) 0.0 Absolute Basos (auto) 0.0 Absolute Nucleated RBC 0.0 Nucleated RBC % 0.0 Sodium 138 Potassium 4.1 Chloride 100 L Carbon Dioxide 30 Anion Gap 8 BUN 16 Creatinine 0.86 Est GFR ( Amer) 78.7 Est GFR (Non-Af Amer) 65.0 BUN/Creatinine Ratio 18.6 Glucose 119 H Lactic Acid 3.9 H* Calcium 9.6 Total Bilirubin 1.60 H AST 24 ALT 16 Alkaline Phosphatase 45 C-Reactive Protein 5.49 Total Protein 7.6 Albumin 4.6 Globulin 3.0 Albumin/Globulin Ratio 1.5 Lipase 36 Urine Color Urine Appearance Urine pH Ur Specific [place] Urine Protein Urine Ketones Urine Blood Urine Nitrate Urine Bilirubin Urine Urobilinogen Ur Leukocyte Esterase Urine WBC (Auto) Urine RBC (Auto) Urine Bacteria Urine Glucose 09/04/19 09/04/19 09/04/19 02:05 08:16 08:16 WBC 6.4 RBC 4.63 Hgb 14.1 Hct 42 MCV 91 MCH 30 MCHC 34 RDW 14 Plt Count Platelets clumped. H MPV Not Reportable Neut % (Auto) 76.7 Lymph % (Auto) 13.6 [place] % (Auto) 9.6 Eos % (Auto) 0.0 Baso % (Auto) 0.1 Absolute Neuts (auto) 4.9 Absolute Lymphs (auto) 0.9 L Absolute Monos (auto) 0.6 Absolute Eos (auto) 0.0 Absolute Basos (auto) 0.0 Absolute Nucleated RBC 0.0 Nucleated RBC % 0.0 Sodium 139 Potassium 4.0 Chloride 107 Carbon Dioxide 26 Anion Gap 6 BUN 14 Creatinine 0.73 Est GFR ( Amer) 95.1 Est GFR (Non-Af Amer) 78.6 BUN/Creatinine Ratio 19.2 Glucose 104 H Lactic Acid Calcium 8.1 L Total Bilirubin AST ALT Alkaline Phosphatase C-Reactive Protein Total Protein Albumin Globulin Albumin/Globulin Ratio Lipase Urine Color Yellow Urine Appearance Cloudy Urine pH 7.0 Ur Specific [place] 1.019 Urine Protein Negative Urine Ketones Trace A Urine Blood Negative Urine Nitrate Negative Urine Bilirubin Negative Urine Urobilinogen Negative Ur Leukocyte Esterase 1+ A Urine WBC (Auto) 2+(11-20/hpf) A Urine RBC (Auto) Absent Urine Bacteria 1+ A Urine Glucose Negative 09/04/19 08:16 WBC RBC Hgb Hct MCV MCH MCHC RDW Plt Count MPV Neut % (Auto) Lymph % (Auto) [place] % (Auto) Eos % (Auto) Baso % (Auto) Absolute Neuts (auto) Absolute Lymphs (auto) Absolute Monos (auto) Absolute Eos (auto) Absolute Basos (auto) Absolute Nucleated RBC Nucleated RBC % Sodium Potassium Chloride Carbon Dioxide Anion Gap BUN Creatinine Est GFR ( Amer) Est GFR (Non-Af Amer) BUN/Creatinine Ratio Glucose Lactic Acid 0.7 Calcium Total Bilirubin AST ALT Alkaline Phosphatase C-Reactive Protein Total Protein Albumin Globulin Albumin/Globulin Ratio Lipase Urine Color Urine Appearance Urine pH Ur Specific [place] Urine Protein Urine Ketones Urine Blood Urine Nitrate Urine Bilirubin Urine Urobilinogen Ur Leukocyte Esterase Urine WBC (Auto) Urine RBC (Auto) Urine Bacteria Urine Glucose Microbiology and Other Data: . Assess/Plan/Problems-Billing Assessment: 69 yr old female with pmh of diverticulitis with s/p colostomy and revision of colostomy. 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 Has had around 500-600mls dark brown output since this AM. Continues to not pass flatus. Ordered spray analgesic for the back of her throat. - NPO - IV fluids (2) Adrenal insufficiency Current Visit: Yes Status: Acute Code(s): E27.40 - UNSPECIFIED ADRENOCORTICAL INSUFFICIENCY SNOMED Code(s): 335277493 Comment: - Stress dose steriods ordered on admission. She normally takes prednisone 5mg PO daily. Because she is still NPO with NG tube, will decrease stress dosing from 20 to 5mg of IV methylprednisone. (3) Asthma Current Visit: No Status: Acute Code(s): J45.909 - UNSPECIFIED ASTHMA, UNCOMPLICATED SNOMED Code(s): 477705096 Comment: -no evidence of acute exacerbation -cont home dulera, rescue albuterol, and prednisone (4) Hypothyroidism Current Visit: No Status: Acute Code(s): E03.9 - HYPOTHYROIDISM, UNSPECIFIED SNOMED Code(s): 27986876 Comment: - Cont IV synthroid (5) DVT prophylaxis Current Visit: No Status: Acute Code(s): ZDC9481 - SNOMED Code(s): 746351889 Comment: - SCDs (6) Full code status Current Visit: No Status: Acute Code(s): Z78.9 - OTHER SPECIFIED HEALTH STATUS SNOMED Code(s): 010851084 Comment: Status and Disposition: Condition: Guarded Disposition: Admit inpatient to [facility]. Attending: Girish Reddy
[2019-09-06] MEDS: Mometasone/Formoter 200/5 MDI INH SCH ×2 (08:22→19:54)
[2019-09-06] MEDS: Phenol 1.4% Spray* 177 ML BTL MT PRN (08:22)
[2019-09-06] MEDS: methylPREDNISolone SOD 40 MG* 1 ML VIAL IV SCH (08:25)
[2019-09-06 08:37] LABS: BUN/Creatinine Ratio 18.2 (8-20); Calcium 8.4 mg/dL (8.6-10.3); EGFR African American 106.8 (>60); EGFR Non-African American 88.3 (>60); Potassium 3.8 mmol/L (3.5-5.0)
--- NOTE | 2019-09-06 11:34 | PN ---
Progress Note - Progress Note Date of Service: 09/06/19 Note: No complaints this morning. No flatus or BM. She denies abdominal pain or nausea. She thinks her abdomen is less distended today. She has been walking in the hallways. Denies chest pain or shortness of breath. Received suppository today but no bowel movement yet. 700ml from NG in 24h Vital Signs - 12 hr Temp Pulse Resp BP Pulse Ox 09/06/19 08:30 16 09/06/19 07:51 98.4 F 65 17 144/71 95 09/06/19 06:08 17 09/06/19 03:38 98.8 F 63 16 136/67 94 09/06/19 03:20 17 09/06/19 00:04 97.7 F 67 16 148/70 95 Intake & Output 09/05/19 09/06/19 09/06/19 22:59 06:59 14:59 Intake Total 990 1597 Output Total 1850 1050 500 Balance -860 547 -500 Intake: IV Fluids 990 987 LR 990 987 IVPB 610 LR 610 Oral 0 0 Output: NG Tube Drainage Amount 500 200 Urine 1350 850 500 General: NAD. NG to suction with brown fluid draining. CV: RRR Resp: Clear to auscultation. Abdomen: Soft, nontender. Minimally distended, improved from yesterday. No rebound or guarding. Multiple well-healed incisions. Neuro: Alert, oriented x3. Moves all extremities equally. Psych: Affect normal. Laboratory Results - last 24 hr 09/06/19 08:02 Sodium 135 Potassium 3.8 Chloride 102 Carbon Dioxide 23 Anion Gap 10 BUN 12 Creatinine 0.66 Est GFR ( Amer) 106.8 Est GFR (Non-Af Amer) 88.3 BUN/Creatinine Ratio 18.2 Glucose 81 Calcium 8.4 L A&P 69F with SBO. Exam is improving but no evidence of resolution. -NPO. NG to suction -Continue walking -Will plan for repeat CT abd/pelv with contrast in the next 1-2 days if no improvement.
[2019-09-07] MEDS: Phenol 1.4% Spray* 177 ML BTL MT PRN ×4 (01:47→20:56)
[2019-09-07 04:33] LABS: ABS Lymphocytes 1.1 10^3/ul (1.0-4.8); ABS Monocytes 0.7 10^3/ul (0-0.8); ABS Neutrophils 5.1 10^3/ul (1.5-7.7); Hematocrit 40 % (35-47); Hemoglobin 13.6 g/dL (12.0-16.0); Lymphocyte % 16.5 %; Mean Corpuscular HGB Conc 34 g/dL (31-36); Mean Corpuscular Hemoglobin 30 pg (27-31); Mean Corpuscular Volume 89 fL (80-97); Mean Platelet Volume 7.6 fL (7.4-10.4); Platelet Count 204 10^3/uL (150-450); Red Blood Count 4.49 10^6 /uL (3.70-4.87); Red Cell Distribution Width 13 % (10-15); White Blood Count 6.9 10^3/uL (3.5-10.8)
[2019-09-07 04:46] LABS: Potassium 3.6 mmol/L (3.5-5.0)
[2019-09-07 04:52] LABS: BUN/Creatinine Ratio 21.5 (8-20); EGFR African American 108.7 (>60); EGFR Non-African American 89.9 (>60)
[2019-09-07] MEDS: Levothyroxine INJ* 100 MCG/5 ML VIAL IV SCH (06:01)
[2019-09-07] MEDS: Lactated Ringers 1000 ML Bag* 1,000 ML IV SCH (06:07)
--- NOTE | 2019-09-07 08:15 | PN ---
Subjective Date of Service: 09/07/19 Interval History: Reports have a scant amount of liquid brown stool after suppository yesterday but nothing since then. Continues to be negative for flatus or eructation. Walking numerous times around unit. Overnight had a brief episode of very dark NG drainage which was positive for blood. No gela red drainage in tubing this morning. Family History: Unchanged from Admission Social History: Unchanged from Admission Past Medical History: Unchanged from Admission Objective Active Medications: Albuterol (Ventolin 2.5 Mg/3 Ml Neb.Zaira*) 2.5 mg INH Q4H PRN PRN Reason: SOB/WHEEZING Hydromorphone HCl (Dilaudid Inj*) 0.5 mg IV SLOW PU Q4H PRN PRN Reason: PAIN - MODERATE Last Admin: 09/06/19 03:20 Dose: 0.5 mg Potassium Cl/Dextrose/Lact Ringer's (D5lr 20 Meq Kcl 1000 Ml Bag*) 1,000 mls @ 125 mls/hr IV PER RATE [facility] Levothyroxine Sodium (Synthroid Inj*) 56 mcg IV 0600 [facility] Last Admin: 09/07/19 06:01 Dose: 56 mcg Methylprednisolone Sodium Succinate (Solu-Medrol 40 Mg) 5 mg IV DAILY [facility] Mometasone Furoate/Formoterol Fumar (Dulera 200/5 Mdi*) 2 puff INH BID [facility] Last Admin: 09/06/19 19:54 Dose: Not Given Ondansetron HCl (Zofran Inj*) 4 mg IV Q4H PRN PRN Reason: NAUSEA Pantoprazole Sodium (Protonix Iv*) 40 mg IV Q24H [facility] Phenol/Menthol (Chloroseptic Throat [place]*) 1 spray MT Q2H PRN PRN Reason: SORE THROAT Last Admin: 09/07/19 06:06 Dose: 1 spray Vital Signs - 8 hr 09/07/19 09/07/19 09/07/19 00:12 03:19 07:26 Temperature 97.9 F 98.1 F Pulse Rate 63 71 62 Respiratory 16 17 16 Rate Blood Pressure 142/74 137/62 (mmHg) O2 Sat by Pulse 97 96 96 Oximetry Oxygen Devices in Use Now: None Appearance: This is a well developed woman seen sitting up in bed, no acute distress. Eyes: No Scleral Icterus, PERRLA Ears/Nose/Mouth/Throat: NL Teeth, Lips, Gums, Clear Oropharnyx, Mucous Membranes Moist, - - NG tube in place to right nares draining dark brown gastric contents. Noted ketotic breath. Neck: NL Appearance and Movements; NL JVP, Trachea Midline Respiratory: Symmetrical Chest Expansion and Respiratory Effort, Clear to Auscultation Cardiovascular: NL Sounds; No Murmurs; No JVD, RRR, No Edema Abdominal: NL Sounds; No Tenderness; No Distention, - - Hypoactive bowel sounds throughout Lymphatic: No Cervical Adenopathy Extremities: No Edema, No Clubbing, Cyanosis Skin: No Rash or Ulcers, No Nodules or Sclerosis Neurological: Alert and Oriented x 3 Lines/Tubes/Other Access: Clean, Dry and Intact Naso-enteral Tube, Clean, Dry and Intact Peripheral IV Result Diagrams: 09/07/19 04:11 09/07/19 04:11 Additional Lab and Data: Laboratory Results - last 24 hr 09/03/19 09/03/19 09/03/19 19:49 19:49 19:49 WBC 13.4 H RBC 5.14 H Hgb 15.3 Hct 46 MCV 89 MCH 30 MCHC 33 RDW 14 Plt Count 258 MPV 7.6 Neut % (Auto) 86.3 Lymph % (Auto) 6.9 [place] % (Auto) 6.6 Eos % (Auto) 0.0 Baso % (Auto) 0.2 Absolute Neuts (auto) 11.5 H Absolute Lymphs (auto) 0.9 L Absolute Monos (auto) 0.9 H Absolute Eos (auto) 0.0 Absolute Basos (auto) 0.0 Absolute Nucleated RBC 0.0 Nucleated RBC % 0.0 Sodium 138 Potassium 4.1 Chloride 100 L Carbon Dioxide 30 Anion Gap 8 BUN 16 Creatinine 0.86 Est GFR ( Amer) 78.7 Est GFR (Non-Af Amer) 65.0 BUN/Creatinine Ratio 18.6 Glucose 119 H Lactic Acid 3.9 H* Calcium 9.6 Total Bilirubin 1.60 H AST 24 ALT 16 Alkaline Phosphatase 45 C-Reactive Protein 5.49 Total Protein 7.6 Albumin 4.6 Globulin 3.0 Albumin/Globulin Ratio 1.5 Lipase 36 Urine Color Urine Appearance Urine pH Ur Specific [place] Urine Protein Urine Ketones Urine Blood Urine Nitrate Urine Bilirubin Urine Urobilinogen Ur Leukocyte Esterase Urine WBC (Auto) Urine RBC (Auto) Urine Bacteria Urine Glucose 09/04/19 09/04/19 09/04/19 02:05 08:16 08:16 WBC 6.4 RBC 4.63 Hgb 14.1 Hct 42 MCV 91 MCH 30 MCHC 34 RDW 14 Plt Count Platelets clumped. H MPV Not Reportable Neut % (Auto) 76.7 Lymph % (Auto) 13.6 [place] % (Auto) 9.6 Eos % (Auto) 0.0 Baso % (Auto) 0.1 Absolute Neuts (auto) 4.9 Absolute Lymphs (auto) 0.9 L Absolute Monos (auto) 0.6 Absolute Eos (auto) 0.0 Absolute Basos (auto) 0.0 Absolute Nucleated RBC 0.0 Nucleated RBC % 0.0 Sodium 139 Potassium 4.0 Chloride 107 Carbon Dioxide 26 Anion Gap 6 BUN 14 Creatinine 0.73 Est GFR ( Amer) 95.1 Est GFR (Non-Af Amer) 78.6 BUN/Creatinine Ratio 19.2 Glucose 104 H Lactic Acid Calcium 8.1 L Total Bilirubin AST ALT Alkaline Phosphatase C-Reactive Protein Total Protein Albumin Globulin Albumin/Globulin Ratio Lipase Urine Color Yellow Urine Appearance Cloudy Urine pH 7.0 Ur Specific [place] 1.019 Urine Protein Negative Urine Ketones Trace A Urine Blood Negative Urine Nitrate Negative Urine Bilirubin Negative Urine Urobilinogen Negative Ur Leukocyte Esterase 1+ A Urine WBC (Auto) 2+(11-20/hpf) A Urine RBC (Auto) Absent Urine Bacteria 1+ A Urine Glucose Negative 09/04/19 08:16 WBC RBC Hgb Hct MCV MCH MCHC RDW Plt Count MPV Neut % (Auto) Lymph % (Auto) [place] % (Auto) Eos % (Auto) Baso % (Auto) Absolute Neuts (auto) Absolute Lymphs (auto) Absolute Monos (auto) Absolute Eos (auto) Absolute Basos (auto) Absolute Nucleated RBC Nucleated RBC % Sodium Potassium Chloride Carbon Dioxide Anion Gap BUN Creatinine Est GFR ( Amer) Est GFR (Non-Af Amer) BUN/Creatinine Ratio Glucose Lactic Acid 0.7 Calcium Total Bilirubin AST ALT Alkaline Phosphatase C-Reactive Protein Total Protein Albumin Globulin Albumin/Globulin Ratio Lipase Urine Color Urine Appearance Urine pH Ur Specific [place] Urine Protein Urine Ketones Urine Blood Urine Nitrate Urine Bilirubin Urine Urobilinogen Ur Leukocyte Esterase Urine WBC (Auto) Urine RBC (Auto) Urine Bacteria Urine Glucose Microbiology and Other Data: . Assess/Plan/Problems-Billing Assessment: 69 yr old female with pmh of diverticulitis with s/p colostomy and revision of colostomy. 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 Had brief episode of dark drainage that was positive for blood. No gela red blood. Started protonix IV. Believe this to be due to gastric irritation from tubing. -Will obtain CT of abdomen/pelvis with oral contrast today due to lack of progress. - NPO - IV fluids (2) Adrenal insufficiency Current Visit: Yes Status: Acute Code(s): E27.40 - UNSPECIFIED ADRENOCORTICAL INSUFFICIENCY SNOMED Code(s): 284236804 Comment: - Stress dose steriods ordered on admission. She normally takes prednisone 5mg PO daily. Because she is still NPO with NG tube, will continue with 5mg of IV methylprednisone. (3) Asthma Current Visit: No Status: Acute Code(s): J45.909 - UNSPECIFIED ASTHMA, UNCOMPLICATED SNOMED Code(s): 474868180 Comment: -no evidence of acute exacerbation -cont home dulera, rescue albuterol, and prednisone (4) Hypothyroidism Current Visit: No Status: Acute Code(s): E03.9 - HYPOTHYROIDISM, UNSPECIFIED SNOMED Code(s): 24097148 Comment: - Cont IV synthroid (5) DVT prophylaxis Current Visit: No Status: Acute Code(s): ECU4985 - SNOMED Code(s): 928483032 Comment: - SCDs (6) Full code status Current Visit: No Status: Acute Code(s): Z78.9 - OTHER SPECIFIED HEALTH STATUS SNOMED Code(s): 027585118 Comment: Status and Disposition: Condition: Guarded Disposition: Admit inpatient to [facility]. Attending: Nadya Carter
[2019-09-07] MEDS: Pantoprazole IV* 40 MG IV SCH (08:34)
[2019-09-07] MEDS: Mometasone/Formoter 200/5 MDI INH SCH ×2 (08:34→19:52)
[2019-09-07] MEDS: methylPREDNISolone SOD 40 MG* 1 ML VIAL IV SCH (08:35)
[2019-09-07] MEDS: D5LR 20 MEQ KCL 1000 ML BAG* 1,000 ML IV SCH ×2 (08:41→17:40)
[2019-09-07] MEDS ORDERED: Iohexol 300* (CONTRAST) 10 ML SDV IV ONE (09:35)
--- NOTE | 2019-09-07 10:12 | PN ---
Progress Note - Progress Note Date of Service: 09/07/19 Note: Started passing flatus this morning. Very small bowel movement. She has started drinking contrast for a CT scan, which was ordered before she started passing flatus. She denies nausea or abdominal pain. She has been walking. Denies chest pain or shortness of breath. Vital Signs - 12 hr Temp Pulse Resp BP Pulse Ox 09/07/19 07:26 98.1 F 62 16 137/62 96 09/07/19 03:19 97.9 F 71 17 142/74 96 09/07/19 00:12 63 16 97 09/06/19 23:52 98.0 F 63 16 148/67 97 Intake & Output 09/06/19 09/07/19 09/07/19 22:59 06:59 14:59 Intake Total 950 977 331 Output Total 600 1265 Balance 350 -288 331 Intake: IV Fluids 950 977 331 LR 950 977 331 Oral 0 Output: NG Tube Drainage Amount 615 Urine 600 650 General: NAD, Dark red-brown fluid in NG tube, currently clamped. CV: RRR Resp: Clear to auscultation Abd: Soft, mildly distended, nontender. Neuro: Alert, oriented x3. Moves all extremities equally. Laboratory Results - last 24 hr 09/07/19 09/07/19 04:11 04:11 WBC 6.9 RBC 4.49 Hgb 13.6 Hct 40 MCV 89 MCH 30 MCHC 34 RDW 13 Plt Count 204 MPV 7.6 Neut % (Auto) 72.8 Lymph % (Auto) 16.5 [place] % (Auto) 10.5 Eos % (Auto) 0.0 Baso % (Auto) 0.2 Absolute Neuts (auto) 5.1 Absolute Lymphs (auto) 1.1 Absolute Monos (auto) 0.7 Absolute Eos (auto) 0.0 Absolute Basos (auto) 0.0 Absolute Nucleated RBC 0.0 Nucleated RBC % 0.0 Sodium 137 Potassium 3.6 Chloride 103 Carbon Dioxide 23 Anion Gap 11 BUN 14 Creatinine 0.65 Est GFR ( Amer) 108.7 Est GFR (Non-Af Amer) 89.9 BUN/Creatinine Ratio 21.5 H Glucose 69 L Calcium 8.0 L A&P 69F with SBO, maybe starting to resolve just this morning. -Will f/u CT scan. -Continue NPO and NG to low continuous suction for now. If she continues to have flatus and BM, consider clamping NG tube later today. -Encourage walking -Monitor electrolytes, goal K> 4, mag >2. -PPI
[2019-09-08] MEDS: D5LR 20 MEQ KCL 1000 ML BAG* 1,000 ML IV SCH ×2 (01:47→11:21)
[2019-09-08] MEDS: Levothyroxine INJ* 100 MCG/5 ML VIAL IV SCH (06:34)
[2019-09-08] MEDS: Mometasone/Formoter 200/5 MDI INH SCH ×2 (08:00→19:31)
[2019-09-08] MEDS: methylPREDNISolone SOD 40 MG* 1 ML VIAL IV SCH (09:11)
[2019-09-08] MEDS: Pantoprazole IV* 40 MG IV SCH (09:16)
--- NOTE | 2019-09-08 11:05 | PN ---
Progress Note - Progress Note Date of Service: 09/08/19 SOAP: Subjective: NAD NG with minimal output after being clamped overnight + Flatus - BM [] Objective: Vital Signs Temp 97.9 F 09/08/19 07:23 Pulse 62 09/08/19 07:23 Resp 16 09/08/19 07:23 BP 149/76 09/08/19 07:23 Pulse Ox 95 09/08/19 07:23 Intake & Output 09/07/19 09/08/19 09/08/19 18:59 06:59 18:59 Intake Total 2318 980 Output Total 2580 2300 600 Balance -262 -1320 -600 Intake: IV Fluids 1318 980 D5W LR 20 meq KCL 987 980 LR 331 Oral 1000 0 Output: NG Tube Drainage Amount 230 100 Urine 2350 2200 600 Other: # Bowel Movements 0 PEX Gen: NAD Chest: CTAB CVS: RRR Abd: soft mild tenderness to LLQ, no guarding Ext: Calves Soft, Non Tender [] Assessment: 69 yo female HD 5 with Recurrent SBO responding well to conservative management [] Plan: NG was removed during exam. Ambulate, Ice chips ok until BM, then slow advance of diet as bowel function returns Patient also seen and examined by Dr Carrasquillo []
--- NOTE | 2019-09-08 19:13 | PN ---
Subjective Date of Service: 09/08/19 Interval History: No longer has an NG tube, removed by surgery. Is passing more flatus though still has had no bowel movement. Tolerating ice chips well with no abdominal pain, nausea, or vomiting. No other acute complaints. Family History: Unchanged from Admission Social History: Unchanged from Admission Past Medical History: Unchanged from Admission Objective Active Medications: Albuterol (Ventolin 2.5 Mg/3 Ml Neb.Zaira*) 2.5 mg INH Q4H PRN PRN Reason: SOB/WHEEZING Hydromorphone HCl (Dilaudid Inj*) 0.5 mg IV SLOW PU Q4H PRN PRN Reason: PAIN - MODERATE Last Admin: 09/06/19 03:20 Dose: 0.5 mg Lactated Ringer's (Lactated Ringers 1000 Ml Bag*) 1,000 mls @ 125 mls/hr IV PER RATE [facility] Levothyroxine Sodium (Synthroid Inj*) 56 mcg IV 0600 [facility] Last Admin: 09/08/19 06:34 Dose: 56 mcg Methylprednisolone Sodium Succinate (Solu-Medrol 40 Mg) 5 mg IV DAILY [facility] Last Admin: 09/08/19 09:11 Dose: 5 mg Mometasone Furoate/Formoterol Fumar (Dulera 200/5 Mdi*) 2 puff INH BID [facility] Last Admin: 09/08/19 08:00 Dose: 2 puff Ondansetron HCl (Zofran Inj*) 4 mg IV Q4H PRN PRN Reason: NAUSEA Pantoprazole Sodium (Protonix Iv*) 40 mg IV Q24H [facility] Last Admin: 09/08/19 09:16 Dose: 40 mg Phenol/Menthol (Chloroseptic Throat [place]*) 1 spray MT Q2H PRN PRN Reason: SORE THROAT Last Admin: 09/07/19 20:56 Dose: 1 spray Vital Signs - 8 hr 09/08/19 09/08/19 11:40 15:41 Temperature 98.7 F 97.5 F Pulse Rate 72 63 Respiratory 16 Rate Blood Pressure 134/70 135/64 (mmHg) O2 Sat by Pulse 96 96 Oximetry Oxygen Devices in Use Now: None Appearance: This is a well developed woman seen sitting up in bed, no acute distress. Eyes: No Scleral Icterus, PERRLA Ears/Nose/Mouth/Throat: NL Teeth, Lips, Gums, Clear Oropharnyx, Mucous Membranes Moist Neck: NL Appearance and Movements; NL JVP, Trachea Midline Respiratory: Symmetrical Chest Expansion and Respiratory Effort, Clear to Auscultation Cardiovascular: NL Sounds; No Murmurs; No JVD, RRR, No Edema Abdominal: NL Sounds; No Tenderness; No Distention Lymphatic: No Cervical Adenopathy Extremities: No Edema, No Clubbing, Cyanosis Skin: No Rash or Ulcers, No Nodules or Sclerosis Neurological: Alert and Oriented x 3 Lines/Tubes/Other Access: Clean, Dry and Intact Peripheral IV Result Diagrams: 09/07/19 04:11 09/07/19 04:11 Additional Lab and Data: Laboratory Results - last 24 hr 09/03/19 09/03/19 09/03/19 19:49 19:49 19:49 WBC 13.4 H RBC 5.14 H Hgb 15.3 Hct 46 MCV 89 MCH 30 MCHC 33 RDW 14 Plt Count 258 MPV 7.6 Neut % (Auto) 86.3 Lymph % (Auto) 6.9 [place] % (Auto) 6.6 Eos % (Auto) 0.0 Baso % (Auto) 0.2 Absolute Neuts (auto) 11.5 H Absolute Lymphs (auto) 0.9 L Absolute Monos (auto) 0.9 H Absolute Eos (auto) 0.0 Absolute Basos (auto) 0.0 Absolute Nucleated RBC 0.0 Nucleated RBC % 0.0 Sodium 138 Potassium 4.1 Chloride 100 L Carbon Dioxide 30 Anion Gap 8 BUN 16 Creatinine 0.86 Est GFR ( Amer) 78.7 Est GFR (Non-Af Amer) 65.0 BUN/Creatinine Ratio 18.6 Glucose 119 H Lactic Acid 3.9 H* Calcium 9.6 Total Bilirubin 1.60 H AST 24 ALT 16 Alkaline Phosphatase 45 C-Reactive Protein 5.49 Total Protein 7.6 Albumin 4.6 Globulin 3.0 Albumin/Globulin Ratio 1.5 Lipase 36 Urine Color Urine Appearance Urine pH Ur Specific [place] Urine Protein Urine Ketones Urine Blood Urine Nitrate Urine Bilirubin Urine Urobilinogen Ur Leukocyte Esterase Urine WBC (Auto) Urine RBC (Auto) Urine Bacteria Urine Glucose 09/04/19 09/04/19 09/04/19 02:05 08:16 08:16 WBC 6.4 RBC 4.63 Hgb 14.1 Hct 42 MCV 91 MCH 30 MCHC 34 RDW 14 Plt Count Platelets clumped. H MPV Not Reportable Neut % (Auto) 76.7 Lymph % (Auto) 13.6 [place] % (Auto) 9.6 Eos % (Auto) 0.0 Baso % (Auto) 0.1 Absolute Neuts (auto) 4.9 Absolute Lymphs (auto) 0.9 L Absolute Monos (auto) 0.6 Absolute Eos (auto) 0.0 Absolute Basos (auto) 0.0 Absolute Nucleated RBC 0.0 Nucleated RBC % 0.0 Sodium 139 Potassium 4.0 Chloride 107 Carbon Dioxide 26 Anion Gap 6 BUN 14 Creatinine 0.73 Est GFR ( Amer) 95.1 Est GFR (Non-Af Amer) 78.6 BUN/Creatinine Ratio 19.2 Glucose 104 H Lactic Acid Calcium 8.1 L Total Bilirubin AST ALT Alkaline Phosphatase C-Reactive Protein Total Protein Albumin Globulin Albumin/Globulin Ratio Lipase Urine Color Yellow Urine Appearance Cloudy Urine pH 7.0 Ur Specific [place] 1.019 Urine Protein Negative Urine Ketones Trace A Urine Blood Negative Urine Nitrate Negative Urine Bilirubin Negative Urine Urobilinogen Negative Ur Leukocyte Esterase 1+ A Urine WBC (Auto) 2+(11-20/hpf) A Urine RBC (Auto) Absent Urine Bacteria 1+ A Urine Glucose Negative 09/04/19 08:16 WBC RBC Hgb Hct MCV MCH MCHC RDW Plt Count MPV Neut % (Auto) Lymph % (Auto) [place] % (Auto) Eos % (Auto) Baso % (Auto) Absolute Neuts (auto) Absolute Lymphs (auto) Absolute Monos (auto) Absolute Eos (auto) Absolute Basos (auto) Absolute Nucleated RBC Nucleated RBC % Sodium Potassium Chloride Carbon Dioxide Anion Gap BUN Creatinine Est GFR ( Amer) Est GFR (Non-Af Amer) BUN/Creatinine Ratio Glucose Lactic Acid 0.7 Calcium Total Bilirubin AST ALT Alkaline Phosphatase C-Reactive Protein Total Protein Albumin Globulin Albumin/Globulin Ratio Lipase Urine Color Urine Appearance Urine pH Ur Specific [place] Urine Protein Urine Ketones Urine Blood Urine Nitrate Urine Bilirubin Urine Urobilinogen Ur Leukocyte Esterase Urine WBC (Auto) Urine RBC (Auto) Urine Bacteria Urine Glucose Microbiology and Other Data: . Assess/Plan/Problems-Billing Assessment: 69 yr old female with pmh of diverticulitis with s/p colostomy and revision of colostomy. sbo, hypothryoid secondary to thyroid ca, asthma with [employer] steriods and adrenal insufficiency; who presented with abd pain, nausea, vomiting - Patient Problems (1) SBO (small bowel obstruction) Current Visit: No Status: Acute Code(s): K56.69 - OTHER INTESTINAL OBSTRUCTION * DO NOT USE * SNOMED Code(s): 512646026 Comment: - Surgery consulting - NG tube removed by surgery. Tolerating ice chips. Passing more flatus though still negative for bowel movement. - NPO - IV fluids (2) Adrenal insufficiency Current Visit: Yes Status: Acute Code(s): E27.40 - UNSPECIFIED ADRENOCORTICAL INSUFFICIENCY SNOMED Code(s): 804115859 Comment: - Stress dose steriods ordered on admission. She normally takes prednisone 5mg PO daily. Because she is still NPO with NG tube, will continue with 5mg of IV methylprednisone. (3) Asthma Current Visit: No Status: Acute Code(s): J45.909 - UNSPECIFIED ASTHMA, UNCOMPLICATED SNOMED Code(s): 361347768 Comment: -no evidence of acute exacerbation -cont home dulera, rescue albuterol, and methylprednisone. (4) Hypothyroidism Current Visit: No Status: Acute Code(s): E03.9 - HYPOTHYROIDISM, UNSPECIFIED SNOMED Code(s): 85288176 Comment: - Cont IV synthroid (5) DVT prophylaxis Current Visit: No Status: Acute Code(s): QNW5751 - SNOMED Code(s): 817659209 Comment: - SCDs (6) Full code status Current Visit: No Status: Acute Code(s): Z78.9 - OTHER SPECIFIED HEALTH STATUS SNOMED Code(s): 420427425 Comment: Status and Disposition: Condition: Guarded Disposition: Admit inpatient to [facility]. Attending: Clair Wright
[2019-09-08] MEDS: Lactated Ringers 1000 ML Bag* 1,000 ML IV SCH (19:21)
[2019-09-09] MEDS: Lactated Ringers 1000 ML Bag* 1,000 ML IV SCH ×2 (03:26→23:07)
[2019-09-09] MEDS: Levothyroxine INJ* 100 MCG/5 ML VIAL IV SCH (05:28)
[2019-09-09 05:57] LABS: ABS Lymphocytes 1.3 10^3/ul (1.0-4.8); ABS Monocytes 0.5 10^3/ul (0-0.8); ABS Neutrophils 3.5 10^3/ul (1.5-7.7); Hematocrit 42 % (35-47); Hemoglobin 14.1 g/dL (12.0-16.0); Lymphocyte % 24.8 %; Mean Corpuscular HGB Conc 34 g/dL (31-36); Mean Corpuscular Hemoglobin 30 pg (27-31); Mean Corpuscular Volume 89 fL (80-97); Mean Platelet Volume 7.6 fL (7.4-10.4); Platelet Count 206 10^3/uL (150-450); Red Blood Count 4.72 10^6 /uL (3.70-4.87); Red Cell Distribution Width 13 % (10-15); White Blood Count 5.3 10^3/uL (3.5-10.8)
[2019-09-09 06:16] LABS: BUN/Creatinine Ratio 13.2 (8-20); Calcium 8.3 mg/dL (8.6-10.3); EGFR African American 137.6 (>60); EGFR Non-African American 113.7 (>60); Potassium 3.4 mmol/L (3.5-5.0)
[2019-09-09] MEDS ORDERED: KCL 20 MEQ/100 ML IVPREMIX* 20 MEQ/100 ML BAG IV ONE (07:18)
[2019-09-09] MEDS: Mometasone/Formoter 200/5 MDI INH SCH ×2 (07:20→19:12)
[2019-09-09] MEDS ORDERED: Magnesium Hydroxide LIQ* 30 ML UDC PO ONE ×2 (07:50→11:32)
--- NOTE | 2019-09-09 07:57 | PN ---
Progress Note - Progress Note Date of Service: 09/09/19 Note: S: Reports she is feeling better, still some mild abdominal discomfort. + Flatus , no BM yet. Ambulating well. Denies fevers, chills, nausea, emesis. Tolerating ice chips without problem. O: Vital Signs - 8 hr 09/09/19 09/09/19 03:34 07:42 Temperature 97.8 F 97.9 F Pulse Rate 58 60 Respiratory 16 17 Rate Blood Pressure 151/75 143/78 (mmHg) O2 Sat by Pulse 96 96 Oximetry Intake and Output Last 24 Hours 09/07/19 09/08/19 09/09/19 09/10/19 06:59 06:59 06:59 06:59 Intake Total 2917 3298 4021 Output Total 2715 4880 3750 Balance 202 -1582 271 Intake: IV Fluids 2917 2298 2941 D5W LR 20 meq KCL 1967 196 LR 2917 331 980 Oral 0 1000 1080 Output: NG Tube Drainage Amount 615 330 Urine 2100 4550 3750 Other: Date of Last Bowel 09/06/2019 Movement # Bowel Movements 1 0 Estimated Stool Amount Small # Voids 3 PEX: General: Alert, in NAD. HEENT: Oropharynx clear. PERRLA. Heart: RRR. Lungs: CTAB. ABD: BS present. Soft, nondistended. Mild tenderness in LLQ and LUQ. No guarding. Extremities: Distal pulses intact bilaterally. No edema. Calves soft and nontender. Assessment and plan: 69 yo F with SBO, improving with conservative care. Still awaiting BM; will give milk of magnesia. Doing well with NG out. Will advance diet after BM passed.
[2019-09-09] MEDS: methylPREDNISolone SOD 40 MG* 1 ML VIAL IV SCH (08:12)
[2019-09-09] MEDS: Pantoprazole IV* 40 MG IV SCH (08:13)
--- NOTE | 2019-09-09 11:03 | PN ---
Subjective Date of Service: 09/09/19 Interval History: Pt reports she is feeling better at this time since NG removal, however she has still not been able to have a bowel movement. Pt reports soreness in abdomen only. Pt denies any nausea or vomiting. Still taking ice chips. Pt is out of bed independently and denies any difficulty with ambulation. Pt reports 1 watery BM today at 1600. Family History: Unchanged from Admission Social History: Unchanged from Admission Past Medical History: Unchanged from Admission Objective Active Medications: Albuterol (Ventolin 2.5 Mg/3 Ml Neb.Zaira*) 2.5 mg INH Q4H PRN PRN Reason: SOB/WHEEZING Hydromorphone HCl (Dilaudid Inj*) 0.5 mg IV SLOW PU Q4H PRN PRN Reason: PAIN - MODERATE Last Admin: 09/06/19 03:20 Dose: 0.5 mg Lactated Ringer's (Lactated Ringers 1000 Ml Bag*) 1,000 mls @ 125 mls/hr IV PER RATE [facility] Last Admin: 09/09/19 03:26 Dose: 125 mls/hr Levothyroxine Sodium (Synthroid Inj*) 56 mcg IV 0600 [facility] Last Admin: 09/09/19 05:28 Dose: 56 mcg Methylprednisolone Sodium Succinate (Solu-Medrol 40 Mg) 5 mg IV DAILY [facility] Last Admin: 09/09/19 08:12 Dose: 5 mg Mometasone Furoate/Formoterol Fumar (Dulera 200/5 Mdi*) 2 puff INH BID [facility] Last Admin: 09/09/19 07:20 Dose: 2 puff Ondansetron HCl (Zofran Inj*) 4 mg IV Q4H PRN PRN Reason: NAUSEA Pantoprazole Sodium (Protonix Iv*) 40 mg IV Q24H [facility] Last Admin: 09/09/19 08:13 Dose: 40 mg Phenol/Menthol (Chloroseptic Throat [place]*) 1 spray MT Q2H PRN PRN Reason: SORE THROAT Last Admin: 09/07/19 20:56 Dose: 1 spray Vital Signs - 8 hr 09/09/19 09/09/19 09/09/19 03:34 07:42 08:00 Temperature 97.8 F 97.9 F Pulse Rate 58 60 Respiratory 16 17 17 Rate Blood Pressure 151/75 143/78 (mmHg) O2 Sat by Pulse 96 96 Oximetry Oxygen Devices in Use Now: None Appearance: Elderly woman sitting up in bed chatting on cell phone. Does not appear to be in any distress. Eyes: No Scleral Icterus Ears/Nose/Mouth/Throat: NL Teeth, Lips, Gums, Clear Oropharnyx, Mucous Membranes Moist Neck: NL Appearance and Movements; NL JVP, Trachea Midline Respiratory: Symmetrical Chest Expansion and Respiratory Effort, Clear to Auscultation Cardiovascular: NL Sounds; No Murmurs; No JVD, RRR, No Edema Abdominal: - - Reports soreness to palpation in all 4 quads. bowel sounds heard in all 4 quadrants. No distention noted Extremities: No Edema Skin: No Rash or Ulcers Neurological: Alert and Oriented x 3, NL Sensation, NL Gait, NL Muscle Strength and Tone Result Diagrams: 09/09/19 05:28 09/09/19 05:28 Additional Lab and Data: Laboratory Results - last 24 hr 09/03/19 09/03/19 09/03/19 19:49 19:49 19:49 WBC 13.4 H RBC 5.14 H Hgb 15.3 Hct 46 MCV 89 MCH 30 MCHC 33 RDW 14 Plt Count 258 MPV 7.6 Neut % (Auto) 86.3 Lymph % (Auto) 6.9 [place] % (Auto) 6.6 Eos % (Auto) 0.0 Baso % (Auto) 0.2 Absolute Neuts (auto) 11.5 H Absolute Lymphs (auto) 0.9 L Absolute Monos (auto) 0.9 H Absolute Eos (auto) 0.0 Absolute Basos (auto) 0.0 Absolute Nucleated RBC 0.0 Nucleated RBC % 0.0 Sodium 138 Potassium 4.1 Chloride 100 L Carbon Dioxide 30 Anion Gap 8 BUN 16 Creatinine 0.86 Est GFR ( Amer) 78.7 Est GFR (Non-Af Amer) 65.0 BUN/Creatinine Ratio 18.6 Glucose 119 H Lactic Acid 3.9 H* Calcium 9.6 Total Bilirubin 1.60 H AST 24 ALT 16 Alkaline Phosphatase 45 C-Reactive Protein 5.49 Total Protein 7.6 Albumin 4.6 Globulin 3.0 Albumin/Globulin Ratio 1.5 Lipase 36 Urine Color Urine Appearance Urine pH Ur Specific [place] Urine Protein Urine Ketones Urine Blood Urine Nitrate Urine Bilirubin Urine Urobilinogen Ur Leukocyte Esterase Urine WBC (Auto) Urine RBC (Auto) Urine Bacteria Urine Glucose 09/04/19 09/04/19 09/04/19 02:05 08:16 08:16 WBC 6.4 RBC 4.63 Hgb 14.1 Hct 42 MCV 91 MCH 30 MCHC 34 RDW 14 Plt Count Platelets clumped. H MPV Not Reportable Neut % (Auto) 76.7 Lymph % (Auto) 13.6 [place] % (Auto) 9.6 Eos % (Auto) 0.0 Baso % (Auto) 0.1 Absolute Neuts (auto) 4.9 Absolute Lymphs (auto) 0.9 L Absolute Monos (auto) 0.6 Absolute Eos (auto) 0.0 Absolute Basos (auto) 0.0 Absolute Nucleated RBC 0.0 Nucleated RBC % 0.0 Sodium 139 Potassium 4.0 Chloride 107 Carbon Dioxide 26 Anion Gap 6 BUN 14 Creatinine 0.73 Est GFR ( Amer) 95.1 Est GFR (Non-Af Amer) 78.6 BUN/Creatinine Ratio 19.2 Glucose 104 H Lactic Acid Calcium 8.1 L Total Bilirubin AST ALT Alkaline Phosphatase C-Reactive Protein Total Protein Albumin Globulin Albumin/Globulin Ratio Lipase Urine Color Yellow Urine Appearance Cloudy Urine pH 7.0 Ur Specific [place] 1.019 Urine Protein Negative Urine Ketones Trace A Urine Blood Negative Urine Nitrate Negative Urine Bilirubin Negative Urine Urobilinogen Negative Ur Leukocyte Esterase 1+ A Urine WBC (Auto) 2+(11-20/hpf) A Urine RBC (Auto) Absent Urine Bacteria 1+ A Urine Glucose Negative 09/04/19 08:16 WBC RBC Hgb Hct MCV MCH MCHC RDW Plt Count MPV Neut % (Auto) Lymph % (Auto) [place] % (Auto) Eos % (Auto) Baso % (Auto) Absolute Neuts (auto) Absolute Lymphs (auto) Absolute Monos (auto) Absolute Eos (auto) Absolute Basos (auto) Absolute Nucleated RBC Nucleated RBC % Sodium Potassium Chloride Carbon Dioxide Anion Gap BUN Creatinine Est GFR ( Amer) Est GFR (Non-Af Amer) BUN/Creatinine Ratio Glucose Lactic Acid 0.7 Calcium Total Bilirubin AST ALT Alkaline Phosphatase C-Reactive Protein Total Protein Albumin Globulin Albumin/Globulin Ratio Lipase Urine Color Urine Appearance Urine pH Ur Specific [place] Urine Protein Urine Ketones Urine Blood Urine Nitrate Urine Bilirubin Urine Urobilinogen Ur Leukocyte Esterase Urine WBC (Auto) Urine RBC (Auto) Urine Bacteria Urine Glucose Microbiology and Other Data: . Assess/Plan/Problems-Billing Assessment: 69 yr old female with pmh of diverticulitis with s/p colostomy and revision of colostomy. sbo, hypothryoid secondary to thyroid ca, asthma with [facility] steriods and adrenal insufficiency; who presented with abd pain, nausea, vomiting - Patient Problems (1) SBO (small bowel obstruction) Current Visit: No Comment: - Surgery consulting - NG tube removed by surgery 09/08/19. Tolerating ice chips. +Flatus -Negative for nausea and vomiting - IV fluids -1 watery BM today 09/09/19 @1600 (2) Adrenal insufficiency Current Visit: Yes Comment: - Stress dose steriods ordered on admission. She normally takes prednisone 5mg PO daily. Because she is still NPO with NG tube, will continue with 5mg of IV methylprednisone. (3) Asthma Current Visit: No Comment: -no evidence of acute exacerbation -cont home dulera -methylprednisone. -Albuterol nebulizers PRN (4) Hypothyroidism Current Visit: No Comment: - Cont IV synthroid (5) Hypokalemia Comment: -Potassium 3.4 -Replaced with 20meq IV (6) DVT prophylaxis Current Visit: No Comment: - SCDs (7) Full code status Current Visit: No Comment: Status and Disposition: Condition: Guarded Disposition: Admit inpatient to [facility].
[2019-09-10] MEDS: Levothyroxine INJ* 100 MCG/5 ML VIAL IV SCH (06:03)
[2019-09-10 06:27] LABS: ABS Lymphocytes 1.7 10^3/ul (1.0-4.8); ABS Monocytes 0.4 10^3/ul (0-0.8); Hematocrit 41 % (35-47); Hemoglobin 13.9 g/dL (12.0-16.0); Lymphocyte % 32.5 %; Mean Corpuscular HGB Conc 34 g/dL (31-36); Mean Corpuscular Hemoglobin 30 pg (27-31); Mean Corpuscular Volume 89 fL (80-97); Mean Platelet Volume 7.3 fL (7.4-10.4); Nucleated Red Blood Cells % 0.2; Platelet Count 220 10^3/uL (150-450); Red Blood Count 4.59 10^6 /uL (3.70-4.87); Red Cell Distribution Width 13 % (10-15); White Blood Count 5.1 10^3/uL (3.5-10.8)
[2019-09-10 06:45] LABS: BUN/Creatinine Ratio 10.3 (8-20); Calcium 8.5 mg/dL (8.6-10.3); EGFR African American 103.2 (>60); EGFR Non-African American 85.3 (>60); Potassium 3.5 mmol/L (3.5-5.0)
[2019-09-10] MEDS: Pantoprazole IV* 40 MG IV SCH (08:03)
[2019-09-10] MEDS: methylPREDNISolone SOD 40 MG* 1 ML VIAL IV SCH (08:03)
[2019-09-10] MEDS: Lactated Ringers 1000 ML Bag* 1,000 ML IV SCH (08:06)
[2019-09-10] MEDS ORDERED: Magnesium Hydroxide LIQ* 30 ML UDC PO ONE (08:06)
--- NOTE | 2019-09-10 08:06 | PN ---
Progress Note - Progress Note Date of Service: 09/10/19 Note: BM yesterday afternoon. Passing flatus yesterday but not yet this morning. No complaints. Denies nausea or abdominal pain, chest pain, or SOB. Vital Signs - 12 hr Temp Pulse Resp BP Pulse Ox 09/10/19 03:24 97.5 F 57 16 108/65 98 09/09/19 23:51 97.7 F 56 16 125/69 94 Intake & Output 09/09/19 09/10/19 09/10/19 22:59 06:59 14:59 Intake Total 1735 1280 Output Total 0 700 Balance 1735 580 Intake: IV Fluids 1375 680 LR 1275 680 k 100 Oral 360 600 Output: Urine 0 700 Other: Estimated Void Medium # Voids 2 General: NAD ABdomen: soft, nontender, nondistended. Extremities: Warm, no pedal edema. Neuro: Alert, oriented x3. Moves all extremities equally. Laboratory Results - last 24 hr 09/10/19 09/10/19 05:40 05:40 WBC 5.1 RBC 4.59 Hgb 13.9 Hct 41 MCV 89 MCH 30 MCHC 34 RDW 13 Plt Count 220 MPV 7.3 L Neut % (Auto) 58.7 Lymph % (Auto) 32.5 [place] % (Auto) 8.8 Eos % (Auto) 0.0 Baso % (Auto) 0.0 Absolute Neuts (auto) 3.0 Absolute Lymphs (auto) 1.7 Absolute Monos (auto) 0.4 Absolute Eos (auto) 0.0 Absolute Basos (auto) 0.0 Absolute Nucleated RBC 0.0 Nucleated RBC % 0.2 Sodium 139 Potassium 3.5 Chloride 106 Carbon Dioxide 27 Anion Gap 6 BUN 7 Creatinine 0.68 Est GFR ( Amer) 103.2 Est GFR (Non-Af Amer) 85.3 BUN/Creatinine Ratio 10.3 Glucose 94 Calcium 8.5 L 69F with SBO, now resolved. -Advance to soft diet as tolerated. Recommended to patient that she follow soft diet for the next couple of days. Also talked about Ensure/Boost at home for extra calories until she is able to eat normally. -Milk of mag (patient uses at home) -D/c IVF -From surgical standpoint, patient is ready for discharge to home if she tolerates soft diet.
[2019-09-10] MEDS: Mometasone/Formoter 200/5 MDI INH SCH (08:07)
--- NOTE | 2019-09-10 08:29 | PN ---
Subjective Date of Service: 09/10/19 Interval History: Pt reports No further BM's overnight. Denies any abdominal pain or discomfort. Pt denies passing any flatus today. Pt feels that she is ready to go home, which surgery informed patient is a possibility if she tolerates soft diet today. Family History: Unchanged from Admission Social History: Unchanged from Admission Past Medical History: Unchanged from Admission Objective Active Medications: Albuterol (Ventolin 2.5 Mg/3 Ml Neb.Zaira*) 2.5 mg INH Q4H PRN PRN Reason: SOB/WHEEZING Hydromorphone HCl (Dilaudid Inj*) 0.5 mg IV SLOW PU Q4H PRN PRN Reason: PAIN - MODERATE Last Admin: 09/06/19 03:20 Dose: 0.5 mg Lactated Ringer's (Lactated Ringers 1000 Ml Bag*) 1,000 mls @ 125 mls/hr IV PER RATE [facility] Last Admin: 09/10/19 08:06 Dose: 125 mls/hr Levothyroxine Sodium (Synthroid Inj*) 56 mcg IV 0600 [facility] Last Admin: 09/10/19 06:03 Dose: 56 mcg Methylprednisolone Sodium Succinate (Solu-Medrol 40 Mg) 5 mg IV DAILY [facility] Last Admin: 09/10/19 08:03 Dose: 5 mg Mometasone Furoate/Formoterol Fumar (Dulera 200/5 Mdi*) 2 puff INH BID [facility] Last Admin: 09/10/19 08:07 Dose: 2 puff Ondansetron HCl (Zofran Inj*) 4 mg IV Q4H PRN PRN Reason: NAUSEA Pantoprazole Sodium (Protonix Iv*) 40 mg IV Q24H [facility] Last Admin: 09/10/19 08:03 Dose: 40 mg Phenol/Menthol (Chloroseptic Throat Victoria*) 1 spray MT Q2H PRN PRN Reason: SORE THROAT Last Admin: 09/07/19 20:56 Dose: 1 spray Vital Signs - 8 hr 09/10/19 09/10/19 09/10/19 03:24 08:21 08:22 Temperature 97.5 F 98.5 F Pulse Rate 57 58 Respiratory 16 16 18 Rate Blood Pressure 108/65 135/63 (mmHg) O2 Sat by Pulse 98 96 Oximetry Oxygen Devices in Use Now: None Eyes: No Scleral Icterus, PERRLA Ears/Nose/Mouth/Throat: NL Teeth, Lips, Gums, Clear Oropharnyx, Mucous Membranes Moist Neck: NL Appearance and Movements; NL JVP, Trachea Midline Respiratory: Symmetrical Chest Expansion and Respiratory Effort, Clear to Auscultation Cardiovascular: NL Sounds; No Murmurs; No JVD, RRR, No Edema Abdominal: NL Sounds; No Tenderness; No Distention Extremities: No Edema Skin: No Rash or Ulcers Neurological: Alert and Oriented x 3, NL Sensation, NL Gait, NL Muscle Strength and Tone Result Diagrams: 09/10/19 05:40 09/10/19 05:40 Additional Lab and Data: Laboratory Results - last 24 hr 09/03/19 09/03/19 09/03/19 19:49 19:49 19:49 WBC 13.4 H RBC 5.14 H Hgb 15.3 Hct 46 MCV 89 MCH 30 MCHC 33 RDW 14 Plt Count 258 MPV 7.6 Neut % (Auto) 86.3 Lymph % (Auto) 6.9 [place] % (Auto) 6.6 Eos % (Auto) 0.0 Baso % (Auto) 0.2 Absolute Neuts (auto) 11.5 H Absolute Lymphs (auto) 0.9 L Absolute Monos (auto) 0.9 H Absolute Eos (auto) 0.0 Absolute Basos (auto) 0.0 Absolute Nucleated RBC 0.0 Nucleated RBC % 0.0 Sodium 138 Potassium 4.1 Chloride 100 L Carbon Dioxide 30 Anion Gap 8 BUN 16 Creatinine 0.86 Est GFR ( Amer) 78.7 Est GFR (Non-Af Amer) 65.0 BUN/Creatinine Ratio 18.6 Glucose 119 H Lactic Acid 3.9 H* Calcium 9.6 Total Bilirubin 1.60 H AST 24 ALT 16 Alkaline Phosphatase 45 C-Reactive Protein 5.49 Total Protein 7.6 Albumin 4.6 Globulin 3.0 Albumin/Globulin Ratio 1.5 Lipase 36 Urine Color Urine Appearance Urine pH Ur Specific [place] Urine Protein Urine Ketones Urine Blood Urine Nitrate Urine Bilirubin Urine Urobilinogen Ur Leukocyte Esterase Urine WBC (Auto) Urine RBC (Auto) Urine Bacteria Urine Glucose 09/04/19 09/04/19 09/04/19 02:05 08:16 08:16 WBC 6.4 RBC 4.63 Hgb 14.1 Hct 42 MCV 91 MCH 30 MCHC 34 RDW 14 Plt Count Platelets clumped. H MPV Not Reportable Neut % (Auto) 76.7 Lymph % (Auto) 13.6 [place] % (Auto) 9.6 Eos % (Auto) 0.0 Baso % (Auto) 0.1 Absolute Neuts (auto) 4.9 Absolute Lymphs (auto) 0.9 L Absolute Monos (auto) 0.6 Absolute Eos (auto) 0.0 Absolute Basos (auto) 0.0 Absolute Nucleated RBC 0.0 Nucleated RBC % 0.0 Sodium 139 Potassium 4.0 Chloride 107 Carbon Dioxide 26 Anion Gap 6 BUN 14 Creatinine 0.73 Est GFR ( Amer) 95.1 Est GFR (Non-Af Amer) 78.6 BUN/Creatinine Ratio 19.2 Glucose 104 H Lactic Acid Calcium 8.1 L Total Bilirubin AST ALT Alkaline Phosphatase C-Reactive Protein Total Protein Albumin Globulin Albumin/Globulin Ratio Lipase Urine Color Yellow Urine Appearance Cloudy Urine pH 7.0 Ur Specific [place] 1.019 Urine Protein Negative Urine Ketones Trace A Urine Blood Negative Urine Nitrate Negative Urine Bilirubin Negative Urine Urobilinogen Negative Ur Leukocyte Esterase 1+ A Urine WBC (Auto) 2+(11-20/hpf) A Urine RBC (Auto) Absent Urine Bacteria 1+ A Urine Glucose Negative 09/04/19 08:16 WBC RBC Hgb Hct MCV MCH MCHC RDW Plt Count MPV Neut % (Auto) Lymph % (Auto) [place] % (Auto) Eos % (Auto) Baso % (Auto) Absolute Neuts (auto) Absolute Lymphs (auto) Absolute Monos (auto) Absolute Eos (auto) Absolute Basos (auto) Absolute Nucleated RBC Nucleated RBC % Sodium Potassium Chloride Carbon Dioxide Anion Gap BUN Creatinine Est GFR ( Amer) Est GFR (Non-Af Amer) BUN/Creatinine Ratio Glucose Lactic Acid 0.7 Calcium Total Bilirubin AST ALT Alkaline Phosphatase C-Reactive Protein Total Protein Albumin Globulin Albumin/Globulin Ratio Lipase Urine Color Urine Appearance Urine pH Ur Specific [place] Urine Protein Urine Ketones Urine Blood Urine Nitrate Urine Bilirubin Urine Urobilinogen Ur Leukocyte Esterase Urine WBC (Auto) Urine RBC (Auto) Urine Bacteria Urine Glucose Microbiology and Other Data: . Assess/Plan/Problems-Billing Assessment: 69 yr old female with pmh of diverticulitis with s/p colostomy and revision of colostomy. sbo, hypothryoid secondary to thyroid ca, asthma with terminal operator steriods and adrenal insufficiency; who presented with abd pain, nausea, vomiting - Patient Problems (1) SBO (small bowel obstruction) Current Visit: No Comment: - Surgery consulting - NG tube removed by surgery 09/08/19. Tolerating ice chips. +Flatus -Negative for nausea and vomiting - IV fluids -1 watery BM 09/09/19 @1600 -Surgical consult feels patient is ok to go home if tolerates soft diet (2) Adrenal insufficiency Current Visit: Yes Comment: - Stress dose steriods ordered on admission. She normally takes prednisone 5mg PO daily. Because she is still NPO with NG tube, will continue with 5mg of IV methylprednisone. (3) Asthma Current Visit: No Comment: -no evidence of acute exacerbation -cont home dulera -methylprednisone. -Albuterol nebulizers PRN (4) Hypothyroidism Current Visit: No Comment: - Cont IV synthroid (5) Hypokalemia Comment: -Potassium 3.5 today after replacement (6) DVT prophylaxis Current Visit: No Comment: - SCDs -Frequent ambulation (7) Full code status Current Visit: No Comment: Status and Disposition: Condition: Guarded Disposition: Admit inpatient to [facility].
[2019-09-10 11:07] VITALS: BP 134/73
--- NOTE | 2019-09-10 20:54 | DS ---
CC: Dr. Alicea * DISCHARGE SUMMARY: DATE OF ADMISSION: 09/04/19 DATE OF DISCHARGE: 09/10/19 ATTENDING PHYSICIAN: Luis Aguero MD * (dictated by Maritza Aguilar NP). PRIMARY CARE PHYSICIAN: Dr. Alicea. CONSULTING PHYSICIAN: Dr. Rebekah Carrasquillo. DIAGNOSIS: Small bowel obstruction. PROCEDURES: None. STUDIES: Abdomen x-ray completed on 09/03/19 at 1912, impression: No free air or obstruction is noted. No dilated loops of bowel are dilated. CT abdomen and pelvis without contrast on 09/03/19 at 2107, impression: 1. Small bowel obstruction, which is slightly less prominent since 03/02/19. There is resolution of reactive free fluid. Point of obstruction is suggested in the anterior pelvis to the right of midline. 2. Fat-filled ventricle wall hernias, which may be incisional and question of residual of an old ostomy site in the left mid abdomen. Exam of the CT chest without contrast completed on 09/04/19 at 0252, impression: 1. Stable biapical pleural and parenchymal scarring. There is bibasilar subsegmental atelectasis or parenchymal scarring. No visible pneumonitis. 2. Stable moderate hiatal hernia. Abdominal x-ray 2 views completed on 09/06/19 at 0600, impression: Nonobstructive bowel gas pattern, large amount of stool within proximal colon. CT abdomen and pelvis with IV contrast on 09/07/19 at 0809, impression: 1. No obstruction. 2. Small hiatal hernia. 3. Fat containing ventral hernias. 4. Small pericardial effusion. PERTINENT LAB DATA: From 09/10/19, white blood cell count 5.1, red blood cell 4.59, hemoglobin 13.9, hematocrit 41 platelet count 220. Sodium 139, potassium 3.5, chloride 106, carbon dioxide 27, BUN 7, creatinine 0.68, glucose 94, calcium 8.5. HISTORY OF PRESENT ILLNESS/HOSPITAL COURSE: This is a 69-year-old female patient with past medical history of thyroid cancer, status post thyroidectomy and hypothyroidism; history of asthma and adrenal insufficiency, the patient takes daily steroids; history of recurrent diverticulitis, status post partial colectomy with colostomy and subsequent reversal and multiple episodes of small bowel obstruction. The patient arrives to ER on 09/03/19 with sudden onset of abdominal pain, nausea, vomiting. The patient was without any flatus or bowel movement since pain started that day. The patient reports that her symptoms are reminiscent of past bowel obstructions. While in ER, the patient received NG tube to low wall suction for gastric rest. On the morning of 09/04/19, the patient did have small bowel movement and is also passing flatus. NG tube to remain in place. The patient maintained on n.p.o. status, IV fluids continuous with pain management as needed. The patient's abdominal pain improved daily, however, BM's did not continue initially. On the morning 09/07/19, the patient started passing flatus, and had another small bowel movement. On 09/07/19 the NG tube was clamped for the night with minimal output. Pt continued to pass flatus but, negative for bowel movement until morning of 09/09/19 with small watery bowel movement. The NG tube was removed the morning of 09/08/19 as the patient slowly improved and advanced PO intake from ice chips to clear liquids. Pt's bowel obstruction appears to be resolved as she continues to pass flatus , pt without any further complaints, is fully ambulatory and abominal distress is resolved. 09/10/19 pt tolerating soft diet for breakfast and lunch without abdominal pain nausea or vomiting. The patient feels that she is well enough to be discharged home, surgery has cleared patient for discharge as long as she tolerates soft diet. Pt will be discharged today. PHYSICAL EXAMINATION: Eyes: No scleral icterus. Eyes are PERRLA. ENMT: Normal teeth, lips, gums. Clear oropharynx. Mucous membranes moist. Neck: Normal appearance and movements. No JVP. Trachea is midline. Respiratory Status: Symmetrical chest expansion and respiratory effort. Clear to auscultation. Cardiovascular: Normal lung sounds. No murmurs. No JVD. RRR. No edema. Abdomen: Normal sounds. No tenderness. No distention in all 4 quadrants. Extremities: No edema. Skin: No rashes or ulcers. Neurological: The patient is alert and oriented x3. Normal sensation. Normal gait. Normal muscle strength and tone. DISCHARGE PLAN: Diet: Maintain soft diet for about 3 days and advance to regular diet as tolerated. Activity: As tolerated. Return precautions: Return to ED if develops any vomiting, severe abdominal pain, fever, chest pain, or shortness of breath. MEDICATIONS: The patient will continue home regimen without changes. Continued home medications: 1. Prednisone 5 mg p.o. daily. 2. Senna tab 8.6 mg 2 tabs p.o. q.p.m. 3. Ranitidine 150 mg p.o. b.i.d. 4. MiraLAX 17 g p.o. daily. 5. Multivitamin 1 tab p.o. daily. 6. Dulera 200/5 MDI 2 puffs inhaled b.i.d. 7. Levothyroxine tabs 112 mcg p.o. q.a.m. 8. Docusate 100 mg p.o. b.i.d. 9. Denosumab 60 mg subcu every 6 months. 10. Cyanocobalamin tablets 500 mcg p.o. every other week. 11. Cetirizine 10 mg p.o. q.p.m. 12. Calcium carbonate and vitamin D3 one tablet every morning by mouth. 13. Benralizumab syringe 30 mg subcu, see instructions. 14. Albuterol inhaler ProAir RespiClick 2 puffs inhaled every 4 hours as needed. CONDITION ON DISCHARGE: Stable. The patient is able to care for herself. Ambulates independently without difficulty. Remains alert and oriented x3 and no abdominal distress. Tolerating oral nutrition. DISPOSITION: Discharge home. TIME SPENT: Time spent on discharge is approximately 40 minutes, approximately half the time was spent with the patient going over plan, the rest of the time was spent documenting and writing orders. MARITZA AGUILAR, JASON [id number]/[facility] #: [id number] [place]
== END 2019-09-10 15:55 | disposition home or self-care (01) | DRG 389 ==
LOC: ED 18:26 → SSU 09-04 04:02
PROVIDERS: ADMIT Internal Medicine; ATTEND Internal Medicine
PROC: 0D9670Z Drainage of Stomach with Drainage Device, Via Natural or Artificial Opening (ICD-10-PCS; principal; 2019-09-04)
DX: K56.609 Unspecified intestinal obstruction, unspecified as to partial versus complete obstruction (principal); E27.40 Unspecified adrenocortical insufficiency; E87.2 Acidosis; E89.0 Postprocedural hypothyroidism; J42 Unspecified chronic bronchitis; J45.909 Unspecified asthma, uncomplicated; R79.89 Other specified abnormal findings of blood chemistry; E87.6 Hypokalemia; M81.0 Age-related osteoporosis without current pathological fracture; K44.9 Diaphragmatic hernia without obstruction or gangrene; Z87.891 Personal history of nicotine dependence; Z88.0 Allergy status to penicillin; Z88.5 Allergy status to narcotic agent; Z88.7 Allergy status to serum and vaccine; Z85.850 Personal history of malignant neoplasm of thyroid; Z92.3 Personal history of irradiation; Z79.890 Hormone replacement therapy; Z79.52 Long term (current) use of systemic steroids; Z79.899 Other long term (current) drug therapy
CPT/HCPCS: 36415; 71250; 74019; 74176; 74177; 80048; 80053; 81003; 81015; 82271; 83605; 83690; 85025; 85027; 86140; 87086; 94640; 96361; 96374; 96375; 99284; A9270-GY; J1170; J1885; J2405; J2920; J3010; J3480; Q9967

== ENCOUNTER 2020-03-18 20:28 | Inpatient (IN) ==
[2020-03-18] MEDS ORDERED: Ondansetron 4 mg VIAL 2 MG/ML 2 ml VIAL IV ONE (20:52)
[2020-03-18] MEDS ORDERED: NS 0.9% 1000 ml BAG 1,000 ML IV ONE (21:05)
[2020-03-18] MEDS ORDERED: fentaNYL 100 mcg/2 ml 50 MCG/ML VIAL IV SLOW PU ONE (21:42)
[2020-03-18 22:40] LABS: ABS Lymphocytes 0.5 10^3/ul (1.0-4.8); ABS Monocytes 0.3 10^3/ul (0-0.8); Hematocrit 19 % (35-47); Hemoglobin 6.5 g/dL (12.0-16.0); Lymphocyte % 8.1 %; Mean Corpuscular HGB Conc 34 g/dL (31-36); Mean Corpuscular Hemoglobin 30 pg (27-31); Mean Corpuscular Volume 88 fL (80-97); Mean Platelet Volume 7.2 fL (7.4-10.4); Nucleated Red Blood Cells % 0.1; Platelet Count 106 10^3/uL (150-450); Red Blood Count 2.19 10^6 /uL (3.70-4.87); Red Cell Distribution Width 14 % (10-15); White Blood Count 5.8 10^3/uL (3.5-10.8)
[2020-03-18 22:49] LABS: INR 2.13 (0.82-1.09)
[2020-03-19] MEDS ORDERED: Ondansetron 4 mg VIAL 2 MG/ML 2 ml VIAL IV ONE (00:12)
[2020-03-19 00:44] LABS: Albumin 4.2 g/dL (3.2-5.2); CO2 Carbon Dioxide 23 mmol/L (22-32); Calcium 8.7 mg/dL (8.6-10.3); Chloride 106 mmol/L (101-111); Sodium 137 mmol/L (135-145)
[2020-03-19 00:50] LABS: ALT 16 U/L (7-52); Albumin/Globulin Ratio 1.7 (1-3); Alkaline Phosphatase 45 U/L (34-104); BUN/Creatinine Ratio 14.5 (8-20); Blood Urea Nitrogen 11 mg/dL (6-24); Creatine Kinase 131 U/L (10-223); EGFR African American 90.5 (>60); EGFR Non-African American 74.8 (>60); Globulin 2.5 g/dL (2-4); Glucose 110 mg/dL (70-100); Lipase 37 U/L (11.0-82.0); Total Protein 6.7 g/dL (6.4-8.9)
[2020-03-19 00:59] LABS: Anion Gap 8 mmol/L (2-11)
[2020-03-19 01:22] LABS: ABS Lymphocytes 1.1 10^3/ul (1.0-4.8); ABS Monocytes 0.7 10^3/ul (0-0.8); ABS Neutrophils 8.3 10^3/ul (1.5-7.7); Hematocrit 40 % (35-47); Hemoglobin 13.6 g/dL (12.0-16.0); Lymphocyte % 10.8 %; Mean Corpuscular HGB Conc 34 g/dL (31-36); Mean Corpuscular Hemoglobin 30 pg (27-31); Mean Corpuscular Volume 87 fL (80-97); Mean Platelet Volume 7.2 fL (7.4-10.4); Platelet Count 206 10^3/uL (150-450); Red Blood Count 4.61 10^6 /uL (3.70-4.87); Red Cell Distribution Width 14 % (10-15); White Blood Count 10.1 10^3/uL (3.5-10.8)
[2020-03-19 01:38] LABS: Potassium Redraw 3.7 mmol/L (3.5-5.0)
[2020-03-19] MEDS ORDERED: Iohexol 300 (CONTRAST) 10 ML SDV IV ONE (01:58)
[2020-03-19] MEDS: Pantoprazole 80 mg in NS BAG 80 MG/250 ML BAG IV ONE ×2 (01:59→03:10)
[2020-03-19] MEDS ORDERED: Morphine 2 MG/ML SYRINGE IV PRN (04:44)
[2020-03-19] MEDS ORDERED: Heparin 5000 UNITS/ML 1 mL VIAL SUBCUT SCH (06:00)
[2020-03-19] MEDS ORDERED: Albuterol HFA INHALER 8 gm MDI INH PRN (06:26)
[2020-03-19] MEDS: NS 0.9% 1000 ml BAG 1,000 ML IV SCH ×2 (07:34→17:28)
[2020-03-19] MEDS: Levothyroxine 100 MCG/5 ML VIAL IV SCH (07:43)
[2020-03-19 08:29] LABS: INR 1.04 (0.82-1.09)
[2020-03-19] MEDS: Mometasone/Formoter 200/5 MDI INH SCH ×3 (10:16→20:57)
[2020-03-19] MEDS: Pantoprazole VIAL 40 MG VIAL IV SCH (10:18)
[2020-03-19] MEDS: methylPREDNISolone SOD 40 mg/ml 1 ml VIAL IV SCH (10:18)
[2020-03-19] MEDS: Ondansetron 4 mg VIAL 2 MG/ML 2 ml VIAL IV PRN ×2 (11:51→16:48)
[2020-03-19] MEDS: Enoxaparin 40 MG/0.4 ML SYR SUBCUT SCH (14:27)
[2020-03-19 17:14] LABS: Urine Appearance Cloudy; Urine Bilirubin Negative (Negative); Urine Blood Negative (Negative); Urine Color Yellow; Urine Glucose Negative (Negative); Urine Ketones 1+ (Negative); Urine Nitrite Negative (Negative); Urine Protein Negative (Negative); Urine Specific Gravity 1.044 (1.010-1.030); Urine Urobilinogen Negative (Negative)
[2020-03-20] MEDS: NS 0.9% 1000 ml BAG 1,000 ML IV SCH ×3 (03:31→23:47)
[2020-03-20] MEDS: Levothyroxine 100 MCG/5 ML VIAL IV SCH (05:35)
[2020-03-20 06:12] LABS: ABS Lymphocytes 1.3 10^3/ul (1.0-4.8); ABS Monocytes 0.4 10^3/ul (0-0.8); Hematocrit 38 % (35-47); Hemoglobin 12.8 g/dL (12.0-16.0); Lymphocyte % 22.3 %; Mean Corpuscular HGB Conc 34 g/dL (31-36); Mean Corpuscular Hemoglobin 30 pg (27-31); Mean Corpuscular Volume 87 fL (80-97); Mean Platelet Volume 7.2 fL (7.4-10.4); Platelet Count 179 10^3/uL (150-450); Red Blood Count 4.29 10^6 /uL (3.70-4.87); Red Cell Distribution Width 14 % (10-15); White Blood Count 5.6 10^3/uL (3.5-10.8)
[2020-03-20 06:27] LABS: BUN/Creatinine Ratio 8.2 (8-20); Calcium 7.2 mg/dL (8.6-10.3); EGFR African American 94.8 (>60); EGFR Non-African American 78.4 (>60); Phosphorus 2.2 mg/dL (2.5-5.0); Potassium 3.6 mmol/L (3.5-5.0)
[2020-03-20] MEDS ORDERED: CALCIUM GLUCONATE 1GM/50ML NS 1 GM/50 ML BAG IV ONE (07:30)
[2020-03-20] MEDS ORDERED: Potassium Phosphate IV 10 MMOLE in NS 0.9% 250 ml 250 ML IVPB ONE (08:00)
[2020-03-20] MEDS: KCL 20 MEQ/100 ML IVPREMIX 20 MEQ/100 ML BAG IV SCH ×3 (08:22→16:18)
[2020-03-20] MEDS: Mometasone/Formoter 200/5 MDI INH SCH ×3 (08:26→20:16)
[2020-03-20] MEDS: methylPREDNISolone SOD 40 mg/ml 1 ml VIAL IV SCH (08:27)
[2020-03-20] MEDS: Pantoprazole VIAL 40 MG VIAL IV SCH (08:27)
[2020-03-20] MEDS: Enoxaparin 40 MG/0.4 ML SYR SUBCUT SCH (13:05)
[2020-03-21] MEDS: Levothyroxine 100 MCG/5 ML VIAL IV SCH (05:38)
[2020-03-21 06:22] LABS: ABS Lymphocytes 1.1 10^3/ul (1.0-4.8); ABS Monocytes 0.5 10^3/ul (0-0.8); ABS Neutrophils 4.5 10^3/ul (1.5-7.7); Hematocrit 41 % (35-47); Hemoglobin 13.7 g/dL (12.0-16.0); Lymphocyte % 17.8 %; Mean Corpuscular HGB Conc 34 g/dL (31-36); Mean Corpuscular Hemoglobin 30 pg (27-31); Mean Corpuscular Volume 88 fL (80-97); Mean Platelet Volume 7.3 fL (7.4-10.4); Nucleated Red Blood Cells % 0.1; Platelet Count 187 10^3/uL (150-450); Red Cell Distribution Width 14 % (10-15); White Blood Count 6.1 10^3/uL (3.5-10.8)
[2020-03-21 06:37] LABS: BUN/Creatinine Ratio 10.9 (8-20); Calcium 7.8 mg/dL (8.6-10.3); EGFR African American 110.4 (>60); EGFR Non-African American 91.2 (>60); Potassium 3.8 mmol/L (3.5-5.0)
[2020-03-21] MEDS: Mometasone/Formoter 200/5 MDI INH SCH ×2 (08:26→19:33)
[2020-03-21] MEDS: Pantoprazole VIAL 40 MG VIAL IV SCH (08:27)
[2020-03-21] MEDS: methylPREDNISolone SOD 40 mg/ml 1 ml VIAL IV SCH (08:27)
[2020-03-21] MEDS: NS 0.9% 1000 ml BAG 1,000 ML IV SCH ×2 (09:46→18:00)
[2020-03-21] MEDS: Enoxaparin 40 MG/0.4 ML SYR SUBCUT SCH (13:33)
[2020-03-21] MEDS ORDERED: diPHENhydraMINE IV 50 MG/ML 1 ml VIAL (BENADRYL) IV PRN (16:44)
[2020-03-22] MEDS: NS 0.9% 1000 ml BAG 1,000 ML IV SCH ×3 (01:54→18:42)
[2020-03-22] MEDS: Levothyroxine 100 MCG/5 ML VIAL IV SCH (05:24)
[2020-03-22 06:10] LABS: Albumin 3.8 g/dL (3.2-5.2); Albumin/Globulin Ratio 1.4 (1-3); BUN/Creatinine Ratio 14.5 (8-20); Calcium 7.6 mg/dL (8.6-10.3); EGFR African American 131.5 (>60); EGFR Non-African American 108.6 (>60); Globulin 2.7 g/dL (2-4); Magnesium 1.9 mg/dL (1.9-2.7); Phosphorus 1.9 mg/dL (2.5-5.0); Potassium 3.6 mmol/L (3.5-5.0); Total Bilirubin 1.9 mg/dL (0.2-1.0); Total Protein 6.5 g/dL (6.4-8.9)
[2020-03-22] MEDS: Mometasone/Formoter 200/5 MDI INH SCH ×2 (08:32→19:49)
[2020-03-22] MEDS: KCL 20 MEQ/100 ML IVPREMIX 20 MEQ/100 ML BAG IV SCH ×2 (08:46→13:47)
[2020-03-22] MEDS: methylPREDNISolone SOD 40 mg/ml 1 ml VIAL IV SCH (08:47)
[2020-03-22] MEDS: Pantoprazole VIAL 40 MG VIAL IV SCH (08:49)
[2020-03-22] MEDS: Enoxaparin 40 MG/0.4 ML SYR SUBCUT SCH (12:46)
[2020-03-22] MEDS ORDERED: Potassium Acid Phos 500 mg TAB PO ONE (16:59)
[2020-03-23] MEDS: NS 0.9% 1000 ml BAG 1,000 ML IV SCH (02:43)
[2020-03-23 05:10] LABS: BUN/Creatinine Ratio 14.5 (8-20); Calcium 7.3 mg/dL (8.6-10.3); EGFR African American 131.5 (>60); EGFR Non-African American 108.6 (>60); Magnesium 1.9 mg/dL (1.9-2.7); Potassium 3.6 mmol/L (3.5-5.0)
[2020-03-23] MEDS: Levothyroxine 100 MCG/5 ML VIAL IV SCH (06:07)
[2020-03-23 08:53] LABS: Albumin 3.9 g/dL (3.2-5.2); Albumin/Globulin Ratio 1.6 (1-3); Globulin 2.5 g/dL (2-4); Indirect Bilirubin 1.5 mg/dL (0.3-1.0); Total Bilirubin 1.8 mg/dL (0.2-1.0); Total Protein 6.4 g/dL (6.4-8.9)
[2020-03-23] MEDS: Mometasone/Formoter 200/5 MDI INH SCH ×2 (09:13→21:00)
[2020-03-23] MEDS: Pantoprazole VIAL 40 MG VIAL IV SCH (09:14)
[2020-03-23] MEDS: methylPREDNISolone SOD 40 mg/ml 1 ml VIAL IV SCH (09:14)
[2020-03-23] MEDS: Enoxaparin 40 MG/0.4 ML SYR SUBCUT SCH (13:21)
[2020-03-23] MEDS: Magnesium Hydroxide LIQ 30 ML UDC PO SCH (22:00)
[2020-03-24] MEDS: Levothyroxine 100 MCG/5 ML VIAL IV SCH (05:50)
[2020-03-24 06:38] LABS: BUN/Creatinine Ratio 13.2 (8-20); Calcium 7.9 mg/dL (8.6-10.3); EGFR African American 102.9 (>60); EGFR Non-African American 85.1 (>60); Magnesium 2.3 mg/dL (1.9-2.7); Phosphorus 1.8 mg/dL (2.5-5.0); Potassium 3.5 mmol/L (3.5-5.0)
[2020-03-24] MEDS ORDERED: Potassium Acid Phos 500 mg TAB PO ONE (07:41)
[2020-03-24] MEDS: Magnesium Hydroxide LIQ 30 ML UDC PO SCH (08:24)
[2020-03-24] MEDS: Pantoprazole VIAL 40 MG VIAL IV SCH (08:25)
[2020-03-24] MEDS: methylPREDNISolone SOD 40 mg/ml 1 ml VIAL IV SCH (08:25)
[2020-03-24] MEDS: Mometasone/Formoter 200/5 MDI INH SCH (08:26)
[2020-03-24 11:23] VITALS: BP 122/68
[2020-03-24] MEDS: Enoxaparin 40 MG/0.4 ML SYR SUBCUT SCH (13:40)
== END 2020-03-24 14:27 | disposition home or self-care (01) | DRG 389 ==
LOC: SSU 20:28 → ED 20:28 → SSU 03-19 06:42
PROVIDERS: ADMIT Internal Medicine; ATTEND Internal Medicine

== ENCOUNTER 2020-06-16 06:16 | Inpatient (IN) ==
[2020-06-16] MEDS ORDERED: Lactated Ringers 1000 ml BAG 1,000 ML IV ONE ×2 (06:26→08:57)
[2020-06-16] MEDS ORDERED: HYDROmorphone 0.5 MG/0.5 ML SYRINGE IV ONE (07:17)
[2020-06-16] MEDS ORDERED: Ondansetron 4 mg VIAL 2 MG/ML 2 ml VIAL IV ONE (07:17)
[2020-06-16 07:26] LABS: ABS Lymphocytes 0.7 10^3/ul (1.0-4.8); ABS Monocytes 0.9 10^3/ul (0-0.8); ABS Neutrophils 14.9 10^3/ul (1.5-7.7); Hematocrit 49 % (35-47); Hemoglobin 16.1 g/dL (12.0-16.0); Lymphocyte % 3.9 %; Mean Corpuscular HGB Conc 33 g/dL (31-36); Mean Corpuscular Hemoglobin 30 pg (27-31); Mean Corpuscular Volume 89 fL (80-97); Mean Platelet Volume 7.5 fL (7.4-10.4); Platelet Count 260 10^3/uL (150-450); Red Blood Count 5.43 10^6 /uL (3.70-4.87); Red Cell Distribution Width 14 % (10-15); White Blood Count 16.5 10^3/uL (3.5-10.8)
[2020-06-16 07:44] LABS: Albumin 4.4 g/dL (3.2-5.2); Albumin/Globulin Ratio 1.6 (1-3); C Reactive Protein 5.33 mg/L (<8.01); Calcium 9.4 mg/dL (8.6-10.3); EGFR Non-African American 50.4 (>60); Globulin 2.8 g/dL (2-4); Potassium 3.9 mmol/L (3.5-5.0); Total Bilirubin 1.7 mg/dL (0.2-1.0); Total Protein 7.2 g/dL (6.4-8.9)
[2020-06-16] MEDS ORDERED: Iodixanol (CONTRAST) 320 MG/ML 100 ML SDV IV ONE (08:14)
[2020-06-16] MEDS ORDERED: Levothyroxine 100 MCG/5 ML VIAL IV SCH (09:11)
[2020-06-16] MEDS: methylPREDNISolone SOD 40 mg/ml 1 ml VIAL IV SCH (10:53)
[2020-06-16] MEDS: Pantoprazole VIAL 40 MG VIAL IV SCH (10:53)
[2020-06-16] MEDS ORDERED: Albuterol HFA INHALER 8 gm MDI INH PRN (11:40)
[2020-06-16] MEDS ORDERED: Ondansetron 4 mg VIAL 2 MG/ML 2 ml VIAL IV PRN (11:42)
[2020-06-16] MEDS: HYDROmorphone 0.5 MG/0.5 ML SYRINGE IV SLOW PU PRN ×2 (11:48→20:08)
[2020-06-16] MEDS: NS 0.9% 1000 ml BAG 1,000 ML IV SCH ×2 (11:49→23:20)
[2020-06-16] MEDS: Heparin 5000 UNITS/ML 1 mL VIAL SUBCUT SCH ×2 (14:43→23:20)
[2020-06-16] MEDS: Levothyroxine 100 MCG/5 ML VIAL IV SCH (15:09)
[2020-06-16] MEDS: Mometasone/Formoter 200/5 MDI INH SCH (20:07)
[2020-06-17 04:55] LABS: ABS Lymphocytes 1.1 10^3/ul (1.0-4.8); ABS Monocytes 0.6 10^3/ul (0-0.8); ABS Neutrophils 5.7 10^3/ul (1.5-7.7); Hematocrit 39 % (35-47); Hemoglobin 13.1 g/dL (12.0-16.0); Lymphocyte % 14.7 %; Mean Corpuscular HGB Conc 33 g/dL (31-36); Mean Corpuscular Hemoglobin 30 pg (27-31); Mean Corpuscular Volume 89 fL (80-97); Mean Platelet Volume 7.4 fL (7.4-10.4); Platelet Count 205 10^3/uL (150-450); Red Blood Count 4.41 10^6 /uL (3.70-4.87); Red Cell Distribution Width 14 % (10-15); White Blood Count 7.4 10^3/uL (3.5-10.8)
[2020-06-17 05:16] LABS: BUN/Creatinine Ratio 14.5 (8-20); Calcium 7.8 mg/dL (8.6-10.3); EGFR African American 101.2 (>60); EGFR Non-African American 83.6 (>60); Potassium 3.9 mmol/L (3.5-5.0)
[2020-06-17] MEDS: Heparin 5000 UNITS/ML 1 mL VIAL SUBCUT SCH ×3 (06:09→21:31)
[2020-06-17] MEDS: Levothyroxine 100 MCG/5 ML VIAL IV SCH (06:09)
[2020-06-17] MEDS: methylPREDNISolone SOD 40 mg/ml 1 ml VIAL IV SCH (09:38)
[2020-06-17] MEDS: NS 0.9% 1000 ml BAG 1,000 ML IV SCH (09:38)
[2020-06-17] MEDS: Pantoprazole VIAL 40 MG VIAL IV SCH (09:39)
[2020-06-17] MEDS: Mometasone/Formoter 200/5 MDI INH SCH ×2 (09:39→19:52)
[2020-06-18] MEDS: NS 0.9% 1000 ml BAG 1,000 ML IV SCH ×3 (02:14→22:08)
[2020-06-18] MEDS: Heparin 5000 UNITS/ML 1 mL VIAL SUBCUT SCH ×3 (05:49→22:06)
[2020-06-18] MEDS: Levothyroxine 100 MCG/5 ML VIAL IV SCH (05:49)
[2020-06-18 07:45] LABS: ABS Monocytes 0.5 10^3/ul (0-0.8); ABS Neutrophils 5.2 10^3/ul (1.5-7.7); Hematocrit 42 % (35-47); Hemoglobin 13.8 g/dL (12.0-16.0); Mean Corpuscular HGB Conc 33 g/dL (31-36); Mean Corpuscular Hemoglobin 30 pg (27-31); Mean Corpuscular Volume 90 fL (80-97); Mean Platelet Volume 7.1 fL (7.4-10.4); Platelet Count 196 10^3/uL (150-450); Red Blood Count 4.65 10^6 /uL (3.70-4.87); Red Cell Distribution Width 14 % (10-15); White Blood Count 6.7 10^3/uL (3.5-10.8)
[2020-06-18 08:09] LABS: BUN/Creatinine Ratio 12.5 (8-20); Calcium 7.8 mg/dL (8.6-10.3); EGFR African American 110.4 (>60); EGFR Non-African American 91.2 (>60); Potassium 3.8 mmol/L (3.5-5.0)
[2020-06-18] MEDS: Mometasone/Formoter 200/5 MDI INH SCH ×2 (08:41→19:32)
[2020-06-18] MEDS: methylPREDNISolone SOD 40 mg/ml 1 ml VIAL IV SCH (10:28)
[2020-06-18] MEDS: Pantoprazole VIAL 40 MG VIAL IV SCH (10:30)
[2020-06-18 16:10] LABS: Urine Appearance Clear; Urine Bilirubin Negative (Negative); Urine Blood 1+ (Negative); Urine Color Straw; Urine Glucose Negative (Negative); Urine Ketones 2+ (Negative); Urine Nitrite Negative (Negative); Urine Protein Negative (Negative); Urine Specific Gravity 1.009 (1.010-1.030); Urine Urobilinogen Negative (Negative)
[2020-06-18 16:13] LABS: Urine Bacteria Absent (Absent); Urine Red Blood Cell Trace(0-2/hpf) (Absent); Urine White Blood Cell Trace(0-5/hpf) (Absent)
[2020-06-19] MEDS: Heparin 5000 UNITS/ML 1 mL VIAL SUBCUT SCH ×3 (05:45→22:39)
[2020-06-19] MEDS: Levothyroxine 100 MCG/5 ML VIAL IV SCH (05:46)
[2020-06-19] MEDS: NS 0.9% 1000 ml BAG 1,000 ML IV SCH (08:13)
[2020-06-19] MEDS: Pantoprazole VIAL 40 MG VIAL IV SCH (08:44)
[2020-06-19] MEDS: methylPREDNISolone SOD 40 mg/ml 1 ml VIAL IV SCH (08:44)
[2020-06-19 08:49] LABS: ABS Lymphocytes 1.2 10^3/ul (1.0-4.8); ABS Monocytes 0.4 10^3/ul (0-0.8); ABS Neutrophils 3.7 10^3/ul (1.5-7.7); Hematocrit 41 % (35-47); Hemoglobin 13.6 g/dL (12.0-16.0); Mean Corpuscular HGB Conc 34 g/dL (31-36); Mean Corpuscular Hemoglobin 30 pg (27-31); Mean Corpuscular Volume 89 fL (80-97); Mean Platelet Volume 7.1 fL (7.4-10.4); Nucleated Red Blood Cells % 0.1; Platelet Count 195 10^3/uL (150-450); Red Blood Count 4.57 10^6 /uL (3.70-4.87); Red Cell Distribution Width 13 % (10-15); White Blood Count 5.3 10^3/uL (3.5-10.8)
[2020-06-19 09:08] LABS: BUN/Creatinine Ratio 19.3 (8-20); Calcium 7.8 mg/dL (8.6-10.3); EGFR African American 126.2 (>60); EGFR Non-African American 104.3 (>60); Potassium 3.8 mmol/L (3.5-5.0)
[2020-06-19] MEDS: Mometasone/Formoter 200/5 MDI INH SCH ×2 (09:11→19:51)
[2020-06-20] MEDS: NS 0.9% 1000 ml BAG 1,000 ML IV SCH ×2 (05:28→15:43)
[2020-06-20] MEDS: Levothyroxine 100 MCG/5 ML VIAL IV SCH (05:29)
[2020-06-20] MEDS: Heparin 5000 UNITS/ML 1 mL VIAL SUBCUT SCH ×3 (05:29→22:19)
[2020-06-20] MEDS: Pantoprazole VIAL 40 MG VIAL IV SCH (08:45)
[2020-06-20] MEDS: methylPREDNISolone SOD 40 mg/ml 1 ml VIAL IV SCH (08:47)
[2020-06-20 09:20] LABS: ABS Lymphocytes 0.9 10^3/ul (1.0-4.8); ABS Monocytes 0.4 10^3/ul (0-0.8); ABS Neutrophils 3.1 10^3/ul (1.5-7.7); Hematocrit 41 % (35-47); Hemoglobin 13.9 g/dL (12.0-16.0); Mean Corpuscular HGB Conc 34 g/dL (31-36); Mean Corpuscular Hemoglobin 30 pg (27-31); Mean Corpuscular Volume 89 fL (80-97); Mean Platelet Volume 7.2 fL (7.4-10.4); Platelet Count 210 10^3/uL (150-450); Red Cell Distribution Width 14 % (10-15); White Blood Count 4.5 10^3/uL (3.5-10.8)
[2020-06-20 09:46] LABS: BUN/Creatinine Ratio 17.9 (8-20); Calcium 7.6 mg/dL (8.6-10.3); EGFR African American 128.8 (>60); EGFR Non-African American 106.4 (>60); Potassium 3.6 mmol/L (3.5-5.0)
[2020-06-20] MEDS: Mometasone/Formoter 200/5 MDI INH SCH ×2 (10:52→19:42)
[2020-06-20] MEDS ORDERED: Magnesium Hydroxide LIQ 30 ML UDC PO ONE (11:06)
[2020-06-20] MEDS ORDERED: Magnesium Hydroxide LIQ 30 ML UDC ONE (11:11)
[2020-06-21] MEDS: NS 0.9% 1000 ml BAG 1,000 ML IV SCH ×2 (01:05→11:04)
[2020-06-21] MEDS: Heparin 5000 UNITS/ML 1 mL VIAL SUBCUT SCH ×2 (05:44→14:10)
[2020-06-21] MEDS: Levothyroxine 100 MCG/5 ML VIAL IV SCH (05:45)
[2020-06-21] MEDS: Pantoprazole VIAL 40 MG VIAL IV SCH (08:47)
[2020-06-21] MEDS: methylPREDNISolone SOD 40 mg/ml 1 ml VIAL IV SCH (08:50)
[2020-06-21] MEDS: Mometasone/Formoter 200/5 MDI INH SCH (09:40)
[2020-06-21 11:30] VITALS: BP 137/81
== END 2020-06-21 15:40 | disposition home or self-care (01) | DRG 389 ==
LOC: ED 06:16 → SSU 09:08
PROVIDERS: ADMIT Internal Medicine; ATTEND Pediatrics